=== PATIENT | female | born 1955 | race Caucasian/White ===

== ENCOUNTER 2019-07-06 10:35 | Inpatient (IN) | payer MEDICARE, MEDICAID, SELFPAY ==
--- NOTE | ~2019-07-06 | CT_ITS ---
EXAMINATION: CT abdomen pelvis w con DATE: 07/06/2019 14:40 INDICATION: Dysuria. Nausea and vomiting. Abdominal pain. TECHNIQUE: Computed tomography (CT) of the abdomen and pelvis was performed with 100 mL Omnipaque 350 intravenous contrast. Automated exposure control and iterative reconstruction technique were employe d. The dose-length product was 533.39 mGy-cm. COMPARISON: CT abdomen and pelvis 10/02/2016 FINDINGS: The visualized portions of the lung bases demonstrate mild atelectasis. There are a few sca ttered nodules in the lungs measuring up to 5 mm, new from 10/02/2016. No pleural effusion. There is l eft atrial enlargement of the heart. There are coronary artery calcifications. There is a small peric ardial effusion, stable from 10/02/2016. The liver demonstrates surface nodularity, consistent with ci rrhosis. There are changes of cholecystectomy. The spleen is normal in size. The pancreas and adrenal glands are normal. There is cortical thinning of the kidneys. There is an 11 mm cyst in right kidney . There is diverticulosis of the colon without evidence of diverticulitis. There are no dilated loops of bowel. The appendix is normal. There is calcified atherosclerosis of the aorta and many of the ot her arteries. There are no pathologically enlarged lymph nodes. There is no free intraperitoneal flui d. There is mild thoracolumbar spondylosis. There are old healed bilateral rib fractures. IMPRESSION: 1. New small pulmonary nodules, most likely infection. 2. Cirrhosis of the liver. 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
--- NOTE | ~2019-07-06 | XR_ITS ---
EXAMINATION: XR chest 2V EXAM DATE: 07/06/2019 13:41 INDICATION: Shortness of breath, nausea and vomiting. TECHNIQUE: Frontal and lateral projections of the chest obtained and reviewed. Comparison is made to prior examination from 04/28/2018. FINDINGS: The lungs are clear. There are no pleural effusions. The cardiomediastinal silhouette is within normal limits. There is no pneumothorax suspected. There is old right mid clavicular fractur e. IMPRESSION: No acute cardiopulmonary findings. 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
[2019-07-06 10:52] VITALS: BP 138/75; PULSE 73; RESP 18; TEMP 35.8; O2SAT 100
[2019-07-06 12:49] LABS: Add Urine Microscopic? YES; Appearance Urine Turbid (Clear); Bacteria Urine 4+ /hpf; Bilirubin Urine Negative (Negative); Blood Urine Negative (Negative); Budding Yeast Urine Present /hpf; Color Urine Yellow (Yellow); Glucose Urine UA Negative (Negative); Ketones Urine Negative (Negative); Leukocyte Esterase Ur 3+ LEU/UL (Negative); Nitrate Urine Negative (Negative); Protein Urine 2+ mg/dL (Negative); RBC Urine 21-50 /hpf (0-2); Specific Grav Ur 1.017 (1.001-1.035); Squamous Epithelial Cell Urine Moderate /hpf (Few); Urobilinogen Urine Negative mg/dL (<2.0); WBC Clumps Urine Present /HPF; WBC Urine >75
[2019-07-06] MEDS: IPRATROPIUM BR 0.02% INH SOLN 0.5 MG/2.5 ML VIAL INHALATION (13:18)
[2019-07-06] MEDS: ALBUTEROL SULFATE NEB 2.5 MG/0.5 ML INH 5 MG INHALATION (13:18)
[2019-07-06 13:22] VITALS: PULSE 71; RESP 16
[2019-07-06 13:44] LABS: Basophils Absolute Auto 0.1 K/mm3 (0.0-0.1); Basophils Percent Auto 0.7 % (0.2-1.2); Eosinophils Absolute Auto 0.1 K/mm3 (0-0.3); Eosinophils Percent Auto 0.5 % (0-4.4); Hematocrit 31.1 % (37.0-47.0); Hemoglobin 9.7 g/dL (12.0-15.0); Immature Granulocyte Absolute 0.05 K/mm3 (0.00-0.031); Immature Granulocyte Percent A 0.4 % (0-0.5); Lymphocytes Absolute Auto 2.39 K/mm3 (0.9-3.2); Lymphocytes Percent Auto 18.4 % (18.3-44.2); Mean Corpuscular HGB Conc 31.2 g/dl (32-36); Mean Corpuscular Hemoglobin 22.9 pg (26-34); Mean Corpuscular Volume 73.5 fl (80-100); Mean Platelet Volume 11.1 fl (7.4-10.4); Monocytes Absolute Auto 0.6 K/mm3 (0.1-0.6); Monocytes Percent Auto 4.7 % (2.6-8.5); Neutrophils Absolute Auto 9.8 K/mm3 (1.3-6.7); Neutrophils Percent Auto 75.3 % (45.5-73.1); Platelet Count Result 463 k/mm3 (150-375); Red Blood Count 4.23 M/mm3 (4.2-5.4); Red Cell Distribution Width 19.9 % (11.5-14.5)
[2019-07-06 13:57] LABS: INR 1.1; Prothrombin Time 13.9 Seconds (11.1-14.7)
[2019-07-06] MEDS: SODIUM CHLORIDE 0.9% IV 1,000 ML 150 ML IV CONT (13:57)
[2019-07-06] MEDS: ONDANSETRON INJ 4 MG/2 ML VIAL IV PUSH (13:57)
[2019-07-06 14:15] LABS: Lactic Acid Reflex 1.4 mmol/L (0.7-2.1)
[2019-07-06 14:16] LABS: Alanine Aminotransferase 15 U/L (4-35); Alkaline Phosphatase 73 U/L (38-126); Aspartate Amino Transferase 65 U/L (14-36); Bilirubin,Total 0.2 mg/dL (0.2-1.3); Blood Urea Nitrogen 18 mg/dL (7-17); Calcium 9.4 mg/dL (8.4-10.2); Carbon Dioxide 26 mmol/L (22-30); Chloride 103 mmol/L (98-107); Estimated CRCL calculation 46 ml/min; Estimated Glomerular Filt Rate 55; Glucose 106 mg/dL (65-105); Lipase 117 U/L (23-300); Potassium 3.5 mmol/L (3.4-5.0); Sodium 138 mmol/L (137-145)
[2019-07-06 14:24] LABS: NT Pro B Type Natriuretic Pept 1450 PG/ML (5-100)
--- NOTE | 2019-07-06 15:43 | ED.ABDPAIN ---
HPI - Abdominal Pain General Chief Complaint: Urogenital-Female <Rebekah Ramos PA-C - Last Filed: 07/06/19 18:03> Stated Complaint: dysuria <Rebekah Ramos PA-C - Last Filed: 07/06/19 18:03> Time Seen by Provider: 07/06/19 11:48 <Rebekah Ramos PA-C - Last Filed: 07/06/19 18:03> Source: patient <Rebekah Ramos PA-C - Last Filed: 07/06/19 18:03> Mode of arrival: ambulatory <ROSALIE Menendez Last Filed: 07/06/19 18:03> Limitations: no limitations <Rebekah Ramos PA-C - Last Filed: 07/06/19 18:03> History of Present Illness HPI narrative: This is a 64 year old female that presents to the ER for dysuria x 3 days. Reports nausea and vomiting as well. Reports for the last week she has had diarrhea. Also reports cough, congestion and shortness of breath. Denies fever, chest pain, hematuria or hematochezia. <Rebekah Ramos PA-C - Last Filed: 07/06/19 18:03> Related Data Home Medications: Home Medications Medication Instructions Recorded Confirmed budesonide-formoterol [Symbicort] 2 puff INHALATION BID 07/05/19 fenofibrate 160 mg PO DAILY 07/05/19 levetiracetam 500 mg PO BID 07/05/19 levothyroxine 75 mcg PO DAILY 07/05/19 metformin 500 mg PO TID 07/05/19 pantoprazole 40 mg PO DAILY 07/05/19 quetiapine 400 mg PO HS 07/05/19 roflumilast [Daliresp] 500 mcg PO DAILY 07/05/19 rosuvastatin 40 mg PO DAILY 07/05/19 spironolactone 25 mg PO DAILY 07/05/19 ticagrelor [Brilinta] 90 mg PO BID 07/05/19 tiotropium bromide [Spiriva with 1 cap INHALATION DAILY 07/05/19 HandiHaler] insulin glargine [Lantus Solostar 65 unit SUBCUT DAILY 07/06/19 07/06/19 U-100 Insulin] nitroglycerin 0.4 mg SUBLINGUAL Q5M PRN 07/06/19 07/06/19 <Rebekah Ramos PA-C - Last Filed: 07/06/19 18:03> Allergies/Adverse Reactions: Allergies Allergy/AdvReac Type Severity Reaction Status Date / Time levofloxacin Allergy Severe Swelling Verified 07/05/19 16:37 of Lip/Tongue/Throat Penicillins Allergy Unknown Swelling Verified 07/05/19 16:37 tetracycline Allergy Unknown Swelling Verified 07/05/19 16:37 Tetracyclines Allergy Unknown Swelling Verified 07/05/19 16:37 <Rebekah Ramos PA-C - Last Filed: 07/06/19 18:03> Review of Systems Review of Systems: Narrative: CONSTITUTIONAL: Denies fever ENT: Reports rhinorrhea, congestion CARDIOVASCULAR: Denies chest pain, or edema. RESPIRATORY: Reports cough and dyspnea. GASTROINTESTINAL: Reports abdominal pain, nausea, vomiting, and diarrhea. GENITOURINARY: Reports dysuria. Denies hematuria. MUSCULOSKELETAL: Reports back pain <Rebekah Ramos PA-C - Last Filed: 07/06/19 18:03> All systems reviewed & are unremarkable except as noted in HPI and below <Rebekah Ramos PA-C - Last Filed: 07/06/19 18:03> [facility] Past Medical History Medical History: Medical History (Updated 07/06/19 @ 18:03 by Rebekah Ramos PA-C) CAD (coronary artery disease) (Acute) CHF (congestive heart failure) (Acute) COPD (chronic obstructive pulmonary disease) (Acute) Diabetes (Acute) Dyslipidemia (Acute) GERD (gastroesophageal reflux disease) (Acute) Hypertension (Acute) Hypothyroidism (Acute) Sleep apnea (Acute) <Rebekah Ramos PA-C - Last Filed: 07/06/19 18:03> Surgical History Surgical History: Surgical History (Updated 07/06/19 @ 16:01 by Rebekah Ramos PA-C) H/O cardiac catheterization (Acute) H/O thyroidectomy (Acute) History of cholecystectomy (Acute) History of hysterectomy (Acute) <Rebekah Ramos PA-C - Last Filed: 07/06/19 18:03> Family History Family History: Family History (Updated 07/06/19 @ 18:56 by Cheryl Marin RN) Mother Family history of heart disease in male family member before age 55 Family history of cardiovascular disease Diabetes mellitus Hypertension Sibling Family history of heart disease in male family member before age 55 Acute myocardial infarction Diabetes mellitus
[2019-07-06 16:29] VITALS: BP 141/42; PULSE 77; RESP 18; TEMP 37.3; O2SAT 99
[2019-07-06 16:50] LABS: Hematocrit 27.4 % (37.0-47.0); Hemoglobin 8.5 g/dL (12.0-15.0)
--- NOTE | 2019-07-06 18:06 | ADMGEN ---
This patient, Raissa Gibbons, was admitted to Medical Room 342-01. Patient arrived to unit per wheelchair at 1806. Patient/family oriented to hospital policies and general routines including ID bracelet, bed and alarms, visiting hours, pain management, procedures, bathroom and other care routines, personal items, smoking policy, room service/diet, and visiting hours. Valuables list has been completed. Information on how to activate the Rapid Response Team has been discussed. Patient/Family are encouraged to report perceived risks to care and to ask questions if they do not understand what they are told or what they should do.
[2019-07-06 21:00] VITALS: PULSE 69; RESP 16; O2SAT 98
[2019-07-06 21:23] VITALS: BP 138/60; PULSE 69; RESP 16; TEMP 36.6; O2SAT 98
[2019-07-06 21:40] LABS: Hematocrit 27.4 % (37.0-47.0); Hemoglobin 8.3 g/dL (12.0-15.0); Immature Reticulocyte Fraction 25.7 % (3.0-15.9); Reticulocyte Hemoglobin Conten 24.1 pg (28.2-35.7); Reticulocytes Absolute 0.07 B/L (32.2-175.7)
[2019-07-06 21:50] LABS: Lactate Dehydrogenase 460 U/L (313-618)
[2019-07-06 21:58] LABS: Transferrin 322 mg/dL (206-381)
[2019-07-06 22:03] LABS: Bilirubin,Total < 0.1 mg/dL (0.2-1.3)
[2019-07-06 22:09] LABS: Iron 26 ug/dL (37-170)
[2019-07-06 22:19] LABS: Percent Iron Saturation 6 % (20-50)
[2019-07-06 22:41] LABS: Thyroid Stimulating Hormone Reflex 0.771 uIU/mL (0.465-4.68)
[2019-07-06 22:58] LABS: Folic Acid 9.8 ng/mL (2.76->20)
[2019-07-07] VITALS (14 sets, daily range): BP systolic 133–159; BP diastolic 43–59; PULSE 60–75; RESP 16–22; TEMP 36.3–36.4; O2SAT 96–98
[2019-07-07 02:32] LABS: Glucose Point of Care 100 (65-105)
--- NOTE | 2019-07-07 05:02 | PM.IMHP ---
H&P: HPI History of Present Illness Chief complaint: Burning with urination Narrative: Raissa Gibbons is a 64 year old female with a past medical history of COPD, chronic tobacco use, hypertension, hypothyroidism, and prior urinary tract infections who presented to the ER with dysuria and concerned that she may be dehydrated. The patient stated that she suspected she was probably dehydrated because she has been having intermittent nausea and vomiting and diarrhea for the last week. She states that is she has had significant postnasal drip, green nasal discharge, and frequent coughing. She states when she has significant mucus production she usually does get some nausea vomiting and loose stools. She denies any hematochezia or melena. After several days of nausea and vomiting the patient then noticed dark, strong smelling urine, with some dysuria and floating material. She has noticed intermittent fever for the last 3 days with a patient reported measured temperature of a 103?. She denies any recent ill contacts. She denies any hematochezia or melena. She has had decreased oral intake and decreased appetite. She reports that her respiratory symptoms have improved over the last several days. She has been using her nebulizer treatments at home 3 to 4 times a day with some relief of her respiratory symptoms. She denies any sore throat. She does have GERD symptoms multiple times a day. She is on Protonix at home. She reports that she had an EGD sometime around when she had her gallbladder taken out in 2012 and has been started on treatment at that time. Despite being on the Protonix she has increased reflux symptoms with supine position, she has chronic sour taste in her mouth, she reports discomfort several times a day from reflux. She denies any chest pain. She denies any increased shortness of breath. She has being feeling lightheaded with position changes for the last couple of days. She has had increased urinary urgency and frequency with dribbling. She has noticed increased cramping in her feet and legs. She denies any swelling of her lower extremities. She denies any abdominal pain. She does have chronic nasal stuffiness that is usually improved with Flonase. Review of Systems Review of Systems: Narrative: Except as documented in the HPI, all other systems were reviewed and are negative. [facility] Past Medical History Medical History (Updated 07/07/19 @ 08:53 by Radha Guillen DO) CAD (coronary artery disease) (Acute) Cirrhosis (Acute) COPD (chronic obstructive pulmonary disease) (Acute) Diabetes (Acute) Diastolic heart failure (Acute) Dyslipidemia (Acute) GERD (gastroesophageal reflux disease) (Acute) Hypertension (Acute) Hypertriglyceridemia (Acute) Hypothyroidism (Acute) Post-menopausal osteoporosis (Acute) Sleep apnea (Acute) Tobacco abuse disorder (Chronic) Surgical History Surgical History (Updated 07/07/19 @ 05:12 by Radha Guillen DO) H/O cardiac catheterization (Acute) H/O thyroidectomy (Acute) History of cholecystectomy (Acute) History of hysterectomy for cancer (Acute) Family History Family History (Updated 07/07/19 @ 05:14 by Radha Guillen DO) Mother Family history of heart disease in male family member before age 55 Family history of cardiovascular disease Diabetes mellitus Hypertension Sibling Family history of heart disease in male family member before age 55 Acute myocardial infarction Diabetes mellitus Hypertension Social History Social History (Updated 07/07/19 @ 08:42 by Radha Guillen DO) Social History: The patient lives in her own home with a roommate. She has a small dog and a large cat. She continues to smoke a pack of cigarettes per day and has done so since she was 16 years old. She denies any illicit substance use. She denies ever drinking alcohol. Code status is full code. Family history: Mother with uterine cancer diabetes and CT and is still alive in her 80
[2019-07-07 05:32] LABS: Basophils Absolute Auto 0.1 K/mm3 (0.0-0.1); Basophils Percent Auto 0.8 % (0.2-1.2); Eosinophils Absolute Auto 0.2 K/mm3 (0-0.3); Eosinophils Percent Auto 1.6 % (0-4.4); Hematocrit 27.9 % (37.0-47.0); Hemoglobin 8.4 g/dL (12.0-15.0); Immature Granulocyte Absolute 0.02 K/mm3 (0.00-0.031); Immature Granulocyte Percent A 0.2 % (0-0.5); Lymphocytes Absolute Auto 2.77 K/mm3 (0.9-3.2); Lymphocytes Percent Auto 29.1 % (18.3-44.2); Mean Corpuscular HGB Conc 30.1 g/dl (32-36); Mean Corpuscular Hemoglobin 22.8 pg (26-34); Mean Corpuscular Volume 75.6 fl (80-100); Mean Platelet Volume 10.9 fl (7.4-10.4); Monocytes Absolute Auto 0.6 K/mm3 (0.1-0.6); Monocytes Percent Auto 6.4 % (2.6-8.5); Neutrophils Absolute Auto 5.9 K/mm3 (1.3-6.7); Neutrophils Percent Auto 61.9 % (45.5-73.1); Platelet Count Result 360 k/mm3 (150-375); Red Blood Count 3.69 M/mm3 (4.2-5.4); Red Cell Distribution Width 19.8 % (11.5-14.5); White Blood Count 9.5 K/mm3 (4.5-10.0)
[2019-07-07 05:47] LABS: Blood Urea Nitrogen 16 mg/dL (7-17); Calcium 8.7 mg/dL (8.4-10.2); Carbon Dioxide 27 mmol/L (22-30); Chloride 103 mmol/L (98-107); Estimated CRCL calculation 46 ml/min; Estimated Glomerular Filt Rate 55; Glucose 86 mg/dL (65-105); Magnesium 2.3 mg/dL (1.6-2.3); Potassium 3.7 mmol/L (3.4-5.0); Sodium 138 mmol/L (137-145)
[2019-07-07] MEDS: SODIUM CHLORIDE 0.9% IV 250 ML 100 ML IV CONT (06:41)
[2019-07-07] MEDS: LEVOTHYROXINE SODIUM 75 MCG TABLET PO (06:42)
[2019-07-07 07:01] LABS: Glucose Point of Care 88 (65-105)
[2019-07-07] MEDS: IRON SUCROSE COMPLEX 500 MG in SODIUM CHLORIDE 0.9% IV 250 ML 78.6 MG IVPB (09:37)
[2019-07-07] MEDS: FENOFIBRATE 160 MG TABLET PO (09:37)
[2019-07-07] MEDS: ROFLUMILAST 500 MCG TABLET PO (09:38)
[2019-07-07] MEDS: levETIRAcetam 500 MG TABLET PO ×2 (09:38→17:08)
[2019-07-07] MEDS: PANTOPRAZOLE SODIUM IV 40 MG VIAL IV PUSH ×2 (09:38→17:08)
[2019-07-07] MEDS: ROSUVASTATIN 10 MG TABLET 40 MG PO (09:38)
[2019-07-07] MEDS: SODIUM CHLORIDE 0.9% IV 1,000 ML 100 ML IV CONT ×2 (09:40→20:49)
[2019-07-07] MEDS: INSULIN GLARGINE (*BKC) 100 UNITS/ML 65 UNITS SUB-Q (09:49)
[2019-07-07] MEDS: IPRATROPIUM BR 0.02% INH SOLN 0.5 MG/2.5 ML VIAL INHALATION ×3 (09:52→20:46)
[2019-07-07] MEDS: ALBUTEROL SULFATE NEB 2.5 MG/0.5 ML INH 5 MG INHALATION (09:52)
[2019-07-07 11:16] LABS: Hematocrit 28.5 % (37.0-47.0); Hemoglobin 8.6 g/dL (12.0-15.0)
[2019-07-07 12:00] LABS: Glucose Point of Care 144 (65-105)
--- NOTE | 2019-07-07 13:14 | PM.IMPN ---
Progress Note: A&P Assessment and Plan (1) Anemia: Qualifiers: Anemia type: other cause Other causes of anemia: acute posthemorrhagic Qualified Code(s): D62 - Acute posthemorrhagic anemia Code(s): D64.9 - Anemia, unspecified Status: Acute Assessment and Plan: Iron deficiency anemia likely secondary to occult GI losses. Given the patient's history of upper GI sources likely. Will start the patient on IV Protonix b.i.d.. Gastroenterology is consulted. pt has history of esophagitis and liver cirrhois, venofer continue to monitor hb (2) Bacteriuria with pyuria: Code(s): R82.71 - Bacteriuria; R82.81 - Pyuria Status: Acute Assessment and Plan: Concerning for possible urinary tract infection. Placed on antibiotic therapy with Rocephin (3) GERD (gastroesophageal reflux disease): Qualifiers: Esophagitis presence: esophagitis presence not specified Qualified Code(s): K21.9 - Gastro-esophageal reflux disease without esophagitis Code(s): K21.9 - Gastro-esophageal reflux disease without esophagitis Status: Acute Assessment and Plan: B.i.d. IV Protonix. (4) Cirrhosis: Code(s): K74.60 - Unspecified cirrhosis of liver Status: Acute Assessment and Plan: CT evidence of cirrhosis. unknown cause (5) Tobacco abuse disorder: Code(s): Z72.0 - Tobacco use Status: Chronic Assessment and Plan: smoking cessation discussed with patient (6) COPD (chronic obstructive pulmonary disease): Code(s): J44.9 - Chronic obstructive pulmonary disease, unspecified Status: Acute Assessment and Plan: no resp compliants. Will continue the patient's home Symbicort. Subjective Interval history: 64 year old female with a past medical history of COPD, chronic tobacco use, hypertension, hypothyroidism, and prior urinary tract infections who presented to the ER with dysuria and concerned that she may be dehydrated. Pt has history of esophagitis and cirrhois ? rectal bleed pt receiving venofer today and fluids Review of Systems Review of Systems: All systems reviewed & are unremarkable except as noted in HPI and below Gastrointestinal: Comments: rectal bleeds Exam Const: Other: PHYSICAL EXAM: WEIGHT weight 72.6 kg BMI 29.3 General: middle aged overweight Neck: No JVD Respiratory: clear Cardiovascular: Regular rate, normal S1-S2, 2+ pulses bilateral radial and pedal no lower extremity edema Gastrointestinal: Soft, nontender, nondistended, positive bowel sounds Skin: No jaundice, no pallor, normal temperature Extremities: No cyanosis or edema, moves all extremities equally Neurological: Alert and oriented, speech is clear, cranial nerves 2-12 appear to be grossly intact Psychiatric: Loquacious, cooperative, appropriate mood, insight appropriate Objective Data Vital Signs Vital Signs: Vital Signs - 24 hr 07/06/19 13:22 07/06/19 16:29 07/06/19 21:00 Temperature 37.3 C Pulse Rate 71 77 69 Respiratory Rate 16 18 16 Blood Pressure 141/42 H Pulse Oximetry 99 98 07/06/19 21:23 07/07/19 05:32 07/07/19 08:00 Temperature 36.6 C 36.4 C Pulse Rate 69 60 68 Respiratory Rate 16 16 18 Blood Pressure 138/60 141/59 H Pulse Oximetry 98 98 98 07/07/19 09:53 07/07/19 10:01 Temperature Pulse Rate 65 68 Respiratory Rate 18 18 Blood Pressure Pulse Oximetry Intake/Output Intake/Output: Intake & Output 07/04/19 07/05/19 07/06/19 07/07/19 23:59 23:59 23:59 23:59 Intake Total 1630 1502 Output Total 650 Balance 1630 852 Meds/Results Medications: Active Medications Generic Name Dose Route Start Last Admin Trade Name Freq PRN Reason Stop Dose Admin Albuterol 5 mg 07/07/19 08:00 07/07/19 09:52 Albuterol Sulfate Neb INHALATION 5 mg Q6HRT KRISTIE Administration Budesonide/Formoterol Fumarate 2 puff 07/07/19 08:00 07/07/19 09:52 Symbicort 160-4.5 Mcg (*Sp) Inh
--- NOTE | 2019-07-07 14:14 | WPDGICN ---
Assessment and Plan Assessment and plan (1) Iron deficiency anemia: Qualifiers: Iron deficiency anemia type: other iron deficiency Qualified Code(s): D50.8 - Other iron deficiency anemias Code(s): D50.9 - Iron deficiency anemia, unspecified Status: Acute Assessment and Plan: will proceed with EGD and colonoscopy Tuesday to see if GI blood loss (2) Cirrhosis: Qualifiers: Ascites presence: without ascites Hepatic cirrhosis type: unspecified hepatic cirrhosis Qualified Code(s): K74.60 - Unspecified cirrhosis of liver Code(s): K74.60 - Unspecified cirrhosis of liver Status: Acute Assessment and Plan: she is aware of diagnosis, has not seen GI doctor. ? WILLSON (history of DM). Will get hepatitis panel. Normal INR and platelets. (3) Urinary tract infection: Qualifiers: Hematuria presence: with hematuria Urinary tract infection type: acute cystitis Qualified Code(s): N30.01 - Acute cystitis with hematuria Code(s): N39.0 - Urinary tract infection, site not specified Status: Acute Assessment and Plan: on iv antibiotics (4) COPD (chronic obstructive pulmonary disease): Code(s): J44.9 - Chronic obstructive pulmonary disease, unspecified Status: Acute (5) Diarrhea: Qualifiers: Diarrhea type: unspecified type Qualified Code(s): R19.7 - Diarrhea, unspecified Code(s): R19.7 - Diarrhea, unspecified Status: Acute (6) Nausea and vomiting in adult: Code(s): R11.2 - Nausea with vomiting, unspecified Status: Acute Assessment and Plan: she says that diarrhea and nausea better with medical treatment. Consult date/time: 07/07/19 14:14 Reason for consult: BETHANY, N/V, diarrhea HPI: Raissa Gibbons is a 64 year old female with past medical history of COPD, smoker, cirrhosis (she was told about it 5 years ago), DM, hypertension, GERD on antacids and prior urinary tract infections. She came to ER because almost 2 weeks of intermittent nausea with vomiting and diarrhea (greenish)- denies any bleeding. Last few days also with fever up to 102F and dysuria. She has had decreased oral intake and decreased appetite. WBC 13.5 on admission, started on iv abx for UTI. Also found to have BETHANY with hb 8.5, microcytic. Patient denies any overt GIB, she says that had EGD/colonoscopy about 2-[address] scan showed cirrhosis, no ascites. Normal platelets and INR. Denies etoh use or hepatitis. Review of Systems Constitutional: Constitutional: Reports chills, Reports fever(s) and Reports malaise Eyes: Eyes: Denies blurry vision ENT: Reports hearing normal, Denies headache(s) and Denies neck pain Cardiovascular: Cardiovascular: Denies chest pain and Denies dyspnea Respiratory: Respiratory: Reports cough Gastrointestinal: Gastrointestinal: Denies melena, Denies hematochezia, Denies coffee ground emesis, Reports diarrhea, Reports loose stools, Reports nausea and Reports vomiting Genitourinary: Genitourinary: Reports dysuria and Reports flank pain Musculoskeletal: Musculoskeletal: Denies neck pain Integumentary/Breasts: Skin/Breast: Denies dry skin Neurologic: Reports Normal hearing present and Denies headache(s) Psychiatric: Psychiatric: Denies anxiety Endocrine: Endocrine: Denies change in body appearance Hematologic/Lymphatic: Hematologic/Lymphatic: Denies easy bleeding Allergic/Immunologic: Allergic/Immunologic: Denies urticaria [facility] Past Medical History Medical History (Updated 07/07/19 @ 14:26 by Sharan Schultz MD) CAD (coronary artery disease) (Acute) Cirrhosis (Acute) COPD (chronic obstructive pulmonary disease) (Acute) Diabetes (Acute) Diarrhea (Acute) Diastolic heart failure (Acute) Dyslipidemia (Acute) GERD (gastroesophageal reflux disease) (Acute) Hypertension (Acute) Hypertriglyceridemia (Acute) Hypothyroidism (Acute) Iron deficiency anemia (Acute) Nausea and vom
[2019-07-07 18:45] LABS: Glucose Point of Care 116 (65-105)
[2019-07-07] MEDS: CALCIUM CARBONATE (TUMS) 500 MG (200 MG ELEMENTAL) PO (20:48)
[2019-07-07] MEDS: QUEtiapine FUMARATE XR 200 MG TAB.ER.24H 400 MG PO (20:49)
[2019-07-07 21:53] LABS: Glucose Point of Care 164 (65-105)
[2019-07-08] VITALS (14 sets, daily range): BP systolic 118–141; BP diastolic 39–81; PULSE 65–88; RESP 16–24; TEMP 36.1–36.8; O2SAT 97–100
[2019-07-08] MEDS: IPRATROPIUM BR 0.02% INH SOLN 0.5 MG/2.5 ML VIAL INHALATION ×4 (02:08→22:07)
[2019-07-08] MEDS: SODIUM CHLORIDE 0.9% IV 1,000 ML 100 ML IV CONT (05:10)
[2019-07-08] MEDS: LEVOTHYROXINE SODIUM 75 MCG TABLET PO (05:11)
[2019-07-08 06:05] LABS: Hematocrit 26.8 % (37.0-47.0); Hemoglobin 7.8 g/dL (12.0-15.0)
[2019-07-08] MEDS: ACETAMINOPHEN 325 MG TABLET 650 MG PO ×3 (06:06→22:18)
[2019-07-08 06:51] LABS: Hepatitis B Surface Antigen Negative (Negative)
[2019-07-08 06:56] LABS: HAV RESULT Negative (Negative); Hepatitis B Core IgM Result Negative (Negative)
[2019-07-08 07:08] LABS: Hepatitis C Virus Antibody Negative (Negative)
[2019-07-08 07:24] LABS: Glucose Point of Care 84 (65-105)
[2019-07-08] MEDS: PANTOPRAZOLE SODIUM IV 40 MG VIAL IV PUSH ×2 (09:06→16:29)
[2019-07-08] MEDS: levETIRAcetam 500 MG TABLET PO ×2 (09:06→16:29)
[2019-07-08] MEDS: FENOFIBRATE 160 MG TABLET PO (09:06)
[2019-07-08] MEDS: ROFLUMILAST 500 MCG TABLET PO (09:06)
[2019-07-08] MEDS: ROSUVASTATIN 10 MG TABLET 40 MG PO (10:48)
[2019-07-08 12:25] LABS: Glucose Point of Care 104 (65-105)
--- NOTE | 2019-07-08 12:48 | PM.IMPN ---
Progress Note: A&P Assessment and Plan (1) Anemia: Qualifiers: Anemia type: other cause Other causes of anemia: acute posthemorrhagic Qualified Code(s): D62 - Acute posthemorrhagic anemia Code(s): D64.9 - Anemia, unspecified Status: Acute Assessment and Plan: Iron deficiency anemia likely secondary to occult GI losses. patient on IV Protonix b.i.d.. Gastroenterology is consulted. pt has history of esophagitis and liver cirrhois, hb is 7.8 after venofer continue to monitor hb, for EGD tomorrow (2) Bacteriuria with pyuria: Code(s): R82.71 - Bacteriuria; R82.81 - Pyuria Status: Acute Assessment and Plan: ?UTI, pt on antibiotic therapy with Rocephin (3) GERD (gastroesophageal reflux disease): Qualifiers: Esophagitis presence: esophagitis presence not specified Qualified Code(s): K21.9 - Gastro-esophageal reflux disease without esophagitis Code(s): K21.9 - Gastro-esophageal reflux disease without esophagitis Status: Acute Assessment and Plan: B.i.d. IV Protonix. (4) Cirrhosis: Qualifiers: Hepatic cirrhosis type: unspecified hepatic cirrhosis Ascites presence: without ascites Qualified Code(s): K74.60 - Unspecified cirrhosis of liver Code(s): K74.60 - Unspecified cirrhosis of liver Status: Acute Assessment and Plan: CT evidence of cirrhosis. ? cause (5) Tobacco abuse disorder: Code(s): Z72.0 - Tobacco use Status: Chronic Assessment and Plan: Smoking cessation discussed with patient (6) COPD (chronic obstructive pulmonary disease): Code(s): J44.9 - Chronic obstructive pulmonary disease, unspecified Status: Acute Assessment and Plan: Stable lungs Will continue the patient's home Symbicort. Subjective Interval history: 64 year old female with a past medical history of COPD, chronic tobacco use, hypertension, hypothyroidism, and prior urinary tract infections who presented to the ER with dysuria and concerned that she may be dehydrated. Pt has history of esophagitis and cirrhois ? rectal bleed sp venofer yesterday, hb is 7.8 awaiting EGD tomorrow Review of Systems Review of Systems: All systems reviewed & are unremarkable except as noted in HPI and below Exam Narrative: Exam Narrative: PHYSICAL EXAM: WEIGHT weight 72.6 kg BMI 29.3 General: middle aged overweight Neck: No JVD Respiratory: clear Cardiovascular: Regular rate, normal S1-S2, 2+ pulses bilateral radial and pedal no lower extremity edema Gastrointestinal: Soft, nontender, nondistended, positive bowel sounds, no liver edge felt Skin: No jaundice, no pallor, normal temperature Extremities: No cyanosis or edema, moves all extremities equally Neurological: Alert and oriented, speech is clear, cranial nerves 2-12 appear to be grossly intact Psychiatric: Calm pleasant Objective Data Vital Signs Vital Signs: Vital Signs - 24 hr 07/07/19 14:00 07/07/19 14:57 07/07/19 15:04 Temperature 36.3 C L Pulse Rate 70 68 67 Respiratory Rate 22 H 18 18 Blood Pressure 151/59 H Pulse Oximetry 98 07/07/19 20:00 07/07/19 20:40 07/07/19 20:50 Temperature Pulse Rate 73 75 74 Respiratory Rate 18 18 Blood Pressure 139/49 L Pulse Oximetry 07/07/19 20:55 07/07/19 21:02 07/07/19 21:05 Temperature Pulse Rate 72 70 71 Respiratory Rate 18 Blood Pressure 159/50 H 133/43 L Pulse Oximetry 96 07/07/19 21:10 07/08/19 02:00 07/08/19 02:10 Temperature Pulse Rate 70 72 72 Respiratory Rate 18 18 18 Blood Pressure 159/50 H Pulse Oximetry 96 07/08/19 05:15 07/08/19 09:35 07/08/19 09:41 Temperature 36.8 C Pulse Rate 73 65 68 Respiratory Rate 18 16 18 Blood Pressure 131/39 L Pulse Oximetry 97 Intake/Output Intake/Output: Intake & Output 07/05/19 07/06/19 07/07/19 07/08/19 23:59 23:59 23:59 23:59 Intake Total 1630 5310 852 Output Total 2450 2450 B
--- NOTE | 2019-07-08 14:21 | WPDGIPROGNO ---
Progress Note: A&P Assessment and Plan (1) Iron deficiency anemia: Qualifiers: Iron deficiency anemia type: other iron deficiency Qualified Code(s): D50.8 - Other iron deficiency anemias Code(s): D50.9 - Iron deficiency anemia, unspecified Status: Acute Assessment and Plan: hb dropped, no overt gib but she came in with n/v, diarrhea. Overall better. EGD and colonoscopy tomorrow (2) Nausea and vomiting in adult: Code(s): R11.2 - Nausea with vomiting, unspecified Status: Acute Assessment and Plan: improved, eating more. NPO after midnight for scopes (3) Diarrhea: Qualifiers: Diarrhea type: unspecified type Qualified Code(s): R19.7 - Diarrhea, unspecified Code(s): R19.7 - Diarrhea, unspecified Status: Acute (4) Cirrhosis: Qualifiers: Hepatic cirrhosis type: unspecified hepatic cirrhosis Ascites presence: without ascites Qualified Code(s): K74.60 - Unspecified cirrhosis of liver Code(s): K74.60 - Unspecified cirrhosis of liver Status: Acute Assessment and Plan: known diagnosis, hepatitis panel negative. (5) Urinary tract infection: Qualifiers: Hematuria presence: with hematuria Urinary tract infection type: acute cystitis Qualified Code(s): N30.01 - Acute cystitis with hematuria Code(s): N39.0 - Urinary tract infection, site not specified Status: Acute Assessment and Plan: on iv rocephin, better Subjective Interval history: still with reflux but eating more, overall better. Also formed stool, denies melena. Review of Systems Constitutional: Constitutional: Reports fatigue, Reports fever(s) and Reports malaise Eyes: Eyes: Denies blurry vision ENT: Reports hearing normal, Denies headache(s) and Denies neck pain Cardiovascular: Cardiovascular: Denies chest pain and Denies dyspnea Respiratory: Respiratory: Reports cough Gastrointestinal: Gastrointestinal: Denies melena, Denies hematochezia, Denies coffee ground emesis and Reports loose stools Genitourinary: Genitourinary: Reports dysuria Musculoskeletal: Musculoskeletal: Denies neck pain Integumentary/Breasts: Skin/Breast: Denies dry skin Neurologic: Reports Normal hearing present and Denies headache(s) Psychiatric: Psychiatric: Denies anxiety Endocrine: Endocrine: Denies change in body appearance Hematologic/Lymphatic: Hematologic/Lymphatic: Denies easy bleeding Allergic/Immunologic: Allergic/Immunologic: Denies urticaria Exam Const: General: comfortable and no acute distress HENMT: General nose exam: nares normal Eyes: General: appearance normal, both eyes and all related structures Neck: Neck: no JVD Resp: Auscultation: clear to auscultation bilaterally Cardio: Rate: regular rate Rhythm: regular rhythm GI: Inspection: non-distended Palpation (GI): Yes soft Skin: General skin exam: normal color Neuro: General: gait normal Speech: normal speech Extrem: General: normal to inspection Psych: Mental Status: mental status grossly normal Objective Data Vital Signs Vital Signs: Vital Signs - 24 hr 07/07/19 14:57 07/07/19 15:04 07/07/19 20:00 Temperature Pulse Rate 68 67 73 Respiratory Rate 18 18 Blood Pressure 139/49 L Pulse Oximetry 07/07/19 20:40 07/07/19 20:50 07/07/19 20:55 Temperature Pulse Rate 75 74 72 Respiratory Rate 18 18 18 Blood Pressure Pulse Oximetry 96 07/07/19 21:02 07/07/19 21:05 07/07/19 21:10 Temperature Pulse Rate 70 71 70 Respiratory Rate 18 Blood Pressure 159/50 H 133/43 L 159/50 H Pulse Oximetry 96 07/08/19 02:00 07/08/19 02:10 07/08/19 05:15 Temperature 98.2 F Pulse Rate 72 72 73 Respiratory Rate 18 18 18 Blood Pressure 131/39 L Pulse Oximetry 97 07/08/19 09:35 07/08/19 09:41 07/08/19 14:01 Temperature Pulse Rate 65 68 86 Respiratory Rate 16 18 18 Blood Pressure Pulse Oximetry
--- NOTE | 2019-07-08 16:47 | PCOTNOTE ---
The patient treatment was not able to be completed on [07/08/2019]. Will plan to continue treatment per plan of care.
[2019-07-08 16:50] LABS: Glucose Point of Care 121 (65-105)
[2019-07-08] MEDS: BISACODYL 5 MG TABLET EC 20 MG PO (17:17)
[2019-07-08] MEDS: PEG (High)/E-LYTE SOLN 4,000 ML BTL 4000 ML PO (17:19)
[2019-07-08] MEDS: QUEtiapine FUMARATE XR 200 MG TAB.ER.24H 400 MG PO (20:25)
[2019-07-08] MEDS: INSULIN GLARGINE (*BKC) 100 UNITS/ML 65 UNITS SUB-Q (20:27)
[2019-07-08 20:42] LABS: Glucose Point of Care 91 (65-105)
[2019-07-09] VITALS (23 sets, daily range): BP systolic 115–168; BP diastolic 42–89; PULSE 67–83; RESP 16–27; TEMP 36.1–37.1; O2SAT 97–100; BMI 29.2
[2019-07-09] MEDS: IPRATROPIUM BR 0.02% INH SOLN 0.5 MG/2.5 ML VIAL INHALATION ×3 (02:01→19:25)
[2019-07-09] MEDS: MAGNESIUM CITRATE 300 ML BTL PO (05:49)
[2019-07-09] MEDS: LEVOTHYROXINE SODIUM 75 MCG TABLET PO (05:49)
[2019-07-09 06:15] LABS: Hemoglobin 7.1 g/dL (12.0-15.0); Mean Corpuscular HGB Conc 29.6 g/dl (32-36); Mean Corpuscular Hemoglobin 22.6 pg (26-34); Mean Corpuscular Volume 76.4 fl (80-100); Mean Platelet Volume 10.4 fl (7.4-10.4); Platelet Count Result 245 k/mm3 (150-375); Red Blood Count 3.14 M/mm3 (4.2-5.4); Red Cell Distribution Width 20.1 % (11.5-14.5); White Blood Count 6.8 K/mm3 (4.5-10.0)
[2019-07-09 06:40] LABS: Blood Urea Nitrogen 9 mg/dL (7-17); Calcium 8.6 mg/dL (8.4-10.2); Carbon Dioxide 23 mmol/L (22-30); Chloride 112 mmol/L (98-107); Estimated CRCL calculation 64 ml/min; Estimated Glomerular Filt Rate > 60; Glucose 51 mg/dL (65-105); Potassium 3.2 mmol/L (3.4-5.0); Sodium 144 mmol/L (137-145)
[2019-07-09 06:44] LABS: Glucose Point of Care 65 (65-105)
[2019-07-09] MEDS: GLUCOSE ORAL GEL 15 GM OF GLUCSE IN 37.5 GM TUBE PO (06:44)
[2019-07-09 07:16] LABS: Glucose Point of Care 91 (65-105)
[2019-07-09] MEDS: FENOFIBRATE 160 MG TABLET PO (08:25)
[2019-07-09] MEDS: PANTOPRAZOLE SODIUM IV 40 MG VIAL IV PUSH ×2 (08:25→17:19)
[2019-07-09] MEDS: levETIRAcetam 500 MG TABLET PO ×2 (08:25→17:19)
[2019-07-09] MEDS: ROSUVASTATIN 10 MG TABLET 40 MG PO (08:25)
[2019-07-09] MEDS: ROFLUMILAST 500 MCG TABLET PO (08:25)
[2019-07-09] MEDS: ACETAMINOPHEN 325 MG TABLET 650 MG PO ×2 (08:27→22:47)
[2019-07-09 10:29] LABS: Magnesium 2.5 mg/dL (1.6-2.3)
[2019-07-09 11:14] LABS: Glucose Point of Care 73 (65-105)
[2019-07-09 13:31] LABS: Glucose Point of Care 70 (65-105)
[2019-07-09] MEDS: DEXTROSE 50% 25 GM/50 ML SYRINGE IV PUSH (13:51)
[2019-07-09] MEDS: LACTATED RINGERS 1,000 ML 150 ML IV CONT (14:21)
--- NOTE | 2019-07-09 14:43 | WPDANESEPPF ---
Anes - Initial Pre Proc Eval Procedure: Operation Date: 07/09/19 15:30 Proposed Procedures p Esophagogastroduodenoscopy & Colonoscopy - Sharan Schultz MD Date/Time: 07/09/19 14:43 Surgeon: sejal Pre Op Diagnosis: occult gi bleed Patient Data Age: 64 Gender: F Height: 1.57 m Weight: 72.6 kg Last Vital Signs Temp 36.5 C 07/09/19 14:19 Pulse 67 07/09/19 14:19 Resp 18 07/09/19 14:19 BP 147/80 H 07/09/19 14:19 Pulse Ox 98 07/09/19 14:19 Allergies Allergy/AdvReac Type Severity Reaction Status Date / Time levofloxacin Allergy Severe Swelling Verified 07/05/19 16:37 of Lip/Tongue/Throat Penicillins Allergy Unknown Swelling Verified 07/05/19 16:37 tetracycline Allergy Unknown Swelling Verified 07/05/19 16:37 Tetracyclines Allergy Unknown Swelling Verified 07/05/19 16:37 Home Medications Medication Instructions Recorded Confirmed Type budesonide-formoterol [Symbicort] 2 puff INHALATION BID 07/05/19 07/06/19 History fenofibrate 160 mg PO DAILY 07/05/19 07/06/19 History levetiracetam 500 mg PO BID 07/05/19 07/06/19 History levothyroxine 75 mcg PO DAILY 07/05/19 07/06/19 History metformin 500 mg PO TID 07/05/19 07/06/19 History pantoprazole 40 mg PO DAILY 07/05/19 07/06/19 History quetiapine 400 mg PO HS 07/05/19 07/06/19 History roflumilast [Daliresp] 500 mcg PO DAILY 07/05/19 07/06/19 History rosuvastatin 40 mg PO DAILY 07/05/19 07/06/19 History spironolactone 25 mg PO DAILY 07/05/19 07/06/19 History ticagrelor [Brilinta] 90 mg PO BID 07/05/19 07/06/19 History tiotropium bromide [Spiriva with 1 cap INHALATION DAILY 07/05/19 07/06/19 History HandiHaler] furosemide 40 mg PO DAILY 07/06/19 07/06/19 History insulin glargine [Lantus Solostar 65 unit SUBCUT DAILY 07/06/19 07/06/19 History U-100 Insulin] nitroglycerin 0.4 mg SUBLINGUAL Q5M PRN 07/06/19 07/06/19 History Laboratory Tests 07/08/19 07/08/19 07/09/19 16:35 20:25 05:41 WBC 6.8 K/mm3 K/mm3 (4.5-10.0) RBC 3.14 M/mm3 L M/mm3 (4.2-5.4) Hgb 7.1 g/dL L g/dL (12.0-15.0) Hct 24.0 % L % (37.0-47.0) MCV 76.4 fl L fl (80-100) MCH 22.6 pg L pg (26-34) MCHC 29.6 g/dl L g/dl (32-36) RDW 20.1 % H % (11.5-14.5) Plt Count 245 k/mm3 k/mm3 (150-375) MPV 10.4 fl fl (7.4-10.4) Sodium Potassium Chloride Carbon Dioxide BUN Creatinine Estim Creat Clear Calc Estimated GFR Glucose POC Capillary Glucose 121 mg/dl mg/dl 91 mg/dl mg/dl (65-105) (65-105) Calcium Magnesium 07/09/19 07/09/19 07/09/19 05:41 06:43 06:59 WBC RBC Hgb Hct MCV MCH MCHC RDW Plt Count MPV Sodium 144 mmol/L mmol/L (137-145) Potassium 3.2 mmol/L L mmol/L (3.4-5.0) Chloride 112 mmol/L H mmol/L (98-107) Carbon Dioxide 23 mmol/L mmol/L (22-30) BUN 9 mg/dL D mg/dL (7-17) Creatinine 0.70 mg/dL mg/dL (0.7-1.0) Estim Creat Clear Calc 64 ml/min ml/min Estimated GFR > 60 (59 - ) Glucose 51 mg/dL L* mg/dL (65-105) POC Capillary Glucose 65 mg/dl mg/dl 91 mg/dl mg/dl (65-105) (65-105) Calcium 8.6 mg/dL mg/dL (8.4-10.2) Magnesium 07/09/19 07/09/19 07/09/19 10:03 11:10 13:29 WBC RBC Hgb Hct MCV MCH MCHC RDW Plt Count MPV Sodium Potassium Chloride Carbon Dioxide BUN Creatinine Estim Creat Clear Calc Estimated GFR
[2019-07-09] MEDS: BENZOCAINE (*SP) 60 ML SPRAY CAN (HURRICAINE) 1 SPRAY MUCOUS MEM (15:55)
--- NOTE | 2019-07-09 15:58 | PCOTNOTE ---
OT treatment attempted. Patient out for procedure, OT treatment not completed this date. Continue per POC.
[2019-07-09 16:29] LABS: Glucose Point of Care 74 (65-105)
--- NOTE | 2019-07-09 17:15 | PM.IMPN ---
Progress Note: A&P Assessment and Plan (1) Anemia: Qualifiers: Anemia type: other cause Other causes of anemia: acute posthemorrhagic Qualified Code(s): D62 - Acute posthemorrhagic anemia Code(s): D64.9 - Anemia, unspecified Status: Acute Assessment and Plan: Patient is a history of iron deficiency anemia patient was given Venofer seen by GI and scheduled for EGD and colonoscopy later today (2) Bacteriuria with pyuria: Code(s): R82.71 - Bacteriuria; R82.81 - Pyuria Status: Acute Assessment and Plan: Patient with dysuria urine culture is growing E coli sensitive to Rocephin will continue (3) GERD (gastroesophageal reflux disease): Qualifiers: Esophagitis presence: esophagitis presence not specified Qualified Code(s): K21.9 - Gastro-esophageal reflux disease without esophagitis Code(s): K21.9 - Gastro-esophageal reflux disease without esophagitis Status: Acute Assessment and Plan: B.i.d. IV Protonix. Seen by GI is scheduled for EGD today (4) Cirrhosis: Qualifiers: Hepatic cirrhosis type: unspecified hepatic cirrhosis Ascites presence: without ascites Qualified Code(s): K74.60 - Unspecified cirrhosis of liver Code(s): K74.60 - Unspecified cirrhosis of liver Status: Acute Assessment and Plan: CT evidence of cirrhosis. ? cause (5) Tobacco abuse disorder: Code(s): Z72.0 - Tobacco use Status: Chronic Assessment and Plan: Smoking cessation discussed with patient (6) COPD (chronic obstructive pulmonary disease): Code(s): J44.9 - Chronic obstructive pulmonary disease, unspecified Status: Acute Assessment and Plan: Stable lungs Will continue the patient's home Symbicort. Subjective Interval history: Patient is 64-year-old female presented emergency department with a complaint of nausea vomiting and diarrhea is found to anemia as well as UTI, patient was seen by GI and recommended endoscopy to further evaluate her anemia, is being treated with Rocephin for UTI, today patient is a nausea or vomiting and diarrhea have improved denies any abdominal pain fever or chills Review of Systems Review of Systems: All systems reviewed & are unremarkable except as noted in HPI and below Exam Narrative: Exam Narrative: Const: Other: Patient is comfortable elderly Eyes: General: appearance normal, both eyes and all related structures Sclera: sclerae normal Neck: Neck: supple Resp: Effort & Inspection: normal respiratory effort Cardio: Rate: regular rate Rhythm: regular rhythm GI: Inspection: normal to inspection Palpation (GI): Yes soft Auscultation: normal bowel sounds Skin: Rashes: no rashes Neuro: General: oriented x3 Objective Data Vital Signs Vital Signs: Vital Signs - 24 hr 07/08/19 22:00 07/08/19 22:08 07/08/19 22:14 Temperature 97.0 F L Pulse Rate 73 81 88 Respiratory Rate 24 H 18 18 Blood Pressure 141/50 H Pulse Oximetry 100 07/09/19 02:01 07/09/19 02:07 07/09/19 06:00 Temperature 96.9 F L Pulse Rate 76 77 69 Respiratory Rate 16 16 16 Blood Pressure 115/42 L Pulse Oximetry 97 07/09/19 08:00 07/09/19 10:10 07/09/19 10:11 Temperature Pulse Rate Respiratory Rate Blood Pressure 142/55 H 116/47 L 142/55 H Pulse Oximetry 07/09/19 10:58 07/09/19 11:04 07/09/19 14:19 Temperature 97.7 F Pulse Rate 72 81 67 Respiratory Rate 16 16 18 Blood Pressure 147/80 H Pulse Oximetry 98 07/09/19 16:20 07/09/19 16:30 07/09/19 16:40 Temperature Pulse Rate 79 78 73 Respiratory Rate 27 H 26 H 17 Blood Pressure 133/50 L 124/52 L 152/72 H Pulse Oximetry 100 98 97 Intake/Output Intake/Output: Intake & Output 07/06/19 07/07/19 07/08/19 07/09/19 23:59 23:59 23:59 23:59 Intake Total 1630 5310 3625 650 Balance 1630 5310 362 650 Meds/Results Medications: Active Medications Generic Name Dose Route S
[2019-07-09] MEDS: POTASSIUM CHLORIDE 20 MEQ PACKET (FOR LIQUID) 40 MEQ PO (17:17)
[2019-07-09] MEDS: INSULIN GLARGINE (*BKC) 100 UNITS/ML 65 UNITS SUB-Q (20:34)
[2019-07-09] MEDS: QUEtiapine FUMARATE XR 200 MG TAB.ER.24H 400 MG PO (20:34)
[2019-07-09 21:19] LABS: Glucose Point of Care 234 (65-105)
[2019-07-10] VITALS (19 sets, daily range): BP systolic 122–153; BP diastolic 47–83; PULSE 63–83; RESP 16–20; TEMP 36.3–37; O2SAT 97–99
[2019-07-10] MEDS: IPRATROPIUM BR 0.02% INH SOLN 0.5 MG/2.5 ML VIAL INHALATION ×4 (01:28→19:17)
[2019-07-10 06:14] LABS: Hematocrit 24.6 % (37.0-47.0); Hemoglobin 7.5 g/dL (12.0-15.0); Mean Corpuscular HGB Conc 30.5 g/dl (32-36); Mean Corpuscular Hemoglobin 23.5 pg (26-34); Mean Corpuscular Volume 77.1 fl (80-100); Mean Platelet Volume 11.3 fl (7.4-10.4); Platelet Count Result 264 k/mm3 (150-375); Red Blood Count 3.19 M/mm3 (4.2-5.4); Red Cell Distribution Width 20.2 % (11.5-14.5); White Blood Count 11.6 K/mm3 (4.5-10.0)
[2019-07-10 06:26] LABS: Blood Urea Nitrogen 8 mg/dL (7-17); Calcium 8.6 mg/dL (8.4-10.2); Carbon Dioxide 20 mmol/L (22-30); Chloride 112 mmol/L (98-107); Estimated CRCL calculation 64 ml/min; Estimated Glomerular Filt Rate > 60; Glucose 70 mg/dL (65-105); Potassium 3.7 mmol/L (3.4-5.0); Sodium 140 mmol/L (137-145)
[2019-07-10] MEDS: LEVOTHYROXINE SODIUM 75 MCG TABLET PO (06:47)
[2019-07-10 07:57] LABS: Glucose Point of Care 76 (65-105)
[2019-07-10] MEDS: levETIRAcetam 500 MG TABLET PO ×2 (08:31→16:42)
[2019-07-10] MEDS: FENOFIBRATE 160 MG TABLET PO (08:31)
[2019-07-10] MEDS: PANTOPRAZOLE SODIUM IV 40 MG VIAL IV PUSH (08:32)
[2019-07-10] MEDS: ROSUVASTATIN 10 MG TABLET 40 MG PO (08:33)
[2019-07-10] MEDS: ROFLUMILAST 500 MCG TABLET PO (08:33)
[2019-07-10] MEDS: ACETAMINOPHEN 325 MG TABLET 650 MG PO ×3 (08:35→22:20)
[2019-07-10 12:01] LABS: Glucose Point of Care 134 (65-105)
--- NOTE | 2019-07-10 13:56 | PM.IMPN ---
Progress Note: A&P Assessment and Plan (1) Anemia: Qualifiers: Anemia type: other cause Other causes of anemia: acute posthemorrhagic Qualified Code(s): D62 - Acute posthemorrhagic anemia Code(s): D64.9 - Anemia, unspecified Status: Acute Assessment and Plan: Patient is a history of iron deficiency anemia patient was given Venofer seen by GI and scheduled for EGD and colonoscopy which has been completed, pt to hgave venofer again as her hb is 7. i will consult oncology/ hematology (2) Bacteriuria with pyuria: Code(s): R82.71 - Bacteriuria; R82.81 - Pyuria Status: Acute Assessment and Plan: Patient with dysuria urine culture is growing E coli sensitive to Rocephin will continue (3) GERD (gastroesophageal reflux disease): Qualifiers: Esophagitis presence: esophagitis presence not specified Qualified Code(s): K21.9 - Gastro-esophageal reflux disease without esophagitis Code(s): K21.9 - Gastro-esophageal reflux disease without esophagitis Status: Acute Assessment and Plan: transition to oral protonix (4) Cirrhosis: Qualifiers: Hepatic cirrhosis type: unspecified hepatic cirrhosis Ascites presence: without ascites Qualified Code(s): K74.60 - Unspecified cirrhosis of liver Code(s): K74.60 - Unspecified cirrhosis of liver Status: Acute Assessment and Plan: CT evidence of cirrhosis. ? cause (5) Tobacco abuse disorder: Code(s): Z72.0 - Tobacco use Status: Chronic Assessment and Plan: Smoking cessation discussed with patient (6) COPD (chronic obstructive pulmonary disease): Code(s): J44.9 - Chronic obstructive pulmonary disease, unspecified Status: Acute Assessment and Plan: Stable lungs Will continue the patient's home Symbicort. Subjective Interval history: 64 year old female with a past medical history of COPD, chronic tobacco use, hypertension, hypothyroidism, and prior urinary tract infections who presented to the ER with dysuria and concerned that she may be dehydrated. Pt has history of esophagitis and cirrhois ? rectal bleed sp venofer, pt had egd yesterday showing ademomatus polypsx2 which were snared off, pt to have venofer today and will consult Dr Nunez pt has history of thyroid cancer Review of Systems Review of Systems: All systems reviewed & are unremarkable except as noted in HPI and below Exam Narrative: Exam Narrative: Patient is comfortable elderly Const: Orientation/consciousness: oriented x3 Other: Patient is comfortable elderly HENMT: Other: Patient is comfortable elderly Eyes: General: appearance normal, both eyes and all related structures Sclera: sclerae normal Neck: Neck: supple Resp: Effort & Inspection: normal respiratory effort Cardio: Rate: regular rate Rhythm: regular rhythm GI: Inspection: normal to inspection Palpation (GI): Yes soft Auscultation: normal bowel sounds Skin: Rashes: no rashes Neuro: General: oriented x3 Objective Data Vital Signs Vital Signs: Vital Signs - 24 hr 07/09/19 14:19 07/09/19 16:20 07/09/19 16:30 Temperature 36.5 C Pulse Rate 67 79 78 Respiratory Rate 18 27 H 26 H Blood Pressure 147/80 H 133/50 L 124/52 L Pulse Oximetry 98 100 98 07/09/19 16:40 07/09/19 17:15 07/09/19 17:30 Temperature 36.8 C 36.3 C L Pulse Rate 73 74 79 Respiratory Rate 17 18 20 Blood Pressure 152/72 H 168/69 H 138/89 Pulse Oximetry 97 98 97 07/09/19 18:00 07/09/19 18:34 07/09/19 18:54 Temperature 37.0 C 37.0 C 37.1 C Pulse Rate 74 74 76 Respiratory Rate 20 20 18 Blood Pressure 156/62 H 156/62 H 150/56 H Pulse Oximetry 98 99 07/09/19 19:28 07/09/19 20:00 07/09/19 20:42 Temperature 36.2 C L Pulse Rate 76 75 83 Respiratory Rate 20 21 H 20 Blood Pressure 142/57 H Pulse Oximetry 100 98 07/09/19 22:00 07/10/19 00:00 07/10/19 01:29 Temperature 36.2 C L 36.7 C Pulse Rate 75 83 83 Res
[2019-07-10] MEDS: PANTOPRAZOLE 40 MG TABLET PO (14:39)
[2019-07-10] MEDS: IRON SUCROSE COMPLEX 100 MG in SODIUM CHLORIDE 0.9% IV 50 ML 220 MG IVPB (14:41)
[2019-07-10 17:09] LABS: Glucose Point of Care 137 (65-105)
[2019-07-10] MEDS: QUEtiapine FUMARATE XR 200 MG TAB.ER.24H 400 MG PO (22:20)
[2019-07-10] MEDS: CALCIUM CARBONATE (TUMS) 500 MG (200 MG ELEMENTAL) PO (22:20)
[2019-07-10] MEDS: INSULIN GLARGINE (*BKC) 100 UNITS/ML 10 UNITS SUB-Q (23:38)
[2019-07-11] VITALS (9 sets, daily range): BP systolic 112–138; BP diastolic 47–55; PULSE 72–79; RESP 16–18; TEMP 36.5–36.6; O2SAT 97
[2019-07-11] MEDS: IPRATROPIUM BR 0.02% INH SOLN 0.5 MG/2.5 ML VIAL INHALATION ×3 (01:31→15:11)
[2019-07-11 01:50] LABS: Glucose Point of Care 138 (65-105)
[2019-07-11] MEDS: ACETAMINOPHEN 325 MG TABLET 650 MG PO (06:10)
[2019-07-11] MEDS: LEVOTHYROXINE SODIUM 75 MCG TABLET PO (06:37)
[2019-07-11 06:44] LABS: Hemoglobin 7.4 g/dL (12.0-15.0); Mean Corpuscular HGB Conc 29.6 g/dl (32-36); Mean Corpuscular Hemoglobin 23.1 pg (26-34); Mean Corpuscular Volume 78.1 fl (80-100); Mean Platelet Volume 10.4 fl (7.4-10.4); Platelet Count Result 241 k/mm3 (150-375); Red Cell Distribution Width 21.1 % (11.5-14.5); White Blood Count 8.3 K/mm3 (4.5-10.0)
[2019-07-11 07:07] LABS: Blood Urea Nitrogen 10 mg/dL (7-17); Calcium 8.8 mg/dL (8.4-10.2); Carbon Dioxide 23 mmol/L (22-30); Chloride 110 mmol/L (98-107); Estimated CRCL calculation 46 ml/min; Estimated Glomerular Filt Rate 55; Glucose 134 mg/dL (65-105); Sodium 140 mmol/L (137-145)
[2019-07-11 07:19] LABS: Glucose Point of Care 122 (65-105)
--- NOTE | 2019-07-11 09:02 | PM.DS ---
DS: Diagnosis Admitting Diagnosis Admitting Diagnosis: Acute posthemorrhagic anemia Discharge Diagnosis (1) Anemia: Qualifiers: Anemia type: other cause Other causes of anemia: acute posthemorrhagic Qualified Code(s): D62 - Acute posthemorrhagic anemia Code(s): D64.9 - Anemia, unspecified Status: Acute Assessment and Plan: Patient is a history of iron deficiency anemia patient was given Venofer seen by GI and scheduled for EGD and colonoscopy which has been completed, hb still around 7 despite venofer, pt wants to go home and still DR Nunez hematology in clinic for unexplained anaemia (2) Bacteriuria with pyuria: Code(s): R82.71 - Bacteriuria; R82.81 - Pyuria Status: Acute Assessment and Plan: Patient with dysuria urine culture is growing E coli sensitive to Rocephin will continue transition to macrobid (3) GERD (gastroesophageal reflux disease): Qualifiers: Esophagitis presence: esophagitis presence not specified Qualified Code(s): K21.9 - Gastro-esophageal reflux disease without esophagitis Code(s): K21.9 - Gastro-esophageal reflux disease without esophagitis Status: Acute Assessment and Plan: transition to oral protonix (4) Cirrhosis: Qualifiers: Hepatic cirrhosis type: unspecified hepatic cirrhosis Ascites presence: without ascites Qualified Code(s): K74.60 - Unspecified cirrhosis of liver Code(s): K74.60 - Unspecified cirrhosis of liver Status: Acute Assessment and Plan: CT evidence of cirrhosis. ? cause (5) Tobacco abuse disorder: Code(s): Z72.0 - Tobacco use Status: Chronic Assessment and Plan: Smoking cessation discussed with patient (6) COPD (chronic obstructive pulmonary disease): Code(s): J44.9 - Chronic obstructive pulmonary disease, unspecified Status: Acute Assessment and Plan: Stable lungs Will continue the patient's home Symbicort. DS: Summary Time Spent with Patient Time attestation: Total time spent providing and/or coordinating discharge services:40 minutes on day of discharge Exam Narrative: Exam Narrative: Patient is comfortable elderly Const: Orientation/consciousness: oriented x3 Other: Patient is comfortable elderly Resp: Effort & Inspection: normal respiratory effort Cardio: Rate: regular rate Rhythm: regular rhythm GI: Inspection: normal to inspection Palpation (GI): Yes soft Auscultation: normal bowel sounds Skin: Rashes: no rashes Neuro: General: oriented x3 DS: Data Data Completed and Pending Pending studies at discharge: Pending at discharge 07/09/19 16:25 Surgical [PTH] Routine Labs on day of discharge: Labs from last 24 hours 07/11/19 07/11/19 07/11/19 07:14 06:22 06:22 WBC 8.3 RBC 3.20 L Hgb 7.4 L Hct 25.0 L MCV 78.1 L MCH 23.1 L MCHC 29.6 L RDW 21.1 H Plt Count 241 MPV 10.4 Sodium 140 Potassium 4.0 Chloride 110 H Carbon Dioxide 23 BUN 10 Creatinine 1.00 Estim Creat Clear Calc 46 Estimated GFR 55 L Glucose 134 H POC Capillary Glucose 122 H Calcium 8.8 07/10/19 07/10/19 07/10/19 22:06 16:41 11:59 WBC RBC Hgb Hct MCV MCH MCHC RDW Plt Count MPV Sodium Potassium Chloride Carbon Dioxide BUN Creatinine Estim Creat Clear Calc Estimated GFR Glucose POC Capillary Glucose 138 H 137 H 134 H Calcium Discharge Plan Discharge Attending physician on discharge: Jocelyn Harman Consulting providers: Rebekah Ramos ; Sharan Schultz ; Jocelyn Harman Discharging Clinician: Jocelyn Harman Anticipated Discharge Date/Time: 07/11/19 08:58 Patient Disposition: Home, Self-Care Activity: as tolerated Diet: heart healthy and diabetic Patient Instructions: Antibiotic Form, Heart Failure (DC), How to Sto
[2019-07-11] MEDS: ROSUVASTATIN 10 MG TABLET 40 MG PO (09:28)
[2019-07-11] MEDS: levETIRAcetam 500 MG TABLET PO (09:28)
[2019-07-11] MEDS: ROFLUMILAST 500 MCG TABLET PO (09:28)
[2019-07-11] MEDS: FENOFIBRATE 160 MG TABLET PO (09:28)
[2019-07-11] MEDS: IRON SUCROSE COMPLEX 100 MG in SODIUM CHLORIDE 0.9% IV 50 ML 220 MG IVPB (09:32)
[2019-07-11 11:57] LABS: Glucose Point of Care 115 (65-105)
== END 2019-07-11 15:47 | disposition home or self-care (01) | DRG 812 ==
LOC: ANHED 11:50 → ANH3MED 17:48
PROVIDERS: Internal Medicine; Internal Medicine Gastroenterology; Physician Assistant; Admitting Provider Family Medicine; Emergency Provider Emergency Medicine; PCP Internal Medicine; Visit Provider Family Medicine
PROC: 0DJ08ZZ Inspection of Upper Intestinal Tract, Via Natural or Artificial Opening Endoscopic (ICD-10-PCS; CPT 43235; principal; 2019-07-09 15:30)
DX: D64.9 Anemia, unspecified (principal); D12.3 Benign neoplasm of transverse colon; Z23 Encounter for immunization; J44.9 Chronic obstructive pulmonary disease, unspecified; I10 Essential (primary) hypertension; E03.9 Hypothyroidism, unspecified; Z87.440 Personal history of urinary (tract) infections; I25.10 Atherosclerotic heart disease of native coronary artery without angina pectoris; K74.60 Unspecified cirrhosis of liver; E11.9 Type 2 diabetes mellitus without complications; E78.5 Hyperlipidemia, unspecified; K21.9 Gastro-esophageal reflux disease without esophagitis; E78.1 Pure hyperglyceridemia; M81.0 Age-related osteoporosis without current pathological fracture; G47.30 Sleep apnea, unspecified; Z90.49 Acquired absence of other specified parts of digestive tract; Z90.710 Acquired absence of both cervix and uterus; F17.210 Nicotine dependence, cigarettes, uncomplicated; Z85.42 Personal history of malignant neoplasm of other parts of uterus; K64.9 Unspecified hemorrhoids
CPT/HCPCS: 36415; 71046; 74177; 80048; 80053; 81001; 82247; 82248; 82607; 82728; 82746; 83036; 83540; 83550; 83605; 83615; 83690; 83735; 83880; 84443; 84466; 85014; 85018; 85025; 85027; 85045; 85046; 85610; 85730; 87077; 87086; 87088; 87186; 87804; 88305; 90471; 90686; 94640; 96361; 96365; 96366; 96367; 96375; 97110; 97116; 97161; 97165; 97530; 97535; 99285; A9270; C9113; G0008; G0378; J0131; J0696; J1756; J1815; J2405; J2704; J7030; J7050; J7120; Q9967

== ENCOUNTER 2020-04-16 14:13 | Outpatient (CLI) | payer OTHER, MEDICAID, SELFPAY ==
[2020-04-16 15:29] LABS: Basophils Absolute Auto 0.1 K/mm3 (0.0-0.1); Basophils Percent Auto 0.7 % (0.2-1.2); Eosinophils Absolute Auto 0.3 K/mm3 (0-0.3); Eosinophils Percent Auto 3.3 % (0-4.4); Hematocrit 34.5 % (37.0-47.0); Hemoglobin 11.2 g/dL (12.0-15.0); Immature Granulocyte Absolute 0.03 K/mm3 (0.00-0.031); Immature Granulocyte Percent A 0.3 % (0-0.5); Lymphocytes Absolute Auto 2.35 K/mm3 (0.9-3.2); Lymphocytes Percent Auto 23.2 % (18.3-44.2); Mean Corpuscular HGB Conc 32.5 g/dl (32-36); Mean Corpuscular Hemoglobin 25.9 pg (26-34); Mean Corpuscular Volume 79.7 fl (80-100); Mean Platelet Volume 11.3 fl (7.4-10.4); Monocytes Absolute Auto 0.7 K/mm3 (0.1-0.6); Monocytes Percent Auto 6.6 % (2.6-8.5); Neutrophils Absolute Auto 6.7 K/mm3 (1.3-6.7); Neutrophils Percent Auto 65.9 % (45.5-73.1); Platelet Count Result 274 k/mm3 (150-375); Red Blood Count 4.33 M/mm3 (4.2-5.4); Red Cell Distribution Width 17.7 % (11.5-14.5); White Blood Count 10.1 K/mm3 (4.5-10.0)
[2020-04-16 15:44] LABS: Alanine Aminotransferase 16 U/L (4-35); Albumin Level 4.4 g/dL (3.5-5.1); Alkaline Phosphatase 56 U/L (38-126); Anion Gap 8 mmol/L (8-16); Aspartate Amino Transferase 28 U/L (14-36); Bilirubin,Total 0.3 mg/dL (0.2-1.3); Blood Urea Nitrogen 22 mg/dL (7-17); Calcium 9.3 mg/dL (8.4-10.2); Carbon Dioxide 26 mmol/L (22-30); Chloride 104 mmol/L (98-107); Cholesterol 116 mg/dL (0-200); Estimated Glomerular Filt Rate 50; Glucose 99 mg/dL (65-105); HDL Direct 36 mg/dL; Potassium 4.1 mmol/L (3.4-5.0); Sodium 138 mmol/L (137-145); Triglycerides 146 mg/dL (<150)
[2020-04-16 15:47] LABS: Hemoglobin A1C 8.5 % (<5.7)
[2020-04-16 15:54] LABS: Creatinine Urine 99.2 mg/dL
[2020-04-16 15:55] LABS: LDL Cholesterol Direct 61 mg/dL
[2020-04-16 15:58] LABS: MALB Creatinine Ratio 7.2 mg/g (0-30); Microalbumin Urine Random 7.1 mg/L (0-16.7)
[2020-04-16 16:25] LABS: Iron 43 ug/dL (37-170)
[2020-04-16 16:36] LABS: Percent Iron Saturation 8 % (20-50)
== END 2020-04-16 14:14 | disposition home or self-care (01) ==
PROVIDERS: PCP Internal Medicine; Visit Provider Internal Medicine
DX: E78.2 Mixed hyperlipidemia (principal); E11.42 Type 2 diabetes mellitus with diabetic polyneuropathy; D64.9 Anemia, unspecified
CPT/HCPCS: 36415; 80053; 80061; 82043; 83036; 83540; 83550; 85025

== ENCOUNTER 2022-05-24 12:53 | Emergency (ER) | payer OTHER, SELFPAY ==
--- NOTE | ~2022-05-24 | CT_ITS ---
EXAMINATION: CT lumbar spine wo con DATE: 05/24/2022 14:43 INDICATION: trauma . TECHNIQUE: Computed tomography (CT) of the lumbar spine was performed without intravenous contrast. A utomated exposure control and iterative reconstruction technique were employed. The dose-length produ ct was 528.78 mGy-cm. COMPARISON: CT abdomen pelvis 07/06/2019 and 10/02/2016. FINDINGS: Atherosclerotic vascular calcifications. Indeterminate density right upper and lower pole r enal lesions. 5 nonrib-bearing lumbar-type vertebral bodies. Pedicles intact. Normal vertebral body a lignment. Vertebral body heights preserved. Multilevel mild degenerative disc disease. Multilevel mod erate facet arthropathy. IMPRESSION: No acute fracture or traumatic malalignment in the lumbar spine. Indeterminate right renal lesions, r ecommend outpatient MR of the kidneys for further characterization. Reviewed, dictated and finalized at location K. IMPRESSION: No acute fracture or traumatic malalignment in the lumbar spine. Indeterminate right renal lesions, recommend outpatient MR of the kidneys for further charact erization.
--- NOTE | ~2022-05-24 | CT_ITS ---
EXAMINATION: CT pelvis wo con DATE: 05/24/2022 14:43 INDICATION: Pelvis injury. Bilateral hip pain. TECHNIQUE: Computed tomography (CT) of the pelvis was performed without intravenous contrast. Automat ed exposure control and iterative reconstruction technique were employed. The dose-length product was 256.83 mGy-cm. COMPARISON: CT abdomen and pelvis 07/06/2019 FINDINGS: The liver demonstrates a nodular surface contour, consistent with cirrhosis. There is no fr ee intraperitoneal fluid. There is prominent fat in left inguinal canal that may be a hernia. Bone al ignment is normal. No fracture. There is mild osteoarthritis of the hips. IMPRESSION: 1. No fracture. 2. Mild osteoarthritis of the hips. 3. Cirrhosis of the liver. Reviewed, dictated and finalized at location B.
--- NOTE | ~2022-05-24 | XR_ITS ---
XR hip RT 2V w AP pelvis 05/24/2022 13:53 Indication: Right hip pain Procedure: AP pelvis and 2 views right hip Comparison: 03/18/2014 Findings: There is mild symmetric osteoarthritis of the hips. Pelvic rings are intact. Sacral foramen are symmetric. No acute fracture or traumatic malalignment. There are femoral vascular calcification s. There are symmetric degenerative changes of the sacroiliac joints. Impression: 1: No acute fracture. 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 Impression: 1: No acute fracture.
[2022-05-24 12:54] VITALS: BP 142/65; PULSE 73; RESP 16; TEMP 36.7; O2SAT 99
[2022-05-24] MEDS: MORPHINE SULFATE (*CRX) 2 MG/ML INJ IV PUSH (13:36)
[2022-05-24 14:42] LABS: Basophils Absolute Auto 0.1 K/mm3 (0.0-0.1); Eosinophils Absolute Auto 0.4 K/mm3 (0-0.3); Hematocrit 26.8 % (37.0-47.0); Hemoglobin 8.2 g/dL (12.0-15.0); Immature Granulocyte Absolute 0.03 K/mm3 (0.00-0.031); Immature Granulocyte Percent A 0.4 % (0-0.5); Lymphocytes Absolute Auto 1.61 K/mm3 (0.9-3.2); Lymphocytes Percent Auto 22.2 % (18.3-44.2); Mean Corpuscular HGB Conc 30.6 g/dl (32-36); Mean Corpuscular Volume 78.6 fl (80-100); Mean Platelet Volume 10.9 fl (7.4-10.4); Monocytes Absolute Auto 0.5 K/mm3 (0.1-0.6); Monocytes Percent Auto 6.6 % (2.6-8.5); Neutrophils Absolute Auto 4.7 K/mm3 (1.3-6.7); Neutrophils Percent Auto 64.8 % (45.5-73.1); Platelet Count Result 263 k/mm3 (150-375); Red Blood Count 3.41 M/mm3 (4.2-5.4); Red Cell Distribution Width 21.4 % (11.5-14.5); White Blood Count 7.2 K/mm3 (4.5-10.0)
[2022-05-24 14:53] LABS: INR 1.2; Prothrombin Time 14.5 Seconds (11.1-14.7)
[2022-05-24 14:54] LABS: Partial Thromboplastin Time 30.7 SECONDS (22.3-36.8)
[2022-05-24 14:56] LABS: Anion Gap 8 mmol/L (8-16); Blood Urea Nitrogen 22 mg/dL (7-17); Calcium 9.4 mg/dL (8.4-10.2); Carbon Dioxide 24 mmol/L (22-30); Chloride 107 mmol/L (98-107); Estimated CRCL calculation 33 ml/min; Estimated Glomerular Filt Rate 45; Glucose 106 mg/dL (65-110); Potassium 4.2 mmol/L (3.4-5.0); Sodium 139 mmol/L (137-145)
[2022-05-24 15:46] VITALS: BP 159/59; PULSE 63; RESP 18; O2SAT 98
--- NOTE | 2022-05-24 16:23 | ED.FALL ---
HPI - Fall General Chief Complaint: Fall Stated Complaint: back pain Time Seen by Provider: 05/24/22 13:04 History of Present Illness HPI Narrative: Patient is a 58-year-old female who presents ER with pain over the right hip. She had a fall last night and landed on a plastic 5 gallon bucket. She did not strike her head or lose consciousness. Due to her pain she had to crawl over to a couch so she could get off the floor and sleep. Reports increased pain and cannot walk. No numbness or tingling. Denies any additional injury. Has not taken any pain medication. Related Data Home Medications Medication Instructions Recorded Confirmed budesonide-formoterol HFA 160 2 puff inhalation BID 07/05/19 07/06/19 mcg-4.5 mcg/actuation aerosol inhaler (Symbicort) fenofibrate 160 mg tablet 160 mg PO DAILY 07/05/19 07/06/19 levetiracetam 500 mg tablet 500 mg PO BID 07/05/19 07/06/19 levothyroxine 75 mcg tablet 75 mcg PO DAILY 07/05/19 07/06/19 metformin 500 mg tablet 500 mg PO TID 07/05/19 07/06/19 pantoprazole 40 mg tablet,delayed 40 mg PO DAILY 07/05/19 07/06/19 release quetiapine 400 mg tablet,extended 400 mg PO HS 07/05/19 07/06/19 release 24 hr roflumilast 500 mcg tablet 500 mcg PO DAILY 07/05/19 07/06/19 (Daliresp) rosuvastatin 40 mg tablet 40 mg PO DAILY 07/05/19 07/06/19 spironolactone 25 mg tablet 25 mg PO DAILY 07/05/19 07/06/19 ticagrelor 90 mg tablet (Brilinta) 90 mg PO BID 07/05/19 07/06/19 tiotropium bromide 18 mcg capsule 1 cap inhalation DAILY 07/05/19 07/06/19 with inhalation device (Spiriva with HandiHaler) furosemide 40 mg tablet 40 mg PO DAILY 07/06/19 07/06/19 insulin glargine 100 unit/mL (3 65 unit subcut DAILY 07/06/19 07/06/19 mL) subcutaneous pen (Lantus Solostar U-100 Insulin) nitroglycerin 0.4 mg sublingual 0.4 mg sublingual Q5M PRN Chest 07/06/19 07/06/19 tablet Pain Allergies Allergy/AdvReac Type Severity Reaction Status Date / Time levofloxacin Allergy Severe Swelling Verified 07/05/19 16:37 of Lip/Tongue/Throat Penicillins Allergy Unknown Swelling Verified 07/05/19 16:37 tetracycline Allergy Unknown Swelling Verified 07/05/19 16:37 Tetracyclines Allergy Unknown Swelling Verified 07/05/19 16:37 Review of Systems Review of Systems: All systems reviewed & are unremarkable except as noted in HPI and below Constitutional: Constitutional: Denies chills, Denies fatigue and Denies fever(s) ENT: Denies nasal congestion and Denies sore throat Cardiovascular: Cardiovascular: Denies chest pain, Denies rapid heart rate and Denies radiating jaw, neck or arm pain Respiratory: Respiratory: Denies cough and Denies dyspnea Gastrointestinal: Gastrointestinal: Denies abdominal pain, Denies nausea and Denies vomiting Musculoskeletal: Musculoskeletal: Reports back pain, Reports arthralgias, Denies joint swelling and Denies muscle cramps Integumentary/Breasts: Skin/Breast: Denies erythema, Denies rash and Denies skin ulcer Neurologic: Denies syncope, Denies headache(s), Denies focal weakness and Denies numbness PMF Past Medical History Medical History (Updated 05/24/22 @ 16:53 by Jose Delatorre MD) CAD (coronary artery disease) minimal disease on cath no intervention Cirrhosis COPD (chronic obstructive pulmonary disease) hx of home O22 requirement but none currently Diabetes Diarrhea Diastolic heart failure Dyslipidemia GERD (gastroesophageal reflux disease) Hypertension Hypertriglyceridemia Hypothyroidism post tyroidectomy Iron deficiency anemia Nausea and vomiting in adult Post-menopausal osteoporosis Sleep apnea cpap use Tobacco abuse disorder Surgical History Surgical History (Updated 07/07/19 @ 05:12 by Radha Guillen DO) H/O cardiac catheterization H/O thyroidectomy due to thyroid cancer 1986, s/p chemo and radiation therapy History of cholecystectomy laperscopic 2013 History of hysterectomy for cancer with bilateral S&O 1994 Fami
--- NOTE | 2022-05-24 16:35 | PC.NURSE ---
Patient able to ambulate without difficulty.
== END 2022-05-24 17:23 | disposition home or self-care (01) ==
PROVIDERS: Emergency Provider Emergency Medicine; PCP Internal Medicine
DX: I25.10 Atherosclerotic heart disease of native coronary artery without angina pectoris (principal); J44.9 Chronic obstructive pulmonary disease, unspecified; E11.9 Type 2 diabetes mellitus without complications; K74.60 Unspecified cirrhosis of liver; I50.30 Unspecified diastolic (congestive) heart failure; I11.0 Hypertensive heart disease with heart failure; E78.5 Hyperlipidemia, unspecified; D50.9 Iron deficiency anemia, unspecified; G47.30 Sleep apnea, unspecified; K21.9 Gastro-esophageal reflux disease without esophagitis; E89.0 Postprocedural hypothyroidism; M16.0 Bilateral primary osteoarthritis of hip; Z79.4 Long term (current) use of insulin; Z79.84 Long term (current) use of oral hypoglycemic drugs; F17.210 Nicotine dependence, cigarettes, uncomplicated
CPT/HCPCS: 36415; 72131; 72192; 73502; 80048; 85025; 85610; 85730; 96374; 99284; J2270

== ENCOUNTER 2022-09-06 17:43 | Emergency (ER) | payer OTHER, MEDICAID, SELFPAY ==
--- NOTE | 2022-09-06 17:47 | ED.GENADULT ---
HPI - General Adult General Chief complaint: Upper Respiratory Infection Stated complaint: Weakness/Fatique/Med Re-Fill Time Seen by Provider: 09/06/22 17:55 Source: patient, RN notes reviewed and old records reviewed Mode of arrival: ambulatory Limitations: no limitations History of Present Illness HPI narrative: 67-year-old female presents to the [facility] with increased weakness, shortness of breath, fatigue states she has not been able to get out of bed this morning. Now has to use a walker because of her weakness. Also requesting a medication refill, has been out of her medications for anywhere from 3-7 days. Medications include thyroid, heart medication, had congestive heart failure, diabetes. Had about a dozen medications per daughter Patient is unable to walk more than 3 ft without getting out of breath. Unsteady gait. Patient is also reporting that since this morning has had chest pressure radiating down left arm with occasional numbness and tingling of her left arm. Patient appears pale, not diaphoretic. Patient reports occasional nausea without vomiting. Related Data Home Medications Medication Instructions Recorded Confirmed budesonide-formoterol HFA 160 2 puff inhalation BID 07/05/19 07/06/19 mcg-4.5 mcg/actuation aerosol inhaler (Symbicort) fenofibrate 160 mg tablet 160 mg PO DAILY 07/05/19 07/06/19 levetiracetam 500 mg tablet 500 mg PO BID 07/05/19 07/06/19 levothyroxine 75 mcg tablet 75 mcg PO DAILY 07/05/19 07/06/19 metformin 500 mg tablet 500 mg PO TID 07/05/19 07/06/19 pantoprazole 40 mg tablet,delayed 40 mg PO DAILY 07/05/19 07/06/19 release quetiapine 400 mg tablet,extended 400 mg PO HS 07/05/19 07/06/19 release 24 hr roflumilast 500 mcg tablet 500 mcg PO DAILY 07/05/19 07/06/19 (Daliresp) rosuvastatin 40 mg tablet 40 mg PO DAILY 07/05/19 07/06/19 spironolactone 25 mg tablet 25 mg PO DAILY 07/05/19 07/06/19 ticagrelor 90 mg tablet (Brilinta) 90 mg PO BID 07/05/19 07/06/19 tiotropium bromide 18 mcg capsule 1 cap inhalation DAILY 07/05/19 07/06/19 with inhalation device (Spiriva with HandiHaler) furosemide 40 mg tablet 40 mg PO DAILY 07/06/19 07/06/19 insulin glargine 100 unit/mL (3 65 unit subcut DAILY 07/06/19 07/06/19 mL) subcutaneous pen (Lantus Solostar U-100 Insulin) nitroglycerin 0.4 mg sublingual 0.4 mg sublingual Q5M PRN Chest 07/06/19 07/06/19 tablet Pain Allergies Allergy/AdvReac Type Severity Reaction Status Date / Time levofloxacin Allergy Severe Swelling Verified 09/06/22 17:46 of Lip/Tongue/Throat Penicillins Allergy Unknown Swelling Verified 09/06/22 17:46 tetracycline Allergy Unknown Swelling Verified 09/06/22 17:46 Tetracyclines Allergy Unknown Swelling Verified 09/06/22 17:46 Review of Systems Review of Systems: All systems reviewed & are unremarkable except as noted in HPI and below Constitutional: Constitutional: Reports as per HPI, Reports body ache(s), Reports fatigue, Reports lethargy and Reports weakness Eyes: Eyes: Reports no additional eye complaints ENT: Reports system reviewed and no additional complaints, except as documented Cardiovascular: Cardiovascular: Reports as per HPI, Reports chest pain, Reports chest pain at rest, Reports dyspnea, Reports dyspnea on exertion and Reports orthopnea Respiratory: Respiratory: Reports as per HPI, Denies chest congestion, Reports cough and Reports dyspnea Gastrointestinal: Gastrointestinal: Reports no additional gastrointestinal complaints, Denies abdominal pain, Denies nausea and Denies vomiting Musculoskeletal: Musculoskeletal: Reports no additional musculoskeletal complaints Integumentary/Breasts: Skin/Breast: Reports system reviewed and no additional complaints, except as docu Neurologic: Reports system reviewed and no additional complaints, except as documented Psychiatric: Psychiatric: Reports no additional psychiatric complaints Allergic/Immunologic: Allergic/Immunologic: Reports
[2022-09-06 17:51] VITALS: BP 145/57; PULSE 79; RESP 30; TEMP 36.4; O2SAT 99
--- NOTE | 2022-09-06 17:56 | ECG_ITS ---
Measurements Intervals [place] Rate: 66 P: 99 NE: 141 QRS: -8 QRSD: 94 T: 47 QT: 440 QTc: 464 Interpretive Statements SINUS RHYTHM DELAYED PRECORDIAL R/S TRANSITION CONSIDER INFERIOR INFARCT, AGE INDETERMINATE BORDERLINE ST-T WAVE ABNORMALITY- LAT/HIGH LAT LEADS BASELINE ARTIFACT- I, II, III, AVR, AVL, AVF, V6 ABNORMAL ECG NO PREVIOUS ECG AVAILABLE FOR COMPARISON Electronically Signed On 09-06-2022 20:30:33 [employer]ING CREW PUSHER by Dinh Leonardo D.O.
--- NOTE | 2022-09-06 17:58 | ECG_ITS ---
Measurements Intervals [place] Rate: 75 P: 77 [place]: 156 QRS: -16 QRSD: 90 T: 32 QT: 395 QTc: 443 Interpretive Statements SINUS RHYTHM DELAYED PRECORDIAL R/S TRANSITION CONSIDER INFERIOR INFARCT, AGE INDETERMINATE BORDERLINE ST ABNORMALITY- LAT/HIGH LAT LEADS BASELINE ARTIFACT- I, II, AVR ABNORMAL ECG NO PREVIOUS ECG AVAILABLE FOR COMPARISON Electronically Signed On 09-07-2022 8:09:45 [employer]FT [employer]IP[employer] CHECKER by Dinh Leonardo D.O.
[2022-09-06] MEDS: ASPIRIN 81 MG CHEWABLE TABLET 324 MG PO (18:11)
[2022-09-06 18:50] LABS: Glucose Point of Care 162 mg/dl (65-105)
== END 2022-09-06 18:11 | disposition short-term general hospital (02) ==
PROVIDERS: Emergency Provider Nurse Practitioner; PCP Physician Assistant
DX: R06.00 Dyspnea, unspecified (principal); R53.1 Weakness; R07.9 Chest pain, unspecified; I25.10 Atherosclerotic heart disease of native coronary artery without angina pectoris; I11.0 Hypertensive heart disease with heart failure; I50.30 Unspecified diastolic (congestive) heart failure; J44.9 Chronic obstructive pulmonary disease, unspecified; E11.9 Type 2 diabetes mellitus without complications; E78.5 Hyperlipidemia, unspecified; E03.9 Hypothyroidism, unspecified; F17.210 Nicotine dependence, cigarettes, uncomplicated
CPT/HCPCS: 82948; 93005; 99215; A9270; G0463

== ENCOUNTER 2022-09-06 18:32 | Observation (INO) | payer OTHER, MEDICAID, SELFPAY ==
[2022-09-06] VITALS (8 sets, daily range): BP systolic 104–169; BP diastolic 50–84; PULSE 64–72; RESP 17–24; TEMP 37.4; O2SAT 94–100
--- NOTE | ~2022-09-06 | XR_ITS ---
EXAMINATION: XR chest 2V Exam Date/Time: 09/06/2022 18:58 MUSCULOSKELETAL PHYSIOTHERAPIST HISTORY: SOB Comparison: 07/06/2019. RESULT: Lines, tubes, and devices: None. Lungs and pleura: Scattered senescent change. Otherwise clear. Cardiomediastinal silhouette: Stable. Other: No acute osseous or upper abdominal finding. Old right upper rib and clavicular fractures. IMPRESSION: No acute cardiopulmonary process. Reviewed, dictated and finalized at location K. ULOSKELETAL PHYSIOTHERAPIST
--- NOTE | 2022-09-06 18:43 | ECG_ITS ---
Rate 66 [place] 141 QRSd 94 QT 440 QTc 464 --[place]-- P 99 QRS -8 T 47 SINUS RHYTHM DELAYED PRECORDIAL R/S TRANSITION CONSIDER INFERIOR INFARCT, AGE INDETERMINATE BORDERLINE ST-T WAVE ABNORMALITY- LAT/HIGH LAT LEADS BASELINE ARTIFACT- I, II, III, AVR, AVL, AVF, V6 ABNORMAL ECG Electronically Signed On 09-06-2022 20:30:33 OPERATING SYSTEMS SPECIALIST by Dinh Leonardo D.O. COMPARED TO ECG 09/06/2022 18:04:28 NO SIGNIFICANT CHANGES MTDD
[2022-09-06 19:33] LABS: Basophils Absolute Auto 0.1 K/mm3 (0.0-0.1); Eosinophils Absolute Auto 0.3 K/mm3 (0-0.3); Eosinophils Percent Auto 3.9 % (0-4.4); Hematocrit 27.7 % (37.0-47.0); Hemoglobin 7.8 g/dL (12.0-15.0); Immature Granulocyte Absolute 0.03 K/mm3 (0.00-0.031); Immature Granulocyte Percent A 0.4 % (0-0.5); Immature Platelet Fraction Pct 8.1 % (0.9-11.2); Lymphocytes Absolute Auto 2.52 K/mm3 (0.9-3.2); Lymphocytes Percent Auto 30.8 % (18.3-44.2); Mean Corpuscular HGB Conc 28.2 g/dl (32-36); Mean Corpuscular Hemoglobin 20.1 pg (26-34); Mean Corpuscular Volume 71.2 fl (80-100); Mean Platelet Volume 10.9 fl (7.4-10.4); Monocytes Absolute Auto 0.6 K/mm3 (0.1-0.6); Monocytes Percent Auto 6.8 % (2.6-8.5); Neutrophils Absolute Auto 4.7 K/mm3 (1.3-6.7); Neutrophils Percent Auto 57.1 % (45.5-73.1); Platelet Count Result 283 k/mm3 (150-375); Red Blood Count 3.89 M/mm3 (4.2-5.4); Red Cell Distribution Width 19.1 % (11.5-14.5); White Blood Count 8.2 K/mm3 (4.5-10.0)
[2022-09-06 19:50] LABS: Alanine Aminotransferase 14 U/L (6-35); Albumin Level 4.2 g/dL (3.5-5.1); Alkaline Phosphatase 63 U/L (38-126); Anion Gap 3 mmol/L (8-16); Aspartate Amino Transferase 23 U/L (14-36); Bilirubin,Total 0.2 mg/dL (0.2-1.3); Blood Urea Nitrogen 18 mg/dL (7-17); Calcium 8.9 mg/dL (8.4-10.2); Carbon Dioxide 29 mmol/L (22-30); Chloride 103 mmol/L (98-107); Estimated CRCL calculation 34 ml/min; Estimated Glomerular Filt Rate 49; Glucose 99 mg/dL (65-110); Potassium 3.9 mmol/L (3.4-5.0); Sodium 135 mmol/L (137-145)
[2022-09-06 19:51] LABS: Platelet Estimate Adequate (Adequate)
[2022-09-06 19:52] LABS: Hypochromasia 2+ (NORMAL); Microcytosis 1+ (NORMAL); Ovalocytes 1+ (NORMAL); Schistocytes None Seen (NORMAL)
--- NOTE | 2022-09-06 20:06 | ED.GENADULT ---
HPI - General Adult General Chief complaint: Shortness of Breath/Dyspnea Stated complaint: sob, cp, med refill Time Seen by Provider: 09/06/22 19:08 History of Present Illness HPI narrative: Patient is a 67-year-old female who is been experiencing chest pain for the last 2 weeks. Occurs with exertion. Can last about 30 minutes. Pressure and aching in the center of her chest. Patient has history of coronary stenting in the past and sees Dr. Lisa Winter. Patient also reports she has been out of her thyroid medication for last 2 weeks. Patient takes Brilinta. Related Data Home Medications Medication Instructions Recorded Confirmed budesonide-formoterol HFA 160 2 puff inhalation BID 07/05/19 09/07/22 mcg-4.5 mcg/actuation aerosol inhaler (Symbicort) fenofibrate 160 mg tablet 160 mg PO DAILY 07/05/19 09/07/22 levetiracetam 500 mg tablet 500 mg PO BID 07/05/19 09/07/22 levothyroxine 75 mcg tablet 75 mcg PO DAILY 07/05/19 09/07/22 metformin 500 mg tablet 500 mg PO BID 07/05/19 09/07/22 pantoprazole 40 mg tablet,delayed 40 mg PO DAILY 07/05/19 09/07/22 release quetiapine 400 mg tablet,extended 400 mg PO HS 07/05/19 09/07/22 release 24 hr roflumilast 500 mcg tablet 500 mcg PO DAILY 07/05/19 09/07/22 (Daliresp) rosuvastatin 40 mg tablet 40 mg PO DAILY 07/05/19 09/07/22 spironolactone 25 mg tablet 25 mg PO DAILY 07/05/19 09/07/22 ticagrelor 90 mg tablet (Brilinta) 90 mg PO BID 07/05/19 09/07/22 tiotropium bromide 18 mcg capsule 1 cap inhalation DAILY 07/05/19 09/07/22 with inhalation device (Spiriva with HandiHaler) furosemide 40 mg tablet 40 mg PO DAILY 07/06/19 09/07/22 nitroglycerin 0.4 mg sublingual 0.4 mg sublingual Q5M PRN Chest 07/06/19 09/07/22 tablet Pain cholecalciferol (vitamin D3) 25 25 mcg PO DAILY 09/07/22 09/07/22 mcg (1,000 unit) capsule potassium chloride 10 mEq 10 meq PO DAILY 09/07/22 09/07/22 tablet,extended release sucralfate 1 gram tablet 1 g PO TID 09/07/22 09/07/22 Allergies Allergy/AdvReac Type Severity Reaction Status Date / Time levofloxacin Allergy Severe Swelling Verified 09/06/22 17:46 of Lip/Tongue/Throat Penicillins Allergy Unknown Swelling Verified 09/06/22 17:46 tetracycline Allergy Unknown Swelling Verified 09/06/22 17:46 Tetracyclines Allergy Unknown Swelling Verified 09/06/22 17:46 Review of Systems Review of Systems: All systems reviewed & are unremarkable except as noted in HPI and below Constitutional: Constitutional: Denies chills, Denies fatigue and Denies fever(s) ENT: Denies nasal congestion and Denies sore throat Cardiovascular: Cardiovascular: Reports chest pain, Denies rapid heart rate and Denies radiating jaw, neck or arm pain Respiratory: Respiratory: Denies chest congestion, Denies cough and Reports dyspnea Gastrointestinal: Gastrointestinal: Denies abdominal pain, Denies nausea and Denies vomiting Comments: No black/bloody stools. Neurologic: Denies headache(s) and Denies focal weakness PMFSH Past Medical History Medical History (Updated 09/07/22 @ 03:10 by Nata Saleh MD) CAD (coronary artery disease) minimal disease on cath no intervention Cirrhosis COPD (chronic obstructive pulmonary disease) hx of home O22 requirement but none currently Diabetes Diarrhea Diastolic heart failure Dyslipidemia GERD (gastroesophageal reflux disease) Hypertension Hypertriglyceridemia Hypothyroidism post tyroidectomy Iron deficiency anemia Nausea and vomiting in adult Post-menopausal osteoporosis Sleep apnea cpap use Tobacco abuse disorder Surgical History Surgical History H/O cardiac catheterization H/O thyroidectomy due to thyroid cancer 1986, s/p chemo and radiation therapy History of cholecystectomy laperscopic 2013 History of hysterectomy for cancer with bilateral S&O 1994 Family History Family History
[2022-09-06 21:07] LABS: INR 1.1; Prothrombin Time 14.1 Seconds (11.1-14.7)
[2022-09-06 21:17] LABS: Partial Thromboplastin Time 28.4 SECONDS (22.3-36.8); Troponin I < 0.012 ng/mL (0.000-0.034)
[2022-09-07] VITALS (28 sets, daily range): BP systolic 128–162; BP diastolic 43–78; PULSE 55–86; RESP 16–23; TEMP 36.2–37; O2SAT 91–99; BMI 27.8
[2022-09-07 00:53] LABS: Immature Reticulocyte Fraction 19.6 % (3.0-15.9); Reticulocyte Percent 1.67 % (0.7-4.3); Reticulocytes Absolute 0.06 B/L (32.2-175.7)
[2022-09-07 00:58] LABS: Influenza A QL RT-PCR Negative (Negative); Influenza B QL RT-PCR Negative (Negative); RSV RNA, RT-PCR Negative (Negative); SARS-CoV-2 RNA PCR Negative
[2022-09-07 01:12] LABS: Iron 25 ug/dL (37-170)
--- NOTE | 2022-09-07 01:16 | ADMGEN ---
This patient, Raissa Gibbons, was admitted to Medical Room 250-01. Patient/family oriented to hospital policies and general routines including ID bracelet, bed and alarms, visiting hours, pain management, procedures, bathroom and other care routines, personal items, smoking policy, room service/diet, and visiting hours. Information on how to activate the Rapid Response Team has been discussed. Patient/Family are encouraged to report perceived risks to care and to ask questions if they do not understand what they are told or what they should do.
[2022-09-07 01:22] LABS: Percent Iron Saturation 4 % (20-50)
[2022-09-07 01:49] LABS: Ferritin 5.22 ng/mL (11.1-264)
[2022-09-07 02:22] LABS: Folic Acid > 20.0 ng/mL (2.76->20)
--- NOTE | 2022-09-07 02:41 | PM.IMHP ---
H&P: HPI History of Present Illness Date/Time: 09/07/22 02:41 Chief Complaint: Chest pain Narrative: This is a 67-year-old female with past medical history significant for chronic iron deficiency anemia, coronary artery disease, COPD/emphysema, tobacco dependence. Patient presents to the emergency room due to intermittent chest pain for the last few days or so patient is still smokes 1 pack of cigarettes daily for the last 50 years. Has had chronic cough with production of sputum which is her usual, no fevers, no rigors, no chills, no melena, no bright red blood per rectum, no hematemesis, no hematochezia, no abdominal pain, no nausea, no vomiting, no diarrhea. No leg swelling, has been feeling lightheaded and dizzy. Preliminary workup was significant for CBC hemoglobin of 7.8, patient tested negative for influenza type A type B and COVID-19. Patient has been placed in observation for further evaluation management and treatment. Review of Systems Review of Systems: Chest pain, lightheadedness, dizziness. Constitutional: Constitutional: Denies chills, Reports fatigue, Denies fever(s), Reports lethargy, Denies malaise, Denies night sweats and Denies weakness Eyes: Eyes: Denies change in vision ENT: Denies dysphagia, Reports dizziness and Denies odynophagia Cardiovascular: Cardiovascular: Reports chest pain, Denies irregular heart rhythm, Denies leg edema and Reports lightheadedness Respiratory: Respiratory: Reports cough, Denies pain on inspiration and Reports wheezing Gastrointestinal: Gastrointestinal: Denies abdominal pain, Denies melena, Denies hematochezia, Denies coffee ground emesis, Denies dyspepsia, Denies heartburn, Denies nausea and Denies vomiting Genitourinary: Genitourinary: Denies dysuria Musculoskeletal: Musculoskeletal: Denies muscle weakness Integumentary/Breasts: Skin/Breast: Denies rash Neurologic: Denies focal weakness and Denies Sensory deficit (Neuro) Psychiatric: Psychiatric: Reports no additional psychiatric complaints and Reports as per HPI Endocrine: Endocrine: Denies cold intolerance, Denies flushing, Denies heat intolerance, Denies polyphagia, Denies polydipsia and Denies palpitations Hematologic/Lymphatic: Hematologic/Lymphatic: Reports no additional hematologic/lymphatic complaints and Reports as per HPI Allergic/Immunologic: Allergic/Immunologic: Reports no additional allergic/immunologic complaints and Reports as per HPI [facility] Past Medical History Medical History (Updated 09/07/22 @ 03:10 by Nata Saleh MD) CAD (coronary artery disease) minimal disease on cath no intervention Cirrhosis COPD (chronic obstructive pulmonary disease) hx of home O22 requirement but none currently Diabetes Diarrhea Diastolic heart failure Dyslipidemia GERD (gastroesophageal reflux disease) Hypertension Hypertriglyceridemia Hypothyroidism post tyroidectomy Iron deficiency anemia Nausea and vomiting in adult Post-menopausal osteoporosis Sleep apnea cpap use Tobacco abuse disorder Surgical History Surgical History H/O cardiac catheterization H/O thyroidectomy due to thyroid cancer 1986, s/p chemo and radiation therapy History of cholecystectomy laperscopic 2013 History of hysterectomy for cancer with bilateral S&O 1994 Family History Family History Mother Family history of heart disease in male family member before age 55 Family history of cardiovascular disease Diabetes mellitus Hypertension Sibling Family history of heart disease in male family member before age 55 Acute myocardial infarction Diabetes mellitus Hypertension Social History Social History Social History: The patient lives in her own home with a roommate. She has a small dog and a large cat. She continues to smoke a pack of cigarettes per day
[2022-09-07] MEDS: TUBING, BLOOD PLUM PUMP TUBING 1 EACH XX (02:57)
[2022-09-07] MEDS: SODIUM CHLORIDE 0.9% IV 250 ML 30 ML IV CONT (02:57)
[2022-09-07] MEDS: LEVOTHYROXINE SODIUM 75 MCG TABLET PO (05:41)
--- NOTE | 2022-09-07 07:56 | PM.IMPN ---
Progress Note: A&P Assessment and Plan (1) Symptomatic anemia: Code(s): D64.9 - Anemia, unspecified Status: Acute Assessment and Plan: Patient presented to the urgent care with complaints of increased chest pain, weakness, fatigue, and shortness of breath. She transferred to our ED for further evaluation of chest pain. She reports history of chronic iron deficiency anemia. Hemoglobin 7.8 on admission and prior hemoglobin levels 8.2. transfused 2 units PRBC upon admission with Lasix 20 mg IV x1 following transfusion. serum iron low 25, TIBC elevated 612, iron saturation 4%, and low ferritin 5.22. IV Venofer 200 mg ordered and patient refusing infusion. Iron supplement a daily with vitamin-C supplement ordered. Patient reports she stop taking her iron supplements due to constipation. I reinforced continuing this medication an alternative strategies for compliance. B12 low normal 453, and folate 20. Absolute reticulocyte is low 0.06 and immature reticulocyte count is elevated 19.6. Fecal occult blood is pending. Hold Brilinta for now. No abdominal pain, vomiting, or stool changes however patient does take Brilinta 90 mg b.i.d. has a history of GERD and liver cirrhosis. Consider GI consult for further evaluation of anemia if fecal occult is positive and or patient is noted to have hematemesis Trend H&H and monitor vital signs (2) Iron deficiency anemia: Qualifiers: Iron deficiency anemia type: other iron deficiency Qualified Code(s): D50.8 - Other iron deficiency anemias Code(s): D50.9 - Iron deficiency anemia, unspecified Status: Chronic Assessment and Plan: As above. (3) COPD (chronic obstructive pulmonary disease): Qualifiers: COPD type: unspecified COPD Qualified Code(s): J44.9 - Chronic obstructive pulmonary disease, unspecified Code(s): J44.9 - Chronic obstructive pulmonary disease, unspecified Status: Chronic Assessment and Plan: Chronic, stable, not in acute exacerbation. Patient is currently on room air without respiratory complaints. Shortness of breath and chest pain likely secondary to a symptomatic anemia. Continue maintenance inhaler Advair substituted for Symbicort due to formulary. Incruse Ellipta substituted for Spiriva DuoNebs as needed q.6 hours Continue roflumilast Monitor respiratory status (4) Cirrhosis: Qualifiers: Ascites presence: without ascites Hepatic cirrhosis type: unspecified hepatic cirrhosis Qualified Code(s): K74.60 - Unspecified cirrhosis of liver Code(s): K74.60 - Unspecified cirrhosis of liver Status: Chronic Assessment and Plan: Chronic, does not appear decompensated. Hemoglobin 7.8, platelets within normal limits, LFTs within normal limits, no ascites or complaints of abdominal pain. Continue spironolactone and resume oral furosemide tomorrow morning (5) Tobacco abuse disorder: Code(s): Z72.0 - Tobacco use Status: Chronic Assessment and Plan: Chronic, nicotine patch while inpatient. Counseled to quit smoking. (6) GERD (gastroesophageal reflux disease): Qualifiers: Esophagitis presence: esophagitis presence not specified Qualified Code(s): K21.9 - Gastro-esophageal reflux disease without esophagitis Code(s): K21.9 - Gastro-esophageal reflux disease without esophagitis Status: Chronic Assessment and Plan: Chronic, treated with Protonix 40 mg IV b.i.d. until acute GI bleed ruled out. Continue Carafate t.i.d. (7) CAD (coronary artery disease): Code(s): I25.10 - Atherosclerotic heart disease of [place] coronary artery without angina pectoris Status: Chronic Assessment and Plan: Chronic, Holding Brillinta due to symptomatic anemia. Continue statin and spironolactone. Troponin negative and chest pain likely secondary to anemia. (8) (HFpEF) heart failure with preserved ej
[2022-09-07 08:35] LABS: NT Pro B Type Natriuretic Pept 1480 pg/mL (19.9-100)
[2022-09-07 08:43] LABS: Vitamin D 25 Hydroxy 31.6 ng/mL
[2022-09-07] MEDS: ALBUTEROL SULFATE NEB 2.5 MG/3 ML INH INHALATION ×2 (10:25→14:26)
[2022-09-07] MEDS: IPRATROPIUM BR 0.02% INH SOLN 0.5 MG/2.5 ML VIAL INHALATION ×2 (10:25→14:26)
[2022-09-07] MEDS: SUCRALFATE 1 GM TABLET PO ×2 (11:25→17:11)
[2022-09-07] MEDS: CHOLECALCIFEROL 1,000 UNITS TABLET 1000 UNITS PO (11:26)
[2022-09-07] MEDS: levETIRAcetam 500 MG TABLET PO ×2 (11:26→17:11)
[2022-09-07] MEDS: PANTOPRAZOLE SODIUM IV 40 MG VIAL IV PUSH ×2 (11:27→21:16)
[2022-09-07] MEDS: ROFLUMILAST 500 MCG TABLET PO (11:27)
[2022-09-07] MEDS: ROSUVASTATIN 10 MG TABLET 40 MG PO (11:27)
[2022-09-07] MEDS: FENOFIBRATE 160 MG TABLET PO (11:28)
[2022-09-07] MEDS: FUROSEMIDE INJ 40 MG/4 ML VIAL 20 MG IV PUSH (11:28)
[2022-09-07] MEDS: IRON SUCROSE COMPLEX 200 MG in SODIUM CHLORIDE 0.9% IV 50 ML 120 MG IVPB (11:31)
[2022-09-07 14:00] LABS: Hematocrit 33.6 % (37.0-47.0); Hemoglobin 10.1 g/dL (12.0-15.0)
[2022-09-07] MEDS: FLUTICASONE/SALMETEROL 115-21 MCG INHALER 1 PUFF 2 PUFF INHALATION ×2 (14:26→21:29)
[2022-09-07] MEDS: UMECLIDINIUM BROMIDE 62.5 MCG ELLIPTA 1 PUFF INHALATION (14:37)
[2022-09-07] MEDS: QUEtiapine FUMARATE XR 200 MG TAB.ER.24H 400 MG PO (21:16)
[2022-09-08] VITALS (7 sets, daily range): BP systolic 117–136; BP diastolic 51–57; PULSE 54–70; RESP 20; TEMP 36.3–37.1; O2SAT 93–95
[2022-09-08] MEDS: LEVOTHYROXINE SODIUM 75 MCG TABLET PO (06:05)
[2022-09-08 07:38] LABS: Hematocrit 32.6 % (37.0-47.0); Hemoglobin 9.9 g/dL (12.0-15.0); Mean Corpuscular HGB Conc 30.4 g/dl (32-36); Mean Corpuscular Hemoglobin 22.7 pg (26-34); Mean Corpuscular Volume 74.6 fl (80-100); Mean Platelet Volume 11.2 fl (7.4-10.4); Platelet Count Result 233 k/mm3 (150-375); Red Blood Count 4.37 M/mm3 (4.2-5.4); Red Cell Distribution Width 20.8 % (11.5-14.5); White Blood Count 7.3 K/mm3 (4.5-10.0)
[2022-09-08 07:41] LABS: Anion Gap 4 mmol/L (8-16); Blood Urea Nitrogen 17 mg/dL (7-17); Calcium 8.8 mg/dL (8.4-10.2); Carbon Dioxide 30 mmol/L (22-30); Chloride 106 mmol/L (98-107); Estimated CRCL calculation 42 ml/min; Estimated Glomerular Filt Rate 55; Glucose 116 mg/dL (65-110); Potassium 4.2 mmol/L (3.4-5.0); Sodium 140 mmol/L (137-145)
[2022-09-08] MEDS: UMECLIDINIUM BROMIDE 62.5 MCG ELLIPTA 1 PUFF INHALATION (08:13)
[2022-09-08] MEDS: FLUTICASONE/SALMETEROL 115-21 MCG INHALER 1 PUFF 2 PUFF INHALATION (08:13)
[2022-09-08] MEDS: levETIRAcetam 500 MG TABLET PO (09:51)
[2022-09-08] MEDS: SUCRALFATE 1 GM TABLET PO ×2 (09:51→12:00)
[2022-09-08] MEDS: FENOFIBRATE 160 MG TABLET PO (09:51)
[2022-09-08] MEDS: ROSUVASTATIN 10 MG TABLET 40 MG PO (09:51)
[2022-09-08] MEDS: FERROUS SULFATE DRIED 142 MG TABCR PO (09:51)
[2022-09-08] MEDS: ASCORBIC ACID 500 MG TABLET PO (09:51)
[2022-09-08] MEDS: FUROSEMIDE 40 MG TABLET PO (09:51)
[2022-09-08] MEDS: CHOLECALCIFEROL 1,000 UNITS TABLET 1000 UNITS PO (09:51)
[2022-09-08] MEDS: ROFLUMILAST 500 MCG TABLET PO (09:52)
[2022-09-08] MEDS: PANTOPRAZOLE SODIUM IV 40 MG VIAL IV PUSH (09:52)
[2022-09-08] MEDS: polyethylene glycoL 3350 17 GM POWD.PACK PO (09:52)
--- NOTE | 2022-09-08 13:06 | PM.DS ---
DS: Admitting Diagnosis Discharge Date 09/08/22 Admitting Diagnosis Iron deficiency Anemia DS: Discharge Diagnosis Discharge Diagnosis (1) Symptomatic anemia: Code(s): D64.9 - Anemia, unspecified Status: Acute Assessment and Plan: Patient presented to the urgent care with complaints of increased chest pain, weakness, fatigue, and shortness of breath. She transferred to our ED for further evaluation of chest pain. She reports history of chronic iron deficiency anemia. Hemoglobin 7.8 on admission and prior hemoglobin levels 8.2. transfused 2 units PRBC upon admission with Lasix 20 mg IV x1 following transfusion. serum iron low 25, TIBC elevated 612, iron saturation 4%, and low ferritin 5.22. IV Venofer 200 mg ordered and patient refusing infusion. Iron supplement a daily with vitamin-C supplement ordered. Patient reports she stop taking her iron supplements due to constipation. I reinforced continuing this medication an alternative strategies for compliance. B12 low normal 453, and folate 20. Absolute reticulocyte is low 0.06 and immature reticulocyte count is elevated 19.6. Fecal occult blood is pending. No abdominal pain, vomiting, or stool changes however patient does take Brilinta 90 mg b.i.d. has a history of GERD and liver cirrhosis. Consider GI consult for further evaluation of anemia if fecal occult is positive and or patient is noted to have hematemesis Trend H&H and monitor vital signs (2) Iron deficiency anemia: Qualifiers: Iron deficiency anemia type: other iron deficiency Qualified Code(s): D50.8 - Other iron deficiency anemias Code(s): D50.9 - Iron deficiency anemia, unspecified Status: Chronic Assessment and Plan: As above. (3) COPD (chronic obstructive pulmonary disease): Qualifiers: COPD type: unspecified COPD Qualified Code(s): J44.9 - Chronic obstructive pulmonary disease, unspecified Code(s): J44.9 - Chronic obstructive pulmonary disease, unspecified Status: Chronic Assessment and Plan: Chronic, stable, not in acute exacerbation. Patient is currently on room air without respiratory complaints. Shortness of breath and chest pain likely secondary to a symptomatic anemia. Continue maintenance inhaler Advair substituted for Symbicort due to formulary. Incruse Ellipta substituted for Spiriva DuoNebs as needed q.6 hours Continue roflumilast Monitor respiratory status (4) Cirrhosis: Qualifiers: Ascites presence: without ascites Hepatic cirrhosis type: unspecified hepatic cirrhosis Qualified Code(s): K74.60 - Unspecified cirrhosis of liver Code(s): K74.60 - Unspecified cirrhosis of liver Status: Chronic Assessment and Plan: Chronic, does not appear decompensated. Hemoglobin 7.8, platelets within normal limits, LFTs within normal limits, no ascites or complaints of abdominal pain. Continue spironolactone and resume oral furosemide tomorrow morning (5) Tobacco abuse disorder: Code(s): Z72.0 - Tobacco use Status: Chronic Assessment and Plan: Chronic, nicotine patch while inpatient. Counseled to quit smoking. (6) GERD (gastroesophageal reflux disease): Qualifiers: Esophagitis presence: esophagitis presence not specified Qualified Code(s): K21.9 - Gastro-esophageal reflux disease without esophagitis Code(s): K21.9 - Gastro-esophageal reflux disease without esophagitis Status: Chronic Assessment and Plan: Chronic, treated with Protonix 40 mg IV b.i.d. until acute GI bleed ruled out. Continue Carafate t.i.d. (7) CAD (coronary artery disease): Code(s): I25.10 - Atherosclerotic heart disease of [place] coronary artery without angina pectoris Status: Chronic Assessment and Plan: Chronic, Holding Brillinta due to symptomatic anemia. Continue statin and spironolactone. Troponin negative and chest annabelle
== END 2022-09-08 16:10 | disposition home or self-care (01) ==
LOC: ANHED 23:23 → ANH2MED 09-07 11:55
PROVIDERS: Emergency Medicine; Internal Medicine Critical Care Medicine; Nurse Practitioner Family; Admitting Provider Internal Medicine; Emergency Provider Emergency Medicine; PCP Physician Assistant; Visit Provider Internal Medicine
DX: D50.9 Iron deficiency anemia, unspecified (principal); R06.02 Shortness of breath; R07.9 Chest pain, unspecified; I13.0 Hypertensive heart and chronic kidney disease with heart failure and stage 1 through stage 4 chronic kidney disease, or unspecified chronic kidney disease; I50.30 Unspecified diastolic (congestive) heart failure; E11.22 Type 2 diabetes mellitus with diabetic chronic kidney disease; N18.31 Chronic kidney disease, stage 3a; I25.10 Atherosclerotic heart disease of native coronary artery without angina pectoris; J44.9 Chronic obstructive pulmonary disease, unspecified; K74.60 Unspecified cirrhosis of liver; E78.5 Hyperlipidemia, unspecified; K21.9 Gastro-esophageal reflux disease without esophagitis; E89.0 Postprocedural hypothyroidism; G47.30 Sleep apnea, unspecified; M81.0 Age-related osteoporosis without current pathological fracture; E78.1 Pure hyperglyceridemia; Z20.822 Contact with and (suspected) exposure to COVID-19; Z95.5 Presence of coronary angioplasty implant and graft; Z79.01 Long term (current) use of anticoagulants; Z79.51 Long term (current) use of inhaled steroids; Z79.84 Long term (current) use of oral hypoglycemic drugs; Z85.850 Personal history of malignant neoplasm of thyroid; Z92.21 Personal history of antineoplastic chemotherapy; Z92.3 Personal history of irradiation; F17.210 Nicotine dependence, cigarettes, uncomplicated
CPT/HCPCS: 36415; 36430; 71046; 80048; 80053; 82306; 82607; 82728; 82746; 82948; 83540; 83550; 83880; 84443; 84484; 85014; 85018; 85025; 85027; 85046; 85055; 85610; 85730; 86850; 86900; 86901; 86920; 87637; 93005; 94640; 96365; 96375; 96376; 97165; 99285; A9270; C9113; G0378; J1756; J1940; J7050; P9016

== ENCOUNTER 2022-09-28 09:24 | Outpatient (CLI) | payer OTHER, MEDICAID, SELFPAY ==
[2022-09-28 10:41] LABS: Basophils Absolute Auto 0.1 K/mm3 (0.0-0.1); Basophils Percent Auto 1.6 % (0.2-1.2); Eosinophils Absolute Auto 0.3 K/mm3 (0-0.3); Eosinophils Percent Auto 4.5 % (0-4.4); Hemoglobin 11.4 g/dL (12.0-15.0); Immature Granulocyte Absolute 0.03 K/mm3 (0.00-0.031); Immature Granulocyte Percent A 0.4 % (0-0.5); Immature Platelet Fraction Pct 9.2 % (0.9-11.2); Lymphocytes Absolute Auto 1.57 K/mm3 (0.9-3.2); Lymphocytes Percent Auto 20.7 % (18.3-44.2); Mean Corpuscular HGB Conc 29.2 g/dl (32-36); Mean Corpuscular Hemoglobin 23.8 pg (26-34); Mean Corpuscular Volume 81.3 fl (80-100); Mean Platelet Volume 11.7 fl (7.4-10.4); Monocytes Absolute Auto 0.5 K/mm3 (0.1-0.6); Monocytes Percent Auto 6.9 % (2.6-8.5); Neutrophils Percent Auto 65.9 % (45.5-73.1); Platelet Count Result 242 k/mm3 (150-375); Red Cell Distribution Width 27.5 % (11.5-14.5); White Blood Count 7.6 K/mm3 (4.5-10.0)
[2022-09-28 10:45] LABS: Appearance Urine Clear (Clear); Bilirubin Urine Negative (Negative); Blood Urine Negative (Negative); Color Urine Yellow (Yellow); Glucose Urine UA Trace mg/dL (Negative); Ketones Urine Negative (Negative); Leukocyte Esterase Ur 1+ LEU/UL (NEGATIVE); Mucus Urine Rare /lpf; Nitrate Urine Negative (Negative); Protein Urine Negative (Negative); Specific Grav Ur 1.015 (1.001-1.035); Squamous Epithelial Cell Urine Few /hpf (Few); Urobilinogen Urine 0.2 mg/dL (<2.0); WBC Urine 51-75 /hpf (0-3)
[2022-09-28 10:46] LABS: Add Urine Microscopic? YES
[2022-09-28 11:01] LABS: Anisocytosis 3+ (NORMAL); Hypochromasia 1+ (NORMAL); Platelet Estimate Adequate (Adequate); Schistocytes None Seen (NORMAL)
[2022-09-28 11:04] LABS: Alanine Aminotransferase 15 U/L (6-35); Albumin Level 4.2 g/dL (3.5-5.1); Alkaline Phosphatase 60 U/L (38-126); Anion Gap 7 mmol/L (8-16); Aspartate Amino Transferase 23 U/L (14-36); Bilirubin,Total 0.4 mg/dL (0.2-1.3); Blood Urea Nitrogen 18 mg/dL (7-17); Calcium 9.3 mg/dL (8.4-10.2); Carbon Dioxide 29 mmol/L (22-30); Chloride 105 mmol/L (98-107); Cholesterol 149 mg/dL (0-200); Estimated Glomerular Filt Rate 45; Glucose 144 mg/dL (65-110); HDL Direct 47 mg/dL; Potassium 4.5 mmol/L (3.4-5.0); Sodium 141 mmol/L (137-145); Triglycerides 110 mg/dL (<150)
[2022-09-28 11:15] LABS: LDL Cholesterol Direct 68 mg/dL
[2022-09-28 14:27] LABS: Creatinine Urine 43.9 mg/dL
[2022-09-28 14:32] LABS: MALB Creatinine Ratio 50.1 mg/g (0-30)
[2022-09-28 17:49] LABS: Hemoglobin A1C 6.7 % (<5.7)
== END 2022-09-28 09:25 | disposition home or self-care (01) ==
PROVIDERS: PCP Physician Assistant; Visit Provider Family Medicine
DX: E78.2 Mixed hyperlipidemia (principal); E11.42 Type 2 diabetes mellitus with diabetic polyneuropathy; Z79.4 Long term (current) use of insulin; I25.118 Atherosclerotic heart disease of native coronary artery with other forms of angina pectoris; I11.0 Hypertensive heart disease with heart failure; I50.32 Chronic diastolic (congestive) heart failure
CPT/HCPCS: 36415; 80053; 80061; 81001; 82043; 83036; 84439; 84443; 85025; 85055

== ENCOUNTER 2024-07-20 16:30 | Emergency (ER) | payer MEDICARE, MEDICAID, SELFPAY ==
[2024-07-20 16:49] VITALS: BP 152/52; PULSE 67; RESP 16; TEMP 37.2; O2SAT 96
[2024-07-20 16:52] LABS: EDUAAPPEAR Cloudy; EDUABILI Negative (Negative); EDUABLOOD 2+ (Negative); EDUACOLOR1 Yellow; EDUAGLUCOSE 2+ (Negative); EDUAKETONE Negative (Negative); EDUALEUKO 1+ (Negative); EDUANITRATE Negative (Negative); EDUAPH 5.5; EDUAPROTEIN 1+ (Negative); EDUASPGRAVITY 1.015; EDUAUROBILI 0.2
--- NOTE | 2024-07-20 17:36 | ED_ITS ---
HPI - Female Genitourinary General Chief complaint: Urogenital-Female Stated complaint: Urinary Problems Time Seen by Provider: 07/20/24 17:36 Source: patient, RN notes reviewed and old records reviewed Mode of arrival: ambulatory Limitations: no limitations History of Present Illness HPI Narrative: Patient presents with complaints of urinary frequency and burning that has been present for 7-10 days. She denies any injury or trauma. She denies any fever, chills, sweats. She does admit that she does not drink as much water as she should, but does report that she tries to keep her blood sugar under good cont rol. She voices no other concerns or complaints at this time. She is in no distress. She has not been taking anything for her symptoms Related Data Home Medications Medication Instructions Recorded Confirmed budesonide-formoterol HFA 160 2 puff inhalation BID 07/05/19 07/20/24 mcg-4.5 mcg/actuation aerosol inhaler (Symbicort) fenofibrate 160 mg tablet 160 mg PO DAILY 07/05/19 07/20/24 levothyroxine 75 mcg tablet 75 mcg PO DAILY 07/05/19 07/20/24 metformin 500 mg tablet 500 mg PO BID 07/05/19 07/20/24 pantoprazole 40 mg tablet,delayed 40 mg PO DAILY 07/05/19 07/20/24 release roflumilast 500 mcg tablet 500 mcg PO DAILY 07/05/19 07/20/24 (Daliresp) rosuvastatin 40 mg tablet 40 mg PO DAILY 07/05/19 07/20/24 spironolactone 25 mg tablet 25 mg PO DAILY 07/05/19 07/20/24 ticagrelor 90 mg tablet (Brilinta) 90 mg PO BID 07/05/19 07/20/24 tiotropium bromide 18 mcg capsule 1 cap inhalation DAILY 07/05/19 07/20/24 with inhalation device (Spiriva with HandiHaler) nitroglycerin 0.4 mg sublingual 0.4 mg sublingual Q5M PRN Chest 07/06/19 07/20/24 tablet Pain cholecalciferol (vitamin D3) 25 25 mcg PO DAILY 09/07/22 07/20/24 mcg (1,000 unit) capsule potassium chloride 10 mEq 10 meq PO DAILY 09/07/22 07/20/24 tablet,extended release sucralfate 1 gram tablet 1 g PO TID 09/07/22 07/20/24 albuterol sulfate 90 mcg/actuation See Rx Instructions .Route .COMPLEX 07/20/24 07/20/24 aerosol inhaler bupropion HCl 150 mg 24 hr tablet, 150 mg PO DAILY 07/20/24 07/20/24 extended release dapagliflozin propanediol 10 mg 10 mg PO DAILY 07/20/24 07/20/24 tablet (Farxiga) famotidine 40 mg tablet 40 mg PO DAILY 07/20/24 07/20/24 fluticasone fur. 200 mcg-umeclid See Rx Instructions .Route .COMPLEX 07/20/24 07/20/24 62.5 mcg-vilant 25 mcg inhalat.powder (Trelegy Ellipta) furosemide 20 mg tablet 20 mg PO DAILY 07/20/24 07/20/24 glimepiride 2 mg tablet 2 mg PO DAILY 07/20/24 07/20/24 isosorbide mononitrate 30 mg 30 mg PO DAILY 07/20/24 07/20/24 tablet,extended release 24 hr levetiracetam 1,000 mg tablet 1,000 mg PO DAILY 07/20/24 07/20/24 linagliptin 5 mg tablet (Tradjenta) 5 mg PO DAILY 07/20/24 07/20/24 metoprolol tartrate 25 mg tablet 25 mg PO DAILY 07/20/24 07/20/24 quetiapine 200 mg tablet,extended 200 mg PO DAILY 07/20/24 07/20/24 release 24 hr roflumilast 500 mcg tablet 500 mcg PO DAILY 07/20/24 07/20/24 valsartan 80 mg tablet 80 mg PO DAILY 07/20/24 07/20/24 Allergies Allergy/AdvReac Type Severity Reaction Status Date / Time levofloxacin Allergy Severe Swelling Verified 07/20/24 17:24 of Lip/Tongue/Throat Penicillins Allergy Severe Swelling Verified 07/20/24 17:24 tetracycline Allergy Severe Swelling Verified 07/20/24 17:24 Tetracyclines Allergy Severe Swelling Verified 07/20/24 17:24 Review of Systems Review of Systems: All systems reviewed & are unremarkable except as noted in HPI and below Constitutional: Constitutional: Reports no additional constitutional complaints ENT: Reports system reviewed and no additional complaints, except as documented Cardiovascular: Cardiovascular: Reports no additional cardiovascular complaints Respiratory: Respiratory: Reports no additional respiratory complaints Gastrointestinal: Gastrointestinal: Reports no additional gastrointestinal complaints Genitourinary: Genitourinary: Reports as per HPI, Reports post void dribbling, Reports nocturia, Reports dysuria, Denies flank pain and Reports urinary urgency [facility] Past Medical History Medical History (HFpEF) heart failure with preserved ejection fraction echo from 2018 (outlying facility) shows mild to moderate left ventricular systolic dysfunction, EF 40-45% and grade 2 diastolic dysfunction. CAD (coronary artery disease) minimal disease on cath no intervention Chronic kidney disease Stage IIIA Cirrhosis COPD (chronic obstructive pulmonary disease) hx of home O22 requirement but none currently Diabetes Diarrhea Dyslipidemia GERD (gastroesophageal reflux disease) Hypertension Hypertriglyceridemia Hypothyroidism post tyroidectomy Iron deficiency anemia Nausea and vomiting in adult Post-menopausal osteoporosis Sleep apnea cpap use Tobacco abuse disorder Surgical History Surgical History H/O cardiac catheterization H/O thyroidectomy due to thyroid cancer 1986, s/p chemo and radiation therapy History of cholecystectomy laperscopic 2012 History of hysterectomy for cancer with bilateral S&O 1994 Family History Family History Mother Family history of heart disease in male family member before age 55 Family history of cardiovascular disease Diabetes mellitus Hypertension Sibling Family history of heart disease in male family member before age 55 Acute myocardial infarction Diabetes mellitus Hypertension Social History Social History Social History: The patient lives in her own home with a roommate. She has a small dog and a large cat. She continues to smoke a pack of cigarettes per day and has done so since she was 16 years old. She denies any illicit substance use. She denies ever drinking alcohol. Code status is full code. Family history: Mother with uterine cancer diabetes and LA and is still alive in her 80s. Brother with diabetes. Two other brothers with LA Smoking packs per day: 1 Smoking cigarettes per day: 20.0 Years smoked: 48 Smoking pack-years: 48.00 Smoking status: Current every day smoker Tobacco type: cigarettes Alcohol intake: never Substance use: never Lack of Transportation: YES Lack of Food: Never True Current Housing: I Have Housing Concerned About Future Housing: No Difficulty Paying Gas/Electric Bills: No Difficulty Paying for Meds: No Currently Unemployed: No Education: High School Diploma/GED Difficulty w/ Childcare or Family Care: No Living arrangements: with roommate(s) Additional living arrangements comments: Patient has a small dog and a large cat Occupation/Education: unemployed Gender identity (if verbalized by the patient): Female Spiritual care concerns: No Agree to blood products: Yes Comments At the time of my signature, I reviewed and agree with the nursing past medical, surgical, social, and family history. There is no relevant family history pertinent to the patient complaint. Exam Const: General: cooperative, no acute distress, alert and awake Orientation/consciousness: oriented to person, oriented to place and oriented to time HENMT: Head: normal to inspection Resp: Effort & Inspection: normal respiratory effort and able to speak in complete sentences Auscultation: clear to auscultation bilaterally, no crackles, no rales, no rhonchi, no wheezes and diminished lung sounds Cardio: Palpation: normal PMI Rate: regular rate Rhythm: regular rhythm Heart sounds: S1 normal heart sound present and S2 normal heart sound present Back/Spine/Pelvis: Back: no CVA tenderness Neuro: General: oriented to person, oriented to place and oriented to time Cranial nerves: Yes CN's II-XII intact bilaterally Psych: Appearance: grossly normal Thought process: Normal thought process present Insight: Good insight present (Psych) Judgement: Good judgement present (Psych) Course Course Level of Care: Express Care Visit Vital Signs Vital signs: Vital Signs Temperature 99.0 F 07/20/24 16:49 Pulse Rate 67 07/20/24 16:49 Respiratory Rate 16 07/20/24 16:49 Blood Pressure 152/52 H 07/20/24 16:49 Pulse Oximetry 96 07/20/24 16:49 Oxygen Delivery Room Air 07/20/24 16:49 Temperature 99.0 F 07/20/24 16:49 Pulse Rate 67 07/20/24 16:49 Respiratory Rate 16 07/20/24 16:49 Blood Pressure 152/52 H 07/20/24 16:49 Pulse Oximetry 96 07/20/24 16:49 Oxygen Delivery Room Air 07/20/24 16:49 Reviewed MDM - Female Genitourinary MDM Narrative Medical decision making narrative: History, exam, he UA consistent with UTI. Treat as such. Patient is nontoxic appearing. Stable for discharge home on p.o. antibiotic therapy. Culture sent. Discharge instructions reviewed with patient, as well as provided in writing per nursing staff. The instructions also include specific and strict return/GO TO THE ER as well as f/u information. All questions have been answered, and the patient deny any further questions with discharge and discharge plan. Some parts of this dictation were generated by voice recognition software and may contain typographical and/or grammatical inaccuracies. Differential Diagnosis Differential diagnosis: Likely urinary tract infection Medical Records Attestation: I reviewed the patient's medical records. Lab Data Attestation: I reviewed the patient's lab results. Labs: Lab Results 07/20/24 Range/Units 16:49 POC Urine Color Yellow POC Urine Clarity Cloudy POC Urine pH 5.5 POC Ur Specif [place] 1.015 POC Urine Protein 1+ (Negative) POC Ur Glucose (UA) 2+ (Negative) POC Urine Ketones Negative (Negative) POC Urine Blood 2+ (Negative) POC Urine Nitrite Negative (Negative) POC Urine Bilirubin Negative (Negative) POC Urine Urobilinogen 0.2 POC U Leukocyte Esteras 1+ (Negative) Discharge Plan Discharge Clinical Impression: Urinary tract infection Qualifiers: Urinary tract infection type: site unspecified Hematuria presence: with hematuria Qualified Code(s): N39.0 - Urinary tract infection, site not specified Patient Disposition: Home, Self-Care Condition: Stable Instructions: Antibiotic Form, Urinary Tract Infection in Women (ED) Additional Instructions: Take medications as prescribed. Follow with primary care provider. Emergency department for any new or worsening symptoms Patient Language: [place] Prescriptions: New nitrofurantoin monohyd/m-cryst [Macrobid] 100 mg capsule 100 mg PO Q12H 5 Days Qty: 10 0RF Rx Instructions: must administer with a meal/food No Action metformin 500 mg tablet 500 mg PO BID Rx Instructions: take with meals spironolactone 25 mg tablet 25 mg PO DAILY levothyroxine 75 mcg tablet 75 mcg PO DAILY pantoprazole 40 mg tablet,delayed release (DR/EC) 40 mg PO DAILY rosuvastatin 40 mg tablet 40 mg PO DAILY tiotropium bromide [Spiriva with HandiHaler] 18 mcg capsule, w/inhalation d evice 1 cap INHALATION DAILY fenofibrate 160 mg tablet 160 mg PO DAILY budesonide-formoterol [Symbicort] 160-4.5 mcg/actuation HFA aerosol inhaler 2 puff INHALATION BID roflumilast [Daliresp] 500 mcg tablet 500 mcg PO DAILY Brilinta 90 mg tablet 90 mg PO BID famotidine 40 mg tablet 40 mg PO DAILY isosorbide mononitrate 30 mg tablet extended release 24 hr 30 mg PO DAILY valsartan 80 mg tablet 80 mg PO DAILY glimepiride 2 mg tablet 2 mg PO DAILY furosemide 20 mg tablet 20 mg PO DAILY albuterol sulfate 90 mcg/actuation HFA aerosol inhaler See Rx Instructions .ROUTE .COMPLEX Rx Instructions: Rx bupropion HCl 150 mg tablet extended release 24 hr 150 mg PO DAILY metoprolol tartrate 25 mg tablet 25 mg PO DAILY levetiracetam 1,000 mg tablet 1,000 mg PO DAILY quetiapine 200 mg tablet extended release 24 hr 200 mg PO DAILY roflumilast 500 mcg tablet 500 mcg PO DAILY Tradjenta 5 mg tablet 5 mg PO DAILY dapagliflozin propanediol [Farxiga] 10 mg tablet 10 mg PO DAILY Trelegy Ellipta 200-62.5-25 mcg blister with device See Rx Instructions .ROUTE .COMPLEX Rx Instructions: Rx nitroglycerin 0.4 mg Tablet, Sublingual 0.4 mg SUBLINGUAL Q5M PRN (Reason: Chest Pain) sucralfate 1 gram tablet 1 g PO TID potassium chloride 10 mEq tablet extended release 10 meq PO DAILY cholecalciferol (vitamin D3) 25 mcg (1,000 unit) capsule 25 mcg PO DAILY ascorbic acid (vitamin C) [Vitamin C] 500 mg Tablet 500 mg PO DAILY Qty: 30 0RF ferrous sulfate [Slow Release Iron] 142 mg (45 mg iron) Tablet Extended Release 142 mg PO DAILY@0800 Qty: 60 0RF Follow-up/Referrals: Natalia,ERIKA Vidal [Primary Care Provider] - 1 Week Time of Disposition: 17:53
[2024-07-20 17:53] LABS: Glucose Point of Care 112 mg/dl (65-105)
== END 2024-07-20 17:59 | disposition home or self-care (01) ==
PROVIDERS: Emergency Provider Nurse Practitioner Family; PCP Physician Assistant
DX: N39.0 Urinary tract infection, site not specified (principal); F17.210 Nicotine dependence, cigarettes, uncomplicated; I13.0 Hypertensive heart and chronic kidney disease with heart failure and stage 1 through stage 4 chronic kidney disease, or unspecified chronic kidney disease; E11.22 Type 2 diabetes mellitus with diabetic chronic kidney disease; N18.31 Chronic kidney disease, stage 3a; I50.9 Heart failure, unspecified; Z79.84 Long term (current) use of oral hypoglycemic drugs; I25.10 Atherosclerotic heart disease of native coronary artery without angina pectoris; K74.60 Unspecified cirrhosis of liver; K21.9 Gastro-esophageal reflux disease without esophagitis; J44.9 Chronic obstructive pulmonary disease, unspecified; E89.0 Postprocedural hypothyroidism; D50.9 Iron deficiency anemia, unspecified; G47.30 Sleep apnea, unspecified; Z85.850 Personal history of malignant neoplasm of thyroid; Z92.21 Personal history of antineoplastic chemotherapy; Z92.3 Personal history of irradiation
CPT/HCPCS: 81003; 82948; 87086; 99213; G0463

== ENCOUNTER 2025-05-01 18:36 | Emergency (ER) | payer MEDICARE, MEDICAID, SELFPAY ==
[2025-05-01 18:46] VITALS: BP 140/70; PULSE 51; RESP 16; TEMP 35.8; O2SAT 93
--- NOTE | 2025-05-01 19:11 | ED.EXTPRO ---
HPI - Extremity Problem General Chief complaint: Extremity Problem,Nontraumatic Stated complaint: swollen right foot Time Seen by Provider: 05/01/25 19:11 Source: patient Mode of arrival: ambulatory Limitations: no limitations History of Present Illness HPI Narrative: 69 yo F presents with redness, swelling and warmth to R foot. Pain for 2 to 3 days. Noticed redness starting yesterday. Getting progressively worse. AFebile. Soaked in epsom salts today without relief of symptoms. Pt also requesting medication refill. Is waiting for mail order for furosemide. Has been out for 4 days. Was told should be delivered some time this week. noticed mild increase in swelling to both LEs. hx of CHF. Planned to call her PCP tomorrow if we cannot refill. PT SOB but states suppose to be on her oxygen but didnt want to carry it into urgent care. All systems reviewed and negative except as noted above. Related Data Home Medications ?Medication ?Instructions ?Recorded ?Confirmed ?Last Taken ?Type budesonide-formoterol HFA 160 2 puff inhalation BID 07/05/19 07/20/24 07/05/19 History mcg-4.5 mcg/actuation aerosol inhaler (Symbicort) fenofibrate 160 mg tablet 160 mg PO DAILY 07/05/19 07/20/24 07/05/19 History levothyroxine 75 mcg tablet 75 mcg PO DAILY 07/05/19 07/20/24 07/05/19 History metformin 500 mg tablet 500 mg PO BID 07/05/19 07/20/24 07/05/19 History pantoprazole 40 mg tablet,delayed 40 mg PO DAILY 07/05/19 07/20/24 07/05/19 History release roflumilast 500 mcg tablet 500 mcg PO DAILY 07/05/19 07/20/24 07/05/19 History (Daliresp) rosuvastatin 40 mg tablet 40 mg PO DAILY 07/05/19 07/20/24 07/05/19 History spironolactone 25 mg tablet 25 mg PO DAILY 07/05/19 07/20/24 07/05/19 History ticagrelor 90 mg tablet (Brilinta) 90 mg PO BID 07/05/19 07/20/24 07/05/19 History tiotropium bromide 18 mcg capsule 1 cap inhalation DAILY 07/05/19 07/20/24 Unknown History with inhalation device (Spiriva with HandiHaler) nitroglycerin 0.4 mg sublingual 0.4 mg sublingual Q5M PRN Chest 07/06/19 07/20/24 Unknown History tablet Pain cholecalciferol (vitamin D3) 25 25 mcg PO DAILY 09/07/22 07/20/24 Unknown History mcg (1,000 unit) capsule potassium chloride 10 mEq 10 meq PO DAILY 09/07/22 07/20/24 Unknown History tablet,extended release sucralfate 1 gram tablet 1 g PO TID 09/07/22 07/20/24 Unknown History albuterol sulfate 90 mcg/actuation See Rx Instructions .Route .COMPLEX 07/20/24 07/20/24 Unknown History aerosol inhaler bupropion HCl 150 mg 24 hr tablet, 150 mg PO DAILY 07/20/24 07/20/24 Unknown History extended release dapagliflozin propanediol 10 mg 10 mg PO DAILY 07/20/24 07/20/24 Unknown History tablet (Farxiga) famotidine 40 mg tablet 40 mg PO DAILY 07/20/24 07/20/24 Unknown History fluticasone fur. 200 mcg-umeclid See Rx Instructions .Route .COMPLEX 07/20/24 07/20/24 Unknown History 62.5 mcg-vilant 25 mcg inhalat.powder (Trelegy Ellipta) furosemide 20 mg tablet 20 mg PO DAILY 07/20/24 07/20/24 Unknown History glimepiride 2 mg tablet 2 mg PO DAILY 07/20/24 07/20/24 Unknown History isosorbide mononitrate 30 mg 30 mg PO DAILY 07/20/24 07/20/24 Unknown History tablet,extended release 24 hr levetiracetam 1,000 mg tablet 1,000 mg PO DAILY 07/20/24 07/20/24 Unknown History linagliptin 5 mg tablet (Tradjenta) 5 mg PO DAILY 07/20/24 07/20/24 Unknown History metoprolol tartrate 25 mg tablet 25 mg PO DAILY 07/20/24 07/20/24 Unknown History quetiapine 200 mg tablet,extended 200 mg PO DAILY 07/20/24 07/20/24 Unknown History release 24 hr roflumilast 500 mcg tablet 500 mcg PO DAILY 11/29/24 11/29/24 Unknown History valsartan 80 mg tablet 80 mg PO DAILY 07/20/24 07/20/24 Unknown History alprazolam 0.5 mg tablet mg 05/01/25 Unknown History Allergies Allergy/AdvReac Type Severity Reaction Status Date / Time levofloxacin Allergy Severe Swelling Verified 05/01/25 18:55 of Lip/Tongue/Throat Penicillins Allergy Severe Swelling Verified 05/01/25 18:55 tetracycline Allergy Severe Swelling Verified 05/01/25 18:55 [facility] Past Medical History Medical History (HFpEF) heart failure with preserved ejection fraction echo from 2018 (outlying facility) shows mild to moderate left ventricular systolic dysfunction, EF 40-45% and grade 2 diastolic dysfunction. CAD (coronary artery disease) minimal disease on cath no intervention Chronic kidney disease Stage IIIA Cirrhosis COPD (chronic obstructive pulmonary disease) hx of home O22 requirement but none currently Diabetes Diarrhea Dyslipidemia GERD (gastroesophageal reflux disease) Hypertension Hypertriglyceridemia Hypothyroidism post tyroidectomy Iron deficiency anemia Nausea and vomiting in adult Post-menopausal osteoporosis Sleep apnea cpap use Tobacco abuse disorder Surgical History Surgical History H/O cardiac catheterization H/O thyroidectomy due to thyroid cancer 1986, s/p chemo and radiation therapy History of cholecystectomy laperscopic 2013 History of hysterectomy for cancer with bilateral S&O 1995 Family History Family History Mother Family history of heart disease in male family member before age 55 Family history of cardiovascular disease Diabetes mellitus Hypertension Sibling Family history of heart disease in male family member before age 55 Acute myocardial infarction Diabetes mellitus Hypertension Social History Social History Social History: The patient lives in her own home with a roommate. She has a small dog and a large cat. She continues to smoke a pack of cigarettes per day and has done so since she was 16 years old. She denies any illicit substance use. She denies ever drinking alcohol. Code status is full code. Family history: Mother with uterine cancer diabetes and MT and is still alive in her 80s. Brother with diabetes. Two other brothers with MT Smoking packs per day: 1 Smoking cigarettes per day: 20.0 Years smoked: 48 Smoking pack-years: 48.00 Smoking status: Current every day smoker Tobacco type: cigarettes Alcohol intake: never Substance use: never Lack of Transportation: YES Lack of Food: Never True Current Housing: I Have Housing Concerned About Future Housing: No Difficulty Paying Gas/Electric Bills: No Difficulty Paying for Meds: No Currently Unemployed: No Education: High School Diploma/GED Difficulty w/ Childcare or Family Care: No Living arrangements: with roommate(s) Additional living arrangements comments: Patient has a small dog and a large cat Occupation/Education: unemployed Gender identity (if verbalized by the patient): Female Spiritual care concerns: No Agree to blood products: Yes Comments At time of signature, agree with nursing past medical, surgical, social and family history. There is no relevant family history pertinent to the presenting complaint. Exam Narrative: GENERAL: This is a well-nourished, well-developed patient, in no apparent distress. HEAD: normocephalic, atraumatic. EYES: PERRL. Sclera clear/white. Vision is grossly intact. EARS: External ears normal NOSE: External nose normal NECK: Neck supple, non-tender without lymphadenopathy, masses or thyromegaly. CARDIOVASCULAR: Regular rate and rhythm without murmurs, gallops, or rubs. RESPIRATORY: Clear to auscultation. Breath sounds equal bilaterally. No wheezes, rales, or rhonchi. SKIN: warm, Dry, intact with no suspicious lesions or rash, good texture and turgor. NEURO: awake, alert, and oriented to person, place and time. There were no obvious focal neurologic abnormalities. EXTREMITIES: mild swelling to bilateral LEs. swelling, erythema and warmth to all toes of R foot, erythema extends mid foot. no open wounds noted. Course Course Level of Care: Express Care Visit Vital Signs Vital signs: Vital Signs Temperature 35.8 C L 05/01/25 18:46 Pulse Rate 51 L 05/01/25 18:46 Respiratory Rate 16 05/01/25 18:46 Blood Pressure 140/70 05/01/25 18:46 Pulse Oximetry 93 05/01/25 18:46 Oxygen Delivery Room Air 05/01/25 18:46 Temperature 35.8 C L 05/01/25 18:46 Pulse Rate 51 L 05/01/25 18:46 Respiratory Rate 16 05/01/25 18:46 Blood Pressure 140/70 05/01/25 18:46 Pulse Oximetry 93 05/01/25 18:46 Oxygen Delivery Room Air 05/01/25 18:46 reviewed MDM - Extremity (Nontraumatic) MDM Narrative Medical decision making narrative: will refill furosemide for 1 wk. will give clindamycin for cellulitis due to medication allergies. RA 93%, SOB at baseline,hx of CHF, COPD came to express care without home oxygen. instructed to go home right away and get back on her oxygen. will call her doctor for any worsening of symptoms. Differential Diagnosis Differential diagnosis: Likely cellulitis and lower extremity edema Discharge Plan Discharge Clinical Impression: Cellulitis of foot, right, Bilateral edema of lower extremity, Medication refill Patient Disposition: Home Condition: Stable Instructions: Antibiotic Form, Cellulitis (ED) Additional Instructions: Take antibiotic as prescribed until gone. Start lasix today. If you do not get your medication refills in the next few days, let your primary care physician know. Go to the ER for any worsening of symptoms. Patient Language: Citizen Of [place] Prescriptions: New furosemide [Lasix] 20 mg tablet 20 mg PO DAILY 7 Days Qty: 7 0RF clindamycin HCl [Cleocin HCl] 300 mg capsule 300 mg PO Q8H 7 Days Qty: 21 0RF No Action metformin 500 mg tablet 500 mg PO BID Rx Instructions: take with meals spironolactone 25 mg tablet 25 mg PO DAILY levothyroxine 75 mcg tablet 75 mcg PO DAILY pantoprazole 40 mg tablet,delayed release (DR/EC) 40 mg PO DAILY rosuvastatin 40 mg tablet 40 mg PO DAILY tiotropium bromide [Spiriva with HandiHaler] 18 mcg capsule, w/inhalation device 1 cap INHALATION DAILY fenofibrate 160 mg tablet 160 mg PO DAILY budesonide-formoterol [Symbicort] 160-4.5 mcg/actuation HFA aerosol inhaler 2 puff INHALATION BID roflumilast [Daliresp] 500 mcg tablet 500 mcg PO DAILY ticagrelor [Brilinta] 90 mg tablet 90 mg PO BID famotidine 40 mg tablet 40 mg PO DAILY isosorbide mononitrate 30 mg tablet extended release 24 hr 30 mg PO DAILY valsartan 80 mg tablet 80 mg PO DAILY glimepiride 2 mg tablet 2 mg PO DAILY furosemide 20 mg tablet 20 mg PO DAILY albuterol sulfate 90 mcg/actuation HFA aerosol inhaler See Rx Instructions .ROUTE .COMPLEX Rx Instructions: Rx bupropion HCl 150 mg tablet extended release 24 hr 150 mg PO DAILY metoprolol tartrate 25 mg tablet 25 mg PO DAILY levetiracetam 1,000 mg tablet 1,000 mg PO DAILY quetiapine 200 mg tablet extended release 24 hr 200 mg PO DAILY roflumilast 500 mcg tablet 500 mcg PO DAILY Tradjenta 5 mg tablet 5 mg PO DAILY dapagliflozin propanediol [Farxiga] 10 mg tablet 10 mg PO DAILY Trelegy Ellipta 200-62.5-25 mcg blister with device See Rx Instructions .ROUTE .COMPLEX Rx Instructions: Rx alprazolam 0.5 mg tablet nitroglycerin 0.4 mg Tablet, Sublingual 0.4 mg SUBLINGUAL Q5M PRN (Reason: Chest Pain) sucralfate 1 gram tablet 1 g PO TID potassium chloride 10 mEq tablet extended release 10 meq PO DAILY cholecalciferol (vitamin D3) 25 mcg (1,000 unit) capsule 25 mcg PO DAILY ascorbic acid (vitamin C) [Vitamin C] 500 mg Tablet 500 mg PO DAILY Qty: 30 0RF ferrous sulfate [Slow Release Iron] 142 mg (45 mg iron) Tablet Extended Release 142 mg PO DAILY@0800 Qty: 60 0RF Follow-up/Referrals: Natalia,ERIKA Vidal [Primary Care Provider, Unknown] Time of Disposition: 19:27
== END 2025-05-01 19:39 | disposition home or self-care (01) ==
PROVIDERS: Emergency Provider Nurse Practitioner Family; PCP Physician Assistant
DX: L03.115 Cellulitis of right lower limb (principal); R60.0 Localized edema; Z76.0 Encounter for issue of repeat prescription; I13.0 Hypertensive heart and chronic kidney disease with heart failure and stage 1 through stage 4 chronic kidney disease, or unspecified chronic kidney disease; E11.22 Type 2 diabetes mellitus with diabetic chronic kidney disease; N18.31 Chronic kidney disease, stage 3a; I50.9 Heart failure, unspecified; Z79.84 Long term (current) use of oral hypoglycemic drugs; I25.10 Atherosclerotic heart disease of native coronary artery without angina pectoris; K74.60 Unspecified cirrhosis of liver; J44.9 Chronic obstructive pulmonary disease, unspecified; E78.5 Hyperlipidemia, unspecified; K21.9 Gastro-esophageal reflux disease without esophagitis; E89.0 Postprocedural hypothyroidism; E78.1 Pure hyperglyceridemia; D50.9 Iron deficiency anemia, unspecified; F17.210 Nicotine dependence, cigarettes, uncomplicated; Z85.850 Personal history of malignant neoplasm of thyroid
CPT/HCPCS: 99213; G0463

== ENCOUNTER 2025-05-03 21:57 | Emergency (ER) | payer MEDICARE, MEDICAID, SELFPAY ==
--- NOTE | ~2025-05-03 | XR_ITS ---
Examination: XR chest 1V Clinical History: SOB Comparison: Chest x-ray 09/06/2022 Technique: Portable AP Findings: Cardiomegaly. Moderate right pleural effusion. No acute bony abnormality. IMPRESSION: 1. Moderate right pleural effusion. 2. Cardiomegaly. Reviewed, dictated and finalized at location R.
--- NOTE | ~2025-05-03 | CT_ITS ---
EXAMINATION: CT brain wo rhona, 05/04/2025 0:55 CDT HISTORY: fall, trauma COMPARISON: No comparisons available. Technique: Axial images obtained of the brain without contrast. One or more of the following dose reduction techniques were used: automated exposure control, adjustment of the mA and/or kV according to patient size, use of iterative reconstruction technique. Findings: No acute infarct or parenchymal hemorrhage. Remote left MCA infarct No abnormal mass or mass effect. No midline shift. No extra-axial fluid collections. No hydrocephalus. Mastoid air cells unremarkable. Sinuses and orbits unremarkable. No acute fracture. No significant facial or scalp soft tissue swelling evident. No radiopaque foreign body is seen. Impression: 1.No acute intracranial abnormality. 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 Impression: 1.No acute intracranial abnormality.
[2025-05-03 21:58] VITALS: BP 129/65; PULSE 97; RESP 22; TEMP 36.8; O2SAT 92
--- NOTE | 2025-05-03 22:05 | ECG_ITS ---
Test Date: 2025-05-04 01:22:56 Measurements Intervals [place] Rate: 92 P: 0 CT: 0 QRS: -58 QRSD: 106 T: 97 QT: 400 QTc: 497 Interpretive Statements ATRIAL FIBRILLATION WITH ABERRANT CONDUCTION OR VENTRICULAR PREMATURE COMPLEXES LEFT AXIS DEVIATION [QRS AXIS < -30] INCOMPLETE RIGHT BUNDLE BRANCH BLOCK [90+ ms QRS DURATION, TERMINAL R IN V1/V2, 40+ ms S IN I/aVL/V4/V5/V6] POSSIBLE ANTERIOR MYOCARDIAL INFARCTION , PROBABLY OLD [30 ms Q WAVE IN V3/V4, OR R < 0.2 mV IN V4] ABNORMAL ECG No previous ECG available for comparison Electronically Signed On 05-04-2025 12:21:05 CDT by Stu Larios M.D.
--- OUTSIDE RECORDS SUMMARY | 2025-05-04 00:37 | XMS_ITS | Clinical Summary ---
Author Organization [facility] Address [facility] [place] [address] Care Team Providers Care Cushion Installer Name Role Phone Darrion Ventura MD Unavailable [phone] Kateryna Clayton MD Primary Care Provider [phone] Allergies Active Allergy Reactions Criticality Noted Date Comments Penicillins Shortness of Breath,Swelling High 2015 Tetracycline Shortness of Breath,Swelling High 04/09 Medications fenofibrate 160 MG tablet Take 1 tablet by mouth daily. 0 Active clopidogrel (PLAVIX) 75 MG tablet Take 1 tablet by mouth daily. 0 Active levothyroxine 75 MCG tablet Take 1 tablet by mouth daily. 6 Active DALIRESP 500 MCG Tab Take 1 tablet (0.5 mg total) by mouth daily. 6 Active SEROQUEL XR 400 MG TABLET SR 24 HR Take 1 tablet by mouth nightly at bedtime. 6 Active potassium chloride 10 MEQ CR capsule Take 1 capsule (10 mEq total) by mouth daily. 6 Active phenytoin ER 100 MG capsule Take 1 capsule (100 mg total) by mouth 2 (two) times daily. 6 Active metFORMIN 500 MG tablet Take 1 tablet (500 mg total) by mouth 2 (two) times daily with meals. 6 Active lamotrigine (LAMICTAL) 100 MG tablet Take 1 tablet (100 mg total) by mouth daily. 6 Active furosemide 40 MG tablet Take 1 tablet (40 mg total) by mouth daily. 6 Active aspirin 325 MG tablet Take 1 tablet (325 mg total) by mouth daily. 6 Active Cholecalcifero l (VITAMIN D) 1000 UNIT tablet Take 1 tablet (1,000 Units total) by mouth daily. 6 Active CPAP MACHINE nightly at bedtime. 7 Active LANTUS SOLOSTAR 100 UNIT/ML injection (PEN) Inject 65 Units into the skin see administration instructions. As directed 7 Active nitroGLYCERIN (NITRO-DUR) 0.4 MG/HR Place 1 patch onto the skin daily. 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 Other Relation Status Comments Other Social History Tobacco Use Types Packs/Day Years Used Date Smoking Tobacco: Former Cigarettes Q uit: 01/29/2017 Smokeless Tobacco: Never Alcohol Use Standard Drinks/Week Comments No 0 (1 standard drink = 0.6 oz pur e alcohol) Comments Unknown Sex and Gender Information Value Date Recorded Sex Assigned at Not on file Legal Sex Female 7:51 PM CDT Gender Identity Not on file Sexual Orientation Not on file Occupation Industry Job Start Date Job End Date Disabled Not on file Not on file Not on file Not on file Not on file Not on file Not on file Last Filed Vital Signs Vital Sign Reading Time Taken Comments Blood Pressure 124/64 04/27/2017 10:09 AM CDT Pulse 68 04/27/2017 10:09 AM CDT Temperature - - Respiratory Rate 20 04/23/2010 6:28 PM CDT Oxygen Saturation 95% 01/31/2017 8:56 AM CDT Inhaled Oxygen Concentration - - Weight 85.7 kg (189 lb) 03/31/2017 9:33 AM CDT Height 160 cm (5' 3) 04/27/2017 10:09 AM CDT Body Mass Index 33.48 03/31/2017 9:33 AM CDT Plan of Treatment Health Maintenance Due Date Last Done Comments Colorectal Cancer Screening Colonoscopy (10 Years) 1953 Hepatitis C 1971 DTaP, Tdap and Td Vaccines ( 1 - Tdap) 1972 Zoster Vaccines (1 of 2) 2003 RSV Immunization or 60+ Years (1 - Risk 60-74 years 1-dose series) 2013 Annual Medicare Wellness Visit 2018 ASCVD LDL 02/27/2022 02/27/2021, 03/09/2017, 11/13/2015 PHQ-2 (Physician [place]) 08/22/2024 COVID-19 Vaccine (2 - 2024-2 6 season) 2025 09/29/2021 Mammogram Screening 06/08/2025 06/08/2023, 05/12/2023 Pneumococcal Vaccine: 50+ Years (3 of 3 - PCV20 or PCV21) 03/24/2026 03/24/2021, 08/12/2017, 09/01/2011 Dexa Scan (General) Completed 09/20/2023, 09/20/2023, 10/16/2018 Meningococcal B Vaccine Aged Out No l onger eligible based on patient's age to complete this topic Meningococcal Vaccine Aged Out No wilbert radha eligible based on patient's age to complete this topic RSV Immunizations Under 20 Months Aged Out No longer eligible b ased on patient's age to complete this topic Procedures Procedure Name Priority Date/Time Associated Diagnosis Comments LIPID PANEL Routine 02/27/2021 10:22 AM CDT from Last 3 Months or Most Recently Relevant to Health Maintenance Results * (ABNORMAL) LIPID PANEL (02/27/2021 10:22 AM CDT) CHOLESTEROL 137 0 - 200 mg/dL [facility] TRIGLYCERIDES 195(H) 0 - 150 mg/dL [facility] HDL 37(L) 40 - 60 mg/dL [facility] LDL (CALCULATED) 61 10 - 130 mg/dL [facility] CARDIO RISK 4 [facility] Comment: CHOLESTEROL LEVELS AND CHD RISK INTERPRETATIONS CHOLESTEROL LDL DESIRABLE < 200 mg/dL < 130 mg/dL [place] 200-239 mg/dL 130-159 mg/dL HIGH > 240 mg/dL > 160 mg/dL CHD RISK FACTORS CHOL/HDL RATIO MALE FEMALE BELOW AVG. < 4.2 < 3.9 AVERAGE 4.2-7.3 3.9-5.7 ABOVE AVG.(MODERATE) 7.4-11.5 5.8-9.0 ABOVE AVG.(HIGH) > 11.5 > 9.0 LDL AND CHD RATIO ARE INVALID IF TRIGLYCERIDES >450 02/27/2021 10:2 2 AM CDT 02/27/2021 10:22 AM CDT Kavya Ching PA-C LABORATORY Final Result [facility] [address] [place] [address] from Last 3 Months or Most Recently Relevant to Health Maintenance Insurance MEDICAID MEDICAID [place]PT [place] [id number] [employer] Care Teams Cushion Installer Relationship Specialty Start Date End Date Kateryna Clayton MD [facility]. [facility] [address] [place] [address] PCP - General FAMILY PRACTICE 12/29/22 Darrion Ventura MD [facility] [address] [place] [address] Reuben Electronic Development Technician CARDIOVASCULAR DISEASE 07/27/17
--- OUTSIDE RECORDS SUMMARY | 2025-05-04 00:37 | XMS_ITS | Encounter Summary ---
Author Organization [facility] Care Team Providers Care Can Bander Operator Name Role Phone Devyn Craig MD Primary Care Provider [phone] Stu García MD Primary Care Provider + Stu García MD Unavailable [phone] Sharan Duong MD Unavailable + Marcy Fisher Primary Care Provider [phone] Kateryna Culver MD Primary Care Provider [phone] Lacy Rosales MA Unavailable [phone] Lacy Rosales MA Unavailable [phone] Kateryna Culver MD Primary Care Provider [phone] Marika Hinson RN Unavailable [phone] Ilana Mccann LPN Unavailable [phone] Ilana Mccann LPN Unavailable [phone] Jes Christian RN Unavailable [phone] Encounter Details Date Type Department Care Team (Latest Contact Info) Description 04/27/2018 Orders Only [facility] CLINCONV Provider, Historical, MD [address] [place] [address] Social History Tobacco Use Types Packs/Day Years Used Date Smoking Tobacco: Heavy Smoker Comments:Smoking History Pac ks/day: 3 Packs Alcohol Use Standard Drinks/Week Comments Yes 0 (1 standard drink = 0.6 oz pur e alcohol) Comments Unknown Sex and Gender Information Value Date Recorded Sex Assigned at Not on file Legal Sex Female 3:50 AM MANAGER LANDSCAPE Gender Identity Not on file Sexual Orientation Not on file documented as of this encounter Plan of Treatment Not on file documented as of this encounter Procedures Procedure Name Priority Date/Time Associated Diagnosis Comments SCAN - LABS 05/01/2018 12:00 AM CDT SCAN - LABS 04/27/2018 12:00 AM CDT documented in this encounter Results * SCAN - LABS (05/01/2018 12:00 AM CDT) Narrative 05/01/2018 12:00 AM CDT Ordered by an unspecified provider. Historical Provider Final Res ult * SCAN - LABS (04/27/2018 12:00 AM CDT) Narrative 04/27/2018 12:00 AM CDT Ordered by an unspecified provider. Historical Provider Final Res ult documented in this encounter Visit Diagnoses Not on filedocumented in this encounter Additional Health Concerns Infection Onset Date Last Indicated Resolved Time COVID: Suspected 09/30/2023 09/30/2023 09/30/2023 4:02 PM MANAGER LANDSCAPE Influenza, adult 09/30/2023 09/30/2023 10/07/2023 3:05 AM MANAGER LANDSCAPE COVID: Suspected 12/07/2023 12/07/2023 12/07/2023 8:01 PM CDT COVID: Suspected 12/08/2023 12/08/2023 12/08/2023 12:59 AM CDT COVID: Suspected 04/22/2024 04/22/2024 04/22/2024 7:29 PM CDT COVID: Suspected 09/14/2024 09/14/2024 09/14/2024 2:42 AM MANAGER LANDSCAPE COVID: Suspected 12/26/2024 12/26/2024 12/26/2024 8:53 AM CDT COVID: Suspected 02/20/2025 02/20/2025 02/20/2025 2:16 PM CDT COVID: Suspected 03/12/2025 03/12/2025 03/12/2025 10:45 AM CDT documented as of this encounter Care Teams Can Bander Operator Relationship Specialty Start Date End Date Devyn Craig MD PCP - General 09/01/15 10/15/18 Stu García MD [address] [place] [address] PCP - General 10/16/18 03/24/21 Stu García MD [address] [place] [address] PCP - [employer] Attributed PCP 10/20/17 09/17/19 Marcy Fisher PA [address] [place] [address] PCP - General Physician Food Management Aide 06/10/22 09/27/22 Kateryna Culver MD [address] [place] [address] PCP - General Family Medicine 09/28/22 01/19/24 Kateryna Culver MD [address] [place] [address] [place] [address] PCP - General Family Medicine 01/20/24 Sharan Duong MD [address] [place] [address] Referring Physician Gastroenterology 07/26/19 Lacy Rosales MA [address] [place] [address] [address] [place] [address] ACO Care Claims Adjuster 03/03/23 03/03/23 Lacy Rosales MA [address] [place] [address] [address] [place] [address] ACO Care Claims Adjuster 05/17/23 05/17/23 Marika Hinson RN [address] [place] [address] [address] [place] [address] Host And Hostess 04/26/24 07/17/24 Ilana Mccann LPN [address] [place] [address] [address] [place] [address] Host And Hostess 09/17/24 09/17/24 Ilana Mccann LPN [address] [place] [address] [address] [place] [address] Host And Hostess 01/03/25 01/03/25 Jes Christian, [place] [address] [place] [address] [address] [place] [address] Host And Hostess 01/22/25 documented as of this encounter
[2025-05-04 00:38] VITALS: BP 132/57; PULSE 89; RESP 21; TEMP 36.9; O2SAT 93
--- OUTSIDE RECORDS SUMMARY | 2025-05-04 00:38 | XMS_ITS | Clinical Summary ---
Author Organization [employer] [address] Address [address] [place] [address] Care Team Providers Care Director Internal Communications Name Role Phone Shellie Hardin MD Primary Care Provider [phone] Allergies Active Allergy Reactions Criticality Noted Date Comments Hydrocodone Swelling,Other (See Comments) Low 06/25/2024 Difficulty swallowing Penamp-250 Other (See Comments) 09/29/2018 Thrush and swelling Penicillins Unknown 05/04/2016 Medications levothyroxine 75 mcg tablet TAKE 1 TABLET BY MOUTH EVERY DAY IN THE MORNING ON EMPTY STOMACH 1 9 Active metFORMIN (GLUCOPHAGE) 500 mg tablet TAKE 1 TABLET BY MOUTH EVERY DAY WITH MEALS 3 9 Active fenofibrate (LOFIBRA) 160 mg Tablet TAKE 1 TABLET BY MOUTH EVERY DAY 3 8 Active furosemide 20 mg tablet (LASIX) 20 mg. 1 9 Active pantoprazole (PROTONIX) 40 mg Tablet, Delayed Release (E.C.) TAKE 1 TABLET BY MOUTH EVERY DAY 3 9 Active BRILINTA 90 mg Tablet TAKE 1 TABLET BY MOUTH TWICE A DAY 11 9 Active SPIRIVA WITH HANDIHALER 18 mcg capsule INHALE 1 CAPSULE VIA HANDIHALER ONCE DAILY AT THE SAME TIME EVERY DAY 5 8 Active QUEtiapine ER 200 mg tablet,extended release 24 hr (SEROquel XR) Take 200 mg by mouth daily at bedtime. 1 8 Active DALIRESP 500 mcg Tablet TAKE 1 TABLET DAILY DIRECTED. 1 8 Active aspirin 81 mg capsule Take 81 mg by mouth daily. Active albuterol sulfate HFA 90 mcg/actuation aerosol inhaler INHALE 2 PUFFS BY MOUTH EVERY 4 HOURS NEEDED FOR WHEEZING FOR SHORTNESS OF BREATH 3 Active Accu-Chek Guide test strips Strip USE TO TEST BLOOD SUGARS ONCE DAILY 4 Active Blood-Glucose Meter Kit 1 Kit by Other route daily. 4 Active budesonide-formo teroL (Symbicort) 160-4.5 mcg/actuation HFA Aerosol Inhaler INHALE 2 PUFFS BY MOUTH 2 TIMES A DAY RINSE MOUTH WITH WATER AFTER USE. DO NOT SWALLOW. Active buPROPion HCL (WELLBUTRIN XL) 150 mg Extended Release 24 hour tablet Take 1 Tablet by mouth daily. 3 Active cholecalciferol, Vitamin D3, (VITAMIN D3) 25 mcg (1,000 unit) Capsule TAKE 1 SOFTGEL ORAL ONCE PER DAY 2 Active Farxiga 10 mg Tablet Take 1 Tablet by mouth daily. 3 Active famotidine (PEPCID) 40 mg tablet Take 40 mg by mouth 2 times daily. 4 Active flurbiprofen (OCUFEN) 0.03 % solution 4 Active fluticasone propionate (FLONASE) 50 mcg/spray [place], Suspension nasal inhaler Active Trelegy Ellipta 200-62.5-25 mcg Disk with Device Take 1 Puff by inhalation. 3 Active glimepiride (AMARYL) 2 mg tablet 2 mg 2 times daily with meals. 4 Active HYDROcodone-acet aminophen (NORCO) 5-325 mg tablet 3 Active isosorbide mononitrate (IMDUR) 30 mg Extended Release 24 hour tablet Take 30 mg by mouth daily. 4 Active levalbuterol HFA (XOPENEX HFA) 45 mcg/Actuation HFA Aerosol Inhaler Take 2 Puffs by inhalation. Active levETIRAcetam (KEPPRA) 1,000 mg tablet Take 1 Tablet by mouth 2 times daily. 3 Active Tradjenta 5 mg Tablet TAKE 1 TABLET (5 MG TOTAL) BY MOUTH DAILY. Active metoprolol tartrate (LOPRESSOR) 25 mg tablet Take 1 Tablet by mouth 2 times daily. 4 Active nitroglycerin (NITROSTAT) 0.4 mg Tablet, Sublingual PLACE 1 TABLET UNDER THE TONGUE EVERY 5 MINUTES NEEDED FOR CHEST PAIN. 3 Active potassium chloride (KLOR-CON M20) 20 mEq Extended Release tablet Take 20 mEq by mouth daily. Active Xarelto 20 mg Tablet Take 1 Tablet by mouth daily. Active rosuvastatin (CRESTOR) 40 mg tablet Take 40 mg by mouth daily. 3 Active sucralfate (CARAFATE) 1 gram tablet 3 times daily before meals. 3 Active valsartan (DIOVAN) 80 mg tablet 3 Active zolpidem (AMBIEN) 5 mg tablet Take 5 mg by mouth. 4 Active umeclidinium (Incruse Ellipta) 62.5 mcg/actuation Disk with Device Take by inhalation daily. Active Active Problems No known active problems Encounters Date Type Department Care Team Description 04/30/2025 External Device Data ST[facility] ABSTRACTION Provider, Abstract 04/10/2025 External Device Data ST[facility] ABSTRACTION Provider, Abstract 03/26/2025 External Device Data ST[facility] ABSTRACTION Provider, Abstract 03/06/2025 External Device Data [facility] ABSTRACTION Provider, Abstract 03/06/2025 External Device Data [facility] ABSTRACTION Provider, Abstract 02/06/2025 External Device Data ST[facility] ABSTRACTION Provider, Abstract from Last 3 Months Family History Medical History Relation Name Comments Diabetes Father Heart Disease Father Heart Disease Mother No Known Problems Other 2 siblings Relation Name Status Comments Father Mother Alive Other 2 siblings Alive Social History Tobacco Use Types Packs/Day Years Used Date Smoking Tobacco: Every Day Cigarettes Tobacco Cessation:Ready to Q uit: Not Asked; Counseling Given: Not Answered Alcohol Use Standard Drinks/Week Comments Yes 0 (1 standard drink = 0.6 oz pur e alcohol) rare Feeling Safe Answer Date Recorded Are you in a relationship wi th someone who hurts you emotionally and/or physically? No 06/27/2024 Comments No Sex and Gender Information Value Date Recorded Sex Assigned at Not on file Legal Sex Female 4:05 PM CDT Gender Identity Not on file Sexual Orientation Not on file Occupation Industry Job Start Date Job End Date Not on file Not on file Not on file Not on file Last Filed Vital Signs Vital Sign Reading Time Taken Comments Blood Pressure 113/55 06/27/2024 3:55 PM CONTINUING EDUCATION INSTRUCTOR Pulse 68 06/27/2024 3:55 PM CONTINUING EDUCATION INSTRUCTOR Temperature 36.4 C (97.5 F) 06/27/2024 11:51 AM CONTINUING EDUCATION INSTRUCTOR Respiratory Rate 18 06/27/2024 3:55 PM CONTINUING EDUCATION INSTRUCTOR Oxygen Saturation 94% 06/27/2024 3:55 PM CONTINUING EDUCATION INSTRUCTOR Inhaled Oxygen Concentration - - Weight 75.5 kg (166 lb 6.4 oz) 06/27/2024 11:51 AM CONTINUING EDUCATION INSTRUCTOR Height 157.5 cm (5' 2) 06/25/2024 11:04 AM CONTINUING EDUCATION INSTRUCTOR Body Mass Index 30.43 06/25/2024 11:04 AM CONTINUING EDUCATION INSTRUCTOR Plan of Treatment Health Maintenance Due Date Last Done Comments DIABETES ANNUAL RETINAL EXAM 1971 DIABETES MICROALBUMIN ANNUAL SCREEN 1971 LDL CHOLESTEROL ANNUAL 1971 DTAP/TDAP/TD VACCINES (1 - Tdap) 1972 FIT-DNA Q 3 years 1998 FIT/FOBT Q 1 year 1998 Flex Sig/CT Colonography Q 5 years 1998 ZOSTER VACCINE (1 of 2) 2003 RSV VACCINE (60+ or ) (1 - Risk 60-74 years 1-dose series) 2013 DIABETES ANNUAL FOOT EXAM 03/19/2021 03/19/2020 BREAST CANCER SCREENING 06/08/2024 06/08/20 23, 05/12/2023, 05/12/2023 DIABETES HBA1C Q 6 MONTHS 10/21/2024 04/23/2024 INFLUENZA VACCINE (#1) 2025 3, 06/02/2021, 07/11/2019, Additional history exists PNEUMOCOCCAL VACCINE 50+ YEA RS (3 of 3 - PCV20 or PCV21) 03/24/2026 03/24/2021, 08/12/2017, 09/01/2011 OSTEOPOROSIS SCREENING 09/20/2028 , 09/20/2023, 10/16/2018 COLORECTAL SCREENING 08/23/2033 08/23/2023 Colorectal Cancer Screening 08/23/2033 Medical Devices Implanted Type Area Airport Driver Device Identifier Shelf Expiration Date Model / Serial / Lot Sealant Mynx Vasc Closure 5fr Vcd [id number] - [id number] Implanted:Qty: 1 on 06/27/2024 by Dmitri Henriquez MD at [facility] Closure Device Right: Ene TAPIA [id number] / / [id number] Coronary Stent X3 Insurance [facility] MCR Advance Directives For more information, please contact: [phone] * Full Code (Latest Code Status on File) Date Activated Date Inactivated Comments 06/27/2024 11:27 AM 06/27/2024 6:10 PM Care Teams Director Internal Communications Relationship Specialty Start Date End Date Shellie Hardin MD [address] [facility] [address] [place] [address] PCP - General Family Practice 05/17/18
--- OUTSIDE RECORDS SUMMARY | 2025-05-04 00:38 | XMS_ITS | Encounter Summary ---
Author Organization [facility] Healthcare Address [address] [place] [address] Care Team Providers Care Patrol Commander Name Role Phone Sharan Duong MD Unavailable + Kateryna Culver MD Primary Care Provider [phone] Jes Christian RN Unavailable [phone] Reason for Visit * Reason Onset Date Comments Medication Reaction 01/28/2025 Encounter Details Date Type Department Care Team (Late st Contact Info) Description 01/28/2025 Nurse Triage [facility] Family Medicine [address] [place] [id number] Kateryna Culver MD [address] [place] [address] [phone] Social History Tobacco Use Types Packs/Day Years Used Date Smoking Tobacco: Heavy Smoker Cigarettes 1 38 Smokeless Tobacco: Never Comments:Smoking History Pac ks/day: 3 Packs Alcohol Use Standard Drinks/Week Comments Never 0 (1 standard drink = 0.6 oz pur e alcohol) [facility] Utilities Answer Date Recorded In the past 12 months has e electric, gas, oil, or water company threatened to shut off services in your home? No 12/26/2024 Social Connection and Isolation Panel Answer Date Recorded In a typical week, how many times do you talk on the phone with family, friends, or neighbors? More than three times a week 12/26/2024 How often do you get togethe r with friends or relatives? More than three times a week 12/26/2024 How often do you attend chur ch or church services? Never 12/26/2024 Do you belong to any clubs o r organizations such as rastafarian groups, unions, fraternal or athletic groups, or school groups? No 12/26/2024 How often do you attend meet ings of the clubs or organizations you belong to? Never 12/26/2024 Are you , , di vorced, , never , or living with a partner? 12/26/2024 AUDIT-C Answer Date Recorded Q1: How often do you have a drink containing alcohol? Never 01/29/2025 Q2: How many drinks containi ng alcohol do you have on a typical day when you are drinking? Patient does not drink Q3: How often do you have si x or more drinks on one occasion? Never 01/29/2025 Overall Financial Resource Strain (CARDIA) Answe r Date Recorded How hard is it for you to pa y for the very basics like food, housing, medical care, and heating? Somewhat hard 12/26/2024 PHQ-2 Answer Date Recorded PHQ-2 Total Score (If total score is 3 or more points, staff should administer the PHQ-9) 0 01/10/2025 Hunger Vital Sign Answer Date Recorded Within the past 12 months, y ou worried that your food would run out before you got the money to buy more. Never true 12/27/19 25 Within the past 12 months, t he food you bought just didn't last and you didn't have money to get more. Never true 12/26/2024 PRAPARE - Transportation Answer Date Re corded In the past 12 months, has l ack of transportation kept you from medical appointments or from getting medications? No 02/2025 In the past 12 months, has l ack of transportation kept you from meetings, work, or from getting things needed for daily living? No 12/26/2024 Housing Stability Vital Sign Answer Mayo e Recorded In the last 12 months, was t here a time when you were not able to pay the mortgage or rent on time? No 12/09/2023 In the last 12 months, how many places have you lived? 1 12/09/2023 In the last 12 months, was t here a time when you did not have a steady place to sleep or slept in a group home (including now)? No 12/09/2023 PHQ-9 Answer Date Recorded PHQ-9 Total Score 6 12/27/2024 Housing Stability Vital Sign Answer Mayo e Recorded In the last 12 months, was t here a time when you were not able to pay the mortgage or rent on time? No 12/26/2024 In the past 12 months, how m any times have you moved where you were living? 0 12/26/2024 At any time in the past 12 m [facility], were you homeless or living in a group home (including now)? No 12/26/2024 Personal Safety Answer Date Recorded Have you ever been in or are you currently in a harmful physical or emotional relationship or is someone making you feel afraid or unsafe? Denies 12/31/2024 Comments No Sex and Gender Information Value Date Recorded Sex Assigned at Not on file Legal Sex Female 3:50 AM NEUROBIOLOGIST Gender Identity Not on file Sexual Orientation Not on file documented as of this encounter Functional Status * AUDIT-C Score Answer Date of Assessment Author 0 01/29/2025 3:32 PM CDT Daniela Perry MA * Question Answer Date of Assessment Author Q1: How often do you have a drink containing alcohol? Never 01/29/2025 3:32 PM CDT Brigida Perry MA Q2: How many drinks containing alcohol do you have on a typical day when you are drinking? Patient does not drink 01/29/2025 3:32 PM CDT Daniela Perry MA Q3: How often do you have six or more drinks on one occasion? Never 01/29/2025 3:32 PM TIERRAT Brigida Perry MA documented as of this encounter Miscellaneous Notes * Telephone Encounter - Jazzmine Matson MA - 01/28/2025 2:29 PM CDT Noted. Pt has appt tomorrow * Telephone Encounter - Marilyn Fischer RN - 01/28/2025 12:14 PM CDT Reason for Conversation Medication Reaction Background Raissa Gibbons states she awakens with dizziness daily and often feels like she is drunk since release from hosp 01/02/25 after 7 day LOS. Pt states she feels her meds were changed and thought the dizziness was related to adjusting to the new med regime. Pt is unable to check BP at home and states her BG has been fine with a few elevated readings related to diet. Disposition Discuss With PCP and Callback by Nurse Today Reason for Disposition Taking a medicine that could cause dizziness (e.g., blood pressure medications, diuretics) Assisted with appt tomamanda at 1600. Pls contact Raissa Franco Shai at [phone] for further assist. Protocols Used [id number] * Telephone Encounter - Marilyn Fischer RN - 01/28/2025 12:02 PM CDT Regarding: dizzy and lightheaded, unsteady on feet ----- Message from Rosa Umaña sent at 01/28/2025 11:59 AM CDT ----- Symptom Based Call Chief Complaint(s): dizzy and lightheaded, unsteady on feet Duration: x2 weeks What type of symptom(s) is the patient experiencing? Red Flag. Is the patient concerned they are experiencing a medical emergency requiring an ambulance? No Additional Comments: pt calling stating that she had some medication changes recently. She is now feeling very dizzy and lightheaded. She states that she feels drunk. She can barely stand up and is almost falling. Does message need to be routed? Yes-Action Needed documented in this encounter Plan of Treatment Not on file documented as of this encounter Visit Diagnoses Not on filedocumented in this encounter Additional Health Concerns Infection Onset Date Last Indicated Resolved Time COVID: Suspected 02/20/2025 02/20/2025 02/20/2025 2:16 PM CDT COVID: Suspected 03/12/2025 03/12/2025 03/12/2025 10:45 AM CDT documented as of this encounter Care Teams Patrol Commander Relationship Specialty Start Date End Date Kateryna Culver MD PCP - General Family Medicine 01/20/24 Sharan Duong MD Referring Physician Gastroenterology 07/26/19 Jes Christian, [place] [address] [place] [address] DR CASTILLO [address] [place] [id number] [employer] 01/22/25 documented as of this encounter
--- OUTSIDE RECORDS SUMMARY | 2025-05-04 00:38 | XMS_ITS ---
Author Organization [facility] Address [address] [facility] [address] [place] [address] Phone Care Team Providers Care Travel Accommodations Rater Name Role Phone Marcy Fisher Primary Care Provider Fredrick Hernandez MD Unavailable Active Problems Problem Noted Date Diagnosed Date Iron deficiency anemia, unspecified 03/11/2023 Iron deficiency 10/07/2022 CHF (congestive heart failure) 09/30/2022 HTN (hypertension) 09/30/2022 Diabetes 09/30/2022 GERD (gastroesophageal reflux disease) Thyroid cancer 09/30/2022 Hypothyroid 09/30/2022 Current Treatment and Therapy Plans No current plan information found. Past Treatment and Therapy Plans
--- OUTSIDE RECORDS SUMMARY | 2025-05-04 00:38 | XMS_ITS | Clinical Summary ---
Author Organization [facility] Address [address] [place] [address] Phone Care Team Providers Care Tar Heat Exchanger Cleaner Name Role Phone Marcy Fisher Primary Care Provider Fredrick Hernandez MD Unavailable Allergies Active Allergy Reactions Criticality Noted Date Comments Alendronate Itching Low 11/29/2018 Hydrocodone Other (see Comments),Swelling Low 06/25/2024 Difficulty swallowing Penicillins Other (see Comments),Shortness of Breath,Swelling,Unknow n High 04/09/2016 Thrush and swelling Sulfamethoxazole Other (see Comments) Low 3 Throat swelling Tetracycline Shortness of Breath,Swelling High 04/09/2016 Tramadol Other (see Comments) Low 07/03/2019 Contra-indicated with brilinta use Medications ascorbic acid (ASCORBIC ACID) 500 MG Tablet Take 1 Tablet by mouth daily. Active spironolactone (ALDACTONE) 25 MG Tablet TAKE 1 TABLET BY MOUTH EVERY DAY WITH FOOD 8 Active fenofibrate 160 MG Tablet Take 160 mg by mouth daily. 2 Active levothyroxine (SYNTHROID) 75 MCG Tablet Take 75 mcg by mouth daily. 2 Active metFORMIN (GLUCOPHAGE) 500 MG Tablet Take 500 mg by mouth 2 times daily. 2 Active pantoprazole (PROTONIX) 40 MG Tablet Delayed Response 3 Active roflumilast (DALIRESP) 500 MCG Tablet Take 500 mcg by mouth daily. 3 Active rosuvastatin (CRESTOR) 40 MG Tablet Take 40 mg by mouth daily. 3 Active Brilinta 90 MG Tablet Take 90 mg by mouth 2 times daily. 3 Active nitroGLYCERIN (NITROSTAT) 0.[address] 1 TABLET UNDER THE TONGUE EVERY 5 MINUTES NEEDED FOR CHEST PAIN. 3 Active [facility] D3 25 MCG (1000 UT) Capsule TAKE 1 SOFTGEL ORAL ONCE PER DAY 2 Active sucralfate (CARAFATE) 1 GM Tablet 3 Active Ferrous Sulfate (IRON PO) Take by mouth. Activ e QUEtiapine (SEROQUEL XR) 200 MG TABLET SR 24 HR Take 200 mg by mouth daily. 3 Active Potassium Chloride ER (KLORCON) 20 MEQ Tablet Controlled Release Take 20 mEq by mouth daily. 3 Active furosemide (LASIX) 20 MG Tablet 3 Active buPROPion (WELLBUTRIN) 150 MG XL tablet Take 1 Tablet by mouth daily. 3 Active famotidine (PEPCID) 40 MG Tablet Take 40 mg by mouth. Active Fluticasone-Umec lidin-Vilant (Trelegy Ellipta) 200-62.5-25 MCG/ACT AEROSOL POWDER, BREATH ACTIVATED take 1 Puff by inhalation. 3 Active valsartan (DIOVAN) 80 MG Tablet 3 Active aspirin EC 81 MG Tablet Delayed Response Take 81 mg by mouth. Active IBUPROFEN PO Take by mouth. Ac tive LevETIRAcetam (KEPPRA) 1000 MG Tablet Take 1 Tablet by mouth 2 times daily. 3 Active Farxiga 10 MG Tablet Take 1 Tablet by mouth daily. 3 Active albuterol 108 (90 Base) MCG/ACT Aerosol Solution INHALE 2 PUFFS BY MOUTH EVERY 4 HOURS NEEDED FOR WHEEZING FOR SHORTNESS OF BREATH 3 Active glimepiride (AMARYL) 2 MG Tablet TAKE 1 TABLET BY MOUTH DAILY BEFORE BREAKFAST. 4 Active prednisoLONE acetate (PRED FORTE) 1 % Suspension 4 Active moxifloxacin (VIGAMOX) 0.5 % Solution Place 1 Drop in affected eye(s). 4 Active metoprolol tartrate (LOPRESSOR) 25 MG Tablet Take 1 Tablet by mouth 2 times daily. 4 Active fluticasone (FLONASE) 50 MCG/ACT Suspension Active flurbiprofen (OCUFEN) 0.03 % Solution 4 Active Xarelto 20 MG Tablet Take 1 Tablet by mouth daily. Active ezetimibe (ZETIA) 10 MG Tablet 5 Active ipratropium-albu terol (DUO-NEB) 0.5-2.5 (3) MG/3ML Solution take 3 mL by inhalation. 5 Active isosorbide mononitrate (IMDUR) 30 MG TABLET SR 24 HR Take 30 mg by mouth. 4 Active linagliptin (TRADJENTA) 5 MG Tablet Take 5 mg by mouth daily. 5 Active Active Problems Problem Noted Date Diagnosed Date Iron deficiency anemia, unspecified 03/11/2023 Iron deficiency 10/07/2022 CHF (congestive heart failure) 09/30/2022 HTN (hypertension) 09/30/2022 Diabetes 09/30/2022 GERD (gastroesophageal reflux disease) 3 Thyroid cancer 09/30/2022 Hypothyroid 09/30/2022 Immunizations Immunization Administration Dates Next Due Influenza Vaccine,unspecified Formulation 2021,06/05/2019 Influenza, High-dose, Quadrivalent 05/19/2023, Pneumococcal Vaccine - 13 Valent 03/24/2021 Family History Medical History Relation Name Comments Congestive Heart Failure Brother 1 Congestive Heart Failure Brother 2 Breast Cancer Maternal Aunt Congestive Heart Failure Mother Relation Name Status Comments Brother 1 Brother 2 Maternal Aunt Mother Social History Tobacco Use Types Packs/Day Years Used Date Smoking Tobacco: Every Day Cigarettes Smokeless Tobacco: Never Tobacco Cessation:Ready to Q uit: Not Asked; Counseling Given: Not Answered Alcohol Use Standard Drinks/Week Comments Not Currently 0 (1 standard drink = 0.6 oz pur e alcohol) Comments Unknown Sex and Gender Information Value Date Recorded Sex Assigned at Not on file Legal Sex Female 9:32 PM CDT Gender Identity Not on file Sexual Orientation Not on file Last Filed Vital Signs Vital Sign Reading Time Taken Comments Blood Pressure 110/70 09/27/2024 9:26 AM LIVE TRUCK TECHNICIAN Pulse 75 09/27/2024 9:26 AM LIVE TRUCK TECHNICIAN Temperature 36.5 C (97.7 F) 09/27/2024 9:26 AM LIVE TRUCK TECHNICIAN Respiratory Rate 18 09/27/2024 9:26 AM LIVE TRUCK TECHNICIAN Oxygen Saturation 95% 09/27/2024 9:26 AM LIVE TRUCK TECHNICIAN Inhaled Oxygen Concentration - - Weight 71.8 kg (158 lb 6.4 oz) 09/27/2024 9:26 A M LIVE TRUCK TECHNICIAN Height 157.5 cm (5' 2) 09/27/2024 9:26 AM LIVE TRUCK TECHNICIAN Body Mass Index 28.97 09/27/2024 9:26 AM LIVE TRUCK TECHNICIAN Plan of Treatment Health Maintenance Due Date Last Done Comments Diabetes: Eye Exam 1955 Diabetes: Foot Exam 1955 Hepatitis C Virus (HCV) Screening 1955 TdaP Immunization 1955 Zoster Immunization (1 of 2) 1972 Cologuard 1998 Immunochemical Fecal Occult Blood 1998 Respiratory Syncytial Virus (RSV) Immunization (Adult) (1 - Risk 60-74 years 1-dose series) 2013 SARS-COV-2 Immunization (2 - Pfizer risk series) 10/20/2021 09/29/2021 Mammogram 10/10/2024 10/10/2023, 05/22, 05/12/2023, Additional history exists Diabetes: Hemoglobin A1c 03/14/2025 025, 04/23/2024, 01/06/2024, Additional history exists Influenza Immunization (#1) 2025 092 03/2023, 05/22/2022, 06/02/2021, Additional history exists DEXA Bone Density 09/20/2025 09/20/2023, 10/16/2018 Diabetes: Nephropathy Screening 09/27/2025 09/27/2024, 05/31/2024, 03/01/2024, Additional history exists Pneumococcal Immunization (50+ years) (4 of 4 - PCV20 or PCV21) 03/24/2026 03/24/2021, 08/12/2017, 09/01/2011 Colonoscopy 08/23/2033 08/23/2023 Colorectal Cancer Screening 08/23/2033 Hepatitis B Immunization Aged Out No longer eligible based on patient's age to complete this topic Human Papillomavirus (HPV) Immunization Aged Out No longer eligible based on patient's age to complete this topic Meningococcal Immunization (ACWY) Aged Out No longer eligible based on patient's age to complete this topic Rotavirus Immunization Aged Out No lo nger eligible based on patient's age to complete this topic Procedures Procedure Name Priority Date/Time Associated Diagnosis Comments CMP (COMPREHENSIVE METABOLIC PANEL) Routine 09/27/2024 9:13 AM LIVE TRUCK TECHNICIAN Iron deficiency anemia, unspecified iron deficiency anemia type from Last 3 Months or Most Recently Relevant to Health Maintenance Results * (ABNORMAL) CMP (COMPREHENSIVE METABOLIC PANEL) (09/27/2024 9:13 AM LIVE TRUCK TECHNICIAN) Glucose 121(H) 70 - 105 mg/dL [facility] Blood Urea Nitrogen 32(H) 7 - 25 mg/dL [facility] Creatinine 1.7(H) 0.6 - 1.2 mg/dL [facility] Sodium 139 136 - 145 mEq/L [facility] Potassium 5.4(H) 3.5 - 5.1 mEq/L [facility] Chloride 102 98 - 107 mEq/L [facility] Bicarbonate 28 21 - 31 mEq/L [facility] Total Bilirubin 0.4 0.3 - 1.0 mg/dL [facility] Alk. Phosphatase 43 34 - 104 U/L [facility] Aspartate Aminotransferase 16 13 - 39 U/L [facility] Alanine Aminotransferase 11 7 - 52 U/L [facility] Total Protein 7.6 6.4 - 8.9 g/dL [facility] Albumin 4.3 3.5 - 5.7 g/dL [facility] Calcium 10.3 8.6 - 10.3 mg/dL [facility] Anion Gap 14.4 7.0 - 15.0 mEq/L [facility] Globulin 3.3 2.0 - 3.5 g/dL [facility] EGFR 32(L) >60 ml/min/1. 73m2 [facility]PECTION COORDIN[facility] Comment: This eGFR is calculated using 2020 CKD-EPI Creatinine equation without race modifier based on the NKF-ASN task force recommendations Blood 09/27/2024 9:13 AM LIVE TRUCK TECHNICIAN Narrative CANCER PRODUCT INSPECTION COORDINATOR [facility] - 09/27/2024 10:06 AM LIVE TRUCK TECHNICIAN Release to patient->Immediate IS THE PATIENT REQUIRED TO BE FASTING FOR 8 HOURS?->No us Fredrick Hernandez MD CHEMISTRY ORDERABLES Final Resul t CANCER PRODUCT INSPECTION COORDINATOR [facility] [address] [place] [address], from Last 3 Months or Most Recently Relevant to Health Maintenance Insurance MEDICAID [place] MEDICARE C [employer] Care Teams Tar Heat Exchanger Cleaner Relationship Specialty Start Date End Date Marcy Fisher PAC [address] [place] [address] PCP - General Physician Technical Solutions Director 08/26/22 Fredrick Hernandez MD [address] [place] [address] Consulting Physician Oncology 08/26/22
--- OUTSIDE RECORDS SUMMARY | 2025-05-04 00:38 | XMS_ITS | Clinical Summary ---
Author Organization [facility] [place] [facility] [address] [facility] [address] Address [address] [place] [address] Care Team Providers Care Strickler Attendant Name Role Phone Sharan Duong MD Unavailable + Kateryna Culver MD Primary Care Provider [phone] Jes Christian RN Unavailable [phone] Allergies Active Allergy Reactions Criticality Noted Date Comments Alendronate Itching Low 11/29/2018 Ampicillin Hydrocodone Other (See comments),Swelling Medium 06/25/2024 Difficulty swallowing Penicillins Other (See comments),Shortness of breath,Swelling High 04/09/2016 Thrush and swelling Sulfamethoxazole Other (See comments) Low Throat swelling Tetracycline Shortness of breath,Swelling High 04/09/2016 Tramadol Other (See comments) Low 07/03/2019 Contra-indicated with brilinta use Medications blood-glucose meter kitIndications: Type 2 diabetes mellitus with diabetic polyneuropathy, without long-term current use of insulin (HCC) 1 kit daily 1 kit 09/15/19 24 Active Accu-Chek Guide Glucose Meter misc as directed 09/15/19 24 Active blood glucose diagnostic (Accu-Chek Guide test strips) stripIndication s:Type 2 diabetes mellitus with diabetic polyneuropathy, without long-term current use of insulin (HCC) 1 each by other route daily 100 strip 1 09/04/19 25 Active fluticasone propionate (FLONASE) 50 mcg/actuation nasal spray Administer 2 sprays into each nostril 3 (three) times a day as needed for rhinitis Active nebulizer accessories kitIndications: COPD exacerbation (HCC),Shortness of breath Use nebulizer prn SOB or wheezing up to QID 1 kit 09/20/19 25 Active lancets (Accu-Chek Softclix Lancets) miscIndications :Type 2 diabetes mellitus with diabetic polyneuropathy, without long-term current use of insulin ([facility]) TEST BLOOD SUGAR DIRECTED 200 each 1 10/30/19 25 Active Additional Information Patient not taking.Reported on 05/02/2025 pen needle, diabetic 32 gauge x needle Use to inject insulin daily as directed. 100 each 1 01/16/20 25 Active Farxiga 10 mg tablet TAKE 1 TABLET EVERY DAY 90 tablet 3 02/27/20 25 Active fenofibrate (TRIGLIDE) 160 mg tablet TAKE 1 TABLET EVERY DAY 90 tablet 3 02/27/20 25 Active albuterol HFA (Ventolin HFA) 90 mcg/actuation inhalerIndicati ons:Chronic obstructive pulmonary disease, unspecified COPD type ([facility]) Inhale 2 puffs every 4 (four) hours as needed for wheezing or shortness of breath FOR WHEEZING OR SHORTNESS OF BREATH. 18 each 3 02/23/20 25 Active ipratropium-alb uteroL (DUO-NEB) 0.5-2.5 mg/3 mL nebulizer solution Take 3 mL by nebulization every 6 (six) hours as needed for wheezing or shortness of breath 180 mL 2 02/23/20 25 Active Additional Information Patient not taking.Reported on 05/02/2025 atorvastatin (LIPITOR) 20 mg tabletIndicatio ns:Secondary Stroke Prevention Take 1 tablet (20 mg total) by mouth daily 30 tablet 2 03/08/20 25 2024 Active furosemide (LASIX) 20 mg tablet Take 1 tablet (20 mg total) by mouth daily 90 tablet 3 03/17/20 25 Active Additional Information Patient not taking.Reported on 05/02/2025 ferrous sulfate 325 mg (65 mg of elemental iron) tabletIndicatio ns:Iron Deficiency Anemia Take 1 tablet (325 mg total) by mouth daily with breakfast 30 tablet 3 03/18/20 25 2024 Active QUEtiapine (SEROquel) 100 mg tablet Take 1 tablet (100 mg total) by mouth 2 (two) times a day 60 tablet 03/17/20 25 Active levothyroxine (SYNTHROID) 75 mcg tablet TAKE 1 TABLET (75 MCG TOTAL) BY MOUTH PLAQUE MAKER BEFORE BREAKFAST 90 tablet 3 04/08/[address] (PROTONIX) 40 mg EC tablet TAKE 1 TABLET EVERY DAY 90 tablet 3 04/08/20 25 Active buPROPion XL (WELLBUTRIN XL) 150 mg 24 hr tablet 04/10/20 25 Active insulin glargine (LANTUS) 100 unit/mL (3 mL) pen for injection INJECT 38 UNITS UNDER THE SKIN DAILY 45 mL 1 05/01/20 25 Active levETIRAcetam (KEPPRA) 1,000 mg tablet Take 1 tablet (1,000 mg total) by mouth 2 (two) times a day Active ticagrelor (BRILINTA) 90 mg tablet Take 1 tablet (90 mg total) by mouth 2 (two) times a day Active losartan (COZAAR) 50 mg tablet 04/29/20 25 Active Tradjenta 5 mg tablet 04/10/20 25 Active famotidine (PEPCID) 40 mg tablet Take 1 tablet (40 mg total) by mouth 2 (two) times a day Active isosorbide mononitrate ER (IMDUR) 30 mg 24 hr tablet 04/10/20 25 Active levothyroxine (SYNTHROID) 75 mcg tablet Take 1 tablet (75 mcg total) by mouth materials clerk before breakfast 90 tablet 01/25/20 25 2024 Discontinued metoprolol XL (TOPROL-XL) 100 mg 24 hr tablet Take 1 tablet (100 mg total) by mouth daily 30 tablet 3 03/18/20 25 2024 Discontinued ALPRAZolam (XANAX) 0.5 mg tabletIndicatio ns:anxiety Take 1 tablet (0.5 mg total) by mouth nightly as needed for anxiety 14 tablet 03/17/20 25 2024 Discontinued insulin glargine 100 unit/mL (3 mL) pen for injection Inject 38 Units under the skin daily 15 mL 3 03/27/20 25 2024 Discontinued methylPREDNISol one (MEDROL DOSEPACK) 4 mg DosepackIndicat ions:Acute cough,Acute non-recurrent frontal sinusitis Take as directed on package 1 packet 04/23/20 25 2024 levoFLOXacin (LEVAQUIN) 500 mg tabletIndicatio ns:Upper Respiratory/THOMAS NT Infection Take 1 tablet (500 mg total) by mouth daily for 7 days 7 tablet 04/23/20 25 2024 clindamycin (CLEOCIN) 300 mg capsule 05/01/20 25 2024 Discontinued Active Problems Problem Noted Date Diagnosed Date Uncontrolled type 2 diabetes mellitus with hyper glycemia 03/27/2025 Assessment & Plan (04/07/2025 2:40 PM CDT): Chronic Uncontrolled Increase lantus in 38 units Goal Hgba1c<6.5 Orders: Hemoglobin A1c; Future Comprehensive metabolic panel; Future Urinalysis reflex to microscopic; Future Albumin Creatinine Ratio, Urine; Future Atrial fibrillation with RVR 03/12/2025 Atrial fibrillation with RVR 03/05/2025 Assessment & Plan (03/07/2025 8:54 AM CDT): Likely in setting of infection and CVA. S/p metop 5mg IV in ED. Restarted on home metoprolol 25 BID. [id number] score 8. Previously on Eliquis which was discontinued in Sep and then Xarelto which was discontinued in December 21 GIB. Per pt, her city dispatch supervisor Dr Henriquez was planning to start a 2.5 mg blood thinner (I assume Eliquis or Xarelto). - Tele: afib 90-100s. - Metoprolol 25 mg BID -> 12.5 mg QID on 03/05 - If afib HR > 120s, give Metop 5 mg IV - Attempted risk/benefits conversation with patient regarding AC but she is not amenable to discuss at this point. Will defer discussion to pt's city dispatch supervisor per her request. - Attempted to contact city dispatch supervisor Dr Dmitri Henriquez with patient's permission to discuss AC. Pt has an appointment on 06/01/25, encouraged pt to reschedule for an earlier date. - Continue telemetry - K>4, Mg>2 Assessment & Plan (03/06/2025 5:07 PM CDT): Likely in setting of infection and CVA. S/p metop 5mg IV in ED. Restarted on home metoprolol 25 BID. [id number] score 8. Previously on Eliquis which was discontinued in Sep and then Xarelto which was discontinued in December 21 GIB. Per pt, her city dispatch supervisor Dr Henriquez was planning to start a 2.5 mg blood thinner (I assume Eliquis or Xarelto). - Afib converted to NSR in AM -> back to afib 90-100s. - Metoprolol 25 mg BID -> 12.5 mg QID on 03/05 - If afib HR > 120s, give Metop 5 mg IV - Attempted risk/benefits conversation with patient regarding AC but she is not amenable to discuss this with any physician other than her city dispatch supervisor which is understandable. - Attempted to contact city dispatch supervisor Dr Dmitri Henriquez with patient's permission to discuss AC. Encourage primary team to reach out as well. She has an appointment on 06/01/25, encouraged pt to reschedule for an earlier date. - Continue telemetry - K>4, Mg>2 Assessment & Plan (03/05/2025 4:28 PM CDT): Likely in setting of infection and CVA. S/p metop 5mg IV in ED. Restarted on home metoprolol 25 BID. [id number] score 8. Previously on Eliquis which was discontinued in Sep and then Xarelto which was discontinued in December 21 GIB. Per pt, her city dispatch supervisor Dr Henriquez was planning to start a 2.5 mg blood thinner (I assume Eliquis or Xarelto). - Metoprolol 25 mg BID -> 12.5 mg QID - Metop 5 mg IV if HR > 120s - Attempted risk/benefits conversation regarding AC with patient but she is not amenable to discuss this with any physician other than her city dispatch supervisor which is understandable. She did given permission to contact Dr Dmitri Henriquez. I sent him a message. Encourage primary team to reach out as well. - Telemetry: Afib HR 100s- 110s. - K>4, Mg>2 UTI (urinary tract infection) 03/05/2025 Assessment & Plan (03/07/2025 8:54 AM CDT): Afebrile, afib with RVR, WBC 17. Received vanc and cefe in ED. CXR no consolidations. - Urcx E faecalis, (S- ampicillin, linezolid, nitrofurantoin, vancomycin) - Bcx 03/04 and 03/06 NGTD - Vancomycin 1,000 mg q 24 hours (03/04- 03/05) (penicillin allergy) -> nitrofurantoin (03/06- EOT 03/08) complete 5 days abx course. Assessment & Plan (03/06/2025 5:07 PM CDT): Afebrile, afib with RVR, WBC 17. Received vanc and cefe in ED. CXR no consolidations. - Urcx E faecalis, (S- ampicillin, linezolid, nitrofurantoin, vancomycin) - Bcx 03/04 NGTD, follow up - Narrow vancomycin 1,000 mg q 24 hours (penicillin allergy) -> nitrofurantoin and complete 5 days abx course. Assessment & Plan (03/05/2025 4:17 PM CDT): Afebrile, afib with RVR, WBC 17. Received vanc and cefe in ED. CXR no consolidations. - Urcx E faecalis, follow up susceptibilities - Bcx 03/04, follow up - Start renally dosed vancomycin 1,000 mg q 24 hours and check vanc level before 3rd dose. (ampicillin not an option as pt allergic to penicillin). - May narrow to nitrofurantoin or fosfomycin for 5 days (if not bacteremic) pending susceptibilities. May pursue this po plan if pt decides to leave prior to susceptibilities. Type 2 diabetes mellitus wit h chronic kidney disease, with long-term current use of insulin 03/05/2025 Assessment & Plan (03/07/2025 8:54 AM CDT): Pt on glargine 10U and Farxiga 10mg at home but does not seem to be taking Farxiga. Previously on glimepiride which was discontinued during recent hospital admission (unclear reason) and metformin discontinued 2/2 hypoglycemia (per PCP office note). - A1C 5.9 (12/26/2024) -> 8.4. Received lispro 3U yesterday. Glucose well controlled. - Continue Glargine 10U + SSI while inpatient - Would discharge on home regimen glargine 10U - Would benefit from restarting Farxiga given pt also has heart failure if pt amenable. - Consistent carbs diet - Follow up with PCP Assessment & Plan (03/06/2025 5:07 PM CDT): Pt on glargine 10U and Farxiga 10mg at home but does not seem to be taking Farxiga. Previously on glimepiride which was discontinued during recent hospital admission (unclear reason) and metformin discontinued 2/2 hypoglycemia (per PCP office note). - A1C 5.9 (12/26/2024) -> 8.4. - Continue Glargine 10U - Agree with starting lispro 2U TID and continuing SSI - Restart Farxiga given pt also has heart failure if pt amenable. - Consistent carbs diet Assessment & Plan (03/05/2025 4:17 PM CDT): Pt on glargine 10U and Farxiga 10mg at home. Previously on glimepiride which was discontinued during recent hospital admission (unclear reason) and metformin discontinued 2/2 hypoglycemia (per PCP office note). Most recent A1C 5.9 (12/26/2024) - Continue Glargine 10U and SSI - Pt would benefit from restarting Farxiga given heart failure but not amenable at this time - Consistent carbs diet - Repeat A1C on ~03/28/2025 with PCP Hypertension 03/05/2025 Assessment & Plan (03/07/2025 8:54 AM CDT): Taking metoprolol 25 mg BID at home. Discontinued at recent hospital visit for unclear reasons. Pt not taking her home imdur 30 XL. - As pt has converted to NSR, can switch metoprolol 12.5 mg QID to home 25 BID tonight - BP currently controlled on metoprolol. - Recommend discharging on home metop 25mg BID - If BP increases, would switch to coreg 25mg BID - Pt self discontinued losartan or imdur. Would not restart. Assessment & Plan (03/06/2025 8:08 AM CDT): Taking metoprolol 25 mg BID at home. Discontinued at recent hospital visit for unclear reasons. Pt not taking her home imdur 30 XL. - As pt has converted to NSR, can switch metoprolol 12.5 mg QID to home 25 BID tonight - BP currently controlled on metoprolol. - Pt self discontinued losartan or imdur. - Would prioritize switching to metop to coreg 25mg BID if BP not controlled on current regimen as opposed to restarting losartan or imdur to help improve medication complice. Assessment & Plan (03/05/2025 4:17 PM CDT): Taking metoprolol 25 mg BID at home. Discontinued at recent hospital visit for unclear reasons. Pt not taking her home imdur 30 XL. - Continue metoprolol 12.5 mg QID as above for afib with RVR - Switch back to home metoprolol 25 mg BID at discharge. If BP not controlled, can switch to coreg 25 mg BID instead. - Would not restart losartan or imdur if able to control BP with coreg to improve medication compliance. Cerebrovascular accident (CVA), unspecified [facility] anis 03/04/2025 Assessment & Plan (03/07/2025 8:54 AM CDT): Pt presented with R sided weakness. HCT showed areas of hypodensity in the left anterior frontal region, right gale, possibly right cerebellum. Findings were not present on prior CTH from 12/26/2024. CTA demonstrated mild scattered atherosclerosis, most notable along the aortic arch and bilateral intracranial ICAs. No significant stenosis of bilateral ICAs, no LVO. - AMS episode with starring spells - bMRI read as: findings consistent with recent acute to subacute infarct small infarctions in the right frontal lobe cortex, right parietal lobe cortex and in the left parietal lobe cortex. - ASA 81 -> 325 mg - Started on atorvastatin 20mg - Home fenofibrate - TTE pending - Management per neurology team Assessment & Plan (03/06/2025 5:07 PM CDT): Pt presented with R sided weakness. HCT showed areas of hypodensity in the left anterior frontal region, right gale, possibly right cerebellum. Findings were not present on prior CTH from 12/26/2024. CTA demonstrated mild scattered atherosclerosis, most notable along the aortic arch and bilateral intracranial ICAs. No significant stenosis of bilateral ICAs, no LVO. - AMS episode with starring spells - bMRI read as: findings consistent with recent acute to subacute infarct small infarctions in the right frontal lobe cortex, right parietal lobe cortex and in the left parietal lobe cortex. - ASA 81 -> 325 mg - Started on atorvastatin 20mg - Home fenofibrate - Management per neurology team Assessment & Plan (03/05/2025 2:41 PM CDT): Pt presented with R sided weakness. HCT showed areas of hypodensity in the left anterior frontal region, right gale, possibly right cerebellum. Findings were not present on prior CTH from 12/26/2024. CTA demonstrated mild scattered atherosclerosis, most notable along the aortic arch and bilateral intracranial ICAs. No significant stenosis of bilateral ICAs, no LVO. - ASA 81 -> 325 mg - Started on atorvastatin 20mg - Home fenofibrate - Management per neurology team Wheezing 02/20/2025 Assessment & Plan (03/03/2025 6:13 PM CDT): New Severe exacerbation Patient was given nebulizer in the office with no improvement, and, thus, was taken to the ED for admission Orders: POC Influenza A/B, COVID-19 antigen Stage 3b chronic kidney disease 12/28/2024 Assessment & Plan (04/07/2025 2:40 PM CDT): Chronic stable Assessment & Plan (03/07/2025 8:54 AM CDT): - Renally dose medications Assessment & Plan (03/06/2025 8:08 AM CDT): - Renally dose medications Assessment & Plan (03/05/2025 2:41 PM CDT): - Renally dose medications Hyperkalemia 12/28/2024 Abnormal finding on GI tract imaging 12/28/2024 COPD (chronic obstructive pulmonary disease) 10/2023 Assessment & Plan (03/07/2025 8:54 AM CDT): No signs of exacerbation - Continue Trelergy Ellipta and albuterol prn Assessment & Plan (03/06/2025 8:08 AM CDT): No signs of exacerbation - Continue Trelergy Ellipta and albuterol prn Assessment & Plan (03/05/2025 4:17 PM CDT): No signs of exacerbation - Continue Trelergy Ellipta and albuterol prn Personal history of tobacco use 04/06/2024 Assessment & Plan (04/06/2024 10:27 AM CDT): I strongly encouraged the patient to quit smoking. Lung nodules 04/06/2024 Assessment & Plan (04/06/2024 10:27 AM CDT): The patient had a new lung nodule on the most recent screening chest CT as well as a new right middle lobe infiltrate. She was given antibiotics and the infectious symptoms have resolved. Another chest CT was recommended by the radiologist for August 2024 and I have ordered this. Right hip pain 01/19/2024 Assessment & Plan (02/06/2024 3:24 AM CDT): New Order xray Centrilobular emphysema 12/22/2023 Assessment & Plan (04/07/2025 2:40 PM CDT): Chronic Stable Cont duoneb Follow up per pulmonary Assessment & Plan (05/25/2024 11:02 AM CDT): The patient continues on Trelegy 1 puff daily and I will refill her albuterol inhaler. She will get PFTs and a 6 minute walk test and I will consider ordering a nebulizer for her after the next appointment. Assessment & Plan (04/06/2024 10:26 AM CDT): The patient continues to smoke 1.5 packs of cigarettes per day. She does have dyspnea on exertion. I will check full PFTs as well as a 6 minute walk test. She continues on Trelegy 1 puff daily and albuterol MDI p.r.n.. Seizure disorder 12/22/2023 Overview (12/22/2023): Uncontrolled. Referral to neurology placed. Increase Keppra to 1000mg BID. Abnormal EKG 12/09/2023 Cataracta 10/17/2023 Assessment & Plan (10/28/2023 7:30 AM CRIME LAB ANALYST): Uncontrolled Medically cleared for surgery Abnormal mammogram 10/10/2023 Seizure disorder, complex partial 10/02/2023 Assessment & Plan (03/07/2025 8:54 AM CDT): - Pt discontinued keppra on her own because she believes it has been causing nausea and dizziness. Does not see a neurologist outpt because she cannot afford it. Her PCP has been prescribing her medications. - EEG 03/06: generalized slowing but no epileptiform activity - Keppra 1g BID restarted Assessment & Plan (03/06/2025 5:07 PM CDT): - Pt discontinued keppra on her own because she believes it has been causing nausea and dizziness. Does not see a neurologist outpt because she cannot afford it. Her PCP has been prescribing her medications. - Agree with restarting keppra - EEG performed Assessment & Plan (03/05/2025 4:17 PM CDT): - Pt discontinued keppra on her own. Does not see a neurologist outpt because she cannot afford it. Her PCP has been prescribing her medications. - Pt is not amenable to restart keppra 2/2 nausea and dizziness which she attributes to her medications. Also states she was having seizures while on keppra. Did not want to discuss alternative options. - Defer to neurology Hypoxia 10/01/2023 Aortic atherosclerosis 01/26/2023 Assessment & Plan (01/26/2023 12:55 PM CDT): Chronic Seen on CT abd/pelvis on 2019 Cont ASA Moderate episode of recurrent major depressive d isorder 01/26/2023 Assessment & Plan (01/26/2023 12:55 PM CDT): Chronic Stable Cont wellbutrin Encounter for Medicare annual wellness exam 09/2022 Assessment & Plan (02/06/2024 3:23 AM CDT): Patient here for annual Medicare wellness visit and for review of complete medical problem list. All the elements of the plan were completed as outlined by CMS. A copy of the prevention plan was given to the patient. I reviewed Medicare Wellness Questionnaire (other physicians involved in care, depression screen, advanced directives), cognitive/memory, and functional assessment. I reviewed and updated the complete problem list, medication list, family history, and immunization records with the patient. I provided preventive counseling and early detection interventions to the patient through health maintenance update and summary of today's office visit. Assessment & Plan (01/21/2023 7:54 AM CDT): Patient here for annual Medicare wellness visit and for review of complete medical problem list. All the elements of the plan were completed as outlined by CMS. A copy of the prevention plan was given to the patient. I reviewed Medicare Wellness Questionnaire (other physicians involved in care, depression screen, advanced directives), cognitive/memory, and functional assessment. I reviewed and updated the complete problem list, medication list, family history, and immunization records with the patient. I provided preventive counseling and early detection interventions to the patient through health maintenance update and summary of today's office visit. Bilateral hip pain 09/20/2022 Assessment & Plan (09/28/2022 5:57 AM CRIME LAB ANALYST): New Order xrays Order PT Acute pain of both knees 09/20/2022 Assessment & Plan (09/28/2022 5:57 AM CRIME LAB ANALYST): New Order xrays Order PT Pain in both thighs 09/20/2022 Assessment & Plan (09/28/2022 5:57 AM CRIME LAB ANALYST): New Order xrays Order PT Claudication of both lower extremities Assessment & Plan (09/28/2022 5:56 AM CRIME LAB ANALYST): New Order arterial dopplers Other general medical examin ation for administrative purposes 02/15/2020 Cirrhosis of liver without ascites 07/17/2019 Assessment & Plan (03/19/2020 7:16 AM CDT): Stable. Acute hepatitis panel negative. LFT is slightly elevated last June, with AST 65, ALT 15. Previously normal liver function. Will draw labs today to monitor stability. Assessment & Plan (11/15/2019 2:17 PM CDT): Stable Assessment & Plan (07/18/2019 4:05 PM CRIME LAB ANALYST): New onset. Will refer to GI to manage. Possibly [facility]. Acute hepatitis panel is negative. LFT is slightly elevated with AST 65, ALT 15. Previously normal liver function. Patient denied alcohol use or family history of liver problems. Microcytic anemia 07/17/2019 Assessment & Plan (03/07/2025 8:54 AM CDT): Baseline hgb 8-9. Hgb 9.5 ->> 8.4 -> 8.2. Denies signs of bleeding. Fe 17, ferritin 18, TIBC 315 consistent with Fe deficiency anemia. Recent B12 562, folate 8.9 in 12/2023. - Recommend discharging on Fe sulf 325mg starting once treatment for UTI is complete. Assessment & Plan (11/14/2020 2:23 PM CDT): Stable off iron pills. Last CBC 3 months ago, hemoglobin was up from 9.7 to 10.4. Will continue monitoring. Assessment & Plan (07/22/2020 2:13 PM CRIME LAB ANALYST): Was on iron supplementation, stopped due to constipation. CBC was ordered 3 mo ago, pt didn't do it yet. Pt advised to have labs done as soon as possible. Assessment & Plan (03/19/2020 11:33 AM CDT): Was on iron supplementation, stopped due to constipation. Will check CBC today to monitor stability. Assessment & Plan (11/15/2019 2:22 PM CDT): Stable on iron. Assessment & Plan (07/17/2019 3:14 PM CRIME LAB ANALYST): Hb 9.7 on admission, lowest 7. Pt had IV Venofer without response. No obvious sources of bleeding on EGD and colonoscopy.Pt wasn't anemic 12 mo ago with normal CBC and differential. Differential is still vertually normal, less likely hematological disorder. I will check iron level and CBC for stability. Chronic diastolic congestive heart failure 03/01 Assessment & Plan (04/07/2025 2:40 PM CDT): Chronic Stable Cont lasix Per cardiology Assessment & Plan (03/07/2025 8:54 AM CDT): - POCUS in ED concerning for volume overload. S/p lasix 40 IV - No signs of fluid overload on exam. Pt self discontinued lasix. Would treat prn. - Would benefit from restarting Farxiga - TTE pending - Strict I/Os, Daily weights. Assessment & Plan (03/06/2025 8:08 AM CDT): - POCUS in ED concerning for volume overload. S/p lasix 40 IV - No signs of fluid overload on exam. Pt self discontinued lasix. Would treat prn. - TTE pending - Strict I/Os, Daily weights. Assessment & Plan (03/05/2025 4:17 PM CDT): - POCUS in ED concerning for volume overload. S/p lasix 40 IV - No signs of fluid overload on exam. Pt self discontinued lasix. Would treat prn. - Obtain TTE - Strict I/Os, Daily weights. Assessment & Plan (09/28/2022 5:56 AM CRIME LAB ANALYST): Chronic Stable Cont lasix Follow up with cardiology Assessment & Plan (11/14/2020 2:24 PM CDT): Stable on spironolactone and furosemide Assessment & Plan (07/22/2020 2:13 PM CRIME LAB ANALYST): Stable on spironolactone and furosemide Assessment & Plan (03/19/2020 7:12 AM CDT): Stable on spironolactone and furosemide Assessment & Plan (11/15/2019 2:17 PM CDT): Stable on spironolactone and furosemide Assessment & Plan (03/01/2019 7:42 AM CDT): Stable on spironolactone and furosemide BMI 29.0-29.9,adult 10/06/2018 Assessment & Plan (03/19/2020 11:43 AM CDT): Worsening. BMI Follow-up includes: nutrition counseling. Stress weight loss Assessment & Plan (03/01/2019 7:47 AM CDT): BMI Follow-up includes: exercise counseling. Chronic stable angina 10/06/2018 Assessment & Plan (11/14/2020 2:30 PM CDT): On nitroglycerin p.r.n Pt stated seeing city dispatch supervisor, Dr. 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 I asked pt to forward us records. Assessment & Plan (07/22/2020 2:14 PM CRIME LAB ANALYST): Stable on nitroglycerin p.r.n. Assessment & Plan (03/19/2020 7:13 AM CDT): Stable on nitroglycerin p.r.n. Assessment & Plan (11/15/2019 2:16 PM CDT): Stable on nitroglycerin p.r.n. Assessment & Plan (03/01/2019 7:43 AM CDT): Stable on nitroglycerin p.r.n. Gastroesophageal reflux disease without esophagi tis 10/06/2018 Overview (10/18/2019): Normal EGD July 09, 2019 Assessment & Plan (09/28/2022 5:57 AM CRIME LAB ANALYST): Chronic Stable Cont protonix Assessment & Plan (11/14/2020 2:29 PM CDT): Stable on pantoprazole. Assessment & Plan (07/22/2020 2:15 PM CRIME LAB ANALYST): Stable on pantoprazole. Assessment & Plan (03/19/2020 7:17 AM CDT): Stable on pantoprazole. Assessment & Plan (11/15/2019 2:18 PM CDT): Stable on pantoprazole Assessment & Plan (07/17/2019 3:02 PM CRIME LAB ANALYST): Normal EGD 07/09/19. Continue Protonix Assessment & Plan (03/01/2019 7:43 AM CDT): Stable on pantoprazole Hypertensive heart disease with congestive heart failure 10/06/2018 Assessment & Plan (04/07/2025 2:40 PM CDT): Chronic Stable Cont toprol Goal: SBP<140, DBP<90 Assessment & Plan (03/03/2025 6:13 PM CDT): Chronic Increased Cont lopressor Monitor BP Goal: SBP<140, DBP<90 Assessment & Plan (05/14/2024 5:00 AM CDT): Chronic Stable Cont diovan, metoprolol Goal: SBP<140, DBP<90 Assessment & Plan (02/06/2024 3:23 AM CDT): Chronic Stable Cont lopressor, diovan Goal: SBP<140, DBP<90 Assessment & Plan (10/28/2023 7:31 AM CRIME LAB ANALYST): Chronic Stable Cont lopressor, diovan Goal: SBP<140, DBP<90 Assessment & Plan (01/26/2023 12:54 PM CDT): Chronic Stable Cont lopressor Goal: SBP<140, DBP<90 Assessment & Plan (10/20/2022 6:18 AM CRIME LAB ANALYST): Uncontrolled Add diovan 80 mg daily Cont lopressor Goal: SBP<140, DBP<90 Assessment & Plan (09/28/2022 5:56 AM CRIME LAB ANALYST): Chronic Stable Goal: SBP<140, DBP<90 Assessment & Plan (11/14/2020 2:28 PM CDT): BP well controlled on spironolactone. Assessment & Plan (07/22/2020 2:16 PM CRIME LAB ANALYST): BP well controlled on spironolactone. Assessment & Plan (03/19/2020 11:19 AM CDT): BP elevated today, pt didn't take meds this am. Usually stable on spironolactone Assessment & Plan (11/15/2019 2:15 PM CDT): Stable on spironolactone Assessment & Plan (03/01/2019 7:38 AM CDT): Stable on spironolactone Arachnoid cyst of spine 06/08/2018 Assessment & Plan (03/19/2020 7:12 AM CDT): Stable. Being followed by neurosurgery. Assessment & Plan (11/15/2019 2:20 PM CDT): Stable. Being followed by neurosurgery. Assessment & Plan (03/01/2019 7:46 AM CDT): Stable. Being followed by Neurosurgery Acquired hypothyroidism 11/22/2017 Assessment & Plan (03/07/2025 8:54 AM CDT): - TSH 2.47 wnl - continue home synthroid Assessment & Plan (03/06/2025 8:08 AM CDT): - Check TSH - continue home synthroid Assessment & Plan (03/05/2025 4:17 PM CDT): - Check TSH - continue home synthroid Assessment & Plan (02/06/2024 3:22 AM CDT): Chronic Stable Cont synthroid Assessment & Plan (10/28/2023 7:31 AM CRIME LAB ANALYST): Chronic Stable Cont synthroid Assessment & Plan (01/26/2023 12:52 PM CDT): Chronic Stable Cont synthroid Assessment & Plan (10/20/2022 6:18 AM CRIME LAB ANALYST): Chronic Cont levothyroxine Assessment & Plan (09/28/2022 5:56 AM CRIME LAB ANALYST): Chronic Stable Cont levothyroxine Assessment & Plan (11/14/2020 1:51 PM CDT): Stable on levothyroxine. Thyroid function was normal in August. TSH was 1.37 Assessment & Plan (07/22/2020 2:10 PM CRIME LAB ANALYST): Continue levothyroxine. Thyroid function is overdue. Pt advised to do it soon. Assessment & Plan (04/22/2020 1:57 PM CDT): Continue levothyroxine. Thyroid function ordered before next appointment in 3 months. Assessment & Plan (03/19/2020 1:00 PM CDT): Historically stable on levothyroxine. Patient is overdue for labs. Order reprinted and provided to patient to do soon as possible. Assessment & Plan (11/15/2019 2:20 PM CDT): Stable on levothyroxine Assessment & Plan (03/01/2019 7:39 AM CDT): Stable on levothyroxine Coronary artery disease of n ative artery of [place] heart with stable angina pectoris 11/22/2017 Assessment & Plan (03/07/2025 8:54 AM CDT): CAD s/p remote PCI - ASA 325 mg and atorvastatin 20 mg, as above - Discharge on home Metoprolol 25mg BID - Losartan discontinued at recent hospital visit for unclear reasons. Pt not amenable to restart - Home fenofibrate Assessment & Plan (03/06/2025 8:08 AM CDT): CAD s/p remote PCI - ASA 325 mg and atorvastatin 20 mg, as above - Metoprolol - Losartan discontinued at recent hospital visit for unclear reasons. Pt not amenable to restart - Home fenofibrate Assessment & Plan (03/05/2025 4:17 PM CDT): CAD s/p remote PCI - ASA 325 mg and atorvastatin 20 mg, as above - Metoprolol - Losartan discontinued at recent hospital visit for unclear reasons. Pt not amenable to restart - Home fenofibrate Assessment & Plan (01/26/2023 12:53 PM CDT): Chronic Stable Cont lopressor, ASA, brilinta Assessment & Plan (09/28/2022 5:55 AM CRIME LAB ANALYST): Chronic Stable Cont Brilinta, lopressor Follow up with cardiology Assessment & Plan (11/14/2020 3:13 PM CDT): On aspirin, Brilinta, and rosuvastatin. Pt stated seeing city dispatch supervisor, Dr. 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 Assessment & Plan (07/22/2020 2:15 PM CRIME LAB ANALYST): Stable on aspirin, Brilinta, and rosuvastatin Assessment & Plan (03/19/2020 7:16 AM CDT): Stable on aspirin, Brilinta, and rosuvastatin Assessment & Plan (11/15/2019 2:16 PM CDT): Stable on aspirin, Brilinta, and rosuvastatin Assessment & Plan (03/01/2019 7:40 AM CDT): Stable on aspirin and Brilinta Mixed hyperlipidemia 11/22/2017 Assessment & Plan (04/07/2025 2:40 PM CDT): Chronic Stable Cont lipitor, triglide Goal: TC<200, LDL<100, TG<150 Assessment & Plan (10/28/2023 7:31 AM CRIME LAB ANALYST): Chronic Stable Cont triglide Goal: TC<200, LDL<100, TG<150 Assessment & Plan (01/26/2023 12:53 PM CDT): Chronic Stable Cont triglide, crestor Goal: TC<200, LDL<100, TG<150 Assessment & Plan (10/20/2022 6:17 AM CRIME LAB ANALYST): Chronic Is Stable Cont Crestor, Triglide Goal: TC<200, LDL<100, TG<150 Assessment & Plan (09/28/2022 5:55 AM CRIME LAB ANALYST): Chronic Stable Cont Crestor, Triglide Goal: TC<200, LDL<100, TG<150 Assessment & Plan (11/14/2020 1:50 PM CDT): Well controlled on fenofibrate and rosuvastatin. Lipid panel in August showed LDL 51, triglycerides 117. Labs due in 3 months. Assessment & Plan (07/22/2020 1:24 PM CRIME LAB ANALYST): Well controlled on fenofibrate, rosuvastatin. Lipid panel 04/16/20 showed LDL 61, triglycerides 146, HDL 36. Assessment & Plan (04/22/2020 12:44 PM CDT): Well controlled on fenofibrate, rosuvastatin. Lipid panel last week showed LDL 61, triglycerides 146, HDL 36. Assessment & Plan (03/19/2020 12:51 PM CDT): On fenofibrate, rosuvastatin, and Repatha. Overdue for labs. Order provided to patient to do labs as soon as possible. Assessment & Plan (11/15/2019 2:19 PM CDT): Stable on fenofibrate, rosuvastatin, and Repatha Assessment & Plan (03/01/2019 7:38 AM CDT): Stable on fenofibrate and rosuvastatin Breakthrough seizure 11/22/2017 Assessment & Plan (01/26/2023 12:52 PM CDT): Chronic Stable Cont keppra Assessment & Plan (09/28/2022 5:58 AM CRIME LAB ANALYST): Chronic Increase keppra dosage Assessment & Plan (11/14/2020 2:27 PM CDT): Stable on Keppra Assessment & Plan (07/22/2020 2:18 PM CRIME LAB ANALYST): Stable on Keppra Assessment & Plan (03/19/2020 11:11 AM CDT): Stable on Keppra Assessment & Plan (11/15/2019 2:19 PM CDT): Stable on Keppra Assessment & Plan (03/01/2019 7:45 AM CDT): Stable on Keppra Tobacco dependence 11/22/2017 Assessment & Plan (05/25/2024 11:02 AM CDT): She is still smoking 1/2 pack of cigarettes per day but has decreased her tobacco intake. Assessment & Plan (11/14/2020 2:27 PM CDT): Tobacco use is unchanged. Smoking cessation counseling was provided. Tobacco use will be reassessed at the next regular appointment. Assessment & Plan (07/22/2020 2:19 PM CRIME LAB ANALYST): Tobacco use is unchanged. Smoking cessation counseling was provided. Tobacco use will be reassessed at the next regular appointment. Assessment & Plan (04/22/2020 1:48 PM CDT): Tobacco use is unchanged. Smoking cessation counseling was provided. Tobacco use will be reassessed at the next regular appointment. Assessment & Plan (03/19/2020 11:41 AM CDT): Tobacco use is unchanged. Smoking cessation counseling was provided. Tobacco use will be reassessed at the next regular appointment. Assessment & Plan (11/15/2019 2:19 PM CDT): Counseled on smoking cessation. Assessment & Plan (03/01/2019 7:45 AM CDT): Counseled on smoking cessation. Information given Type 2 diabetes mellitus wit h diabetic polyneuropathy, with long-term current use of insulin 11/22/2017 Assessment & Plan (05/14/2024 5:01 AM CDT): Chronic Stable Cont amaryl, tradjenta, farxiga, metformin Goal: Hgba1c<6.5 Assessment & Plan (02/06/2024 3:23 AM CDT): Chronic Uncontrolled Increase amaryl to 2mg bid Cont glucophage Goal: hgba1c<6.5 Assessment & Plan (10/28/2023 7:31 AM CRIME LAB ANALYST): Chronic Stable Cont amaryl Goal: hgba1<6.5 Assessment & Plan (01/26/2023 12:53 PM CDT): Chronic Stable Cont amaryl Goal : hgba1c<6.5 Assessment & Plan (10/20/2022 6:18 AM CRIME LAB ANALYST): Uncontrolled Add amaryl 1mg daily Cont glucophage Goal: Hgba1c<6.5 Assessment & Plan (09/28/2022 5:57 AM CRIME LAB ANALYST): Chronic Stable Cont metformin Goal: Hgba1c<6.5 Assessment & Plan (11/14/2020 2:23 PM CDT): With excellent control. HbA1c is 6.1. Due to hypoglycemia, will taper down lantus from 74 units to 64 units. Cont checking FBS. If BS will cont to be bellow 100, can cont decreasing insulin by 2 units every 2-3 days. Goal 110-120. Patient is advised overdue for eye exam. Normal urine microalbumin/creatinine ratio in March of last year. Assessment & Plan (07/22/2020 2:21 PM CRIME LAB ANALYST): Improving, hemoglobin A1c was 8.5 in March, now is 7.3. Will recheck HbA1c in 3 mo. Normal urine microalbumin/creatinine ratio 03/2020. Patient is overdue for eye exam, advised to have diabetic eye exam as soon as possible. Assessment & Plan (04/22/2020 1:49 PM CDT): Uncontrolled with hemoglobin A1c 8.5. But am bs are getting better. Will recheck HbA1c in 3 mo. Normal urine microalbumin/creatinine ratio. Patient is overdue for eye exam, advised to have diabetic eye exam as soon as possible. Will increase gabapentin to bid due to uncontrolled neuropathy. Assessment & Plan (03/19/2020 1:03 PM CDT): Previously well controlled on Lantus and metformin. Last hemoglobin A1c 7.2 over year ago. Patient did not do labs. Advised to do it as soon as possible. Currently, FBS uncontrolled, in 250-300 range. Increase lantus to 70 units pm, and metformin 500 mg bid. If blood sugars still over 150 in 1 week can start increasing Lantus by 3 units every 3 days to reach the goal of 150. Assessment & Plan (11/19/2019 9:12 AM CDT): Stable on Lantus and metformin. Will increase gabapentin 300 mg q.h.s.. Assessment & Plan (03/01/2019 7:36 AM CDT): Stable on Lantus and metformin COPD exacerbation 10/27/2016 Assessment & Plan (03/03/2025 6:13 PM CDT): New Severe exacerbation Patient was given nebulizer in the office with no improvement, and, thus, was taken to the ED for admission Orders: XR Chest PA Lateral 2 Views; Future POC Influenza A/B, COVID-19 antigen Assessment & Plan (09/20/2024 4:23 PM CRIME LAB ANALYST): The patient requires a wheelchair due to debility related to COPD that limits their ability to complete activities of daily living such as dressing, cooking, and bathing in a reasonable time frame. The patient has sufficient upper extremity function to safely propel a wheelchair. The patient is willing and able to use a wheelchair. The patient's mobility limitation can't be resolved by an appropriately fitted cane or walker due to severe weakness and increased risk of falls. The patient's home can accommodate a wheelchair. Assessment & Plan (05/14/2024 5:00 AM CDT): Chronic Doing better Cont trelegy Follow up with pulmonary Assessment & Plan (01/26/2023 12:52 PM CDT): Not controlled Change symbicort to trelegy Cont daliresp Assessment & Plan (09/28/2022 5:58 AM CRIME LAB ANALYST): Chronic Stable Cont daliresp, symbicort Assessment & Plan (11/14/2020 2:25 PM CDT): Stable on Deliresp, Symbicort, Spiriva, and Ventolin. Stressed to patient an importance of quitting smoking. She is trying to cut down. Assessment & Plan (07/22/2020 2:14 PM CRIME LAB ANALYST): Stable on Deliresp, Symbicort, Spiriva, and Ventolin. Stressed to patient an importance of quitting smoking. Assessment & Plan (03/19/2020 1:01 PM CDT): Stable on Deliresp, Symbicort, Spiriva, and Ventolin. Stressed to patient an importance of quitting smoking. Assessment & Plan (11/15/2019 2:17 PM CDT): Stable on doubt rest, Symbicort, Spiriva, and Ventolin. Assessment & Plan (03/02/2019 10:56 AM CDT): Stable on Daliresp, Symbicort, Spiriva and Ventolin HFA CONTRERAS (obstructive sleep apnea) 10/27/2016 Assessment & Plan (05/25/2024 11:01 AM CDT): The patient had a confirmatory diagnostic nocturnal polysomnogram and I did give her daughter the phone number to call asleep lab to schedule the CPAP titration study. She does have the 1 Ambien sleeping pill to use for the sleep study. Assessment & Plan (04/06/2024 10:26 AM CDT): The patient was diagnosed with obstructive sleep apnea in the past but does not have a CPAP unit at this time. She is snoring and has daytime hypersomnia. I have recommended proceeding with a nocturnal polysomnogram with a split night protocol if necessary and no MSLT. She will follow up here in 6 weeks. Assessment & Plan (07/22/2020 2:18 PM CRIME LAB ANALYST): Not on CPAP, pt stated it's broke. Pt declined sleep study now, wanted to wait till covid 19 is over. Assessment & Plan (03/19/2020 11:26 AM CDT): Not on CPAP, pt stated it's broke. Didn't see pulmo for over 3 y . Resolved Problems Problem Noted Date Diagnosed Date Resolved Date Hyponatremia 12/28/2024 04/07/2025 Hypoglycemia 12/26/2024 04/07/2025 Transition of care 09/20/2024 Assessment & Plan (09/20/2024 4:21 PM CRIME LAB ANALYST): Upcoming appointments: Dr Henriquez 09/22/[address] Alejo 09/28/24 for Pulmonary/sleep Dr. Vázquez 10/22/34 for PCP Patient having no further symptoms of chest pain. Sees cardiology in two days. Patient states that she is still short of breath. Patient has COPD, chronic bronchitis. Patient sees Dr. Alejo next week. Reordered the nebulizer that the hospital ordered as patient was unable to get it from [facility]. Wheelchair ordered for patient due to shortness of breath. Patient unable to walk long distances. Atypical chest pain 09/14/2024 04/07/20 25 Acute on chronic respiratory failure with hypoxemia 04/22/2024 04/07/2025 Acute pain of right knee 01/19/2024 Assessment & Plan (02/06/2024 3:24 AM CDT): New Order xray Acute pneumonia 12/22/2023 04/07/2025 Assessment & Plan (05/25/2024 11:02 AM CDT): The patient was admitted last month with community-acquired pneumonia and had new pulmonary nodules bilaterally especially clustered in the right upper lobe. I will order a repeat chest CT and she will follow up with me in 1 month. Acute hypoxic respiratory failure 12/10/2023 04/07/2025 Chest pain 12/09/2023 04/07/2025 FLAQUITO (acute kidney injury) 12/09/2023 Pneumonia of left lung due t o infectious organism, unspecified part of lung 12/08/202304/07 Influenza A 09/30/2023 02/21/2025 Depression screening 02/15/2020 020 Risk for falls 02/15/2020 03/19/2020 Acute non-recurrent sinusitis 11/19/2019 02/15/2020 Assessment & Plan (11/19/2019 8:45 AM CDT): Patient is allergic to penicillin which causes shortness of breath. Cannot use cephalosporins. Will do Levaquin 750 mg Q 24 hours for 10 days. Iron deficiency anemia 07/17/201907/17 Diabetic peripheral neuropathy 07/17/2019 10/18/2019 Assessment & Plan (07/17/2019 12:56 PM CRIME LAB ANALYST): With well controlled diabetes. Will initiate treatment with gabapentin 100 mg at night only. Patient advised if it will work at night and no side effects, patient can add another tablet during daytime. If will need more than 30 tablets per months will need to call back to change prescription Leg cramps 03/02/2019 03/19/2020 Assessment & Plan (03/02/2019 10:59 AM CDT): Magnesium 250 mg once once a day Chronic midline thoracic back pain 03/02/2019 02/15/2020 Low bone mass 10/06/2018 04/22/2020 Overview (03/01/2019): Had bone density October 16, 2018 which showed lumbar spine T-score of 0.3, left hip T-score was-1.1, and left femoral neck T-score was -1.6 Assessment & Plan (03/19/2020 12:50 PM CDT): Continue calcium plus vitamin D. Last bone density 09/2018, showed mild osteopenia. Will continue monitoring, will need to repeat test in 1 year. Assessment & Plan (11/15/2019 2:18 PM CDT): Stable. Continue calcium plus vitamin-D Assessment & Plan (03/01/2019 7:45 AM CDT): Continue calcium plus vitamin D senior care current use of insulin 11/22/2017 02/15/2020 Old CO (myocardial infarction) 11/22/2017 03/19/2020 Recurrent major depressive d isorder, in remission 11/22/2017 01/26/2023 Assessment & Plan (11/14/2020 2:27 PM CDT): Stable on Wellbutrin and Seroquel Assessment & Plan (07/22/2020 2:18 PM CRIME LAB ANALYST): Stable on Wellbutrin and Seroquel Assessment & Plan (03/19/2020 7:17 AM CDT): Stable on Wellbutrin and Seroquel Assessment & Plan (11/15/2019 2:19 PM CDT): Stable on Wellbutrin and Seroquel Assessment & Plan (03/01/2019 7:46 AM CDT): Stable on Wellbutrin and Seroquel Encounters Date Type Department Care Team Description 05/02/2025 3:00 PM CDT Office Visit [facility] Family Medicine [address] [place] [phone] Arminda Blanco DNP Acquired hypothyroidism (Primary Dx); Mixed hyperlipidemia; CONTRERAS (obstructive sleep apnea); Hypertensive heart disease with congestive heart failure, unspecified heart failure type (HCC); Gastroesophageal reflux disease without esophagitis; Chronic diastolic congestive heart failure (HCC); Cirrhosis of liver without ascites, unspecified hepatic cirrhosis type (HCC); Moderate episode of recurrent major depressive disorder (HCC); Seizure disorder, complex partial (HCC); Centrilobular emphysema (HCC); Seizure disorder (HCC); Chronic obstructive pulmonary disease with acute lower respiratory infection (HCC); Stage 3b chronic kidney disease (HCC); Hyperkalemia; Cerebrovascular accident (CVA), unspecified mechanism (HCC); Hypertension associated with type 2 diabetes mellitus (HCC) 04/23/2025 10:30 AM CDT Telemedicine [address] [place] [address] Rosita Segura NP Acute cough (Primary Dx); Acute non-recurrent frontal sinusitis 04/23/[address] [facility] Organization [address] [place] [phone] Siobhan Sood MA 04/19/[address] [place] [address] Kateryna Culver MD Reports sinus infection 04/01/2025 1:30 PM CDT Office Visit [facility] Pulmonology [address] [place] [address] [address] [place] [address] Sena Luna MD Tobacco dependence (Primary Dx); Lung nodules; Chronic obstructive pulmonary disease, unspecified COPD type (HCC); Personal history of nicotine dependence 03/27/2025 2:45 PM CDT Office Visit [address] [place] [address] Kateryna Culver MD Uncontrolled type 2 diabetes mellitus with hyperglycemia (HCC) (Primary Dx); Centrilobular emphysema (HCC); Chronic diastolic congestive heart failure (HCC); Hypertensive heart disease with chronic diastolic congestive heart failure (HCC); Stage 3b chronic kidney disease (HCC); Mixed hyperlipidemia 03/20/2025 3:30 PM CDT Office Visit [address] [place] [address] Rosita Segura NP Transition of care (Primary Dx) 03/20/2025 1:40 PM CDT Lab [facility] [address] [place] [phone] FLAQUITO (acute kidney injury); Adult general medical exam 03/18/[address] [place] [address] Kateryna Culver MD 03/18/2025 Nurse Triage [address] [place] [phone] Kateryna Culver MD 03/18/[address] [place] [phone] Kateryna Culver MD BRISA Questions 03/18/[address] [place] [phone] Kateryna Culver MD Additional Services Or Orders 03/14/2025 [facility] Post Discharge Follow up phone call [address] [phone] Neva Warren RN 03/12/2025 9:28 AM CDT - 03/17/2025 12:25 PM CDT Hospital Encounter [address] [phone] Ruperto Louis MD Lun, Yu, MD Santillana, Cesar, MD Atrial fibrillation with RVR (HCC) (Primary Dx); FLAQUITO (acute kidney injury) [N17.9]; Hyponatremia [E87.1]; COPD exacerbation (HCC); Chronic diastolic congestive heart failure (HCC) Discharge Disposition: Discharge to home or self care 03/12/2025 Nurse Triage [address] [place] [phone] Kateryna Culver MD 03/11/2025 Orders Only [address] [place] [phone] Kateryna Culver MD Screening mammogram for breast cancer (Primary Dx); Type 2 diabetes mellitus with diabetic polyneuropathy, with long-term current use of insulin (HCC) 03/07/[address] [place] [phone] Kateryna Culver MD BRISA Questions 03/04/2025 11:36 AM CDT - 03/07/2025 1:10 PM CDT Hospital Encounter [address] [phone] Twan Quinn MD Van Stavern, Renee B., MD Cerebrovascular accident (CVA), unspecified mechanism (HCC) (Primary Dx); Sepsis, due to unspecified organism, unspecified whether acute organ dysfunction present (HCC); Bladder infection Discharge Disposition: Discharge to home or self care 02/20/2025 9:25 PM CDT - 02/22/2025 12:12 PM CDT Hospital Encounter [address] [phone] Devonte Fields MD Lun, Yu, MD COPD exacerbation (HCC) (Primary Dx); Chronic obstructive pulmonary disease, unspecified COPD type (HCC) Discharge Disposition: Discharge to home or self care 02/20/2025 2:30 PM CDT Office Visit [facility] Family Medicine [address] [place] [phone] Kateryna Culver MD COPD exacerbation (HCC) (Primary Dx); Wheezing; Hypertensive heart disease with chronic diastolic congestive heart failure (HCC) 02/20/2025 Telephone [facility] Gastroenterology at [place] [address] [place] [phone] Mickey Montalvo MD 02/14/2025 Telephone [facility] Accountable Care Organization [address] [place] [phone] Jes Christian, die cleaner non adherence from Last 3 Months Immunizations Immunization Administration Dates Next Due Influenza, Quadrivalent, Hig h Dose, Preservative Free, Intrr 05/19/2023,06/02/2021 Influenza, Quadrivalent, Spl it, Preservative Free, Intramuscular 07/11/2019,05/06/2017 Influenza, Trivalent, IM (MDV) 08/08/2015 Influenza, Trivalent, Preser vative Free, Intramuscular 05/24/2017,06/10/2016,05/11/2016 Influenza, Unspecified 05/22/2024(Deferr ed: Patient Refused),05/22/2022,06/05/2019 Pneumococcal Conjugate PCV 13 03/24/2021 Pneumococcal Polysaccharide PPV23 08/12/2017,06/2012 Surgical History Surgery Date Site/Laterality Comments OTHER SURGICAL HISTORY Systolic Heart Failure THYROIDECTOMY 08/22/1984 - 08/21/1985 HYSTERECTOMY 08/22/1996 - 08/21/1997 CHOLECYSTECTOMY 08/22/2012 - 08/21/2013 CARDIAC STENT PLACEMENT 06/22/2017 - 07/21/2017 ESOPHAGOGASTRODUODENOSCOPY 06/22/2019 - 07/21/2019 COLONOSCOPY W/ POLYPECTOMY 06/22/2019 - 07/21/2019 BREAST BIOPSY 10/10/2023 Left Medical History Medical History Date Comments Hypertension Hypertension Chronic obstructive pulmonary disease (HCC) COPD Seizure disorder (HCC) Seizure d isorder Type 2 diabetes mellitus Diabete s type 2 Adult idiopathic generalized osteoporosis Hypercholesterolemia History of thyroid cancer History of uterine cancer CAD (coronary artery disease) CONTRERAS (obstructive sleep apnea) senior care (current) use of insulin (HCC) Recurrent major depressive disorder in remission [place] (myocardial infarction) Tobacco dependence 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) Arachnoid cyst of spine Hypertensive heart disease without heart failure Chronic stable angina GERD (gastroesophageal reflux disease) Chronic congestive heart failure (HCC) Family History Medical History Relation Name Comments Heart disease Brother 1 Hypertension Brother 1 Heart disease Brother 2 Hypertension Brother 2 Heart disease Brother 3 Hypertension Brother 3 No Known Problems Brother 4 No Known Problems Daughter No Known Problems Father Arthritis Mother Diabetes Mother Heart disease Mother Hyperlipidemia Mother Hypertension Mother Heart failure Other 1 Family history of Heart Failure; Breast cancer Other 2 Family history of Breast Cancer; Diabetes Other 3 Family history of Diabetes mellitus; COPD Son 1 Diabetes Son 1 Heart failure Son 1 No Known Problems Son 2 Mental illness Neg Hx Relation Name Status Comments Brother 1 Brother 2 Brother 3 Alive Brother 4 Alive Daughter Alive Father Other Mother Other 1 Other 2 Other 3 Son 1 Son 2 Social History Tobacco Use Types Packs/Day Years Used Date Smoking Tobacco: Heavy Smoker Cigarettes 1 38 Smokeless Tobacco: Never Tobacco Cessation:Ready to Q uit: Not Asked; Counseling Given: Not Answered Comments:Smoking History Packs/day: 3 Packs Alcohol Use Standard Drinks/Week Comments Never 0 (1 standard drink = 0.6 oz pur e alcohol) [facility] Utilities Answer Date Recorded In the past 12 months has th e electric, gas, oil, or water company threatened to shut off services in your home? No 03/13/2025 Social Connection and Isolation Panel Answer Date Recorded In a typical week, how many times do you talk on the phone with family, friends, or neighbors? More than three times a week 03/13/2025 How often do you get togethe r with friends or relatives? Three times a week 03/13/2025 How often do you attend chur ch or episcopal services? Never 03/13/2025 Do you belong to any clubs o r organizations such as jew groups, unions, fraternal or athletic groups, or school groups? No 03/13/2025 How often do you attend meet ings of the clubs or organizations you belong to? Never 03/13/2025 Are you , , di vorced, , never , or living with a partner? 03/13/2025 Overall Financial Resource Strain (CARDIA) Answe r Date Recorded How hard is it for you to pa y for the very basics like food, housing, medical care, and heating? Not very hard 03/13/2025 PHQ-2 Answer Date Recorded PHQ-2 Total Score (If total score is 3 or more points, staff should administer the PHQ-9) 0 04/23/2025 Hunger Vital Sign Answer Date Recorded Within the past 12 months, y ou worried that your food would run out before you got the money to buy more. Never true 03/13/20 25 Within the past 12 months, t he food you bought just didn't last and you didn't have money to get more. Never true 03/13/2025 PRAPARE - Transportation Answer Date Re corded In the past 12 months, has l ack of transportation kept you from medical appointments or from getting medications? No 02/20 In the past 12 months, has l ack of transportation kept you from meetings, work, or from getting things needed for daily living? No 03/13/2025 Housing Stability Vital Sign Answer Mayo e [...] place to sleep or slept in a custodial (including now)? No 12/09/2023 PHQ-9 Answer Date Recorded PHQ-9 Total Score 0 04/23/2025 Housing Stability Vital Sign Answer Mayo e Recorded In the last 12 months, was t here a time when you were not able to pay the mortgage or rent on time? No 03/13/2025 In the past 12 months, how m any times have you moved where you were living? 0 03/13/2025 At any time in the past 12 m [facility], were you homeless or living in a custodial (including now)? No 03/13/2025 AUDIT-C Answer Date Recorded Q1: How often do you have a drink containing alcohol? Never 04/23/2025 Q2: How many drinks containi ng alcohol do you have on a typical day when you are drinking? Patient does not drink Q3: How often do you have si x or more drinks on one occasion? Never 04/23/2025 Personal Safety Answer Date Recorded Have you ever been in or are you currently in a harmful physical or emotional relationship or is someone making you feel afraid or unsafe? 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 Gender Identity Not on file Sexual Orientation Not on file Obstetrics History Para Term AB IAB SAB Ectopic Multiple Livin g Live Births 4 2 2 Date Outcome GA Total Labor Labor/2nd/3rd Weight Sex Type Anes PTL Nanda A1 A5 Name Clin Term Term Last Filed Vital Signs Vital Sign Reading Time Taken Comments Blood Pressure 98/60 05/02/2025 3:17 PM CDT Pulse 99 05/02/2025 3:17 PM CDT Temperature 36 C (96.8 F) 04/01/2025 1:11 PM CDT Respiratory Rate 18 05/02/2025 3:17 PM CDT Oxygen Saturation 97% 05/02/2025 3:4 4 PM CDT 2 liters of oxygen Inhaled Oxygen Concentration - - Weight 69.4 kg (153 lb) 04/23/2025 10:5 5 AM CDT Height 160 cm (5' 2.99) 04/23/2025 10: 55 AM CDT Body Mass Index 27.11 04/23/2025 10:55 AM CDT Plan of Treatment Health Maintenance Due Date Last Done Comments DTaP/Tdap/Td Vaccine (1 - Tdap) 1964 Hepatitis B Screening 1971 Lung Cancer Screening 2003 Zoster Vaccine (1 of 2) 2003 Foot Exam 03/19/2021 03/19/2020 Breast Cancer Screening-Mammogram 05/12/2024 023, 05/12/2023 Dilated Eye Exam 12/04/2024 12/05/2023, 04/2024, 08/03/2023 Well Visit 65+ 01/18/2025 01/19/2024, 01/05/2023 Covid-19 Vaccine (2 - 2024-2 6 season) 2025 09/29/2021 Influenza Vaccine (#1) 2025 , 05/22/2022, 06/02/2021, Additional history exists Hemoglobin A1C 09/20/2025 03/20/2025, 02/19, 03/04/2025, Additional history exists Osteoporosis Screening-Bone Density Scan 09/20/2025 09/20/2023, 09/20/2023, 10/17/2018, Additional history exists Fall Risk Assessment 03/17/2026 03/17/2025, 01/19/2024, 01/05/2023, Additional history exists Albumin Creatinine Ratio, Urine 03/20/2026 03/20/2025, 01/06/2024, 12/09/2022, Additional history exists Lipid Panel 03/20/2026 03/20/2025, 02/19, 03/04/2025, Additional history exists eGFR 03/20/2026 03/20/2025, 02/20, 03/16/2025, Additional history exists Depression Screening 04/23/2026 04/23/2025, 04/23/2025, 03/27/2025, Additional history exists Colon Cancer Screening-Colonoscopy 01/01/2028 12/31/2024, 08/23/2023, 08/23/2023, Additional history exists Pneumococcal vaccine 65+ Discontinued 021, 08/12/2017, 09/01/2011 Hepatitis C Screening Completed 12/30/2024, 019 Colon Cancer Screening-CT Colonography Discontinued 12/31/2024, 08/23/2023, 08/23/2023, Additional history exists Colon Cancer Screening-DNA Stool Discontinued 12/31/2024, 08/23/2023, 08/23/2023, Additional history exists Colon Cancer Screening-FIT Discontinued 12/31, 08/23/2023, 08/23/2023, Additional history exists Colon Cancer Screening-Sigmoidoscopy Discontinued 12/31/2024, 08/23/2023, 08/23/2023, Additional history exists Goals Goal Patient Goal Type Associated Problems Recent Progress Patient-Stated? Author ACO CC Goal - Patient will increase compliance with prescribed medications ACO Care Management On track(2024 11:45 AM CDT) No Jes Christian, RN Note: Problem: Medication non-adherence Interventions: - Address any barriers to taking medications as ordered. Coordinate with appropriate personnel (SW, physician, pharmacist, etc.) to help increase compliance with medication regimen. - Review with patient/caregiver the medication schedule in detail. - Review when to call their physician for potential medication complications and ensure they verbalize understanding of instructions. BRISA General Goal - Patient / caregiver verbalizes lifestyle changes necessary to meet self-care needs and executes self-care activities to utmost capability ACO Care Management On track(2024 11:45 AM CDT) Jes Crowe, RN Note: Problem: At Risk for Self Care Deficit Interventions: - Assess patient's level of dependence on others along with current level of assistance being provided. - Use motivational interviewing to help guide the patient in accepting the needed amount of assisstance, as applicable. - Contact caregiver and assess their involvement with patient and level of assistance provided, as appropriate. - Assess appropriateness for Home Health. Start referral process if skilled need is present. - Encourage independent ADL's as appropriate. Ensure patient has the appropriate tools at home to be as independent as possible. - Provide fall prevention education to patient and caregiver. - Evaluate need for assistive devices. - Refer to SW if appropriate and patient is agreeable. BRISA General Goal - Patient is knowledgeable about condition when worsening and how to respond ACO Care Management On track(2024 11:44 AM CDT) Jes Crowe, RN Note: Problem: Knowledge deficit related to signs and symptoms of worsening condition Interventions: - Assess patient's level of understanding related to their condition(s), specific medications and self-management of their chronic conditions. - Send educational materials to patient related to their chronic condition, including signs and symptoms, self-management actions, and serious symptoms that require urgent medical intervention. - Assist patient/provider in developing an action plan for symptom management. - Review with patient weekly: s/s worsening condition, self-management actions to take, when to call CM or provider. BRISA General Goal - Patient schedules and keeps appointments with all recommended providers ACO Care Management On track(2024 11:44 AM CDT) Jes Crowe, [place] Note: Problem: Potential for medical complications and readmission if follow-up appointments are not scheduled Interventions: - Ensure all follow-up appointments are scheduled, all prescribed medications have been received. - Address any barriers for keeping scheduled appointment. - Coordinate with patient/caregiver(s) to ensure patient is able to keep scheduled appointment. - Emphasize importance of keeping scheduled appointments. - Identify and discuss questions for next provider visit. - Follow up with patient after scheduled appointment(s) to review any new orders or changes made to medication regimen. CAD Goal - Patient will verbalize understanding how risk factors increase risk for heart attack and other CAD complications ACO Care Management On track(2024 11:45 AM CDT) Jes Crowe, RN Note: Problem: CAD Risk Factors Interventions: - Discuss importance and rationale for managing risk factors: DM: monitor blood sugars, follow medication regimen and diabetic diet ETOH Use: limit alcohol consumption Hyperlipidemia: medication adherence and low cholesterol diet HTN: medication adherence and sodium restricted diet. Stress: provide education on stress management techniques. Obesity: adhere to calorie-restricted heart healthy diet and increase physical activity. Sedentary Lifestyle: Slowly increase activity. Start with 10-15 minutes per day, working up to 30 minutes per day of physical activity. Can walk or other exercise. Tobacco use: encourage smoking/tobacco cessation. - Provide education regarding complications of uncontrolled/untreated CAD: Unstable Angina Heart Attack (AMI) Heart Failure Arrhythmias TTW COPD Goal - Patient is knowledgeable about oxygen safety and precautions TTW Case Management On track(2024 11:44 AM CDT) Jes Crowe RN Note: Problem: Oxygen Safety Interventions: - Instruct on oxygen safety precautions: Do not smoke and do not allow others to smoke around you, Post Oxygen in Use and No Smoking signs at your front door and around your home, avoid use of aerosol sprays, alcohol or Vaseline near oxygen source, do not use candles in the home, keep oxygen tanks at least 5 feet away from radiators or heaters, ensure smoke detectors are in working condition - Choose water based products instead of petroleum products - Store oxygen canisters safely and securely in the upright position, away from any type of heat source - Ensure patient has informed electric company they are oxygen dependent. Many companies offer oxygen-dependent patients priority service or a generator when power goes out Medical Devices Implanted Type Area Duty Engineer Device Identifier Shelf Expiration Date Model / Serial / Lot Bard Peripheral Vascular Ultraclip Bard 17ga 10cm 2 Trigger Permanent Ultrasound [id number] - [id number] Implanted:Qty: 1 on 10/10/2023 at [facility] Left: Breast Bard Peripheral Vascular [id number] / / Procedures Procedure Name Priority Date/Time Associated Diagnosis Comments EGFR Routine 03/20/2025 1:52 PM CDT Adult general medical exam BLOOD SMEAR REVIEW Routine 03/20/2025 1: 52 PM CDT Adult general medical exam DIFFERENTIAL AUTO Routine 03/20/2025 1:5 2 PM CDT Adult general medical exam CBC WITH AUTO DIFFERENTIAL Routine 03/20/2025 1:52 PM CDT Adult general medical exam COMPREHENSIVE METABOLIC PANEL Routine 03/20/2025 1:52 PM CDT Adult general medical exam THYROID FUNCTION CASCADE Routine 03/20/2025 1:52 PM CDT Adult general medical exam LIPID PANEL Routine 03/20/2025 1:52 PM CDT Adult general medical exam HEMOGLOBIN A1C Routine 03/20/2025 1:52 PM CDT Adult general medical exam ALBUMIN CREATININE RATIO, URINE Routine 03/20/2025 1:45 PM CDT FLAQUITO (acute kidney injury) POCT GLUCOSE DEVICE Routine 03/17/2025 1 1:18 AM CDT EGFR STAT 03/17/2025 9:58 AM CDT BASIC METABOLIC PANEL STAT 03/17/2025 9:58 AM CDT CBC WITHOUT DIFFERENTIAL STAT 03/17/2025 9:58 AM CDT SIX MINUTE WALK STAT 03/17/2025 8:24 AM CDT POCT GLUCOSE DEVICE Routine 03/17/2025 6 :58 AM CDT POCT GLUCOSE DEVICE Routine 03/16/2025 1 1:13 PM CDT POCT GLUCOSE DEVICE Routine 03/16/2025 7 :35 PM CDT POCT GLUCOSE DEVICE Routine 03/16/2025 6 :45 PM CDT POCT GLUCOSE DEVICE Routine 03/16/2025 5 :04 PM CDT POCT GLUCOSE DEVICE Routine 03/16/2025 4 :22 PM CDT POCT GLUCOSE DEVICE Routine 03/16/2025 1 1:20 AM CDT XR CHEST 1 VIEW IP Routine 03/16/2025 10:14 AM CDT POCT GLUCOSE DEVICE Routine 03/16/2025 7 :02 AM CDT PRO B-TYPE NATRIURETIC PEPTIDE Routine 03/16/2025 2:26 AM CDT EGFR Routine 03/16/2025 2:26 AM CDT DIFFERENTIAL AUTO Routine 03/16/2025 2:2 6 AM CDT CBC WITH AUTO DIFFERENTIAL Routine 03/16/2025 2:26 AM CDT BASIC METABOLIC PANEL Routine 03/16/2025 2:26 AM CDT POCT GLUCOSE DEVICE Routine 03/15/2025 7 :58 PM CDT POCT GLUCOSE DEVICE Routine 03/15/2025 4 :01 PM CDT POCT GLUCOSE DEVICE Routine 03/15/2025 1 1:10 AM CDT OSMOLALITY, BLOOD Routine 03/15/2025 8:5 6 AM CDT POCT GLUCOSE DEVICE Routine 03/15/2025 7 :34 AM CDT EGFR Routine 03/15/2025 2:31 AM CDT BASIC METABOLIC PANEL Routine 03/15/2025 2:31 AM CDT CBC WITHOUT DIFFERENTIAL Routine 03/15/2025 2:31 AM CDT POCT GLUCOSE DEVICE Routine 03/14/2025 9 :39 PM CDT POCT GLUCOSE DEVICE Routine 03/14/2025 8 :12 PM CDT POCT GLUCOSE DEVICE Routine 03/14/2025 4 :06 PM CDT POCT GLUCOSE DEVICE Routine 03/14/2025 4 :04 PM CDT POCT GLUCOSE DEVICE Routine 03/14/2025 1 1:14 AM CDT POCT GLUCOSE DEVICE Routine 03/14/2025 1 1:13 AM CDT POCT GLUCOSE DEVICE Routine 03/14/2025 7 :32 AM CDT POTASSIUM LEVEL STAT 03/14/2025 5:53 AM CDT TROPONIN T HIGH-SENSITIVITY Routine 03/14/2025 2:57 AM CDT EGFR Routine 03/14/2025 2:57 AM CDT CBC WITHOUT DIFFERENTIAL Routine 03/14/2025 2:57 AM CDT BASIC METABOLIC PANEL Routine 03/14/2025 2:57 AM CDT POCT GLUCOSE DEVICE Routine 03/13/2025 7 :31 PM CDT POCT GLUCOSE DEVICE Routine 03/13/2025 3 :53 PM CDT TRANSTHORACIC ECHO (TTE) COMPLETE W DOPPLER/CF W CONTRAST Routine 03/13/2025 1:54 PM CDT POCT GLUCOSE DEVICE Routine 03/13/2025 1 1:29 AM CDT XR CHEST 1 VIEW Critical/Life-T hreatening 03/13/2025 10:10 AM CDT ECG 12-LEAD Routine 03/13/2025 7:47 AM CDT POCT GLUCOSE DEVICE Routine 03/13/2025 7 :29 AM CDT MANUAL DIFFERENTIAL Routine 03/13/2025 2 :49 AM CDT EGFR Routine 03/13/2025 2:49 AM CDT PHOSPHORUS Routine 03/13/2025 2:49 AM CDT MAGNESIUM Routine 03/13/2025 2:49 AM CDT BASIC METABOLIC PANEL Routine 03/13/2025 2:49 AM CDT CBC WITH AUTO DIFFERENTIAL Routine 03/13/2025 2:49 AM CDT BLOOD CULTURE STAT 03/13/2025 2:49 AM CDT POCT GLUCOSE DEVICE Routine 03/12/2025 9 :10 PM CDT BLOOD CULTURE STAT 03/12/2025 6:44 PM CDT URINALYSIS, MICROSCOPIC ONLY Routine 03/12/2025 5:14 PM CDT SODIUM, URINE, RANDOM Routine 03/12/2025 5:14 PM CDT CREATININE, URINE, RANDOM Routine 03/12/2025 5:14 PM CDT URINALYSIS AND REFLEX TO MICROSCOPIC AND CULTURE Routine 03/12/2025 5:14 PM CDT POCT GLUCOSE DEVICE Routine 03/12/2025 4 :53 PM CDT US VEIN DUPLEX LOWER EXTREMITY BILATERAL COMPLETE ED Urgent/IP Urgent 03/12/2025 4:50 PM CDT TROPONIN T HIGH-SENSITIVITY 6-HOUR Timed 03/12/2025 4:25 PM CDT MA CRITICAL CARE ILL/INJURED PATIENT INIT 30-74 MIN Routine 03/12/2025 2:42 PM CDT SEPSIS LACTATE WITH REFLEX Timed 03/12/2025 1:07 PM CDT MAGNESIUM Timed 03/12/2025 11:19 AM CDT PHOSPHORUS Timed 03/12/2025 11:19 AM CDT TROPONIN T HIGH-SENSITIVITY 2-HOUR Timed 03/12/2025 11:[address] CHEST PE W CONTRAST ED 03/12/2025 11:12 AM CDT XR CHEST 1 VIEW ED 03/12/2025 10:16 AM CDT TROPONIN T HIGH-SENSITIVITY SERIES (BASELINE, 2HR, 4HR, 6HR) STAT 03/12/2025 9:50 AM CDT PRO B-TYPE NATRIURETIC PEPTIDE STAT 03/12/2025 9:50 AM CDT EGFR STAT 03/12/2025 9:50 AM CDT APTT Routine 03/12/2025 9:50 AM CDT DIFFERENTIAL AUTO STAT 03/12/2025 9:5 0 AM CDT SEPSIS LACTATE WITH REFLEX STAT 03/12/2025 9:50 AM CDT PROTIME-INR Routine 03/12/2025 9:50 AM CDT COMPREHENSIVE METABOLIC PANEL STAT 03/12/2025 9:50 AM CDT CBC WITH AUTO DIFFERENTIAL STAT 03/12/2025 9:50 AM CDT INFLUENZA A/B, RSV, AND COVID-19 PCR STAT 03/12/2025 9:50 AM CDT ECG 12-LEAD STAT 03/12/2025 9:46 AM CDT POCT GLUCOSE DEVICE Routine 03/07/2025 1 2:00 PM CDT POCT GLUCOSE DEVICE Routine 03/07/2025 7 :25 AM CDT POCT GLUCOSE DEVICE Routine 03/06/2025 8 :14 PM CDT POCT GLUCOSE DEVICE Routine 03/06/2025 4 :28 PM CDT EEG Routine 03/06/2025 3:59 PM CDT TROPONIN I HIGH-SENSITIVITY STAT 03/06/2025 2:51 PM CDT POCT GLUCOSE DEVICE Routine 03/06/2025 1 1:35 AM CDT BLOOD CULTURE STAT 03/06/2025 10:36 AM CDT THYROID FUNCTION CASCADE STAT 03/06/2025 10:04 AM CDT EGFR STAT 03/06/2025 10:04 AM CDT DIFFERENTIAL AUTO STAT 03/06/2025 10: 04 AM CDT LACTATE, WHOLE BLOOD STAT 03/06/2025 10:04 AM CDT CBC WITH AUTO DIFFERENTIAL STAT 03/06/2025 10:04 AM CDT COMPREHENSIVE METABOLIC PANEL STAT 03/06/2025 10:04 AM CDT TROPONIN I HIGH-SENSITIVITY STAT 03/06/2025 10:04 AM CDT BLOOD CULTURE STAT 03/06/2025 10:04 AM CDT POCT GLUCOSE DEVICE Routine 03/06/2025 9 :[address] HEAD WO CONTRAST ED Urgent/IP Urgent 03/06/2025 9:04 AM CDT ECG 12-LEAD Routine 03/06/2025 8:39 AM CDT POCT GLUCOSE DEVICE Routine 03/06/2025 8 :15 AM CDT POCT GLUCOSE DEVICE Routine 03/06/2025 7 :43 AM CDT POCT GLUCOSE DEVICE Routine 03/06/2025 2 :06 AM CDT MRI BRAIN WO CONTRAST IP Routine 03/06/2025 12:01 AM CDT IRON PROFILE W/ IBC Routine 03/05/2025 1 0:14 PM CDT FERRITIN Routine 03/05/2025 10:14 PM CDT EGFR Routine 03/05/2025 10:14 PM CDT DIFFERENTIAL AUTO Routine 03/05/2025 10: 14 PM CDT MAGNESIUM Routine 03/05/2025 10:14 PM CDT PROTIME-INR Timed 03/05/2025 10:14 PM CDT CBC WITH AUTO DIFFERENTIAL Routine 03/05/2025 10:14 PM CDT BASIC METABOLIC PANEL Routine 03/05/2025 10:14 PM CDT POCT GLUCOSE DEVICE Routine 03/05/2025 8 :24 PM CDT POCT GLUCOSE DEVICE Routine 03/05/2025 4 :11 PM CDT POCT GLUCOSE DEVICE Routine 03/05/2025 1 1:47 AM CDT POCT GLUCOSE DEVICE Routine 03/05/2025 7 :28 AM CDT POCT GLUCOSE DEVICE Routine 03/05/2025 5 :07 AM CDT POCT GLUCOSE DEVICE Routine 03/05/2025 1 2:31 AM CDT HEMOGLOBIN A1C Routine 03/04/2025 11:05 PM CDT EGFR Routine 03/04/2025 11:05 PM CDT DIFFERENTIAL AUTO Routine 03/04/2025 11: 05 PM CDT CBC WITH AUTO DIFFERENTIAL Routine 03/04/2025 11:05 PM CDT BASIC METABOLIC PANEL Routine 03/04/2025 11:05 PM CDT HEPATIC FUNCTION PANEL Timed 03/04/2025 11:05 PM CDT PROTIME-INR Timed 03/04/2025 11:05 PM CDT POCT GLUCOSE DEVICE Routine 03/04/2025 8 :50 PM CDT MAGNESIUM Timed 03/04/2025 5:46 PM CDT PHOSPHORUS Timed 03/04/2025 5:46 PM CDT POCT GLUCOSE DEVICE Routine 03/04/2025 4 :05 PM CDT URINALYSIS, MICROSCOPIC ONLY STAT 03/04/2025 1:46 PM CDT URINE CULTURE STAT 03/04/2025 1:46 PM CDT URINALYSIS AND REFLEX TO MICROSCOPIC AND CULTURE STAT 03/04/2025 1:46 PM CDT TROPONIN I HIGH-SENSITIVITY 2-HOUR Timed 03/04/2025 1:21 PM CDT XR CHEST PA LATERAL 2 VIEWS ED 03/04/2025 12:45 PM CDT POCUS CARDIAC 03/04/2025 12:21 PM CDT BLOOD CULTURE STAT 03/04/2025 12:15 PM CDT BLOOD CULTURE STAT 03/04/2025 12:10 PM CDT MA CRITICAL CARE ILL/INJURED PATIENT INIT 30-74 MIN Routine 03/04/2025 12:06 PM CDT APTT STAT 03/04/2025 11:52 AM CDT HEPARIN ANTI FACTOR XA ACTIVITY STAT 03/04/2025 11:43 AM CDT CTA/CTP RAPID STROKE Critical/Life-T hreatening 03/04/2025 11:36 AM CDT POC BLOOD GAS AND CHEMISTRIES, VENOUS Routine 03/04/2025 11:31 AM CDT POCT PROTHROMBIN TIME, WHOLE BLOOD Routine 03/04/2025 11:29 AM CDT POCT GLUCOSE DEVICE Routine 03/04/2025 1 1:27 AM CDT LIPID PANEL STAT 03/04/2025 11:20 AM CDT EGFR STAT 03/04/2025 11:20 AM CDT DIFFERENTIAL AUTO STAT 03/04/2025 11: 20 AM CDT TROPONIN I HIGH-SENSITIVITY SERIES (BASELINE, 2HR, 4HR, 6HR) STAT 03/04/2025 11:20 AM CDT COMPREHENSIVE METABOLIC PANEL STAT 03/04/2025 11:20 AM CDT CBC WITH AUTO DIFFERENTIAL STAT 03/04/2025 11:20 AM CDT POCT GLUCOSE DEVICE Routine 02/22/2025 8 :38 AM CDT EGFR Routine 02/22/2025 7:31 AM CDT BASIC METABOLIC PANEL Routine 02/22/2025 7:31 AM CDT POCT GLUCOSE DEVICE Routine 02/21/2025 9 :14 PM CDT POCT GLUCOSE DEVICE Routine 02/21/2025 5 :14 PM CDT POCT GLUCOSE DEVICE Routine 02/21/2025 1 2:20 PM CDT POCT GLUCOSE DEVICE Routine 02/21/2025 8 :36 AM CDT DIFFERENTIAL AUTO Routine 02/21/2025 6:1 5 AM CDT MAGNESIUM Routine 02/21/2025 6:15 AM CDT CBC WITH AUTO DIFFERENTIAL Routine 02/21/2025 6:15 AM CDT POCT GLUCOSE DEVICE Routine 02/21/2025 1 2:46 AM CDT PEAK FLOW TEST Routine 02/21/2025 12:25 AM CDT TROPONIN T HIGH-SENSITIVITY 6-HOUR Timed 02/20/2025 9:13 PM CDT POCT GLUCOSE DEVICE Routine 02/20/2025 7 :27 PM CDT TROPONIN T HIGH-SENSITIVITY 4-HR Timed 02/20/2025 7:18 PM CDT XR CHEST 1 VIEW ED 02/20/2025 3:54 PM CDT EGFR STAT 02/20/2025 3:18 PM CDT DIFFERENTIAL AUTO STAT 02/20/2025 3:1 8 PM CDT TROPONIN T HIGH-SENSITIVITY SERIES (BASELINE, 2HR, 4HR, 6HR) STAT 02/20/2025 3:18 PM CDT CBC WITH AUTO DIFFERENTIAL STAT 02/20/2025 3:18 PM CDT COMPREHENSIVE METABOLIC PANEL STAT 02/20/2025 3:18 PM CDT ECG 12-LEAD STAT 02/20/2025 3:12 PM CDT POC INFLUENZA A/B, COVID-19 ANTIGEN Routine 02/20/2025 2:14 PM CDT COPD exacerbation (HCC) Wheezing COLONOSCOPY 12/31/2024 2:11 PM CDT HEPATITIS PANEL, ACUTE Routine 12/30/2024 8:54 AM CDT DIABETIC EYE EXAM Routine 12/05/2023 DEXA AXIAL SKELETON BONE DENSITY 1 OR MORE SITES Schedule Routine, Read Routine (OP Routine) 09/20/2023 1:41 PM 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 LAB 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 Post-menopausal SCREENING MAMMOGRAM BILATERAL W JAMES Schedule Routine, Read Routine (OP Routine) 05/12/2023 2:47 PM CDT Screening mammogram, encounter for from Last 3 Months or Most Recently Relevant to Health Maintenance Results * (ABNORMAL) Blood smear review (03/20/2025 1:52 PM CDT) RBC morphology Consistent with RBC Indicies Platelet estimate Automated Count Confirmed MONTSE AZEVEDO Platelet clumping Present(A) MONTSE AZEVEDO Blood 03/20/2025 1:52 PM CDT 03/20/2025 1:55 PM CDT us Rosita Segura ASSEMBLY LINE ROBOT OPERATOR LAB BLOOD ORDERABLES Final Resu lt Performing Organization Address [facility] de Phone Number MONTSE [address] [address] * (ABNORMAL) eGFR (03/20/2025 1:52 PM CDT) Pathologist [facility] [place] eGFR 46(L) >=60 mL/min/1. 73 m2 Comment: Interpretive Data Reference Interval Normal >/= 90 mL/min/1.73m2 Mildly decreased* 60 - 89 mL/min/1.73m2 Mildly to moderately decreased 45 - 59 mL/min/1.73m2 Moderately to severely decreased 30 - 44 mL/min/1.73m2 Severely decreased 15 - 29 mL/min/1.73m2 Kidney Failure < 15 mL/min/1.73m2 *Relative to young adult level Estimated glomerular filtration rate is determined by the 2020 CKD-EPI equation recommended by the National Kidney Foundation (A Unifying Approach to GFR Estimation: Recommendations of the NKF-ASK Task Force on Reassessing the Inclusion of Race in Diagnosing Kidney Disease, JASN 2020). The CKD-EPI equation should not be used for patients with unstable renal function and has not been validated in children and those over 70. Current interpretive data was last reviewed 2021. Blood 03/20/2025 1:52 PM CDT 03/20/2025 1:55 PM CDT us Rosita Segura NP LAB BLOOD ORDERABLES Final Resu lt Performing Organization Address [facility] Co de Phone Number MONTSE [facility] [place] [address] * Differential, auto (03/20/2025 1:52 PM CDT) Pathologist [facility] [place] Neutrophil abs 4.86 1.50 - 6.50 K/cumm Imm gran abs 0.09 0.00 - 0.10 K/cumm [facility] Lymphocyte abs 1.44 0.80 - 3.30 K/cumm [facility] Monocyte abs 0.59 0.20 - 0.80 K/cumm [facility] Eosinophil abs 0.32 0.00 - 0.50 K/cumm [facility] Basophil abs 0.01 0.00 - 0.10 K/cumm [facility] Neutrophil pct 66.5 % [facility] Comment: Interpretive Data Percent cell count reference ranges are not reported, since discordance with absolute values may lead to misinterpretation of CBC data. Current Interpretive Data was last revised on 2017. Imm gran pct 1.2 % [facility] Comment: Interpretive Data Percent cell count reference ranges are not reported, since discordance with absolute values may lead to misinterpretation of CBC data. Current Interpretive Data was last revised on 2017. Lymphocyte pct 19.7 % [facility] Comment: Interpretive Data Percent cell count reference ranges are not reported, since discordance with absolute values may lead to misinterpretation of CBC data. Current Interpretive Data was last revised on 2017. Monocyte pct 8.1 % [facility] Comment: Interpretive Data Percent cell count reference ranges are not reported, since discordance with absolute values may lead to misinterpretation of CBC data. Current Interpretive Data was last revised on 2017. Eosinophil pct 4.4 % [facility] Comment: Interpretive Data Percent cell count reference ranges are not reported, since discordance with absolute values may lead to misinterpretation of CBC data. Current Interpretive Data was last revised on 2017. Basophil pct 0.1 % [facility] Comment: Interpretive Data Percent cell count reference ranges are not reported, since discordance with absolute values may lead to misinterpretation of CBC data. Current Interpretive Data was last revised on 2017. Blood 03/20/2025 1:52 PM CDT 03/20/2025 1:55 PM CDT us Rosita Segura [employer] LAB BLOOD ORDERABLES Final Resu lt [facility] [address] [facility] Department [place] [address] * Thyroid Function [place] (03/20/2025 1:52 PM CDT) TSH 2.69 0.30 - 4.20 mcIUnit/mL Blood 03/20/2025 1:52 PM CDT 03/20/2025 1:55 PM CDT Rosita Segura NP LAB BLOOD ORDERABLES Final Resu lt Performing Organization Address [facility]/ZIP Co de Phone Number MONTSE [address] [place] [address] * (ABNORMAL) CBC with auto differential (03/20/2025 1:52 PM CDT) WBC 7.31 3.80 - 9.90 K/cumm Hgb 9.7(L) 11.9 - 15.5 g/dL [facility] Hct 33.5(L) 35.6 - 45.5 % [facility] Plt 205 150 - 400 K/cumm [facility] MPV 11.6 9.1 - 12.3 fL [facility] RBC 4.29 3.90 - 5.20 M/cumm [facility] MCV 78.1(L) 81.3 - 96.4 fL [facility] MCH 22.6(L) 27.1 - 33.3 pg [facility] MCHC 29.0(L) 32.3 - 35.7 g/dL [facility] RDW CV 21.8(H) 11.1 - 14.9 % [facility] RDW SD 49.6(H) 35.7 - 48.1 fL [facility] NRBC abs 0.00 0.00 - 0.01 K/cumm [facility] Blood 03/20/2025 1:52 PM CDT 03/20/2025 1:55 PM CDT Rosita Segura NP LAB BLOOD ORDERABLES Edited Res ult - Final M[facility] [address] [place] [address] * (ABNORMAL) Hemoglobin A1c (03/20/2025 1:52 PM CDT) Hgb A1C 7.9(H) 4.0 - 5.6 % Estimated Average Glucose 180 mg/dL [facility] Comment: The ADA recommends reporting an estimated Average Glucose (eAG) with all Hemoglobin A1c results using the equation derived from a study of 507 normal and diabetic adults. Minority populations were underrepresented and children were not included. (Diabetes Care 31:3484-2086, 2008). The eAG is not equivalent to a fasting glucose. Blood 03/20/2025 1:52 PM CDT 03/20/2025 1:55 PM CDT us Rosita Segura NP LAB BLOOD ORDERABLES Final Resu lt [facility] [address] [facility] Department [place] [address] * Lipid panel (03/20/2025 1:52 PM CDT) Cholesterol 125 30 - 199 mg/dL Comment: Interpretive Data Ages < or = 19 years Acceptable: <170 mg/dL Borderline high: 170-199 mg/dL High: >or= 200 mg/dL Ages > or = 20 years Desirable: <200 mg/dL Borderline high: 200-239 mg/dL High: >or= 240 mg/dL Literature References: 1. Expert Panel on Integrated Guidelines for Cardiovascular Health and Risk Reduction in Children and Adolescents. Pediatrics 2011;128:S213 2. NCEP Expert Panel. Circulation 2004;110:227 Current Interpretive Data was last revised on 2018. Triglycerides 86 <=149 mg/dL [facility] Comment: Interpretive Data Ages < or = 9 years Acceptable: <75 mg/dL Borderline high: 75-99 mg/dL High: >or= 100 mg/dL Ages 10 to 20 years Acceptable: <90 mg/dL Borderline high: 90-129 mg/dL High: >or= 130 mg/dL Ages > or = 20 years Desirable: <150 mg/dL Borderline high: 150-199 mg/dL High: 200-499 mg/dL Very high: >or= 499 mg/dL Literature References: 1. Expert Panel on Integrated Guidelines for Cardiovascular Health and Risk Reduction in Children and Adolescents. Pediatrics 2011;128:S213 2. NCEP Expert Panel. Circulation 2004;110:227 Current Interpretive Data was last revised on 2018. HDL 49 >=40 mg/dL [facility] [place] Comment: Interpretive Data Ages < or = 19 years Acceptable: >45 mg/dL Borderline low: 40-45 mg/dL Low: <40 mg/dL Ages > or = 20 years Desirable: >or= 60 mg/dL Low: <40 mg/dL Literature References: 1. Expert Panel on Integrated Guidelines for Cardiovascular Health and Risk Reduction in Children and Adolescents. Pediatrics 2011;128:S213 2. NCEP Expert Panel. Circulation 2004;110:227 Current Interpretive Data was last revised on 2018. LDL, calculated 59 <=129 mg/dL [facility] Comment: Interpretive Data Ages < or = 19 years Acceptable: <110 mg/dL Borderline high: 110-129 mg/dL High: >or= 130 mg/dL Ages > or = 20 years Optimal: <100 mg/dL Near optimal: 100-129 mg/dL Borderline high: 130-159 mg/dL High: >160 mg/dL Calculated using the César LDL-C estimating equation. This equation was implemented on 2024. Prior to this date LDL-C was estimated using the Friedewald equation. Literature References: 1. Expert Panel on Integrated Guidelines for Cardiovascular Health and Risk Reduction in Children and Adolescents. Pediatrics 2011;128:S213 2. NCEP Expert Panel. Circulation 2004;110:227 3. César Woods et al. BRAYAN Cardiol. 2020 December 20;5(5):540-548. doi: 10.1001/jamacardio.2020.0013 Current Interpretive Data was last revised on 2024. Non-HDL Cholesterol 76 mg/dL [facility] Comment: Interpretive Data Ages < or = 19 years Acceptable: <120 mg/dL Borderline high: 120-144 mg/dL High: >145 mg/dL Ages > or = 20 years When triglycerides are >200 mg/dL, Non-HDL cholesterol is a secondary target of therapy with treatment goals that are 30 mg/dL greater than the LDL cholesterol target. Literature References: 1. Expert Panel on Integrated Guidelines for Cardiovascular Health and Risk Reduction in Children and Adolescents. Pediatrics 2011;128:S213 2. NCEP Expert Panel. Circulation 2004;110:227 Current Interpretive Data was last revised on 2018. Chol/HDL ratio 3 [facility] Blood 03/20/2025 1:52 PM CDT 03/20/2025 1:55 PM CDT Rosita Segura NP LAB BLOOD ORDERABLES Final Resu lt [facility] [address] [facility] Department [place] [address] * (ABNORMAL) Comprehensive metabolic panel (03/20/2025 1:52 PM CDT) Pathologist [facility] [place] Sodium 136 135 - 145 mmol/L Potassium, pl 4.1 3.3 - 4.9 mmol/L [facility] Chloride 98 97 - 110 mmol/L [facility] CO2 28 22 - 32 mmol/L [facility] Anion gap 10 2 - 15 mmol/L [facility] BUN 18 6 - 25 mg/dL [facility] Creatinine 1.26(H) 0.60 - 1.10 mg/dL [facility] Glucose 107 70 - 199 mg/dL [facility] Comment: Interpretive Data Fasting glucose >/= 126 mg/dl is diagnostic for diabetes. Fasting is defined as no caloric intake for at least 8 hours. Fasting glucose between 100 mg/dl to 125 mg/dl is diagnostic of prediabetes. In a patient with classic symptoms of hyperglycemia or hyperglycemic crisis, a random glucose >/= 200 mg/dl is diagnostic for diabetes. In the absence of unequivocal hyperglycemia, results should be confirmed by repeat testing. The classification and Diagnosis of Diabetes Diabetes Care 2021; 46: S19-S40. Current interpretive data was last revised 2022. Calcium 9.0 8.5 - 10.3 mg/dL [facility] Bilirubin, total 0.3 0.1 - 1.2 mg/dL [facility] Protein, pl 6.6 6.5 - 8.5 g/dL [facility] Albumin 3.7 3.5 - 5.0 g/dL [facility] Alk phos 44 40 - 130 Units/L [facility] ALT 11 7 - 45 Units/L [facility] AST 18 10 - 45 Units/L [facility] Blood 03/20/2025 1:52 PM CDT 03/20/2025 1:55 PM CDT Rosita Segura [employer] OPERATOR LAB BLOOD ORDERABLES Final Resu lt Performing Organization Address [facility] Co de Phone Number [address] [place] [address] * (ABNORMAL) Albumin Creatinine Ratio, Urine (03/20/2025 1:45 PM CDT) [facility] Albumin Ur <12.0 mg/L Comment: Interpretive Data No reference range established. Current interpretive data was last revised 2019. Creatinine Ur 12.0 mg/dL [facility] Comment: Interpretive Data No reference range established. Current interpretive data was last revised 2019. Albumin Creatinine Ratio, Ur <100(H) 1 - 29 mg/g [facility] Urine 03/20/2025 1:45 PM CDT 03/20/2025 2:50 PM CDT Kateryna Culver MD LAB URINE ORDERABLES Rosalba l Result Performing Organization Address [facility] Co de Phone Number [address] [place] [address] * POCT glucose (03/17/2025 11:18 AM CDT) [facility] Glucose, POC 116 70 - 199 mg/dL Glucose comment 1 RN/MD Notified [facility] Blood 03/17/2025 11:1 8 AM CDT 03/17/2025 11:18 AM CDT Dixon Welsh MD LAB POCT ORDERABLES - DEVICE Final Result Performing Organization Address [facility] Co de Phone Number [address] [place] [address] * (ABNORMAL) eGFR (03/17/2025 9:58 AM CDT) [facility] eGFR 46(L) >=60 mL/min/1. 73 m2 Comment: Interpretive Data Reference Interval Normal >/= 90 mL/min/1.73m2 Mildly decreased* 60 - 89 mL/min/1.73m2 Mildly to moderately decreased 45 - 59 mL/min/1.73m2 Moderately to severely decreased 30 - 44 mL/min/1.73m2 Severely decreased 15 - 29 mL/min/1.73m2 Kidney Failure < 15 mL/min/1.73m2 *Relative to young adult level Estimated glomerular filtration rate is determined by the 2020 CKD-EPI equation recommended by the National Kidney Foundation (A Unifying Approach to GFR Estimation: Recommendations of the NKF-ASK Task Force on Reassessing the Inclusion of Race in Diagnosing Kidney Disease, JASN 2020). The CKD-EPI equation should not be used for patients with unstable renal function and has not been validated in children and those over 70. Current interpretive data was last reviewed 2021. Blood 03/17/2025 9:58 AM CDT 03/17/2025 10:02 AM CDT Dixon Welsh MD LAB BLOOD ORDERABLES Final R esult [place] [address] [facility] Department [place] [address] * (ABNORMAL) CBC without differential (03/17/2025 9:58 AM CDT) WBC 6.65 3.80 - 9.90 K/cumm Hgb 8.6(L) 11.9 - 15.5 g/dL [facility] Hct 29.5(L) 35.6 - 45.5 % [facility] Plt 176 150 - 400 K/cumm [facility] MPV 11.4 9.1 - 12.3 fL [facility] RBC 3.93 3.90 - 5.20 M/cumm [facility] MCV 75.1(L) 81.3 - 96.4 fL [facility] MCH 21.9(L) 27.1 - 33.3 pg [facility] MCHC 29.2(L) 32.3 - 35.7 g/dL [facility] RDW CV 18.1(H) 11.1 - 14.9 % [facility] RDW SD 48.3(H) 35.7 - 48.1 fL [facility] NRBC abs 0.00 0.00 - 0.01 K/cumm [facility] Blood 03/17/2025 9:58 AM CDT 03/17/2025 10:02 AM CDT Dixon Welsh MD LAB BLOOD ORDERABLES Edited Result - Final [place] [id number] [facility] [employer] [place] [address] * (ABNORMAL) Basic metabolic panel (03/17/2025 9:58 AM CDT) Sodium 136 135 - 145 mmol/L Potassium, pl 4.2 3.3 - 4.9 mmol/L [facility] Chloride 99 97 - 110 mmol/L [facility] CO2 28 22 - 32 mmol/L [facility] Anion gap 9 2 - 15 mmol/L [facility] BUN 36(H) 6 - 25 mg/dL [facility] Creatinine 1.26(H) 0.60 - 1.10 mg/dL [facility] Glucose 109 70 - 199 mg/dL [facility] Comment: Interpretive Data Fasting glucose >/= 126 mg/dl is diagnostic for diabetes. Fasting is defined as no caloric intake for at least 8 hours. Fasting glucose between 100 mg/dl to 125 mg/dl is diagnostic of prediabetes. In a patient with classic symptoms of hyperglycemia or hyperglycemic crisis, a random glucose >/= 200 mg/dl is diagnostic for diabetes. In the absence of unequivocal hyperglycemia, results should be confirmed by repeat testing. The classification and Diagnosis of Diabetes Diabetes Care 2021; 46: S19-S40. Current interpretive data was last revised 2022. Calcium 9.1 8.5 - 10.3 mg/dL [facility] Blood 03/17/2025 9:58 AM CDT 03/17/2025 10:02 AM CDT us Dixon Welsh MD LAB BLOOD ORDERABLES Final R esult [address] [employer] [place] [address] * POCT glucose (03/17/2025 6:58 AM CDT) Glucose, POC 80 70 - 199 mg/dL Glucose comment 1 RN/ Notified [facility] Blood 03/17/2025 6:58 AM CDT 03/17/2025 6:58 AM CDT Dixon Welsh MD LAB POCT ORDERABLES - DEVICE Final Result Performing Organization Address City/[facility]/ZIP Co de Phone Number MONTSE [address] [place] [address] * POCT glucose (03/16/2025 11:13 PM CDT) Glucose, POC 132 70 - 199 mg/dL Glucose comment 1 Use This Result [facility] Glucose comment 2 RN/ Notified [facility] Blood 03/16/2025 11:1 3 PM CDT 03/16/2025 11:13 PM CDT Dixon Welsh MD LAB POCT ORDERABLES - DEVICE Final Result Performing Organization Address [facility] Co de Phone Number [address] [place] [address] * POCT glucose (03/16/2025 7:35 PM CDT) Glucose, POC 109 70 - 199 mg/dL Glucose comment 1 Use This Result [facility] Glucose comment 2 RN/ Notified [facility] Blood 03/16/2025 7:35 PM CDT 03/16/2025 7:35 PM CDT Dixon Welsh MD LAB POCT ORDERABLES - DEVICE Final Result Performing Organization Address City/[facility]/ZIP Co de Phone Number [address] [place] [address] * POCT glucose (03/16/2025 6:45 PM CDT) Glucose, POC 76 70 - 199 mg/dL Blood 03/16/2025 6:45 PM CDT 03/16/2025 6:45 PM CDT Dixon Welsh MD LAB POCT ORDERABLES - DEVICE Final Result Performing Organization Address City/[facility]/ZIP Co de Phone Number [address] [place] [address] * POCT glucose (03/16/2025 5:04 PM CDT) Glucose, POC 88 70 - 199 mg/dL Glucose comment 1 RN/ Notified [facility] Blood 03/16/2025 5:04 PM CDT 03/16/2025 5:04 PM CDT Dixon Welsh MD LAB POCT ORDERABLES - DEVICE Final Result Performing Organization Address City/[facility] Co de Phone Number [address] [place] [address] * (ABNORMAL) POCT glucose (03/16/2025 4:22 PM CDT) Glucose, POC 50(C) 70 - 199 mg/dL Glucose comment 1 RN/ Notified [facility] Blood 03/16/2025 4:22 PM CDT 03/16/2025 4:22 PM CDT Dixon Welsh MD LAB POCT ORDERABLES - DEVICE Final Result Performing Organization Address City/[facility] Co de Phone Number [address] [place] [address] * POCT glucose (03/16/2025 11:20 AM CDT) Glucose, POC 77 70 - 199 mg/dL Glucose comment 1 RN/MD Notified [facility] Blood 03/16/2025 11:2 0 AM CDT 03/16/2025 11:20 AM CDT us Dixon Welsh MD LAB POCT ORDERABLES - DEVICE Final Result [facility] [address] [facility] Department [place] [address] * XR Chest 1 View (03/16/2025 10:14 AM CDT) Anatomical Region Laterality Modality Body, Chest N/A Computed Radiogr aphy 03/16/2025 3:05 PM CDT Narrative 03/16/2025 3:07 PM CDT EXAM DESCRIPTION: XR CHEST 1 VIEW REASON FOR STUDY: SOB, pulmonary edema suspected SOB, pulmonary edema suspected TECHNIQUE: Single radiographic view(s) of the chest. COMPARISON: Prior exam 03/13/2025, 03/12/2025 and 03/04/2025 FINDINGS: LUNGS: There is prominence of pulmonary vascularity and interstitial markings. There are small bilateral pleural effusions with adjacent airspace opacity, atelectasis or infiltrate. Background of mild emphysematous change. HEART/MEDIASTINUM: Senescent change of the aorta. Otherwise, mild cardiomegaly favored. Heart borders are somewhat obscured by the effusions. LINES/TUBES: None. BONES: No acute osseous abnormality. IMPRESSION: 1. There is moderate pulmonary edema. 2. Small bilateral pleural effusions with adjacent airspace opacity, atelectasis or infiltrate. 3. Background of mild emphysematous change. THIS IS AN ELECTRONICALLY VERIFIED FINAL REPORT 03/16/2025 3:07 PM - Electronically signed by Michael Prieto M.D. MJ T: Report ID: [id number] Reading Location: [id number] Procedure Note Michael Prieto MD - 03/16/2025 EXAM DESCRIPTION: XR CHEST 1 VIEW REASON FOR STUDY: SOB, pulmonary edema suspected SOB, pulmonary edema suspected TECHNIQUE: Single radiographic view(s) of the chest. COMPARISON: Prior exam 03/13/2025, 03/12/2025 and 03/04/2025 FINDINGS: LUNGS: There is prominence of pulmonary vascularity and interstitial markings. There are small bilateral pleural effusions with adjacent airspace opacity, atelectasis or infiltrate. Background of mild emphysematous change. HEART/MEDIASTINUM: Senescent change of the aorta. Otherwise, mild cardiomegaly favored. Heart borders are somewhat obscured by theeffusions. LINES/TUBES: None. BONES: No acute osseous abnormality. IMPRESSION: 1. There is moderate pulmonary edema. 2. Small bilateral pleural effusions with adjacent airspace opacity, atelectasis or infiltrate. 3. Background of mild emphysematous change. THIS IS AN ELECTRONICALLY VERIFIED FINAL REPORT 03/16/2025 3:07 PM - Electronically signed by Michael Prieto M.D. MJ T: Report ID: [id number] Reading Location: [place] [address] Dixon Welsh MD IMG XR PROCEDURES Final Resu lt * POCT glucose (03/16/2025 7:02 AM CDT) Pathologist [facility] [place] Glucose, POC 95 70 - 199 mg/dL Glucose comment 1 RN/MD Notified [facility] Blood 03/16/2025 7:02 AM CDT 03/16/2025 7:02 AM CDT Dixon Welsh MD LAB POCT ORDERABLES - DEVICE Final Result [facility] [address] [facility] Department [place] [address] * (ABNORMAL) eGFR (03/16/2025 2:26 AM CDT) Pathologist [facility] [place] eGFR 39(L) >=60 mL/min/1. 73 m2 Comment: Interpretive Data Reference Interval Normal >/= 90 mL/min/1.73m2 Mildly decreased* 60 - 89 mL/min/1.73m2 Mildly to moderately decreased 45 - 59 mL/min/1.73m2 Moderately to severely decreased 30 - 44 mL/min/1.73m2 Severely decreased 15 - 29 mL/min/1.73m2 Kidney Failure < 15 mL/min/1.73m2 *Relative to young adult level Estimated glomerular filtration rate is determined by the 2020 CKD-EPI equation recommended by the National Kidney Foundation (A Unifying Approach to GFR Estimation: Recommendations of the NKF-ASK Task Force on Reassessing the Inclusion of Race in Diagnosing Kidney Disease, JASN 202). The CKD-EPI equation should not be used for patients with unstable renal function and has not been validated in children and those over 70. Current interpretive data was last reviewed 2021. Blood 03/16/2025 2:26 AM CDT 03/16/2025 3:34 AM CDT us Stu Rodríguez MD LAB BLOOD ORDERABLES Final Re sult [place] [address] [facility] Department [place] [address] * (ABNORMAL) Differential, auto (03/16/2025 2:26 AM CDT) Neutrophil abs 4.17 1.50 - 6.50 K/cumm Imm gran abs 0.16(H) 0.00 - 0.10 K/cumm [facility] Lymphocyte abs 0.51(L) 0.80 - 3.30 K/cumm [facility] Monocyte abs 0.35 0.20 - 0.80 K/cumm [facility] Eosinophil abs 0.00 0.00 - 0.50 K/cumm [facility] Basophil abs 0.01 0.00 - 0.10 K/cumm [facility] Neutrophil pct 80.2 % [facility] Comment: Interpretive Data Percent cell count reference ranges are not reported, since discordance with absolute values may lead to misinterpretation of CBC data. Current Interpretive Data was last revised on 2017. Imm gran pct 3.1 % [facility] Comment: Interpretive Data Percent cell count reference ranges are not reported, since discordance with absolute values may lead to misinterpretation of CBC data. Current Interpretive Data was last revised on 2017. Lymphocyte pct 9.8 % [facility] Comment: Interpretive Data Percent cell count reference ranges are not reported, since discordance with absolute values may lead to misinterpretation of CBC data. Current Interpretive Data was last revised on 2017. Monocyte pct 6.7 % [facility] Comment: Interpretive Data Percent cell count reference ranges are not reported, since discordance with absolute values may lead to misinterpretation of CBC data. Current Interpretive Data was last revised on 2017. Eosinophil pct 0.0 % [facility] Comment: Interpretive Data Percent cell count reference ranges are not reported, since discordance with absolute values may lead to misinterpretation of CBC data. Current Interpretive Data was last revised on 2017. Basophil pct 0.2 % [facility] Comment: Interpretive Data Percent cell count reference ranges are not reported, since discordance with absolute values may lead to misinterpretation of CBC data. Current Interpretive Data was last revised on 2017. Blood 03/16/2025 2:26 AM CDT 03/16/2025 3:35 AM CDT us Stu Rodríguez MD LAB BLOOD ORDERABLES Final Re sult [facility] [address] [facility] Department [place] [address] * (ABNORMAL) Pro B-type natriuretic peptide (03/16/2025 2:26 AM CDT) NT-proBNP 3,894(H) <=300 pg/mL Comment: Interpretive Comments: A. Dyspnea in Acute Care Setting All Ages: < 300 pg/ml, acute heart failure unlikely. < 50 yrs: 300 - 450 pg/ml, further investigation warranted. > 450 pg/ml, acute heart failure likely. 50 - 74 yrs: 300 - 900 pg/ml, further investigation warranted. > 900 pg/ml, acute heart failure likely . > or = 75 yrs: 450 - 1800 pg/ml, further investigation warranted. > 1800 pg/ml, acute heart failure likely. B. Non-acute Setting < 75 yrs < 125 pg/ml, rules out heart failure. > or = 125 pg/ml, further investigation warranted. > or = 75 yrs < 450 pg/ml, rules out heart failure. > or = 450 pg/ml, further investigation warranted. - Knowledge of each individual patient's NT-proBNP range may be more useful than using similar cut-points for every patient. Please note that marked elevations in NT-proBNP levels may be observed in state other than Left Ventricular Congestive Failure, including: acute coronary syndromes, right heart strain/failure (including pulmonary embolism and cor pulmonale), critical illness, renal failure, as well as advanced age. - References: 1. Mildred ALFARO et.al. Eur Heart J. 2006:27:330-337. 2. Gabbie RW, Elvie BAIN. J. AM Christine Cardiol: Cardiovasc Imag. 2009;2: 216- 225. Interpretive Data Last Revised Date: 2018. Blood 03/16/2025 2:26 AM CDT 03/16/2025 3:34 AM CDT us Sena Luna MD LAB BLOOD ORDERABLES Rosalba sher Result [facility] [address] [facility] Department [place] [address] * (ABNORMAL) CBC with auto differential (03/16/2025 2:26 AM CDT) Pathologist [facility] [place] WBC 5.20 3.80 - 9.90 K/cumm Hgb 8.1(L) 11.9 - 15.5 g/dL [facility] Hct 27.7(L) 35.6 - 45.5 % [facility] Plt 138(L) 150 - 400 K/cumm [facility] MPV 13.2(H) 9.1 - 12.3 fL [facility] RBC 3.71(L) 3.90 - 5.20 M/cumm [facility] MCV 74.7(L) 81.3 - 96.4 fL [facility] MCH 21.8(L) 27.1 - 33.3 pg [facility] MCHC 29.2(L) 32.3 - 35.7 g/dL [facility] RDW CV 17.6(H) 11.1 - 14.9 % [facility] RDW SD 47.7 35.7 - 48.1 fL [facility] NRBC abs 0.00 0.00 - 0.01 K/cumm [facility] Blood 03/16/2025 2:26 AM CDT 03/16/2025 3:35 AM CDT Stu Rodríguez MD LAB BLOOD ORDERABLES Final Re sult [facility] [address] [facility] Department [place] [address] * (ABNORMAL) Basic metabolic panel (03/16/2025 2:26 AM CDT) Sodium 133(L) 135 - 145 mmol/L Potassium, pl 5.0(H) 3.3 - 4.9 mmol/L [facility] Comment:Hemolyzed; Potassium value may be falsely elevated by as much as 1.0 mmol/L. Suggest redraw and reanalysis. Chloride 100 97 - 110 mmol/L [facility] CO2 25 22 - 32 mmol/L [facility] Anion gap 8 2 - 15 mmol/L [facility] BUN 43(H) 6 - 25 mg/dL [facility] Creatinine 1.45(H) 0.60 - 1.10 mg/dL [facility] Glucose 91 70 - 199 mg/dL [facility] Comment: Interpretive Data Fasting glucose >/= 126 mg/dl is diagnostic for diabetes. Fasting is defined as no caloric intake for at least 8 hours. Fasting glucose between 100 mg/dl to 125 mg/dl is diagnostic of prediabetes. In a patient with classic symptoms of hyperglycemia or hyperglycemic crisis, a random glucose >/= 200 mg/dl is diagnostic for diabetes. In the absence of unequivocal hyperglycemia, results should be confirmed by repeat testing. The classification and Diagnosis of Diabetes Diabetes Care 202; 46: S19-S40. Current interpretive data was last revised 2022. Calcium 8.8 8.5 - 10.3 mg/dL [facility] Blood 03/16/2025 2:26 AM CDT 03/16/2025 3:34 AM CDT Stu Rodríguez MD LAB BLOOD ORDERABLES Final Re sult Performing Organization Address City/[facility] Co de Phone Number [address] [place] [address] * (ABNORMAL) POCT glucose (03/15/2025 7:58 PM CDT) Glucose, POC 262(H) 70 - 199 mg/dL Glucose comment 1 RN/MD Notified [facility] Blood 03/15/2025 7:58 PM CDT 03/15/2025 7:58 PM CDT Dixon Welsh MD LAB POCT ORDERABLES - DEVICE Final Result Performing Organization Address [facility] Co de Phone Number [address] [place] [address] * (ABNORMAL) POCT glucose (03/15/2025 4:01 PM CDT) Glucose, POC 230(H) 70 - 199 mg/dL Glucose comment 1 RN/MD Notified [facility] Blood 03/15/2025 4:01 PM CDT 03/15/2025 4:01 PM CDT Dixon Welsh MD LAB POCT ORDERABLES - DEVICE Final Result Performing Organization Address [facility] Co de Phone Number [address] [place] [address] * POCT glucose (03/15/2025 11:10 AM CDT) Glucose, POC 193 70 - 199 mg/dL Glucose comment 1 RN/ Notified [facility] Blood 03/15/2025 11:1 0 AM CDT 03/15/2025 11:10 AM CDT Dixon Welsh MD LAB POCT ORDERABLES - DEVICE Final Result Performing Organization Address City/[facility] Co de Phone Number CERNER [address] [address] * Osmolality, blood (03/15/2025 8:56 AM CDT) [facility] Osmo 285 275 - 295 mOsm/kg Blood 03/15/2025 8:56 AM CDT 03/15/2025 9:05 AM CDT Dixon Welsh MD LAB BLOOD ORDERABLES Final R esult [facility] [address] [address] * POCT glucose (03/15/2025 7:34 AM CDT) [facility] Glucose, POC 156 70 - 199 mg/dL Glucose comment 1 RN/MD Notified [facility] Blood 03/15/2025 7:34 AM CDT 03/15/2025 7:34 AM CDT Dixon Welsh MD LAB POCT ORDERABLES - DEVICE Final Result [address] [address] * (ABNORMAL) eGFR (03/15/2025 2:31 AM CDT) [facility] eGFR 30(L) >=60 mL/min/1. 73 m2 Comment: Interpretive Data Reference Interval Normal >/= 90 mL/min/1.73m2 Mildly decreased* 60 - 89 mL/min/1.73m2 Mildly to moderately decreased 45 - 59 mL/min/1.73m2 Moderately to severely decreased 30 - 44 mL/min/1.73m2 Severely decreased 15 - 29 mL/min/1.73m2 Kidney Failure < 15 mL/min/1.73m2 *Relative to young adult level Estimated glomerular filtration rate is determined by the 2020 CKD-EPI equation recommended by the National Kidney Foundation (A Unifying Approach to GFR Estimation: Recommendations of the NKF-ASK Task Force on Reassessing the Inclusion of Race in Diagnosing Kidney Disease, VIOLA 2020). The CKD-EPI equation should not be used for patients with unstable renal function and has not been validated in children and those over 70. Current interpretive data was last reviewed 2021. Blood 03/15/2025 2:31 AM CDT 03/15/2025 3:08 AM CDT Dixon Welsh MD LAB BLOOD ORDERABLES Final R esult Performing Organization Address City/[facility]/ZIP Co de Phone Number [facility] [address] [place] [address] * (ABNORMAL) CBC without differential (03/15/2025 2:31 AM CDT) WBC 5.83 3.80 - 9.90 K/cumm Hgb 7.2(L) 11.9 - 15.5 g/dL [facility] Hct 24.5(L) 35.6 - 45.5 % [facility] Plt 120(L) 150 - 400 K/cumm [facility] MPV Not Measured 9.1 - 12.3 fL [facility] RBC 3.34(L) 3.90 - 5.20 M/cumm [facility] MCV 73.4(L) 81.3 - 96.4 fL [facility] MCH 21.6(L) 27.1 - 33.3 pg [facility] MCHC 29.4(L) 32.3 - 35.7 g/dL [facility] RDW CV 17.6(H) 11.1 - 14.9 % [facility] RDW SD 46.5 35.7 - 48.1 fL [facility] NRBC abs 0.00 0.00 - 0.01 K/cumm [facility] Blood 03/15/2025 2:31 AM CDT 03/15/2025 3:08 AM CDT Dixon Welsh MD LAB BLOOD ORDERABLES Final R esult Performing Organization Address City/[facility]/ZIP Co de Phone Number [facility] [address] [place] [address] * (ABNORMAL) Basic metabolic panel (03/15/2025 2:31 AM CDT) Sodium 126(L) 135 - 145 mmol/L Potassium, pl 5.0(H) 3.3 - 4.9 mmol/L [facility] Chloride 94(L) 97 - 110 mmol/L [facility] CO2 22 22 - 32 mmol/L [facility] Anion gap 10 2 - 15 mmol/L [facility] BUN 48(H) 6 - 25 mg/dL [facility] Creatinine 1.78(H) 0.60 - 1.10 mg/dL [facility] Glucose 189 70 - 199 mg/dL [facility] Comment: Interpretive Data Fasting glucose >/= 126 mg/dl is diagnostic for diabetes. Fasting is defined as no caloric intake for at least 8 hours. Fasting glucose between 100 mg/dl to 125 mg/dl is diagnostic of prediabetes. In a patient with classic symptoms of hyperglycemia or hyperglycemic crisis, a random glucose >/= 200 mg/dl is diagnostic for diabetes. In the absence of unequivocal hyperglycemia, results should be confirmed by repeat testing. The classification and Diagnosis of Diabetes Diabetes Care 202; 46: S19-S40. Current interpretive data was last revised 2022. Calcium 8.2(L) 8.5 - 10.3 mg/dL [facility] Blood 03/15/2025 2:31 AM CDT 03/15/2025 3:08 AM CDT Dixon Welsh MD LAB BLOOD ORDERABLES Final R esult [facility] [address] [facility] Department [place] [address] * POCT glucose (03/14/2025 9:39 PM CDT) Pathologist [facility] [place] Glucose, POC 190 70 - 199 mg/dL Blood 03/14/2025 9:39 PM CDT 03/14/2025 9:39 PM CDT Dixon Welsh MD LAB POCT ORDERABLES - DEVICE Final Result Performing Organization Address City/[facility]/ZIP Co de Phone Number [address] [place] [address] * (ABNORMAL) POCT glucose (03/14/2025 8:12 PM CDT) Glucose, POC 245(H) 70 - 199 mg/dL Glucose comment 1 Will Repeat Test [facility] Glucose comment 2 RN/MD Notified [facility] Blood 03/14/2025 8:12 PM CDT 03/14/2025 8:12 PM CDT Dixon Welsh MD LAB POCT ORDERABLES - DEVICE Final Result Performing Organization Address [facility] Co de Phone Number [address] [place] [address] * (ABNORMAL) POCT glucose (03/14/2025 4:06 PM CDT) Glucose, POC 287(H) 70 - 199 mg/dL Glucose comment 1 RN/ Notified [facility] Blood 03/14/2025 4:06 PM CDT 03/14/2025 4:06 PM CDT Dixon Welsh MD LAB POCT ORDERABLES - DEVICE Final Result Performing Organization Address City/[facility]/ZIP Co de Phone Number [address] [place] [address] * (ABNORMAL) POCT glucose (03/14/2025 4:04 PM CDT) Glucose, POC 300(H) 70 - 199 mg/dL Glucose comment 1 RN/ Notified [facility] Blood 03/14/2025 4:04 PM CDT 03/14/2025 4:04 PM CDT us Dixon Welsh MD LAB POCT ORDERABLES - DEVICE Final Result Performing Organization Address City/[facility]/ZIP Co de Phone Number [facility] [address] [place] [address] * (ABNORMAL) POCT glucose (03/14/2025 11:14 AM CDT) Glucose, POC 349(H) 70 - 199 mg/dL Glucose comment 1 RN/MD Notified [facility] Blood 03/14/2025 11:1 4 AM CDT 03/14/2025 11:14 AM CDT Dixon Welsh MD LAB POCT ORDERABLES - DEVICE Final Result [facility] [address] [address] * (ABNORMAL) POCT glucose (03/14/2025 11:13 AM CDT) Glucose, POC 375(H) 70 - 199 mg/dL Glucose comment 1 RN/ Notified [facility] Blood 03/14/2025 11:1 3 AM CDT 03/14/2025 11:13 AM CDT Dixon Welsh MD LAB POCT ORDERABLES - DEVICE Final Result Performing Organization Address City/[facility]/ZIP Co de Phone Number [address] [address] * (ABNORMAL) POCT glucose (03/14/2025 7:32 AM CDT) Glucose, POC 233(H) 70 - 199 mg/dL Glucose comment 1 RN/ Notified [facility] Blood 03/14/2025 7:32 AM CDT 03/14/2025 7:32 AM CDT Dixon Welsh MD LAB POCT ORDERABLES - DEVICE Final Result [address] [place] [address] * (ABNORMAL) Potassium (03/14/2025 5:53 AM CDT) Pathologist [facility] [place] Potassium, pl 5.0(H) 3.3 - 4.9 mmol/L Blood 03/14/2025 5:53 AM CDT 03/14/2025 6:01 AM CDT Chhaya Carter ASSEMBLY LINE ROBOT OPERATOR LAB BLOOD ORDERABLES Fi nal Result Performing Organization Address [facility] Co de Phone Number [address] [place] [address] * (ABNORMAL) Troponin T high-sensitivity (03/14/2025 2:57 AM CDT) [facility] Trop T hs 19(H) <=14 ng/L Comment: Interpretive Data For further hscTnT resources including the diagnostic algorithm and an aid in interpretation, copy and paste this link: https://nrl.testcatalog.org/show/[email or web address] Current Interpretive Data last revised 2020. Blood 03/14/2025 2:57 AM CDT 03/14/2025 4:19 AM CDT Dixon Welsh MD LAB BLOOD ORDERABLES Final R esult Performing Organization Address [facility] de Phone Number [address] [place] [address] * (ABNORMAL) eGFR (03/14/2025 2:57 AM CDT) [facility] eGFR 30(L) >=60 mL/min/1. 73 m2 Comment: Interpretive Data Reference Interval Normal >/= 90 mL/min/1.73m2 Mildly decreased* 60 - 89 mL/min/1.73m2 Mildly to moderately decreased 45 - 59 mL/min/1.73m2 Moderately to severely decreased 30 - 44 mL/min/1.73m2 Severely decreased 15 - 29 mL/min/1.73m2 Kidney Failure < 15 mL/min/1.73m2 *Relative to young adult level Estimated glomerular filtration rate is determined by the 2020 CKD-EPI equation recommended by the National Kidney Foundation (A Unifying Approach to GFR Estimation: Recommendations of the NKF-ASK Task Force on Reassessing the Inclusion of Race in Diagnosing Kidney Disease, JASN 202). The CKD-EPI equation should not be used for patients with unstable renal function and has not been validated in children and those over 70. Current interpretive data was last reviewed 2021. Blood 03/14/2025 2:57 AM CDT 03/14/2025 4:19 AM CDT us Love Zhong NP LAB BLOOD ORDERABLES Final R esult [place] [address] [facility] Department [place] [address] * (ABNORMAL) CBC without differential (03/14/2025 2:57 AM CDT) WBC 4.89 3.80 - 9.90 K/cumm Hgb 7.5(L) 11.9 - 15.5 g/dL [facility] Hct 25.7(L) 35.6 - 45.5 % [facility] Plt 131(L) 150 - 400 K/cumm [facility] MPV Not Measured 9.1 - 12.3 fL [facility] RBC 3.46(L) 3.90 - 5.20 M/cumm [facility] MCV 74.3(L) 81.3 - 96.4 fL [facility] MCH 21.7(L) 27.1 - 33.3 pg [facility] MCHC 29.2(L) 32.3 - 35.7 g/dL [facility] RDW CV 17.7(H) 11.1 - 14.9 % [facility] RDW SD 47.8 35.7 - 48.1 fL [facility] NRBC abs 0.00 0.00 - 0.01 K/cumm [facility] Blood 03/14/2025 2:57 AM CDT 03/14/2025 4:18 AM CDT us Dixon Welsh MD LAB BLOOD ORDERABLES Final R esult [facility] [address] [place] [address] * (ABNORMAL) Basic metabolic panel (03/14/2025 2:57 AM CDT) Sodium 129(L) 135 - 145 mmol/L Potassium, pl 5.4(H) 3.3 - 4.9 mmol/L [facility] Chloride 96(L) 97 - 110 mmol/L [facility] CO2 23 22 - 32 mmol/L [facility] Anion gap 10 2 - 15 mmol/L [facility] BUN 40(H) 6 - 25 mg/dL [facility] Creatinine 1.80(H) 0.60 - 1.10 mg/dL [facility] Glucose 158 70 - 199 mg/dL [facility] Comment: Delta - Results Reviewed Interpretive Data Fasting glucose >/= 126 mg/dl is diagnostic for diabetes. Fasting is defined as no caloric intake for at least 8 hours. Fasting glucose between 100 mg/dl to 125 mg/dl is diagnostic of prediabetes. In a patient with classic symptoms of hyperglycemia or hyperglycemic crisis, a random glucose >/= 200 mg/dl is diagnostic for diabetes. In the absence of unequivocal hyperglycemia, results should be confirmed by repeat testing. The classification and Diagnosis of Diabetes Diabetes Care 202; 46: S19-S40. Current interpretive data was last revised 2022. Calcium 8.8 8.5 - 10.3 mg/dL [facility] Blood 03/14/2025 2:57 AM CDT 03/14/2025 4:19 AM CDT Love Zhong NP LAB BLOOD ORDERABLES Final R [facility] [address] Department [place] [address] * (ABNORMAL) POCT glucose (03/13/2025 7:31 PM CDT) Glucose, POC 293(H) 70 - 199 mg/dL Blood 03/13/2025 7:31 PM CDT 03/13/2025 7:31 PM CDT Dixon Welsh MD LAB POCT ORDERABLES - DEVICE Final Result Performing Organization Address [facility] Co de Phone Number [facility] [address] [address] * (ABNORMAL) POCT glucose (03/13/2025 3:53 PM CDT) [facility] Glucose, POC 442(H) 70 - 199 mg/dL Glucose comment 1 Use This Result [facility] Glucose comment 2 RN/MD Notified [facility] Blood 03/13/2025 3:53 PM CDT 03/13/2025 3:53 PM CDT Dixon Welsh MD LAB POCT ORDERABLES - DEVICE Final Result Performing Organization Address [facility] de Phone Number [address] [address] * TRANSTHORACIC ECHO (TTE) COMPLETE W DOPPLER/CF W CONTRAST (03/13/2025 1:54 PM CDT) [facility] Estimated EF 50 % CONS SCIMAGE Anatomical Region Laterality Modality Ultrasound 03/13/2025 1:28 PM CDT Narrative 03/13/2025 6:04 PM CDT Transthoracic Echocardiographic Report Patient Name: RAISSA GIBBONS L : 1955 (69y 8m) Gender: F Study Date: 03/13/2025 01:28:40 PM Ht(Inch): 63 Wt(Lb): 166 BSA: 1.83 Health Information Systems Technician: DYLAN Joya RVT Location: [id number] Order Provider: LOVE ZHONG Heart Rate: 84 BMI: 29.4 BP: 116/74 Ref Provider: LOVE ZHONG PROCEDURES: Echocardiographic Report: ([id number]) Transthoracic complete echo with contrast, 2D, spectral and tissue Doppler, color flow Doppler, M-mode. Contrast: A contrast injection of Definity was performed to improve assessment of LV function. Definity Lot Number: [id number]. Technically difficult study due to: Technically difficult study due to underlying lung condition. INDICATIONS: Atrial fibrillation, Chest pain, and Congestive heart failure. FINDINGS: Left Ventricle: Normal left ventricular size based on volume index. Normal Left ventricular wall thickness. Left ventricle visually appears to be low normal function. The Ejection Fraction is visually estimated to be 50 %. Diastolic Function Left ventricular diastolic parameters are consistent with Grade II diastolic dysfunction (increased mean LA pressure). Right Ventricle: Normal right ventricular size. Normal right ventricular systolic function. Left Atrium: Moderately dilated left atrium. Right Atrium: The right atrium is normal in size. Atrial Septum: No shunt by color Doppler. Mitral Valve: There is moderate mitral valve regurgitation. Aortic Valve: Value normal in structure and fuction. Tricuspid Valve: There is mild to moderate tricuspid regurgitation. Estimated pulmonary artery systolic pressure is consistent with moderate pulmonary hypertension (45-60mmHg). Pulmonic Valve: No evidence of pulmonic regurgitation. Pericardium: No pericardial effusion noted. Aorta: Normal aortic root. The aortic Sinus is normal in size. IVC: IVC has blunted respirophasic collapse. IVC is dilated. CONCLUSIONS: 1. Normal left ventricular size based on volume index. Normal Left ventricular wall thickness. Left ventricle visually appears to be low normal function. The Ejection Fraction is visually estimated to be 50 %. Diastolic Function Left ventricular diastolic parameters are consistent with Grade II diastolic dysfunction (increased mean LA pressure). 2. Normal right ventricular size. Normal right ventricular systolic function. 3. Moderately dilated left atrium. 4. There is moderate mitral valve regurgitation. 5. Value normal in structure and fuction. 6. There is mild to moderate tricuspid regurgitation. Estimated pulmonary artery systolic pressure is consistent with moderate pulmonary hypertension (45-60mmHg). 7. IVC has blunted respirophasic collapse. IVC is dilated. MEASUREMENTS: 2D/MM Value Range Doppler Value Visually Estimated EF 50 % AV Peak Steven 1.37 m/s LA Dimension 2D 4.60 cm [ 1.90 - 4.00 ] AV Peak PG 7.51 mmHg AoR Diam 2D 2.20 cm [ 2.00 - 3.70 ] LVOT Peak Steven 0.71 m/s Ao Root Index 1.20 cm/m2 [ 1.00 - 2.00 ] LVOT Peak PG 2.02 mmHg MV E Peak Steven 1.03 m/s MV Decel Time 100.00 msec Med E` Steven 0.06 m/s Lat E` Steven 0.07 m/s Average E/E` 1584.62 TR Peak Steven 3.33 m/s TR Peak PG 44.4 mmHg RA Pressure 3.00 mmHg RVSP 47.40 mmHg PV Peak Steven 0.81 m/s PV Peak PG 2.62 mmHg - ATTESTATION: I have reviewed and interpreted the pertinent images and measurements of this study. I attest to the conclusions in the final report that is provided above. DISCLAIMER: The study images and the final report will be retained in the patient chart by the [facility] for the legally required time period. This chart constitutes the legal record of any testing performed. Electronically Signed By: Lucio Zaragoza MD 03/13/2025 6:03:45 PM CDT Procedure Note Lucio Zaragoza MD - 03/13/2025 Transthoracic Echocardiographic Report Patient Name: RAISSA GIBBONS L : 1955 (69y 8m) Gender: F Study Date: 03/13/2025 01:28:40 PM Ht(Inch): 63 Wt(Lb): 166 BSA: 1.83 Health Information Systems Technician: DYLAN Joya,RVT Location: [id number] Order Provider:LOVE ZHONG Heart Rate: 84 BMI: 29.4 BP: 116/74 Ref Provider: LOVE ZHONG PROCEDURES: Echocardiographic Report: ([id number]) Transthoracic complete echo withcontrast, 2D, spectral and tissue Doppler, color flow Doppler, M-mode. Contrast: A contrast injection of Definity was performed to improveassessment of LV function. Definity Lot Number: [id number]. Technically difficult study due to: Technically difficult study due tounderlying lung condition. INDICATIONS: Atrial fibrillation, Chest pain, and Congestive heart failure. FINDINGS: Left Ventricle: Normal left ventricular size based on volume index. NormalLeft ventricular wall thickness. Left ventricle visually appears to be lownormal function. The Ejection Fraction is visually estimated to be 50 %. Diastolic FunctionLeft ventricular diastolic parameters are consistent with Grade II diastolicdysfunction (increased mean LA pressure). Right Ventricle: Normal right ventricular size. Normal right ventricularsystolic function. Left Atrium: Moderately dilated left atrium. Right Atrium: The right atrium is normal in size. Atrial Septum: No shunt by color Doppler. Mitral Valve: There is moderate mitral valve regurgitation. Aortic Valve: Value normal in structure and fuction. Tricuspid Valve: There is mild to moderate tricuspid regurgitation.Estimated pulmonary artery systolic pressure is consistent with moderate pulmonaryhypertension (45-60mmHg). Pulmonic Valve: No evidence of pulmonic regurgitation. Pericardium: No pericardial effusion noted. Aorta: Normal aortic root. The aortic Sinus is normal in size. IVC: IVC has blunted respirophasic collapse. IVC is dilated. CONCLUSIONS: 1. Normal left ventricular size based on volume index. Normal Leftventricular wall thickness. Left ventricle visually appears to be low normal function. TheEjection Fraction is visually estimated to be 50 %. Diastolic Function Leftventricular diastolic parameters are consistent with Grade II diastolic dysfunction (increasedmean LA pressure). 2. Normal right ventricular size. Normal right ventricular systolicfunction. 3. Moderately dilated left atrium. 4. There is moderate mitral valve regurgitation. 5. Value normal in structure and fuction. 6. There is mild to moderate tricuspid regurgitation. Estimated pulmonaryartery systolic pressure is consistent with moderate pulmonary hypertension (45-60mmHg). 7. IVC has blunted respirophasic collapse. IVC is dilated. MEASUREMENTS: 2D/MM Value Range DopplerValue Visually Estimated EF 50 % AV Peak Vel1.37 m/s LA Dimension 2D 4.60 cm [ 1.90 - 4.00 ] AV Peak PG7.51 mmHg AoR Diam 2D 2.20 cm [ 2.00 - 3.70 ] LVOT Peak Vel0.71 m/s Ao Root Index 1.20 cm/m2 [ 1.00 - 2.00 ] LVOT Peak PG2.02 mmHg MV E Peak Steven 1.03 m/s MV Decel Time 100.00 msec Med E` Steven 0.06 m/s Lat E` Steven 0.07 m/s Average E/E` 1584.62 TR Peak Steven 3.33 m/s TR Peak PG 44.4 mmHg RA Pressure 3.00 mmHg RVSP 47.40 mmHg PV Peak Steven 0.81 m/s PV Peak PG 2.62 mmHg - ATTESTATION: I have reviewed and interpreted the pertinent images and measurements ofthis study. I attest to the conclusions in the final report that is provided above. DISCLAIMER: The study images and the final report will be retained in the patientchart by the [facility] for the legally required time period. This chart constitutesthe legal record of any testing performed. Electronically Signed By: Lucio Zaragoza MD 03/13/2025 6:03:45 PM CDT us Love Zhong NP CV ECHO PROCEDURES Final Res ult * (ABNORMAL) POCT glucose (03/13/2025 11:29 AM CDT) Glucose, POC 457(C) 70 - 199 mg/dL Glucose comment 1 Use This Result [facility] AZ[facility]EDO Glucose comment 2 RN/MD Notified [facility] AZEVEDO Blood 03/13/2025 11:2 9 AM CDT 03/13/2025 11:29 AM CDT us Dixon Welsh MD LAB POCT ORDERABLES - DEVICE Final Result [facility] AZEV[facility] [address] [facility] Department [place] [address] * XR Chest 1 View (03/13/2025 10:10 AM CDT) Anatomical Region Laterality Modality Body, Chest N/A Computed Radiogr aphy 03/13/2025 11:5 5 AM CDT Narrative 03/13/2025 11:56 AM CDT EXAM DESCRIPTION: XR CHEST 1 VIEW REASON FOR STUDY: SOB, pulmonary edema suspected Patient arrived to ED x1 day ago and was found in a-fib RVR. Increased SOB. TECHNIQUE: Single frontal radiographic view(s) of the chest. COMPARISON: 03/12/2025 FINDINGS: There is cardiomegaly. There is mild prominence of the pulmonary vasculature. There is no definite evidence of a pneumothorax. There are small bilateral pleural effusions. There are patchy bibasilar airspace opacities. The osseous structures are acutely grossly stable. IMPRESSION: 1. Cardiomegaly with mild prominence of pulmonary vasculature and small bilateral pleural effusions. 2. Patchy bibasilar airspace opacities, which may be related to subsegmental atelectasis/scarring, mild pulmonary edema, and/or developing airspace disease. THIS IS AN ELECTRONICALLY VERIFIED FINAL REPORT 03/13/2025 11:56 AM - Electronically signed by Carmela Taylor D.O. PS T: Report ID: [id number] Reading Location: [id number] Procedure Note Carmela Taylor, DO - 03/13/2025 EXAM DESCRIPTION: XR CHEST 1 VIEW REASON FOR STUDY: SOB, pulmonary edema suspected Patient arrived to ED x1 day ago and was found in a-fib RVR. IncreasedSOB. TECHNIQUE: Single frontal radiographic view(s) of the chest. COMPARISON: 03/12/2025 FINDINGS: There is cardiomegaly. There is mild prominence of thepulmonary vasculature. There is no definite evidence of a pneumothorax. There are small bilateral pleural effusions. There are patchy bibasilar airspace opacities. The osseous structures are acutely grossly stable. IMPRESSION: 1. Cardiomegaly with mild prominence of pulmonary vasculature and small bilateral pleural effusions. 2. Patchy bibasilar airspace opacities, which may be related tosubsegmental atelectasis/scarring, mild pulmonary edema, and/or developing airspacedisease. THIS IS AN ELECTRONICALLY VERIFIED FINAL REPORT 03/13/2025 11:56 AM - Electronically signed by Carmela Taylor D.O. PS T: Report ID: [id number] Reading Location: [place] [address] Dixon Welsh MD IMG XR PROCEDURES Final Resu lt * ECG 12 lead (03/13/2025 7:47 AM CDT) Ventricular Rate EKG/Min 80 BPM [facility] QRS-Interval (MSEC) 96 ms [facility] QT-Interval (MSEC) 402 ms [facility] QTc 463 ms [facility] R [place] -19 degrees [facility] T [place] -35 degrees [facility] Diagnosis Atrial fibrillation Nonspecific ST abnormality Abnormal ECG When compared with ECG of 12-MAR-2025 09:46, Vent. rate has decreased BY 65 BPM Confirmed by BRANDI BUENO M.D. ([id number]) on 03/13/2025 10:53:00 PM [facility] 03/13/2025 7:47 AM CDT 03/13/2025 10:53 PM CDT us Love Zhong ASSEMBLY LINE ROBOT OPERATOR ECG ORDERABLES Final Result [facility] * (ABNORMAL) POCT glucose (03/13/2025 7:29 AM CDT) Glucose, POC 262(H) 70 - 199 mg/dL Glucose comment 1 Use This Result [facility] Glucose comment 2 RN/MD Notified [facility] Blood 03/13/2025 7:29 AM CDT 03/13/2025 7:29 AM CDT us Dixon Welsh MD LAB POCT ORDERABLES - DEVICE Final Result Performing Organization Address [facility] Co de Phone Number [facility] [address] [place] [address] * (ABNORMAL) eGFR (03/13/2025 2:49 AM CDT) [facility] eGFR 50(L) >=60 mL/min/1. 73 m2 Comment: Interpretive Data Reference Interval Normal >/= 90 mL/min/1.73m2 Mildly decreased* 60 - 89 mL/min/1.73m2 Mildly to moderately decreased 45 - 59 mL/min/1.73m2 Moderately to severely decreased 30 - 44 mL/min/1.73m2 Severely decreased 15 - 29 mL/min/1.73m2 Kidney Failure < 15 mL/min/1.73m2 *Relative to young adult level Estimated glomerular filtration rate is determined by the 2020 CKD-EPI equation recommended by the National Kidney Foundation (A Unifying Approach to GFR Estimation: Recommendations of the NKF-ASK Task Force on Reassessing the Inclusion of Race in Diagnosing Kidney Disease, JASN 2020). The CKD-EPI equation should not be used for patients with unstable renal function and has not been validated in children and those over 70. Current interpretive data was last reviewed 2021. Blood 03/13/2025 2:49 AM CDT 03/13/2025 3:21 AM CDT us Love Zhong NP LAB BLOOD ORDERABLES Final R esult Performing Organization Address City/[facility]/ZIP Co de Phone Number [address] [place] [address] * (ABNORMAL) CBC with auto differential (03/13/2025 2:49 AM CDT) [facility] WBC 6.22 3.80 - 9.90 K/cumm Hgb 7.8(L) 11.9 - 15.5 g/dL [facility] Hct 27.3(L) 35.6 - 45.5 % [facility] Plt 164 150 - 400 K/cumm [facility] MPV Not Measured 9.1 - 12.3 fL [facility] RBC 3.60(L) 3.90 - 5.20 M/cumm [facility] MCV 75.8(L) 81.3 - 96.4 fL [facility] MCH 21.7(L) 27.1 - 33.3 pg [facility] MCHC 28.6(L) 32.3 - 35.7 g/dL [facility] RDW CV 17.9(H) 11.1 - 14.9 % [facility] RDW SD 49.1(H) 35.7 - 48.1 fL [facility] NRBC abs 0.00 0.00 - 0.01 K/cumm [facility] Blood 03/13/2025 2:49 AM CDT 03/13/2025 3:21 AM CDT us Love Zhong ASSEMBLY LINE ROBOT OPERATOR LAB BLOOD ORDERABLES Final R esult [facility] [address] [facility] Department of Laboratories [place], [place] [id number] * (ABNORMAL) Manual Differential (03/13/2025 2:49 AM CDT) [facility] Differential Manual Cells Counted 100 [facility] Neutrophil abs 5.54 1.50 - 6.50 K/cumm [facility] Lymphocyte abs 0.56(L) 0.80 - 3.30 K/cumm [facility] Monocyte abs 0.06(L) 0.20 - 0.80 K/cumm [facility] Neutrophil pct 89.0 % [facility] Comment: Interpretive Data Percent cell count reference ranges are not reported, since discordance with absolute values may lead to misinterpretation of CBC data. Current Interpretive Data was last revised on 2017. Lymphocyte pct 9.0 % [facility] Comment: Interpretive Data Percent cell count reference ranges are not reported, since discordance with absolute values may lead to misinterpretation of CBC data. Current Interpretive Data was last revised on 2017. Monocyte pct 1.0 % [facility] Comment: Interpretive Data Percent cell count reference ranges are not reported, since discordance with absolute values may lead to misinterpretation of CBC data. Current Interpretive Data was last revised on 2017. Other cell pct 1.0 % [facility] RBC morphology Present(A) [facility] Hypochromasia 3-7/HPF(A) [facility] Microcytes 8-15/HPF(A) [facility] Elliptocytes 3-7/HPF(A) [facility] Platelet estimate Automated Count Confirmed [facility] Blood 03/13/2025 2:49 AM CDT 03/13/2025 3:21 AM CDT Love Zhong ASSEMBLY LINE ROBOT OPERATOR LAB BLOOD ORDERABLES Final R esult [facility] [address] [facility] Department [place] [address] * Blood culture Blood (03/13/2025 2:49 AM CDT) Report Final Report: No growth Comment:Testing performed by : [facility], [address] [facility], [place]., [address] Blood 03/13/2025 2:49 AM CDT 03/13/2025 5:06 AM CDT Narrative [facility] - 03/17/2025 7:01 AM CDT From a different site than #1. Collection->Peripheral 1. Blood cultures are incubated for 4 days on a continuously monitored blood culture system. The first report of a negative culture is issued within 24 hours of receipt of the specimen in the laboratory. 2. Positive culture results are reported as soon as they are detected. 3. The most important factor for detection of microbes in the setting of bloodstream infection is the volume of blood submitted for culture. Failure to collect an optimal blood volume can result in false negative blood cultures. 4. For pediatric patients, the recommended blood volume to collect follows a weight based strategy. See the electronic test catalog for collection instructions. 5. For positive blood cultures, a rapid molecular test may be performed for organism identification using the omkar ePlex blood culture identification panel for gram positive (BCID-GP) and gram negative (BCID-GN) organisms. This nucleic acid amplification test detects microbial DNA in positive blood culture broth. This assay has been cleared by the [place] Food and Drug Administration and its performance characteristics have been verified by the [facility]. For questions about this culture, contact the Microbiology Laboratory at [phone]. Interpretive data was last revised on 24. Love Zhong NP LAB MICROBIOLOGY - GENERAL O RDERABLES Final Result Performing Organization Address [facility] Co de Phone Number [address] [place] [address] * Phosphorus (03/13/2025 2:49 AM CDT) Phosphorus, pl 4.4 2.3 - 4.5 mg/dL Blood 03/13/2025 2:49 AM CDT 03/13/2025 3:21 AM CDT Love Zhong NP LAB BLOOD ORDERABLES Final R esult Performing Organization Address [facility] Co de Phone Number [address] [place] [address] * Magnesium (03/13/2025 2:49 AM CDT) Magnesium 2.4 1.4 - 2.5 mg/dL Blood 03/13/2025 2:49 AM CDT 03/13/2025 3:21 AM CDT Love Zhong NP LAB BLOOD ORDERABLES Final R esult Performing Organization Address [facility] Co de Phone Number [address] [place] [address] * (ABNORMAL) Basic metabolic panel (03/13/2025 2:49 AM CDT) [facility] Sodium 130(L) 135 - 145 mmol/L Potassium, pl 4.6 3.3 - 4.9 mmol/L [facility] Chloride 96(L) 97 - 110 mmol/L [facility] CO2 22 22 - 32 mmol/L [facility] Anion gap 12 2 - 15 mmol/L [facility] BUN 27(H) 6 - 25 mg/dL [facility] Creatinine 1.17(H) 0.60 - 1.10 mg/dL [facility] Glucose 305(H) 70 - 199 mg/dL [facility] Comment: Delta - Results Reviewed Interpretive Data Fasting glucose >/= 126 mg/dl is diagnostic for diabetes. Fasting is defined as no caloric intake for at least 8 hours. Fasting glucose between 100 mg/dl to 125 mg/dl is diagnostic of prediabetes. In a patient with classic symptoms of hyperglycemia or hyperglycemic crisis, a random glucose >/= 200 mg/dl is diagnostic for diabetes. In the absence of unequivocal hyperglycemia, results should be confirmed by repeat testing. The classification and Diagnosis of Diabetes Diabetes Care 2021; 46: S19-S40. Current interpretive data was last revised 2022. Calcium 8.5 8.5 - 10.3 mg/dL [facility] Blood 03/13/2025 2:49 AM CDT 03/13/2025 3:21 AM CDT us Love Zhong ASSEMBLY LINE ROBOT OPERATOR LAB BLOOD ORDERABLES Final R esult [facility] [address] [facility] [place] [address] * (ABNORMAL) POCT glucose (03/12/2025 9:10 PM CDT) [facility] Glucose, POC 289(H) 70 - 199 mg/dL Glucose comment 1 Will Repeat Test [facility] Glucose comment 2 Use This Result [facility] Glucose comment 3 RN/MD Notified [facility] Blood 03/12/2025 9:10 PM CDT 03/12/2025 9:10 PM CDT Karol Bentley MD LAB POCT ORDERABLES - DEVICE Fin al Result Performing Organization Address [facility] Co de Phone Number [facility] [address] Department [place] [address] * Blood culture Blood (03/12/2025 6:44 PM CDT) Report Final Report: No growth Comment:Testing performed by : [facility], [address] [facility], [place]., [address] Blood 03/12/2025 6:44 PM CDT 03/13/2025 12:16 AM CDT Narrative [facility] - 03/17/2025 7:01 AM CDT Collection->Peripheral 1. Blood cultures are incubated for 4 days on a continuously monitored blood culture system. The first report of a negative culture is issued within 24 hours of receipt of the specimen in the laboratory. 2. Positive culture results are reported as soon as they are detected. 3. The most important factor for detection of microbes in the setting of bloodstream infection is the volume of blood submitted for culture. Failure to collect an optimal blood volume can result in false negative blood cultures. 4. For pediatric patients, the recommended blood volume to collect follows a weight based strategy. See the electronic test catalog for collection instructions. 5. For positive blood cultures, a rapid molecular test may be performed for organism identification using the omkar ePlex blood culture identification panel for gram positive (BCID-GP) and gram negative (BCID-GN) organisms. This nucleic acid amplification test detects microbial DNA in positive blood culture broth. This assay has been cleared by the [place] Food and Drug Administration and its performance characteristics have been verified by the [facility]. For questions about this culture, contact the Microbiology Laboratory at [phone]. Interpretive data was last revised on 24. us Love Zhong NP LAB MICROBIOLOGY - GENERAL O RDERABLES Final Result Performing Organization Address City/[facility]/ZIP Co de Phone Number [facility] AZEVEDO [address] Department [place] [address] * (ABNORMAL) Urinalysis reflex to microscopic and culture Urine, clean voided (03/12/2025 5:14 PM CDT) Color, ur Yellow Yellow Clarity, ur Clear Clear [facility] Specific gravity, ur >1.050(A) 1.003 - 1.030 [facility] pH, urine 5.5 [facility] Comment: Interpretive Data U rine pH is affected by diet, medications, systemic acid-base disturbances, and renal tubular function. pH may affect urinary stone formation. For example, urine pH below 6.0 may help reduce the tendency for calcium phosphate stones and pH greater than 6.0 may reduce the tendency for uric acid stone formation. Source: [facility] Current Interpretive Data was last revised on 2017 Protein, ur ql Negative Negative [facility] Glucose, ur ql Negative Negative [facility] Ketones, ur Negative Negative [facility] Bilirubin, ur Negative Negative [facility] Blood, ur Negative Negative [facility] Urobilinogen, ur <2.0 <2.0 mg/dL [facility] Nitrite, ur Negative Negative [facility] Leukocyte esterase, ur 2+(A) Negative [facility] UA reflex comment Reflex to microscopic UA will be performed. [facility] Urine, clean voided 03/12/2025 5:14 PM CDT 03/12/2025 5:19 PM CDT us Love Zhong NP LAB MICROBIOLOGY - GENERAL O RDERABLES Final Result [facility] AZEVEDO [address] [facility] Department [place] [address] * Sodium, urine, random (03/12/2025 5:14 PM CDT) Pathologist [facility] Sodium, ur <20 mmol/L Comment: Interpretive Data No reference range established. Current interpretive data was last revised 2019. Urine 03/12/2025 5:14 PM CDT 03/12/2025 5:19 PM CDT Love Zhong ASSEMBLY LINE ROBOT OPERATOR LAB URINE ORDERABLES Final R esult Performing Organization Address City/[facility] Co de Phone Number [facility] [address] [place] [address] * Creatinine, urine, random (03/12/2025 5:14 PM CDT) Creatinine Ur 88.9 mg/dL Comment: Interpretive Data No reference range established. Current interpretive data was last revised 2019. Urine 03/12/2025 5:14 PM CDT 03/12/2025 5:19 PM CDT Love Zhong ASSEMBLY LINE ROBOT OPERATOR LAB URINE ORDERABLES Final R esult Performing Organization Address [facility] de Phone Number [address] [place] [address] * (ABNORMAL) Urinalysis, microscopic only (03/12/2025 5:14 PM CDT) WBC, ur 6-10(A) 0 - 5 /HPF RBC, ur 0-2 0 - 2 /HPF [facility] Epithelial cells, squamous, ur 1-5 0 - 5 /HPF [facility] Mucous, ur Present(A) [facility] Culture Reflex Comment Reflex conditions for urine culture (WBC >10) not met. [facility] Urine, clean voided 03/12/2025 5:14 PM CDT 03/12/2025 5:19 PM CDT Love Zhong ASSEMBLY LINE ROBOT OPERATOR LAB URINE ORDERABLES Final R esult Performing Organization Address [facility] Co de Phone Number [address] [place] [address] * POCT glucose (03/12/2025 4:53 PM CDT) Glucose, POC 154 70 - 199 mg/dL Glucose comment 1 RN/MD Notified [facility] Blood 03/12/2025 4:53 PM CDT 03/12/2025 4:53 PM CDT us Karol Bentley MD LAB POCT ORDERABLES - DEVICE Fin al Result [facility] AZEVEDO [address] [facility] Department [place] [address] * US Vein Duplex Lower Extremity Bilateral Complete (03/12/2025 4:50 PM CDT) Anatomical Region Laterality Modality Vascular Bilateral Ultrasound 03/12/2025 4:22 PM CDT Narrative 03/14/2025 8:18 AM CDT Lower Extremity Venous Report Patient Name: RAISSA GIBBONS L : 1955 (69y 8m) Gender: F Study Date: 03/12/2025 04:22:04 PM Health Information Systems Technician: Cata August Location: [id number] Order Provider: LOVE ZHONG Quality: Adequate Ref Provider: LOVE ZHONG PROCEDURES: Vascular Report: A non-invasive vascular imaging study of the bilateral lower extremity veins was performed using B-mode ultrasound, color flow, and spectral Doppler. INDICATIONS: Localized edema. COMPARISONS: No prior exams. FINDINGS: Bilateral: Negative for deep and superficial vein thrombosis in the lower extremities bilaterally. Pulsatile flow throughout. Right: Normal compressibility and color filling, spontaneous and phasic flow, and response to distal augmentation is demonstrated in the right common femoral vein, saphenofemoral junction, proximal femoral vein, mid femoral vein, distal femoral vein, profunda vein, popliteal vein, posterior tibial veins and peroneal veins. Left: Normal compressibility and color filling, spontaneous and phasic flow, and response to distal augmentation is demonstrated in the left common femoral vein, saphenofemoral junction, proximal femoral vein, mid femoral vein, distal femoral vein, profunda vein, popliteal vein, posterior tibial veins and peroneal veins. Provider Notification: Gave RN prelim report. CONCLUSIONS: 1. There is no evidence of deep vein thrombosis in the lower extremities bilaterally. ATTESTATION: I have reviewed and interpreted the pertinent images and measurements of this study. I attest to the conclusions in the final report that is provided above. Electronically Signed By: Greg Levy MD 03/14/2025 8:09:02 AM CDT Procedure Note Greg Levy MD - 03/14/2025 Lower Extremity Venous Report Patient Name: RAISSA GIBBONS L : 1955 (69y 8m) Gender: F Study Date: 03/12/2025 04:22:04 PM Health Information Systems Technician: Cata August Location: [id number] Order Provider: LOVE ZHONG Quality: Adequate Ref Provider: LOVE ZHONG PROCEDURES: Vascular Report: A non-invasive vascular imaging study of the bilaterallower extremity veins was performed using B-mode ultrasound, color flow, and spectralDoppler. INDICATIONS: Localized edema. COMPARISONS: No prior exams. FINDINGS: Bilateral: Negative for deep and superficial vein thrombosis in the lowerextremities bilaterally. Pulsatile flow throughout. Right: Normal compressibility and color filling, spontaneous and phasicflow, and response to distal augmentation is demonstrated in the right commonfemoral vein, saphenofemoral junction, proximal femoral vein, mid femoral vein, distalfemoral vein, profunda vein, popliteal vein, posterior tibial veins and peronealveins. Left: Normal compressibility and color filling, spontaneous and phasicflow, and response to distal augmentation is demonstrated in the left common femoral vein,saphenofemoral junction, proximal femoral vein, mid femoral vein, distal femoral vein,profunda vein, popliteal vein, posterior tibial veins and peroneal veins. Provider Notification: Gave RN prelim report. CONCLUSIONS: 1. There is no evidence of deep vein thrombosis in the lower extremitiesbilaterally. ATTESTATION: I have reviewed and interpreted the pertinent images and measurements ofthis study. I attest to the conclusions in the final report that is provided above. Electronically Signed By: Greg Levy MD 03/14/2025 8:09:02 AM CDT us Love Zhong NP IMG US PROCEDURES Final Resu lt * (ABNORMAL) Troponin T high-sensitivity 6-hour (03/12/2025 4:25 PM CDT) Trop T hs 19(H) <=14 ng/L Comment: Interpretive Data For further hscTnT resources including the diagnostic algorithm and an aid in interpretation, copy and paste this link: [email or web address] Current Interpretive Data last revised 2020. Trop T hs delta -3 ng/L MONTSE AZEVEDO Trop T hs interp Insignificant MONTSE AZEVEDO Blood 03/12/2025 4:25 PM CDT 03/12/2025 4:28 PM CDT us Rehab Heriberto CARRANZA LAB BLOOD ORDERABLES Final Resu lt MONTSE AZEVEDO [address] [facility] Department [place] [address] * MA CRITICAL CARE ILL/INJURED PATIENT INIT 30-74 MIN (03/12/2025 2:42 PM CDT) Narrative Rpuerto Louis MD - 03/12/2025 2:42 PM CDT Ruperto Louis MD 03/12/2025 2:43 PM Critical Care Performed by: Ruperto Louis MD Authorized by: Ruperto Louis MD Critical care provider statement: As reflected in the history, physical exam, orders, notes, and/or MDM, I was personally present while the patient was critically ill and provided critical care services for 32 minutes, excluding time involved in separately billable procedures. Critical care was necessary to treat or prevent imminent or life-threatening deterioration of the following condition(s): atrial fibrillation Critical care was time spent by me providing the following: continuous telemetry, continuous pulse oximetry, interpretation of bedside monitors, imaging, and arterial/venous lab draws and serial bedside patient exams initiation of rate controlling agent I provided emergent necessary critical care medicine services to this patient. I ordered and reviewed test results and/or imaging studies. I spent time discussing the management of this critically ill patient with consultants and the medical staff. I spent time documenting in the medical record. I spent time discussing the management and therapeutic options for this critically ill patient with the patient themselves or with the appropriate designated surrogate decision-maker. I admitted this patient to a continuous cardiac monitored bed. Ruperto Louis MD IN CLINIC/BEDSIDE ORDERABLES Fi nal Result * Sepsis Lactate w/ Reflex (03/12/2025 1:07 PM CDT) Sepsis Lactate 1.4 0.7 - 2.0 mmol/L Blood 03/12/2025 1:07 PM CDT 03/12/2025 1:10 PM CDT Ruperto Louis MD LAB BLOOD ORDERABLES Final Resu lt ORINER [address] [facility] Department [place] [address] * (ABNORMAL) Troponin T high-sensitivity 2-hour (03/12/2025 11:19 AM CDT) Pathologist [facility] [place] Trop T hs 19(H) <=14 ng/L Comment: Interpretive Data For further hscTnT resources including the diagnostic algorithm and an aid in interpretation, copy and paste this link: [email or web address] Current Interpretive Data last revised 2020. Trop T hs delta See Comment ng/L MONTSE Comment:Inappropriate collec tion time to report a delta. Trop T hs pct delta See Comment % MONTSE Comment:Inappropriate collec tion time to report a delta. Trop T hs interp See Comment [facility] Comment:Inappropriate collec tion time to report a delta. Blood 03/12/2025 11:1 9 AM CDT 03/12/2025 11:25 AM CDT Ruperto Louis MD LAB BLOOD ORDERABLES Final Resu lt Performing Organization Address [facility]/ZIP Co de Phone Number [address] [place] [address] * Phosphorus (03/12/2025 11:19 AM CDT) [facility] Phosphorus, pl 3.6 2.3 - 4.5 mg/dL Blood 03/12/2025 11:1 9 AM CDT 03/12/2025 11:25 AM CDT Love Zhong NP LAB BLOOD ORDERABLES Final R esult Performing Organization Address City/[facility] Co de Phone Number [address] [place] [address] * Magnesium (03/12/2025 11:19 AM CDT) [facility] Magnesium 2.1 1.4 - 2.5 mg/dL Blood 03/12/2025 11:1 9 AM CDT 03/12/2025 11:25 AM CDT Love Zhong NP LAB BLOOD ORDERABLES Final R esult MONTSE [address] [facility] Department [place] [address] * CT Chest PE (CTA) W Contrast (03/12/2025 11:12 AM CDT) Anatomical Region Laterality Modality Body N/A Computed Tomogra phy 03/12/2025 11:5 3 AM CDT Narrative 03/12/2025 12:10 PM CDT EXAM DESCRIPTION: CT CHEST PE (CTA) W CONTRAST REASON FOR STUDY: Pulmonary embolism (PE) suspected, high prob Shortness of breath, dyspnea. Pt reports sob, feeling she can't get air in, struggling to breathe, chest is tight, hurts, severe back of neck pain radiating to shoulder. Hx: CAD, CHF, COPD, Thyroid Cancer, Uterine Cancer, HTN, DM2 TECHNIQUE: CT angiogram of the chest performed with intravenous contrast using helical scanning technique with dynamic intravenous contrast injection. Reconstructed coronal and sagittal MPR images reviewed. All images stored on PACS. 3D MIP images rendered on scanning unit and reviewed at time of interpretation. Automated exposure control was used as a dose optimization technique for this examination. CONTRAST TYPE/DOSE: 80mL of IOVERSOL 350 MG IODINE/ML INTRAVENOUS SYRINGE injected via intravenous COMPARISON: Prior CT 12/26/2024, 04/22/2024 in 01/06/2024 FINDINGS: VASCULATURE: There is good opacification of the pulmonary arteries. There is no evidence of a pulmonary embolism. The main pulmonary artery appears normal in caliber. There is atherosclerotic change of the thoracic aorta. No aneurysmal dilatation. LUNGS: Lung windows demonstrate a patent central airway. There is a background of moderate centrilobular emphysematous change. There is a small bilateral pleural effusion with no pneumothorax. There is mild interlobular septal thickening of the upper lung zones compatible with mild edema. No confluent infiltrate. Bibasilar atelectasis. There is a 2.3 mm nodule of lateral aspect of the right upper lobe, unchanged from the immediate prior. 3 mm nodule anterior aspect right upper lobe, image 39, unchanged from the immediate prior. 3.1 mm nodule anterior aspect right upper lobe image 41, new in the interval. 4.7 mm nodule posterior aspect right lower lobe posteriorly. No change from prior exams. 3 mm subpleural nodule anterolateral aspect image 29 of 169, unchanged from the prior not as well seen older exams. MEDIASTINUM/SAMEER: Mediastinal windows demonstrate no adenopathy by size criteria. A few small subcentimeter lymph nodes are seen typically reactive. HEART: There is mild cardiomegaly. No pericardial effusion. There is coronary artery calcification. AXILLA: No adenopathy. CHEST WALL: No masses. No subcutaneous air. HARDWARE/LINES/TUBES: None. UPPER ABDOMEN: Limited view through the extreme upper abdomen demonstrates bilateral adrenal gland thickening this is unchanged from an even older exam from 2017. Findings favor adrenal hyperplasia. MUSCULOSKELETAL: No suspicious lytic or blastic lesion. Mild spondylosis thoracic spine. OTHER: No significant abnormality. IMPRESSION: 1. No evidence of pulmonary embolism. 2. Mild interlobular septal thickening of the upper lung zones compatible with mild pulmonary edema. There are small bilateral pleural effusions. 3. There are small pulmonary nodules of the right lung. Some of these are unchanged from the immediate prior exam. There is a new 3.1 mm nodule of the anterior aspect of the right upper lobe. Some of the previously seen nodules are not as well seen secondary to edema and effusions. Suggest CT follow-up in 6 months. 4. Mild cardiomegaly with coronary artery calcification. 5. There is a background of moderate centrilobular emphysematous change of the lungs. Recommend evaluation for annual lung cancer screening enrollment if the patient qualifies based on clinical factors and smoking history. 6. Bilateral adrenal gland thickening is unchanged from an even older exam from 2017. Findings favor adrenal hyperplasia. THIS IS AN ELECTRONICALLY VERIFIED FINAL REPORT 03/12/2025 12:10 PM - Electronically signed by Michael Prieto M.D. MJ T: Report ID: [id number] Reading Location: [id number] Procedure Note Michael Prieto MD - 03/12/2025 EXAM DESCRIPTION: CT CHEST PE (CTA) W CONTRAST REASON FOR STUDY: Pulmonary embolism (PE) suspected, high prob Shortness of breath, dyspnea. Pt reports sob, feeling she can't get airin, struggling to breathe, chest is tight, hurts, severe back of neck pain radiating to shoulder. Hx: CAD, CHF, COPD, Thyroid Cancer, Uterine Cancer, HTN, DM2 TECHNIQUE: CT angiogram of the chest performed with intravenous contrastusing helical scanning technique with dynamic intravenous contrast injection. Reconstructed coronal and sagittal MPR images reviewed. All images storedon PACS. 3D MIP images rendered on scanning unit and reviewed at time of interpretation. Automated exposure control was used as a doseoptimization technique for this examination. CONTRAST TYPE/DOSE: 80mL of IOVERSOL 350 MG IODINE/ML INTRAVENOUSSYRINGE injected via intravenous COMPARISON: Prior CT 12/26/2024, 04/22/2024 in 01/06/2024 FINDINGS: VASCULATURE: There is good opacification of the pulmonary arteries. There is noevidence of a pulmonary embolism. The main pulmonary artery appears normal incaliber. There is atherosclerotic change of the thoracic aorta. No aneurysmal dilatation. LUNGS: Lung windows demonstrate a patent central airway. There is a backgroundof moderate centrilobular emphysematous change. There is a small bilateral pleural effusion with no pneumothorax. There is mild interlobular septal thickening of the upper lung zones compatible with mild edema. Noconfluent infiltrate. Bibasilar atelectasis. There is a 2.3 mm nodule of lateral aspect of the right upper lobe,unchanged from the immediate prior. 3 mm nodule anterior aspect right upper lobe, image 39, unchanged from the immediate prior. 3.1 mm nodule anterior aspect right upper lobe image 41, new in theinterval. 4.7 mm nodule posterior aspect right lower lobe posteriorly. No changefrom prior exams. 3 mm subpleural nodule anterolateral aspect image 29 of 169, unchangedfrom the prior not as well seen older exams. MEDIASTINUM/SAMEER: Mediastinal windows demonstrate no adenopathy by size criteria. A few small subcentimeter lymph nodes are seen typicallyreactive. HEART: There is mild cardiomegaly. No pericardial effusion. There is coronary artery calcification. AXILLA: No adenopathy. CHEST WALL: No masses. No subcutaneous air. HARDWARE/LINES/TUBES: None. UPPER ABDOMEN: Limited view through the extreme upper abdomendemonstrates bilateral adrenal gland thickening this is unchanged from an even olderexam from 2017. Findings favor adrenal hyperplasia. MUSCULOSKELETAL: No suspicious lytic or blastic lesion. Mildspondylosis thoracic spine. OTHER: No significant abnormality. IMPRESSION: 1. No evidence of pulmonary embolism. 2. Mild interlobular septal thickening of the upper lung zonescompatible with mild pulmonary edema. There are small bilateral pleural effusions. 3. There are small pulmonary nodules of the right lung. Some of theseare unchanged from the immediate prior exam. There is a new 3.1 mm nodule ofthe anterior aspect of the right upper lobe. Some of the previously seennodules are not as well seen secondary to edema and effusions. Suggest CTfollow-up in 6 months. 4. Mild cardiomegaly with coronary artery calcification. 5. There is a background of moderate centrilobular emphysematous changeof the lungs. Recommend evaluation for annual lung cancer screeningenrollment if the patient qualifies based on clinical factors and smoking history. 6. Bilateral adrenal gland thickening is unchanged from an even olderexam from 2017. Findings favor adrenal hyperplasia. THIS IS AN ELECTRONICALLY VERIFIED FINAL REPORT 03/12/2025 12:10 PM - Electronically signed by Michael Prieto M.D. MJ T: Report ID: [id number] Reading Location: [place] [address] [facility] Heriberto CARRANZA IM CT PROCEDURES Final Result * XR Chest 1 Vw Portable (03/12/2025 10:16 AM CDT) Anatomical Region Laterality Modality Body, Chest N/A Computed Radiogr aphy 03/12/2025 11:0 5 AM CDT Narrative 03/12/2025 11:07 AM CDT EXAM DESCRIPTION: XR CHEST 1 VIEW REASON FOR STUDY: Shortness of Breath Onset chest pain with some sob this morning TECHNIQUE: Single frontal portable upright radiographic view(s) of the chest. COMPARISON: Multiple previous chest radiographs with the most recent dated 03/04/2025. Chest CT dated 12/26/2024. FINDINGS: Small bilateral pleural effusions with adjacent airspace opacities, atelectasis and/or pneumonic consolidation. There is cardiomegaly with pulmonary vascular congestion. Calcified plaque at the aortic knob. Osseous structures without acute interval change. IMPRESSION: Mild worsening aeration of the chest when compared to the previous chest radiograph dated 03/04/2025. THIS IS AN ELECTRONICALLY VERIFIED FINAL REPORT 03/12/2025 11:07 AM - Electronically signed by Danny Fitzgerald D.O. AP T: Report ID: [id number] Reading Location: [id number] Procedure Note Danny Fitzgerald, - 03/12/2025 EXAM DESCRIPTION: XR CHEST 1 VIEW REASON FOR STUDY: Shortness of Breath Onset chest pain with some sob this morning TECHNIQUE: Single frontal portable upright radiographic view(s) of thechest. COMPARISON: Multiple previous chest radiographs with the most recent dated 03/04/2025. Chest CT dated 12/26/2024. FINDINGS: Small bilateral pleural effusions with adjacent airspaceopacities, atelectasis and/or pneumonic consolidation. There is cardiomegaly with pulmonary vascular congestion. Calcified plaque at the aortic knob.Osseous structures without acute interval change. IMPRESSION: Mild worsening aeration of the chest when compared to theprevious chest radiograph dated 03/04/2025. THIS IS AN ELECTRONICALLY VERIFIED FINAL REPORT 03/12/2025 11:07 AM - Electronically signed by Danny Fitzgerald D.O. AP T: Report ID: [id number] Reading Location: [place] [address] [facility] Rehab Heriberto CARRANZA IMG XR PROCEDURES Final Result * (ABNORMAL) Troponin T high-sensitivity series (baseline, 2hr, 4hr, 6hr) (03/12/2025 9:50 AM CDT) Trop T hs 22(H) <=14 ng/L Comment: Interpretive Data For further hscTnT resources including the diagnostic algorithm and an aid in interpretation, copy and paste this link: [email or web address].[email or web address]/[email or web address] Current Interpretive Data last revised 2020. Blood 03/12/2025 9:50 AM CDT 03/12/2025 9:54 AM CDT [facility] LAB BLOOD ORDERABLES Final Resu lt Performing Organization Address [facility] Co de Phone Number MONTSE [address] [facility] [place] [address] * Influenza A/B, RSV, and COVID-19 PCR Nasopharyngeal (03/12/2025 9:50 AM CDT) [facility] COVID-19 RNA Negative Negative Influenza A RNA Negative Negative [facility] Influenza B RNA Negative Negative [facility] RSV RNA Negative Negative [facility] Comment: Interpretive data: Testing performed by [facility]. This test is performed using the [employer] Xpert Xpress CoV-2/Flu/RSV plus assay. This is a multiplex, real-time reverse transcriptase PCR assay intended for the qualitative detection of nucleic acid from SARS-CoV-2, influenza A, influenza B, and respiratory syncytial virus. This assay has been cleared by the [place] Food and Drug administration. The performance characteristics have been verified by the [facility]. Results must be considered in the clinical context, and a negative result does not rule out infection. Interpretive Data last revised 2023 Nasopharyngeal 03/12/2025 9: 50 AM CDT 03/12/2025 10:02 AM CDT Narrative [facility] - 03/12/2025 10:44 AM CDT Is the Patient experiencing symptoms consistent with COVID?->Unknown [facility] LAB MICROBIOLOGY - GENERAL ORDE RABLES Final Result Performing Organization Address [facility]/ZIP Co de Phone Number MONTSE [address] [facility] [place] [address] * (ABNORMAL) Sepsis Lactate w/ Reflex (03/12/2025 9:50 AM CDT) [facility] Sepsis Lactate 2.3(H) 0.7 - 2.0 mmol/L Blood 03/12/2025 9:50 AM CDT 03/12/2025 9:54 AM CDT Rehab Heriberto CARRANZA LAB BLOOD ORDERABLES Final Resu lt Performing Organization Address [facility] Co de Phone Number MONTSE [address] [place] [address] * (ABNORMAL) eGFR (03/12/2025 9:50 AM CDT) Pathologist [facility] [place] eGFR 48(L) >=60 mL/min/1. 73 m2 Comment: Interpretive Data Reference Interval Normal >/= 90 mL/min/1.73m2 Mildly decreased* 60 - 89 mL/min/1.73m2 Mildly to moderately decreased 45 - 59 mL/min/1.73m2 Moderately to severely decreased 30 - 44 mL/min/1.73m2 Severely decreased 15 - 29 mL/min/1.73m2 Kidney Failure < 15 mL/min/1.73m2 *Relative to young adult level Estimated glomerular filtration rate is determined by the 2020 CKD-EPI equation recommended by the National Kidney [employer] (A Unifying Approach to GFR Estimation: Recommendations of the NKF-ASK Task Force on Reassessing the Inclusion of Race in Diagnosing Kidney Disease, JASN 2020). The CKD-EPI equation should not be used for patients with unstable renal function and has not been validated in children and those over 70. Current interpretive data was last reviewed 2021. Blood 03/12/2025 9:50 AM CDT 03/12/2025 9:54 AM CDT Rehab Heriberto CARRANZA LAB BLOOD ORDERABLES Final Resu lt Performing Organization Address City/[facility]/ZIP Co de Phone Number MONTSE [facility] [facility] [place] [address] * (ABNORMAL) Differential, auto (03/12/2025 9:50 AM CDT) Pathologist [facility] [place] Neutrophil abs 6.82(H) 1.50 - 6.50 K/cumm Imm gran abs 0.44(H) 0.00 - 0.10 K/cumm [facility] Lymphocyte abs 1.02 0.80 - 3.30 K/cumm [facility] Monocyte abs 0.56 0.20 - 0.80 K/cumm [facility] Eosinophil abs 0.07 0.00 - 0.50 K/cumm [facility] Basophil abs 0.05 0.00 - 0.10 K/cumm [facility] Neutrophil pct 76.0 % [facility] Comment: Interpretive Data Percent cell count reference ranges are not reported, since discordance with absolute values may lead to misinterpretation of CBC data. Current Interpretive Data was last revised on 2017. Imm gran pct 4.9 % [facility] Comment: Interpretive Data Percent cell count reference ranges are not reported, since discordance with absolute values may lead to misinterpretation of CBC data. Current Interpretive Data was last revised on 2017. Lymphocyte pct 11.4 % [facility] Comment: Interpretive Data Percent cell count reference ranges are not reported, since discordance with absolute values may lead to misinterpretation of CBC data. Current Interpretive Data was last revised on 2017. Monocyte pct 6.3 % [facility] Comment: Interpretive Data Percent cell count reference ranges are not reported, since discordance with absolute values may lead to misinterpretation of CBC data. Current Interpretive Data was last revised on 2017. Eosinophil pct 0.8 % [facility] Comment: Interpretive Data Percent cell count reference ranges are not reported, since discordance with absolute values may lead to misinterpretation of CBC data. Current Interpretive Data was last revised on 2017. Basophil pct 0.6 % [facility] Comment: Interpretive Data Percent cell count reference ranges are not reported, since discordance with absolute values may lead to misinterpretation of CBC data. Current Interpretive Data was last revised on 2017. Blood 03/12/2025 9:50 AM CDT 03/12/2025 9:54 AM CDT us Rehab Heriberto CARRANZA LAB BLOOD ORDERABLES Final Resu lt [facility] [address] [facility] Department [place] [address] * (ABNORMAL) Pro B-type natriuretic peptide (03/12/2025 9:50 AM CDT) NT-proBNP 4,127(H) <=300 pg/mL Comment: Interpretive Comments: A. Dyspnea in Acute Care Setting All Ages: < 300 pg/ml, acute heart failure unlikely. < 50 yrs: 300 - 450 pg/ml, further investigation warranted. > 450 pg/ml, acute heart failure likely. 50 - 74 yrs: 300 - 900 pg/ml, further investigation warranted. > 900 pg/ml, acute heart failure likely . > or = 75 yrs: 450 - 1800 pg/ml, further investigation warranted. > 1800 pg/ml, acute heart failure likely. B. Non-acute Setting < 75 yrs < 125 pg/ml, rules out heart failure. > or = 125 pg/ml, further investigation warranted. > or = 75 yrs < 450 pg/ml, rules out heart failure. > or = 450 pg/ml, further investigation warranted. - Knowledge of each individual patient's NT-proBNP range may be more useful than using similar cut-points for every patient. Please note that marked elevations in NT-proBNP levels may be observed in state other than Left Ventricular Congestive Failure, including: acute coronary syndromes, right heart strain/failure (including pulmonary embolism and cor pulmonale), critical illness, renal failure, as well as advanced age. - References: 1. Mildred ALFARO et.al. Eur Heart J. 2006:27:330-337. 2. Gabbie AGUILLON, Elvie BAIN. J. AM Christine Cardiol: Cardiovasc Imag. 2009;2: 216- 225. Interpretive Data Last Revised Date: 2018. Blood 03/12/2025 9:50 AM CDT 03/12/2025 9:54 AM CDT us Rehab Heriberto CARRANZA LAB BLOOD ORDERABLES Final Resu lt ORIBXJ [address] [facility] Department [place] [address] * (ABNORMAL) CBC with auto differential (03/12/2025 9:50 AM CDT) WBC 8.96 3.80 - 9.90 K/cumm Hgb 8.7(L) 11.9 - 15.5 g/dL [facility] Hct 29.2(L) 35.6 - 45.5 % [facility] Plt 189 150 - 400 K/cumm [facility] MPV 12.6(H) 9.1 - 12.3 fL [facility] RBC 3.85(L) 3.90 - 5.20 M/cumm [facility] MCV 75.8(L) 81.3 - 96.4 fL [facility] MCH 22.6(L) 27.1 - 33.3 pg [facility] MCHC 29.8(L) 32.3 - 35.7 g/dL [facility] RDW CV 18.4(H) 11.1 - 14.9 % [facility] RDW SD 49.6(H) 35.7 - 48.1 fL [facility] NRBC abs 0.00 0.00 - 0.01 K/cumm [facility] Blood 03/12/2025 9:50 AM CDT 03/12/2025 9:54 AM CDT Rehab Heriberto CARRANZA LAB BLOOD ORDERABLES Final Resu lt Performing Organization Address [facility] Co de Phone Number MONTSE [address] [place] [address] * aPTT (03/12/2025 9:50 AM CDT) aPTT 28 22 - 37 sec Comment: Interpretive data aPTT test has not been evaluated for monitoring heparin therapy. The anti-Xa is the preferred test. Current interpretive data was last revised on 2019. Blood 03/12/2025 9:50 AM CDT 03/12/2025 9:54 AM CDT Rehab Heriberto CARRANZA LAB BLOOD ORDERABLES Final Resu lt Performing Organization Address City/[facility]/ZIP Co de Phone Number MONTSE [address] [place] [address] * (ABNORMAL) Protime-INR (03/12/2025 9:50 AM CDT) PT 15.90(H) 12.00 - 14.60 sec Comment:Ref Range High INR 1.26(H) 0.90 - 1.20 [facility] Comment: Ref Range High Interpretive data Oral anticoagulant therapeutic ranges: Venous thromboembolism prophylaxis or treatment: 2.0-3.0 CARDIOLOGY Standard range: 2.0-3.0 High-intensity range: 2.5-3.5 Refer to indication-specific guidelines for appropriate target ranges for prosthetic heart valve replacement. Current interpretive data was last revised on 2019. Blood 03/12/2025 9:50 AM CDT 03/12/2025 9:54 AM CDT us Rehab Heriberto CARRANZA LAB BLOOD ORDERABLES Final Resu lt [facility] [address] [facility] Department [place] [address] * (ABNORMAL) Comprehensive metabolic panel (03/12/2025 9:50 AM CDT) Sodium 135 135 - 145 mmol/L Potassium, pl 4.8 3.3 - 4.9 mmol/L [facility] Chloride 102 97 - 110 mmol/L [facility] [facility] CO2 21(L) 22 - 32 mmol/L [facility] Anion gap 12 2 - 15 mmol/L [facility] BUN 23 6 - 25 mg/dL [facility] Creatinine 1.20(H) 0.60 - 1.10 mg/dL [facility] Glucose 203(H) 70 - 199 mg/dL [facility] Comment: Interpretive Data Fasting glucose >/= 126 mg/dl is diagnostic for diabetes. Fasting is defined as no caloric intake for at least 8 hours. Fasting glucose between 100 mg/dl to 125 mg/dl is diagnostic of prediabetes. In a patient with classic symptoms of hyperglycemia or hyperglycemic crisis, a random glucose >/= 200 mg/dl is diagnostic for diabetes. In the absence of unequivocal hyperglycemia, results should be confirmed by repeat testing. The classification and Diagnosis of Diabetes Diabetes Care 202; 46: S19-S40. Current interpretive data was last revised 2022. Calcium 8.7 8.5 - 10.3 mg/dL [facility] Bilirubin, total 0.3 0.1 - 1.2 mg/dL [facility] Protein, pl 6.6 6.5 - 8.5 g/dL [facility] Albumin 3.5 3.5 - 5.0 g/dL [facility] Alk phos 49 40 - 130 Units/L [facility] ALT 10 7 - 45 Units/L [facility] AST 19 10 - 45 Units/L [facility] Blood 03/12/2025 9:50 AM CDT 03/12/2025 9:54 AM CDT Rehab Heriberto CARRANZA LAB BLOOD ORDERABLES Final Resu lt [facility] [address] [facility] Department [place] [address] * ECG 12 lead (03/12/2025 9:46 AM CDT) [facility] Ventricular Rate EKG/Min 145 BPM [facility] Atrial Rate 107 BPM [facility] QRS-Interval (MSEC) 86 ms [facility] QT-Interval (MSEC) 280 ms [facility] QTc 434 ms [facility] R [place] -10 degrees [facility] T [place] 145 degrees [facility] Diagnosis Atrial fibrillation with rapid ventricular response ST & T wave abnormality, consider inferior ischemia Abnormal ECG When compared with ECG of 06-MAR-2025 08:39, Vent. rate has increased BY 53 BPM T wave inversion now evident in Inferior leads Confirmed by OBED ALBERTS M.D. ([id number]) on 03/13/2025 7:38:14 AM [facility] 03/12/2025 9:46 AM CDT 03/13/2025 7:38 AM CDT Rehab Heriberto CARRANZA ECG ORDERABLES Final Result Performing Organization Address City/[facility]/ZIP Co de Phone Number [facility] * (ABNORMAL) POCT glucose (03/07/2025 12:00 PM CDT) Pathologist [facility] [place] Glucose, POC 225(H) 70 - 199 mg/dL Blood 03/07/2025 12:0 0 PM CDT 03/07/2025 12:00 PM CDT Lorrie Levin MD LAB POCT ORDERABLES - DE VICE Final Result Performing Organization Address [facility] Phone [place] [address] * POCT glucose (03/07/2025 7:25 AM CDT) Glucose, POC 152 70 - 199 mg/dL Blood 03/07/2025 7:25 AM CDT 03/07/2025 7:25 AM CDT Lorrie Levin MD LAB POCT ORDERABLES - DE VICE Final Result Performing Organization Address [facility] Phone [place] [address] * POCT glucose (03/06/2025 8:14 PM CDT) Glucose, POC 134 70 - 199 mg/dL Blood 03/06/2025 8:14 PM CDT 03/06/2025 8:14 PM CDT Lorrie Levin MD LAB POCT ORDERABLES - DE VICE Final Result Performing Organization Address [facility] Phone [place] [address] * (ABNORMAL) POCT glucose (03/06/2025 4:28 PM CDT) Glucose, POC 268(H) 70 - 199 mg/dL Blood 03/06/2025 4:28 PM CDT 03/06/2025 4:28 PM CDT us Lorrie Levin MD LAB POCT ORDERABLES - DE VICE Final Result [facility] [place] [facility] [place] [address] * EEG (03/06/2025 3:59 PM CDT) Anatomical Region Laterality Modality EEG Narrative 03/06/2025 3:59 PM CDT Routine EEG Report Patient Name: Raissa Gibbons [facility] Medical Record Number (MRN): [id number] [place], Located Within [facility] Record: [id number] Date of (): 1955 EEG Date: 03/06/2025 Ordering Provider: Zenia Owen MD CC: Kateryna Culver Start Time: 03/06/2025 11:52:14 AM End Time: 03/06/2025 12:14:56 PM Introduction: Ms. Gibbons is a 69 y.o. female with a history of coronary artery disease, COPD, paroxysmal atrial fibrillation, hypothyroidism, cirrhosis, HFpEF, CONTRERAS, reported prior history of seizures not on anti-seizure medications presenting for right-sided weakness, sensory loss and dysarthria, with hospitalization complicated by fluctuating mental status and report of staring spells. EEG was performed to evaluate for epileptiform abnormalties. This is a 32 channel EEG recording acquired on a [employer] EEG-1200 acquisition system. Scalp electrodes were placed according to the international 10-20 System. The analog EEG was filtered from 1-70 Hz and digitally sampled at 200 Hz. The record was then reformatted for review in bipolar and referential montages. EEG Description: There was significant myogenic artifact throughout the duration of the recording. The awake background was continuous, symmetric, well-organized and included a 8-10 Hz posterior dominant rhythm which attenuated with eye opening and activity. The awake background also included diffuse delta range activity. During drowsiness, identified by ocular signs and alpha attenuation, there was intermittent, diffuse, asynchronous theta activity admixed with 2-4 Hz polymorphic frontotemporal delta activity. Hyperventilation was not performed. Photic strobe stimulation elicited no abnormalities. There were no focal, lateralized or epileptiform abnormalities. Interpretation: This was a somewhat limited due to excessive diffuse EMG and myogenic artifacts. This is an abnormal EEG due to mild generalized slowing. Generalized slowing indicates diffuse cerebral dysfunction as seen in metabolic, toxic, or diffuse or multifocal structural abnormalities. By signing this report, the attending Electroencephalographer certifies that he/she personally reviewed the electrodiagnostics study and has edited this report to fully conform with his/her intent. Signing Attending: Douglas Altamirano MD PhD Lorrie Levin MD NEUROLOGY ORDERABLES Fin al Result * (ABNORMAL) Troponin I high-sensitivity (03/06/2025 2:51 PM CDT) Pathologist [facility] [place] Trop I hs 33(H) <=17 ng/L Comment: Interpretive Data For further hscTnI resources including the diagnostic algorithm and an aid in interpretation, copy and paste this link: [email or web address]/show/[email or web address] Current Interpretive Data last revised 2020. Blood 03/06/2025 2:51 PM CDT 03/06/2025 3:25 PM CDT Lorrie Levin MD LAB BLOOD ORDERABLES Fin al Result Performing Organization Address [facility] Co de Phone Number [facility] [place] [address] * POCT glucose (03/06/2025 11:35 AM CDT) Glucose, POC 138 70 - 199 mg/dL Blood 03/06/2025 11:3 5 AM CDT 03/06/2025 11:35 AM CDT Lorrie Levin MD LAB POCT ORDERABLES - DE VICE Final Result Performing Organization Address [facility] Co de Phone Number [facility] [place] [address] * Blood culture Blood (03/06/2025 10:36 AM CDT) Report Final Report: No growth Blood 03/06/2025 10:3 6 AM CDT 03/06/2025 11:33 AM CDT Marlene RUIZ - 03/10/2025 12:00 PM CDT Collection->Peripheral 1. Blood cultures are incubated for 4 days on a continuously monitored blood culture system. The first report of a negative culture is issued within 24 hours of receipt of the specimen in the laboratory. 2. Positive culture results are reported as soon as they are detected. 3. The most important factor for detection of microbes in the setting of bloodstream infection is the volume of blood submitted for culture. Failure to collect an optimal blood volume can result in false negative blood cultures. 4. For pediatric patients, the recommended blood volume to collect follows a weight based strategy. See the electronic test catalog for collection instructions. 5. For positive blood cultures, a rapid molecular test may be performed for organism identification using the omkar ePlex blood culture identification panel for gram positive (BCID-GP) and gram negative (BCID-GN) organisms. This nucleic acid amplification test detects microbial DNA in positive blood culture broth. This assay has been cleared by the [place] Food and Drug Administration and its performance characteristics have been verified by the [facility]. For questions about this culture, contact the Microbiology Laboratory at [phone]. Interpretive data was last revised on 24. Lorrie Levin MD LAB MICROBIOLOGY - [facility] ORDERABLES Final Result [facility] [place] [address] * (ABNORMAL) Troponin I high-sensitivity (03/06/2025 10:04 AM CDT) Trop I hs 41(H) <=17 ng/L Comment: Interpretive Data For further hscTnI resources including the diagnostic algorithm and an aid in interpretation, copy and paste this link: [email or web address]/show/[email or web address] Current Interpretive Data last revised 2020. Blood 03/06/2025 10:0 4 AM CDT 03/06/2025 10:41 AM CDT Lorrie Levin MD LAB BLOOD ORDERABLES Fin al Result Performing Organization Address City/[facility]/ZIP Co de Phone Number [facility] [place] [address] * (ABNORMAL) eGFR (03/06/2025 10:04 AM CDT) eGFR 55(L) >=60 mL/min/1. 73 m2 Comment: Interpretive Data Reference Interval Normal >/= 90 mL/min/1.73m2 Mildly decreased* 60 - 89 mL/min/1.73m2 Mildly to moderately decreased 45 - 59 mL/min/1.73m2 Moderately to severely decreased 30 - 44 mL/min/1.73m2 Severely decreased 15 - 29 mL/min/1.73m2 Kidney Failure < 15 mL/min/1.73m2 *Relative to young adult level Estimated glomerular filtration rate is determined by the 2020 CKD-EPI equation recommended by the National Kidney Foundation (A Unifying Approach to GFR Estimation: Recommendations of the NKF-ASK Task Force on Reassessing the Inclusion of Race in Diagnosing Kidney Disease, JASN 202). The CKD-EPI equation should not be used for patients with unstable renal function and has not been validated in children and those over 70. Current interpretive data was last reviewed 2021. Blood 03/06/2025 10:0 4 AM CDT 03/06/2025 10:54 AM CDT Lorrie Levin MD LAB BLOOD ORDERABLES Fin al Result [facility] [place] [address] * Differential, auto (03/06/2025 10:04 AM CDT) Pathologist [facility] [place] Neutrophil abs 5.81 1.50 - 6.50 K/cumm Imm gran abs 0.07 0.00 - 0.10 K/cumm [facility] Lymphocyte abs 1.24 0.80 - 3.30 K/cumm [facility] Monocyte abs 0.51 0.20 - 0.80 K/cumm [facility] Eosinophil abs 0.23 0.00 - 0.50 K/cumm [facility] Basophil abs 0.04 0.00 - 0.10 K/cumm [facility] Neutrophil pct 73.5 % [facility] Comment: Interpretive Data Percent cell count reference ranges are not reported, since discordance with absolute values may lead to misinterpretation of CBC data. Current Interpretive Data was last revised on 2017. Imm gran pct 0.9 % [facility] Comment: Interpretive Data Percent cell count reference ranges are not reported, since discordance with absolute values may lead to misinterpretation of CBC data. Current Interpretive Data was last revised on 2017. Lymphocyte pct 15.7 % [facility] Comment: Interpretive Data Percent cell count reference ranges are not reported, since discordance with absolute values may lead to misinterpretation of CBC data. Current Interpretive Data was last revised on 2017. Monocyte pct 6.5 % [facility] Comment: Interpretive Data Percent cell count reference ranges are not reported, since discordance with absolute values may lead to misinterpretation of CBC data. Current Interpretive Data was last revised on 2017. Eosinophil pct 2.9 % [facility] Comment: Interpretive Data Percent cell count reference ranges are not reported, since discordance with absolute values may lead to misinterpretation of CBC data. Current Interpretive Data was last revised on 2017. Basophil pct 0.5 % [facility] Comment: Interpretive Data Percent cell count reference ranges are not reported, since discordance with absolute values may lead to misinterpretation of CBC data. Current Interpretive Data was last revised on 2017. Blood 03/06/2025 10:0 4 AM CDT 03/06/2025 10:41 AM CDT Lorrie Levin MD LAB BLOOD ORDERABLES Fin al Result Performing Organization Address City/[facility]/ZIP Co de Phone Number [facility] [place] [address] * Thyroid Function [place] (03/06/2025 10:04 AM CDT) [facility] TSH 2.47 0.30 - 4.20 mcIUnit/mL Blood 03/06/2025 10:0 4 AM CDT 03/06/2025 10:54 AM CDT Lorrie Levin MD LAB BLOOD ORDERABLES Fin al Result Performing Organization Address [facility] de Phone Number [facility] [place] [address] * (ABNORMAL) CBC with auto differential (03/06/2025 10:04 AM CDT) [facility] WBC 7.90 3.80 - 9.90 K/cumm Hgb 8.2(L) 11.9 - 15.5 g/dL [facility] Hct 27.7(L) 35.6 - 45.5 % [facility] Plt 191 150 - 400 K/cumm [facility] Comment:No clot detected in sample. MPV 11.8 9.1 - 12.3 fL [facility] RBC 3.72(L) 3.90 - 5.20 M/cumm [facility] MCV 74.5(L) 81.3 - 96.4 fL [facility] MCH 22.0(L) 27.1 - 33.3 pg [facility] MCHC 29.6(L) 32.3 - 35.7 g/dL [facility] RDW CV 18.1(H) 11.1 - 14.9 % [facility] RDW SD 47.8 35.7 - 48.1 fL [facility] NRBC abs 0.00 0.00 - 0.01 K/cumm [facility] Blood 03/06/2025 10:0 4 AM CDT 03/06/2025 10:41 AM CDT Lorrie Levin MD LAB BLOOD ORDERABLES Fin al Result [facility] [place] [address] * Lactate, whole blood (03/06/2025 10:04 AM CDT) Lactate, bld 1.2 0.7 - 2.0 mmol/L Blood 03/06/2025 10:0 4 AM CDT 03/06/2025 10:41 AM CDT Lorrie Levin MD LAB BLOOD ORDERABLES Fin al Result Performing Organization Address [facility] de Phone Number [facility] [place] [address] * Blood culture Blood (03/06/2025 10:04 AM CDT) Report Final Report: No growth Blood 03/06/2025 10:0 4 AM CDT 03/06/2025 10:57 AM CDT Narrative [facility] - 03/10/2025 12:00 PM CDT Collection->Peripheral 1. Blood cultures are incubated for 4 days on a continuously monitored blood culture system. The first report of a negative culture is issued within 24 hours of receipt of the specimen in the laboratory. 2. Positive culture results are reported as soon as they are detected. 3. The most important factor for detection of microbes in the setting of bloodstream infection is the volume of blood submitted for culture. Failure to collect an optimal blood volume can result in false negative blood cultures. 4. For pediatric patients, the recommended blood volume to collect follows a weight based strategy. See the electronic test catalog for collection instructions. 5. For positive blood cultures, a rapid molecular test may be performed for organism identification using the omkar ePlex blood culture identification panel for gram positive (BCID-GP) and gram negative (BCID-GN) organisms. This nucleic acid amplification test detects microbial DNA in positive blood culture broth. This assay has been cleared by the [place] Food and Drug Administration and its performance characteristics have been verified by the [facility]. For questions about this culture, contact the Microbiology Laboratory at [phone]. Interpretive data was last revised on 24. Lorrie Levin MD LAB MICROBIOLOGY - [facility] AL ORDERABLES Final Result [facility] [place] [address] * (ABNORMAL) Comprehensive metabolic panel (03/06/2025 10:04 AM CDT) Sodium 139 135 - 145 mmol/L Potassium, pl 4.2 3.3 - 4.9 mmol/L [facility] Chloride 104 97 - 110 mmol/L [facility] CO2 28 22 - 32 mmol/L [facility] Anion gap 7 2 - 15 mmol/L [facility] BUN 17 6 - 25 mg/dL [facility] Creatinine 1.08 0.60 - 1.10 mg/dL [facility] Glucose 134 70 - 199 mg/dL [facility] Comment: Interpretive Data Fasting glucose >/= 126 mg/dl is diagnostic for diabetes. Fasting is defined as no caloric intake for at least 8 hours. Fasting glucose between 100 mg/dl to 125 mg/dl is diagnostic of prediabetes. In a patient with classic symptoms of hyperglycemia or hyperglycemic crisis, a random glucose >/= 200 mg/dl is diagnostic for diabetes. In the absence of unequivocal hyperglycemia, results should be confirmed by repeat testing. The classification and Diagnosis of Diabetes Diabetes Care 202; 46: S19-S40. Current interpretive data was last revised 2022. Calcium 8.6 8.5 - 10.3 mg/dL [facility] Bilirubin, total 0.2 0.1 - 1.2 mg/dL [facility] Comment:Reviewed Protein, pl 6.4(L) 6.5 - 8.5 g/dL [facility] Albumin 3.2(L) 3.5 - 5.0 g/dL [facility] Alk phos 45 40 - 130 Units/L [facility] ALT 17 7 - 45 Units/L [facility] AST 17 10 - 45 Units/L [facility] Blood 03/06/2025 10:0 4 AM CDT 03/06/2025 10:41 AM CDT Lorrie Levin MD LAB BLOOD ORDERABLES Fin al Result [facility] [place] [address] * POCT glucose (03/06/2025 9:22 AM CDT) [facility] Signature Glucose, POC 165 70 - 199 mg/dL Blood 03/06/2025 9:22 AM CDT 03/06/2025 9:22 AM CDT Lorrie Levin MD LAB POCT ORDERABLES - DE VICE Final Result Performing Organization Address [facility] Co de Phone Number [facility] [place] [address] * CT Head WO Contrast (03/06/2025 9:04 AM CDT) Anatomical Region Laterality Modality Head and Neck N/A Computed Tomogra phy 03/06/2025 9:53 AM CDT Impressions 03/06/2025 10:09 AM CDT 1. There is no new large acute territory infarct or acute intracranial hemorrhage. Would recommend repeat MRI if clinical concern for new infarct, given that acute infarcts described on 03/05/2025 study are too small to be seen on CT. 2. There are worsening left and persistent right mastoid and middle ear effusions. Dictated by: Ralph Hernandez M.D. The radiology attending physician has personally reviewed this study, and had reviewed and/or edited this written report and agrees with it. Electronically signed by: Emelina Sharma M.D. Narrative 03/06/2025 10:09 AM CDT EXAMINATION: CT head without contrast HISTORY: 69-year-old with right-sided weakness and acute infarcts in the right frontal, right parietal, and left parietal lobes with the onset of seizure. TECHNIQUE: CT of the head was performed with images acquired from skull base to vertex without intravenous contrast. COMPARISON: MRI brain 03/05/2025, CT head 12/26/2024 FINDINGS: There is no acute intracranial hemorrhage. Ventricles are of normal size and morphology. No mass effect or midline shift is present. There are nonspecific white matter changes with global mild volume loss. Bilateral lens replacements. Bilateral mastoid effusions and middle ear effusions. The visualized portions of the paranasal sinuses are normal. No fractures are identified. Atherosclerotic disease of the bilateral internal carotid arteries. Procedure Note Emelina Gutierrez MD - 03/06/2025 EXAMINATION: CT head without contrast HISTORY: 69-year-old with right-sided weakness and acute infarcts in the right frontal, right parietal, and left parietal lobes with the onset of seizure. TECHNIQUE: CT of the head was performed with images acquired from skull base to vertex without intravenous contrast. COMPARISON: MRI brain 03/05/2025, CT head 12/26/2024 FINDINGS: There is no acute intracranial hemorrhage. Ventricles are of normal size and morphology. No mass effect or midline shift is present. There are nonspecific white matter changes with global mild volume loss. Bilateral lens replacements. Bilateral mastoid effusions and middle ear effusions. The visualized portions of the paranasal sinuses are normal. No fractures are identified. Atherosclerotic disease of the bilateral internal carotid arteries. IMPRESSION: 1. There is no new large acute territory infarct or acute intracranial hemorrhage. Would recommend repeat MRI if clinical concern for new infarct, given that acute infarcts described on 03/05/2025 study are too small to be seen on CT. 2. There are worsening left and persistent right mastoid and middle ear effusions. Dictated by: Ralph Hernandez M.D. The radiology attending physician has personally reviewed this study, and had reviewed and/or edited this written report and agrees with it. Electronically signed by: Emelina hSarma M.D. Lorrie Levin MD IMG CT PROCEDURES Final Result * ECG 12 lead (03/06/2025 8:39 AM CDT) [facility] Ventricular Rate EKG/Min 92 BPM [facility] QRS-Interval (MSEC) 88 ms [facility] QT-Interval (MSEC) 372 ms [facility] QTc 460 ms [facility] R [place] -23 degrees [facility] T [place] 15 degrees [facility] Diagnosis Atrial flutter with variable A-V block Abnormal ECG When compared with ECG of 20-FEB-2025 15:12, Atrial fibrillation has replaced Sinus rhythm Nonspecific T wave abnormality now evident in Inferior leads Confirmed by YESSI REBOLLEDO M.D ([id number]) on 03/08/2025 12:07:21 PM [facility] 03/06/2025 8:39 AM CDT 03/08/2025 12:07 PM CDT Lorrie Levin MD ECG ORDERABLES Final Re sult Performing Organization Address City/[facility]/ZIP Co de Phone Number [facility] * POCT glucose (03/06/2025 8:15 AM CDT) Glucose, POC 169 70 - 199 mg/dL Blood 03/06/2025 8:15 AM CDT 03/06/2025 8:15 AM CDT Lorrie Levin MD LAB POCT ORDERABLES - DE VICE Final Result Performing Organization Address City/[facility]/ZIP Co de Phone Number [facility] [place] [address] * POCT glucose (03/06/2025 7:43 AM CDT) Glucose, POC 143 70 - 199 mg/dL Blood 03/06/2025 7:43 AM CDT 03/06/2025 7:43 AM CDT Lorrie Levin MD LAB POCT ORDERABLES - DE VICE Final Result [facility] [place] [facility] [place] [address] * POCT glucose (03/06/2025 2:06 AM CDT) Glucose, POC 154 70 - 199 mg/dL Blood 03/06/2025 2:06 AM CDT 03/06/2025 2:06 AM CDT us Lorrie Levin MD LAB POCT ORDERABLES - DE VICE Final Result Performing Organization Address [facility] Co de Phone Number M[facility] R[facility]Z [facility] [place] [address] * MRI Brain WO Contrast (03/06/2025 12:01 AM CDT) Anatomical Region Laterality Modality Head and Neck N/A Magnetic Resonan ce 03/06/2025 7:46 AM CDT Impressions 03/06/2025 7:46 AM CDT 1. Findings consistent with recent acute to subacute infarct small infarctions in the right frontal lobe cortex, right parietal lobe cortex and in the left parietal lobe cortex. No associated mass effect or gross hemorrhagic conversion. Given bilaterality of findings, a proximal embolic source should be considered. Electronically signed by: Dennis Hardwick M.D. Narrative 03/06/2025 7:46 AM CDT EXAMINATION: Magnetic resonance imaging (MRI) of the brain and brainstem without contrast HISTORY: Clinical concern for stroke TECHNIQUE: Multiplanar multi-weighted MRI of the brain and brainstem was performed without intravenous contrast using the general brain protocol. COMPARISON: Head CT from 03/04/2025 FINDINGS: A few small foci of diffusion restriction are present in the right right frontal lobe cortex, right parietal lobe and in the left parietal postcentral gyrus. No associated hemorrhage or mass effect. Scattered punctate periventricular and subcortical FLAIR hyperintensities are nonspecific but may reflect sequela of chronic small vessel ischemic disease. The superior sagittal sinus demonstrates normal venous flow. The corpus callosum is normal in shape and signal intensity. The posterior fossa is unremarkable. The pituitary and sella are normal. The brainstem and craniocervical junction are unremarkable. Diffusion weighted images reveal no hyperintensities to suggest acute cerebral infarction. The susceptibility weighted sequences reveal no evidence of acute or chronic hemorrhage. The ventricles are normal in size and position without evidence of hydrocephalus. The paranasal sinuses are normal. Bilateral mastoid effusions. The orbits appear normal. Normal flow voids are demonstrated in the carotid arteries and basilar artery. Procedure Note Dennis Hardwick MD - 03/06/2025 EXAMINATION: Magnetic resonance imaging (MRI) of the brain and brainstem without contrast HISTORY: Clinical concern for stroke TECHNIQUE: Multiplanar multi-weighted MRI of the brain and brainstem was performed without intravenous contrast using the general brain protocol. COMPARISON: Head CT from 03/04/2025 FINDINGS: A few small foci of diffusion restriction are present in the right right frontal lobe cortex, right parietal lobe and in the left parietal postcentral gyrus. No associated hemorrhage or mass effect. Scattered punctate periventricular and subcortical FLAIR hyperintensities are nonspecific but may reflect sequela of chronic small vessel ischemic disease. The superior sagittal sinus demonstrates normal venous flow. The corpus callosum is normal in shape and signal intensity. The posterior fossa is unremarkable. The pituitary and sella are normal. The brainstem and craniocervical junction are unremarkable. Diffusion weighted images reveal no hyperintensities to suggest acute cerebral infarction. The susceptibility weighted sequences reveal no evidence of acute or chronic hemorrhage. The ventricles are normal in size and position without evidence of hydrocephalus. The paranasal sinuses are normal. Bilateral mastoid effusions. The orbits appear normal. Normal flow voids are demonstrated in the carotid arteries and basilar artery. IMPRESSION: 1. Findings consistent with recent acute to subacute infarct small infarctions in the right frontal lobe cortex, right parietal lobe cortex and in the left parietal lobe cortex. No associated mass effect or gross hemorrhagic conversion. Given bilaterality of findings, a proximal embolic source should be considered. Electronically signed by: Dennis Hardwick M.D. Lorrie Levin MD [facility] MRI PROCEDURES Final Result * (ABNORMAL) eGFR (03/05/2025 10:14 PM CDT) eGFR 47(L) >=60 mL/min/1. 73 m2 Comment: Interpretive Data Reference Interval Normal >/= 90 mL/min/1.73m2 Mildly decreased* 60 - 89 mL/min/1.73m2 Mildly to moderately decreased 45 - 59 mL/min/1.73m2 Moderately to severely decreased 30 - 44 mL/min/1.73m2 Severely decreased 15 - 29 mL/min/1.73m2 Kidney Failure < 15 mL/min/1.73m2 *Relative to young adult level Estimated glomerular filtration rate is determined by the 2020 CKD-EPI equation recommended by the National Kidney Foundation (A Unifying Approach to GFR Estimation: Recommendations of the NKF-ASK Task Force on Reassessing the Inclusion of Race in Diagnosing Kidney Disease, JASN 2020). The CKD-EPI equation should not be used for patients with unstable renal function and has not been validated in children and those over 70. Current interpretive data was last reviewed 2021. Blood 03/05/2025 10:1 4 PM CDT 03/05/2025 10:31 PM CDT us Lorrie Levin MD LAB BLOOD ORDERABLES Fin al Result [facility] [place] [address] * (ABNORMAL) Differential, auto (03/05/2025 10:14 PM CDT) [facility] Neutrophil abs 7.31(H) 1.50 - 6.50 K/cumm Imm gran abs 0.07 0.00 - 0.10 K/cumm [facility] Lymphocyte abs 1.30 0.80 - 3.30 K/cumm [facility] Monocyte abs 0.58 0.20 - 0.80 K/cumm [facility] Eosinophil abs 0.25 0.00 - 0.50 K/cumm [facility] Basophil abs 0.04 0.00 - 0.10 K/cumm [facility] Neutrophil pct 76.6 % [facility] Comment: Interpretive Data Percent cell count reference ranges are not reported, since discordance with absolute values may lead to misinterpretation of CBC data. Current Interpretive Data was last revised on 2017. Imm gran pct 0.7 % [facility] Comment: Interpretive Data Percent cell count reference ranges are not reported, since discordance with absolute values may lead to misinterpretation of CBC data. Current Interpretive Data was last revised on 2017. Lymphocyte pct 13.6 % [facility] Comment: Interpretive Data Percent cell count reference ranges are not reported, since discordance with absolute values may lead to misinterpretation of CBC data. Current Interpretive Data was last revised on 2017. Monocyte pct 6.1 % [facility] Comment: Interpretive Data Percent cell count reference ranges are not reported, since discordance with absolute values may lead to misinterpretation of CBC data. Current Interpretive Data was last revised on 2017. Eosinophil pct 2.6 % [facility] Comment: Interpretive Data Percent cell count reference ranges are not reported, since discordance with absolute values may lead to misinterpretation of CBC data. Current Interpretive Data was last revised on 2017. Basophil pct 0.4 % [facility] Comment: Interpretive Data Percent cell count reference ranges are not reported, since discordance with absolute values may lead to misinterpretation of CBC data. Current Interpretive Data was last revised on 2017. Blood 03/05/2025 10:1 4 PM CDT 03/05/2025 10:34 PM CDT Lorrie Levin MD LAB BLOOD ORDERABLES Fin al Result [facility] [place] [address] * (ABNORMAL) Iron profile w/ IBC (03/05/2025 10:14 PM CDT) Iron 17(L) 35 - 145 mcg/dL TIBC 315 250 - 400 mcg/dL [facility] Transferrin saturation 5(L) 20 - 50 % [facility] Blood 03/05/2025 10:1 4 PM CDT 03/05/2025 10:31 PM CDT Lorrie Levin MD LAB BLOOD ORDERABLES Fin al Result Performing Organization Address [facility] Co de Phone Number [facility] [place] [address] * (ABNORMAL) CBC with auto differential (03/05/2025 10:14 PM CDT) WBC 9.55 3.80 - 9.90 K/cumm Hgb 8.4(L) 11.9 - 15.5 g/dL [facility] Hct 27.9(L) 35.6 - 45.5 % [facility] Plt 276 150 - 400 K/cumm [facility] MPV 11.5 9.1 - 12.3 fL [facility] RBC 3.78(L) 3.90 - 5.20 M/cumm [facility] MCV 73.8(L) 81.3 - 96.4 fL [facility] MCH 22.2(L) 27.1 - 33.3 pg [facility] MCHC 30.1(L) 32.3 - 35.7 g/dL [facility] RDW CV 17.9(H) 11.1 - 14.9 % [facility] RDW SD 47.4 35.7 - 48.1 fL [facility] NRBC abs 0.00 0.00 - 0.01 K/cumm [facility] Blood 03/05/2025 10:1 4 PM CDT 03/05/2025 10:34 PM CDT Lorrie Levin MD LAB BLOOD ORDERABLES Fin al Result Performing Organization Address [facility]/ZIP Co de Phone Number [facility] [place] [address] * (ABNORMAL) Protime-INR (03/05/2025 10:14 PM CDT) PT 13.6(H) 9.7 - 13.0 sec INR 1.25(H) 0.90 - 1.20 [facility] Comment: Interpretive data Oral anticoagulant therapeutic ranges: Venous thromboembolism prophylaxis or treatment: 2.0-3.0 CARDIOLOGY Standard range: 2.0-3.0 High-intensity range: 2.5-3.5 Refer to indication-specific guidelines for appropriate target ranges for prosthetic heart valve replacement. Current interpretive data was last revised on 2019. Blood 03/05/2025 10:1 4 PM CDT 03/05/2025 10:36 PM CDT Lorrie Levin MD LAB BLOOD ORDERABLES Fin al Result Performing Organization Address [facility] de Phone [place] [address] * Magnesium (03/05/2025 10:14 PM CDT) Magnesium 2.1 1.4 - 2.5 mg/dL Blood 03/05/2025 10:1 4 PM CDT 03/05/2025 10:31 PM CDT Lorrie Levin MD LAB BLOOD ORDERABLES Fin al Result Performing Organization Address [facility] de Phone Number [facility] [place] [address] * Ferritin (03/05/2025 10:14 PM CDT) Ferritin 18 13 - 150 ng/mL Blood 03/05/2025 10:1 4 PM CDT 03/05/2025 10:31 PM CDT Lorrie Levin MD LAB BLOOD ORDERABLES Fin al Result Performing Organization Address [facility] Co de Phone Number [place] [address] * (ABNORMAL) Basic metabolic panel (03/05/2025 10:14 PM CDT) Sodium 137 135 - 145 mmol/L Potassium, pl 4.3 3.3 - 4.9 mmol/L [facility] Chloride 101 97 - 110 mmol/L [facility] CO2 28 22 - 32 mmol/L [facility] Anion gap 8 2 - 15 mmol/L [facility] BUN 19 6 - 25 mg/dL [facility] Creatinine 1.22(H) 0.60 - 1.10 mg/dL [facility] Glucose 203(H) 70 - 199 mg/dL [facility] Comment: Interpretive Data Fasting glucose >/= 126 mg/dl is diagnostic for diabetes. Fasting is defined as no caloric intake for at least 8 hours. Fasting glucose between 100 mg/dl to 125 mg/dl is diagnostic of prediabetes. In a patient with classic symptoms of hyperglycemia or hyperglycemic crisis, a random glucose >/= 200 mg/dl is diagnostic for diabetes. In the absence of unequivocal hyperglycemia, results should be confirmed by repeat testing. The classification and Diagnosis of Diabetes Diabetes Care 2021; 46: S19-S40. Current interpretive data was last revised 2022. Calcium 8.5 8.5 - 10.3 mg/dL [facility] Blood 03/05/2025 10:1 4 PM CDT 03/05/2025 10:31 PM CDT Lorrie Levin MD LAB BLOOD ORDERABLES Fin al Result [facility] [place] [address] * (ABNORMAL) POCT glucose (03/05/2025 8:24 PM CDT) Glucose, POC 217(H) 70 - 199 mg/dL Blood 03/05/2025 8:24 PM CDT 03/05/2025 8:24 PM CDT Lorrie Levin MD LAB POCT ORDERABLES - DE VICE Final Result Performing Organization Address [facility]/ZIP Co de Phone [place] [address] * POCT glucose (03/05/2025 4:11 PM CDT) Glucose, POC 172 70 - 199 mg/dL Blood 03/05/2025 4:11 PM CDT 03/05/2025 4:11 PM CDT Lorrie Levin MD LAB POCT ORDERABLES - DE VICE Final Result Performing Organization Address [facility] [place] [address] * (ABNORMAL) POCT glucose (03/05/2025 11:47 AM CDT) Glucose, POC 205(H) 70 - 199 mg/dL Blood 03/05/2025 11:4 7 AM CDT 03/05/2025 11:47 AM CDT Lorrie Levin MD LAB POCT ORDERABLES - DE VICE Final Result Performing Organization Address [facility]/ZIP Co de Phone [place] [address] * POCT glucose (03/05/2025 7:28 AM CDT) Glucose, POC 194 70 - 199 mg/dL Blood 03/05/2025 7:28 AM CDT 03/05/2025 7:28 AM CDT Lorrie Levin MD LAB POCT ORDERABLES - DE VICE Final Result Performing Organization Address [facility]/ZIP Co de Phone [place] [address] * POCT glucose (03/05/2025 5:07 AM CDT) Glucose, POC 196 70 - 199 mg/dL Blood 03/05/2025 5:07 AM CDT 03/05/2025 5:07 AM CDT Lorrie Levin MD LAB POCT ORDERABLES - DE VICE Final Result Performing Organization Address [facility] Co de Phone Number [facility] [place] [address] * POCT glucose (03/05/2025 12:31 AM CDT) Glucose, POC 127 70 - 199 mg/dL Blood 03/05/2025 12:3 1 AM CDT 03/05/2025 12:31 AM CDT Lorrie Levin MD LAB POCT ORDERABLES - DE VICE Final Result Performing Organization Address [facility] Co de Phone Number [facility] [place] [address] * (ABNORMAL) eGFR (03/04/2025 11:05 PM CDT) eGFR 48(L) >=60 mL/min/1. 73 m2 Comment: Interpretive Data Reference Interval Normal >/= 90 mL/min/1.73m2 Mildly decreased* 60 - 89 mL/min/1.73m2 Mildly to moderately decreased 45 - 59 mL/min/1.73m2 Moderately to severely decreased 30 - 44 mL/min/1.73m2 Severely decreased 15 - 29 mL/min/1.73m2 Kidney Failure < 15 mL/min/1.73m2 *Relative to young adult level Estimated glomerular filtration rate is determined by the 2020 CKD-EPI equation recommended by the National Kidney Foundation (A Unifying Approach to GFR Estimation: Recommendations of the NKF-ASK Task Force on Reassessing the Inclusion of Race in Diagnosing Kidney Disease, JASN 2020). The CKD-EPI equation should not be used for patients with unstable renal function and has not been validated in children and those over 70. Current interpretive data was last reviewed 2021. Blood 03/04/2025 11:0 5 PM CDT 03/04/2025 11:53 PM CDT us Lorrie Levin MD LAB BLOOD ORDERABLES Fin al Result [facility] [place] [address] * (ABNORMAL) Differential, auto (03/04/2025 11:05 PM CDT) Neutrophil abs 10.81(H) 1.50 - 6.50 K/cumm Imm gran abs 0.11(H) 0.00 - 0.10 K/cumm [facility] Lymphocyte abs 1.67 0.80 - 3.30 K/cumm [facility] Monocyte abs 0.79 0.20 - 0.80 K/cumm [facility] Eosinophil abs 0.33 0.00 - 0.50 K/cumm [facility] Basophil abs 0.04 0.00 - 0.10 K/cumm [facility] Neutrophil pct 78.7 % [facility] Comment: Interpretive Data Percent cell count reference ranges are not reported, since discordance with absolute values may lead to misinterpretation of CBC data. Current Interpretive Data was last revised on 2017. Imm gran pct 0.8 % [facility] Comment: Interpretive Data Percent cell count reference ranges are not reported, since discordance with absolute values may lead to misinterpretation of CBC data. Current Interpretive Data was last revised on 2017. Lymphocyte pct 12.1 % [facility] Comment: Interpretive Data Percent cell count reference ranges are not reported, since discordance with absolute values may lead to misinterpretation of CBC data. Current Interpretive Data was last revised on 2017. Monocyte pct 5.7 % [facility] Comment: Interpretive Data Percent cell count reference ranges are not reported, since discordance with absolute values may lead to misinterpretation of CBC data. Current Interpretive Data was last revised on 2017. Eosinophil pct 2.4 % [facility] Comment: Interpretive Data Percent cell count reference ranges are not reported, since discordance with absolute values may lead to misinterpretation of CBC data. Current Interpretive Data was last revised on 2017. Basophil pct 0.3 % [facility] Comment: Interpretive Data Percent cell count reference ranges are not reported, since discordance with absolute values may lead to misinterpretation of CBC data. Current Interpretive Data was last revised on 2017. Blood 03/04/2025 11:0 5 PM CDT 03/04/2025 11:53 PM CDT Lorrie Levin MD LAB BLOOD ORDERABLES Fin al Result [facility] [place] [address] * (ABNORMAL) CBC with auto differential (03/04/2025 11:05 PM CDT) WBC 13.75(H) 3.80 - 9.90 K/cumm Hgb 8.4(L) 11.9 - 15.5 g/dL [facility] Hct 27.5(L) 35.6 - 45.5 % [facility] Plt 297 150 - 400 K/cumm [facility] MPV 11.5 9.1 - 12.3 fL [facility] RBC 3.70(L) 3.90 - 5.20 M/cumm [facility] MCV 74.3(L) 81.3 - 96.4 fL [facility] MCH 22.7(L) 27.1 - 33.3 pg [facility] MCHC 30.5(L) 32.3 - 35.7 g/dL [facility] RDW CV 17.8(H) 11.1 - 14.9 % [facility] RDW SD 47.1 35.7 - 48.1 fL [facility] NRBC abs 0.00 0.00 - 0.01 K/cumm [facility] Blood 03/04/2025 11:0 5 PM CDT 03/04/2025 11:53 PM CDT Lorrie Levin MD LAB BLOOD ORDERABLES Fin al Result Performing Organization Address [facility] Phone Number [facility] [place] [address] * (ABNORMAL) Protime-INR (03/04/2025 11:05 PM CDT) PT 13.4(H) 9.7 - 13.0 sec INR 1.24(H) 0.90 - 1.20 [facility] Comment: Interpretive data Oral anticoagulant therapeutic ranges: Venous thromboembolism prophylaxis or treatment: 2.0-3.0 CARDIOLOGY Standard range: 2.0-3.0 High-intensity range: 2.5-3.5 Refer to indication-specific guidelines for appropriate target ranges for prosthetic heart valve replacement. Current interpretive data was last revised on 2019. Blood 03/04/2025 11:0 5 PM CDT 03/05/2025 12:00 AM CDT Lorrie Levin MD LAB BLOOD ORDERABLES [facility] Result Performing Organization Address [facility] Phone Number [place] [address] * (ABNORMAL) Hemoglobin A1c (03/04/2025 11:05 PM CDT) Hgb A1C 8.4(H) 4.0 - 5.6 % Estimated Average Glucose 194 mg/dL [facility] Comment: The ADA recommends reporting an estimated Average Glucose (eAG) with all Hemoglobin A1c results using the equation derived from a study of 507 normal and diabetic adults. Minority populations were underrepresented and children were not included. (Diabetes Care 2020; 43(S1): S66-S76). The eAG is not equivalent to a fasting glucose. Blood 03/04/2025 11:0 5 PM CDT 03/04/2025 11:58 PM CDT Narrative [facility] - 03/05/2025 5:23 PM CDT reflex Lorrie Levin MD LAB BLOOD ORDERABLES Fin al Result Performing Organization Address [facility] Co de Phone Number [facility] [place] [address] * (ABNORMAL) Hepatic function panel (03/04/2025 11:05 PM CDT) Bilirubin, total <0.2 0.1 - 1.2 mg/dL Comment:Reviewed Bilirubin, direct <0.2 0.1 - 0.3 mg/dL [facility] Protein, pl 6.2(L) 6.5 - 8.5 g/dL [facility] Albumin 3.3(L) 3.5 - 5.0 g/dL [facility] Alk phos 49 40 - 130 Units/L [facility] ALT 19 7 - 45 Units/L [facility] AST 16 10 - 45 Units/L [facility] Blood 03/04/2025 11:0 5 PM CDT 03/04/2025 11:53 PM CDT Lorrie Levin MD LAB BLOOD ORDERABLES [facility] Result Performing Organization Address [facility] Co de Phone Number [facility] [place] [address] * (ABNORMAL) Basic metabolic panel (03/04/2025 11:05 PM CDT) Sodium 137 135 - 145 mmol/L Potassium, pl 3.9 3.3 - 4.9 mmol/L [facility] Chloride 102 97 - 110 mmol/L [facility] CO2 28 22 - 32 mmol/L [facility] Anion gap 7 2 - 15 mmol/L [facility] BUN 20 6 - 25 mg/dL [facility] Creatinine 1.20(H) 0.60 - 1.10 mg/dL [facility] Glucose 132 70 - 199 mg/dL [facility] Comment: Interpretive Data Fasting glucose >/= 126 mg/dl is diagnostic for diabetes. Fasting is defined as no caloric intake for at least 8 hours. Fasting glucose between 100 mg/dl to 125 mg/dl is diagnostic of prediabetes. In a patient with classic symptoms of hyperglycemia or hyperglycemic crisis, a random glucose >/= 200 mg/dl is diagnostic for diabetes. In the absence of unequivocal hyperglycemia, results should be confirmed by repeat testing. The classification and Diagnosis of Diabetes Diabetes Care 2021; 46: S19-S40. Current interpretive data was last revised 2022. Calcium 8.7 8.5 - 10.3 mg/dL [facility] Blood 03/04/2025 11:0 5 PM CDT 03/04/2025 11:53 PM CDT Lorrie Levin MD LAB BLOOD ORDERABLES Fin al Result Performing Organization Address [facility]/ZIP Co de Phone Number [facility] [place] [address] * (ABNORMAL) POCT glucose (03/04/2025 8:50 PM CDT) Glucose, POC 323(H) 70 - 199 mg/dL Comment:Glu2: RN/MD Notified Glucose comment 1 Glu2: RN/MD Notified [facility] Blood 03/04/2025 8:50 PM CDT 03/04/2025 8:50 PM CDT Lorrie Levin MD LAB POCT ORDERABLES - DE VICE Final Result Performing Organization Address [facility]/ZIP Co de Phone Number [facility] [place] [address] * Phosphorus (03/04/2025 5:46 PM CDT) Phosphorus, pl 2.8 2.3 - 4.5 mg/dL Blood 03/04/2025 5:46 PM CDT 03/04/2025 6:47 PM CDT Lorrie Levin MD LAB BLOOD ORDERABLES Fin al Result Performing Organization Address [facility] Phone Number [facility] [place] [address] * Magnesium (03/04/2025 5:46 PM CDT) Magnesium 2.0 1.4 - 2.5 mg/dL Blood 03/04/2025 5:46 PM CDT 03/04/2025 6:47 PM CDT Lorrie Levin MD LAB BLOOD ORDERABLES Fin al Result Performing Organization Address [facility] Phone Number [facility] [place] [address] * POCT glucose (03/04/2025 4:05 PM CDT) Glucose, POC 197 70 - 199 mg/dL Blood 03/04/2025 4:05 PM CDT 03/04/2025 4:05 PM CDT Lorrie Levin MD LAB POCT ORDERABLES - DE VICE Final Result Performing Organization Address [facility] [place] [address] * (ABNORMAL) Urinalysis reflex to microscopic and culture Urine (03/04/2025 1:46 PM CDT) Color, ur Straw Yellow Clarity, ur Clear Clear [facility] Specific gravity, ur >1.042(H) 1.003 - 1.030 [facility] pH, urine 6.5 [facility] Comment: Interpretive Data U rine pH is affected by diet, medications, systemic acid-base disturbances, and renal tubular function. pH may affect urinary stone formation. For example, urine pH below 6.0 may help reduce the tendency for calcium phosphate stones and pH greater than 6.0 may reduce the tendency for uric acid stone formation. Source: [facility] Current Interpretive Data was last revised on 2017 Protein, ur ql Negative Negative [facility] Glucose, ur ql 2+(A) Negative [facility] Ketones, ur Negative Negative [facility] Bilirubin, ur Negative Negative [facility] Blood, ur Negative Negative [facility] Urobilinogen, ur <2.0 <2.0 mg/dL [facility] Nitrite, ur Negative Negative [facility] Leukocyte esterase, ur 2+(A) Negative [facility] UA reflex comment Reflex to microscopic UA will be performed. [facility] Urine 03/04/2025 1:46 PM CDT 03/04/2025 1:50 PM CDT Marika Persaud MD LAB MICROBIOLOGY - GENERAL ORDERABLES Final Result Performing Organization Address [facility] de Phone Number [facility] [place] [address] * (ABNORMAL) Urinalysis, microscopic only (03/04/2025 1:46 PM CDT) WBC, ur 21-50(A) 0 - 5 /HPF RBC, ur 3-5(A) 0 - 2 /HPF [facility] Epithelial cells, squamous, ur 1-5 0 - 5 /HPF [facility] Culture Reflex Comment Reflex to urine culture will be performed. [facility] Urine 03/04/2025 1:46 PM CDT 03/04/2025 1:50 PM CDT Marika Perasud MD LAB URINE ORDERABLES Final Result Performing Organization Address [facility] Co de Phone Number [facility] [place] [address] * (ABNORMAL) Urine culture Urine (03/04/2025 1:46 PM CDT) Report Final Report: Greater than or equal to 100,000 colonies/mL of Enterococcus faecalis (.) Organism ENTEROCOCCUS FAECALIS [facility] Urine 03/04/2025 1:46 PM CDT 03/04/2025 2:21 PM CDT Narrative [facility] - 03/06/2025 10:49 AM CDT Urine culture reflexed based upon urinalysis results. Testing performed by [facility] ([phone]) Organism Antibiotic Method Susceptibility Enterococcus faecalis Ampicillin (CHRISTIANO) INTERPRETATIO N Susceptible Enterococcus faecalis Vancomycin (CHRISTIANO) INTERPRETATIO N Susceptible Enterococcus faecalis Linezolid (CHRISTIANO) INTERPRETATIO N Susceptible Enterococcus faecalis Doxycycline (CHRISTIANO) INTERPRETATIO N Intermediate Enterococcus faecalis Nitrofurantoin (CHRISTIANO) INTERPRETAT ION Susceptible us Marika Persaud MD LAB MICROBIOLOGY - GENERAL ORDERABLES Final Result Performing Organization Address City/[facility]/ZIP Co de Phone Number [facility] [place] [address] * (ABNORMAL) Troponin I high-sensitivity 2-hour (03/04/2025 1:21 PM CDT) Trop I hs 40(H) <=17 ng/L Comment: Interpretive Data For further [facility] resources including the diagnostic algorithm and an aid in interpretation, copy and paste this link: [email or web address] Current Interpretive Data last revised 2020. Trop I hs delta -5 ng/L [facility] Trop I hs interp Equivocal [facility] Blood 03/04/2025 1:21 PM CDT 03/04/2025 1:52 PM CDT us Twan Quinn MD LAB BLOOD ORDERABLE S Final Result [facility] [place] [address] * XR Chest Pa Lateral 2 Vw (03/04/2025 12:45 PM CDT) Anatomical Region Laterality Modality Body, Chest N/A Computed Radiogr aphy 03/04/2025 1:33 PM CDT Impressions 03/04/2025 1:57 PM CDT Stable enlarged heart size. No pulmonary vascular congestion. No pulmonary consolidation. Interval decrease in left pleural effusion, now trace. No right pleural effusion. No pneumothorax. Dictated by: Zion Talamantes MD The radiology attending physician has personally reviewed this study, and had reviewed and/or edited this written report and agrees with it. Electronically signed by: Bryant Melara M.D. Narrative 03/04/2025 1:57 PM CDT EXAMINATION: 2 view chest radiograph HISTORY: History of atrial fibrillation, tachycardia COMPARISON: 02/20/2025 chest radiograph Procedure Note Bryant Melara MD - 03/04/2025 EXAMINATION: 2 view chest radiograph HISTORY: History of atrial fibrillation, tachycardia COMPARISON: 02/20/2025 chest radiograph IMPRESSION: Stable enlarged heart size. No pulmonary vascular congestion. No pulmonary consolidation. Interval decrease in left pleural effusion, now trace. No right pleural effusion. No pneumothorax. Dictated by: Zion Talamantes MD The radiology attending physician has personally reviewed this study, and had reviewed and/or edited this written report and agrees with it. Electronically signed by: Bryant Melara M.D. Marika Persaud MD IMG XR PROCEDURES Final Re sult * POCUS Cardiac (03/04/2025 12:21 PM CDT) Anatomical Region Laterality Modality Other 03/04/2025 12:0 5 PM CDT Narrative 03/04/2025 8:12 PM CDT Performed by: Twan Quinn Cardiac: Exam type: Diagnostic Exam Information: Indication(s) for Exam: Dyspnea Exam Occurence: Initial Findings : Pericardial effusion: Absent Left ventricle: Dilated Right ventricle: Normal IVC: Not visualized Interpretation: Hypervolemia Other : Grade 3 DD. VTI not accurate 2/2 to afib. Electronically signed by Twan Quinn on Tuesday, March 04, 2025 at 8:12 PM I have reviewed the images & the resident's interpretation. I agree with the findings. Images on file. Procedure Note Twan Quinn MD - 03/04/2025 Performed by: Twan Quinn Cardiac: Exam type: Diagnostic Exam Information: Indication(s) for Exam: Dyspnea Exam Occurence: Initial Findings : Pericardial effusion: Absent Left ventricle: Dilated Right ventricle: Normal IVC: Not visualized Interpretation: Hypervolemia Other : Grade 3 DD. VTI not accurate 2/2 to afib. Electronically signed by Twan Quinn on Tuesday, March 04, 2025 at 8:12PM I have reviewed the images & the resident's interpretation. I agree withthe findings. Images on file. Twan Quinn MD POCUS ORDERABLES Fi nal Result * Blood culture Blood Blood (03/04/2025 12:15 PM CDT) Report Final Report: No growth Blood (Blood) 03/04/2025 12: 15 PM CDT 03/04/2025 12:39 PM CDT Marlene [facility] - 03/08/2025 4:00 PM CDT Collection->Peripheral 1. Blood cultures are incubated for 4 days on a continuously monitored blood culture system. The first report of a negative culture is issued within 24 hours of receipt of the specimen in the laboratory. 2. Positive culture results are reported as soon as they are detected. 3. The most important factor for detection of microbes in the setting of bloodstream infection is the volume of blood submitted for culture. Failure to collect an optimal blood volume can result in false negative blood cultures. 4. For pediatric patients, the recommended blood volume to collect follows a weight based strategy. See the electronic test catalog for collection instructions. 5. For positive blood cultures, a rapid molecular test may be performed for organism identification using the omkar ePlex blood culture identification panel for gram positive (BCID-GP) and gram negative (BCID-GN) organisms. This nucleic acid amplification test detects microbial DNA in positive blood culture broth. This assay has been cleared by the [place] Food and Drug Administration and its performance characteristics have been verified by the [facility]. For questions about this culture, contact the Microbiology Laboratory at [phone]. Interpretive data was last revised on 24. Marika Persaud MD LAB MICROBIOLOGY - GENERAL ORDERABLES Final Result [facility] [place] [address] * Blood culture Blood Blood (03/04/2025 12:10 PM CDT) Report Final Report: No growth Blood (Blood) 03/04/2025 12: 10 PM CDT 03/04/2025 12:39 PM CDT Narrative [facility] - 03/08/2025 4:00 PM CDT Collection->Peripheral 1. Blood cultures are incubated for 4 days on a continuously monitored blood culture system. The first report of a negative culture is issued within 24 hours of receipt of the specimen in the laboratory. 2. Positive culture results are reported as soon as they are detected. 3. The most important factor for detection of microbes in the setting of bloodstream infection is the volume of blood submitted for culture. Failure to collect an optimal blood volume can result in false negative blood cultures. 4. For pediatric patients, the recommended blood volume to collect follows a weight based strategy. See the electronic test catalog for collection instructions. 5. For positive blood cultures, a rapid molecular test may be performed for organism identification using the omkar ePlex blood culture identification panel for gram positive (BCID-GP) and gram negative (BCID-GN) organisms. This nucleic acid amplification test detects microbial DNA in positive blood culture broth. This assay has been cleared by the [place] Food and Drug Administration and its performance characteristics have been verified by the [facility]. For questions about this culture, contact the Microbiology Laboratory at [phone]. Interpretive data was last revised on 24. us Marika Persaud MD LAB MICROBIOLOGY - GENERAL ORDERABLES Final Result [facility] [place] [address] * MA CRITICAL CARE ILL/INJURED PATIENT INIT 30-74 MIN (03/04/2025 12:06 PM CDT) Narrative Twan Quinn MD - 03/04/2025 12:06 PM CDT Twan Quinn MD 03/04/2025 12:06 PM Critical Care Performed by: Twan Quinn MD Authorized by: Twan Quinn MD Critical care provider statement: As reflected in the history, physical exam, orders, notes, and/or MDM, I was personally present while the patient was critically ill and provided critical care services for 40 minutes, excluding time involved in separately billable procedures. Critical care was necessary to treat or prevent imminent or life-threatening deterioration of the following condition(s): unstable vital signs severe neurologic condition and acute cerebrovascular accident (CVA) acute undifferentiated respiratory failure acid-base disturbance Critical care was time spent by me providing the following: frequent neurologic exams, decision regarding acute lytic therapy and initiation of stroke management initiation of rate controlling agent glycemic control and decision regarding NPO status I provided emergent necessary critical care medicine services to this patient. I ordered and reviewed test results and/or imaging studies. I spent time discussing the management of this critically ill patient with consultants and the medical staff. I spent time discussing the management and therapeutic options for this critically ill patient with the patient themselves or with the appropriate designated surrogate decision-maker. us Twan Quinn MD IN CLINIC/BEDSIDE O RDERABLES Final Result * (ABNORMAL) aPTT (03/04/2025 11:52 AM CDT) aPTT 26(L) 28 - 38 sec Comment: Code Blue Specimen Interpretive Data Heparin therapeutic range: 66.0 - 100.0 seconds. Range based on correlation with therapeutic heparin activity range of 0.3 - 0.7 Units/mL. Current interpretive data was last revised on 2023. Blood 03/04/2025 11:5 2 AM CDT 03/04/2025 11:58 AM CDT us Marika Persaud MD LAB BLOOD ORDERABLES Final Result Performing Organization Address [facility] Co de [facility] [place] [address] * Heparin anti factor Xa activity (03/04/2025 11:43 AM CDT) Anti Factor Xa <0.10 IUnits/mL Comment: Code Blue Specimen Interpretive Data Enoxaparin therapeutic range (peak): VTE treatment, Q12hr dosin.60-1.00 IUnits/mL VTE treatment, Q24hr dosin.00-2.00 IUnits/mL Q24hr dosing for renal impairment (CrCl <30 mL/min): 0.60-1.00 IUnits/mL VTE prevention: 0.10-0.40 IUnits/mL - Anti-Xa therapeutic ranges apply to blood samples drawn 4 hours after last dose (peak). - Unfractionated heparin (UFH) therapeutic range: 0.30-0.70 IUnits/mL - Direct factor Xa inhibitors (rivaroxaban, apixaban): Results must be interpreted qualitatively. No activity detected suggests little anticoagulant activity. - In severe antithrombin deficiency, anti-Xa measurement may be inaccurate. - Interpretive guidelines developed in adult populations. Interpretive guidelines for pediatric patients have not been rigorously defined. - Current interpretive data was last revised on 2019. Blood 03/04/2025 11:4 3 AM CDT 03/04/2025 11:58 AM CDT us Kin Morales MD LAB BLOOD ORDERABLES F inal Result Performing Organization Address [facility] Co de Phone Number [facility] [place] [address] * CTA/CTP Rapid Stroke (C) (03/04/2025 11:36 AM CDT) Anatomical Region Laterality Modality Head and Neck N/A Computed Tomogra phy 03/04/2025 11:5 6 AM CDT Impressions 03/04/2025 4:08 PM CDT 1. No acute intracranial hemorrhage. 2. No large territory edematous infarct. 3. No measurable perfusion deficit. 4. No intracranial large vessel occlusion nor severe stenosis. 5. No significant (>50%) carotid stenosis. The Non Critical results were discussed with Dr. Andrei Martinez by Dr. Wood on 03/04/2025 at 1147. Dictated by: Malia Wood M.D. The radiology attending physician has personally reviewed this study, and had reviewed and/or edited this written report and agrees with it. Electronically signed by: Oseas Arthur MD, PHD Narrative 03/04/2025 4:08 PM CDT EXAMINATION: 1. Computed tomography angiography (CTA) of the head without and with contrast 2. Computed tomography angiography (CTA) of the neck with contrast 3. CT perfusion imaging of the head with contrast HISTORY: 69-year-old female with right-sided weakness and slurred speech TECHNIQUE: CT of the head was performed with images acquired from skull base to vertex without intravenous contrast. Computed tomographic angiography was obtained from the aortic arch to the vertex following the uneventful administration of intravenous contrast. 3D images of the CTA were generated on a dedicated workstation/human resources operations specialist. [employer] software ([employer] a division of [employer]) was used for automated analyses of the CTA. CT perfusion of the brain was performed with intravenous contrast using a separate data acquisition. These data were transmitted to a separate workstation/human resources operations specialist for processing by [employer] software ([employer] a division of [employer]) to produce automated calculations of the estimated cerebral blood flow and Tmax. Contrast information: 110 mL Optiray-350 IV COMPARISON: None Available. FINDINGS: HEAD CT FINDINGS: There is no acute intracranial hemorrhage. Ventricles are of normal size and morphology. No mass effect or midline shift is present. Periventricular and deep white matter hypodensities are nonspecific but consistent with chronic small vessel ischemic disease. The visualized portions of the orbits are normal. The visualized portions of the mastoids are normal. The visualized portions of the paranasal sinuses are normal. No fractures are identified. ANGIOGRAPHIC FINDINGS: The visualized aortic arch appears normal with normal configuration of the great vessels. There is no significant stenosis of the origins of the great vessels. There is no geographic area of vascular paucity in the brain. Left anterior circulation: L CCA: no occlusion or significant stenosis L carotid bifurcation: no occlusion or significant stenosis. Mild atherosclerotic calcifications. L ICA cervical: no occlusion or significant stenosis L ICA intracranial: no occlusion or significant stenosis L M1: no occlusion or significant stenosis L M2 proximal or dominant: no occlusion or significant stenosis L mid-M2/M3 branches: no occlusion or significant stenosis L ALY: no occlusion or significant stenosis Right anterior circulation: R CCA: no occlusion or significant stenosis R carotid bifurcation: no occlusion or significant stenosis. Mild atherosclerotic calcifications. R ICA cervical: no occlusion or significant stenosis R ICA intracranial: no occlusion or significant stenosis R M1: no occlusion or significant stenosis R M2 proximal or dominant: no occlusion or significant stenosis R mid-M2/M3 branches: no occlusion or significant stenosis R ALY: no occlusion or significant stenosis Posterior circulation: L Vertebral Artery: no occlusion or significant stenosis R Vertebral Artery: no occlusion or significant stenosis. Mild atherosclerotic calcification in the distal V1 segment. Basilar Artery: no occlusion or significant stenosis L VENEER LAYER: no occlusion or significant stenosis R VENEER LAYER: no occlusion or significant stenosis There is no CTA evidence for cerebral aneurysm. There is no evidence for an arteriovenous malformation. INCIDENTAL FINDINGS: There is no suspicious cervical lymphadenopathy. There is no significant cervical spondylosis. Limited views of the lung apices are normal. PERFUSION FINDINGS: There is no measurable perfusion deficit in the brain. Estimated ischemic core volume (rCBF < 0.3): 0 mL Estimated hypoperfusion volume (Tmax > 6 sec): 0 mL Procedure Note Oseas Arthur MD PhD - 03/04/2025 EXAMINATION: 1. Computed tomography angiography (CTA) of the head without and with contrast 2. Computed tomography angiography (CTA) of the neck with contrast 3. CT perfusion imaging of the head with contrast HISTORY: 69-year-old female with right-sided weakness and slurred speech TECHNIQUE: CT of the head was performed with images acquired from skull base to vertex without intravenous contrast. Computed tomographic angiography was obtained from the aortic arch to the vertex following the uneventful administration of intravenous contrast. 3D images of the CTA were generated on a dedicated workstation/human resources operations specialist. [employer] software ([employer] a division of [employer]) was used for automated analyses of the CTA. CT perfusion of the brain was performed with intravenous contrast using a separate data acquisition. These data were transmitted to a separate workstation/human resources operations specialist for processing by [employer] software ([employer] a division of [employer]) to produce automated calculations of the estimated cerebral blood flow and Tmax. Contrast information: 110 mL Optiray-350 IV COMPARISON: None Available. FINDINGS: HEAD CT FINDINGS: There is no acute intracranial hemorrhage. Ventricles are of normal size and morphology. No mass effect or midline shift is present. Periventricular and deep white matter hypodensities are nonspecific but consistent with chronic small vessel ischemic disease. The visualized portions of the orbits are normal. The visualized portions of the mastoids are normal. The visualized portions of the paranasal sinuses are normal. No fractures are identified. ANGIOGRAPHIC FINDINGS: The visualized aortic arch appears normal with normal configuration of the great vessels. There is no significant stenosis of the origins of the great vessels. There is no geographic area of vascular paucity in the brain. Left anterior circulation: L CCA: no occlusion or significant stenosis L carotid bifurcation: no occlusion or significant stenosis. Mild atherosclerotic calcifications. L ICA cervical: no occlusion or significant stenosis L ICA intracranial: no occlusion or significant stenosis L M1: no occlusion or significant stenosis L M2 proximal or dominant: no occlusion or significant stenosis L mid-M2/M3 branches: no occlusion or significant stenosis L ALY: no occlusion or significant stenosis Right anterior circulation: R CCA: no occlusion or significant stenosis R carotid bifurcation: no occlusion or significant stenosis. Mild atherosclerotic calcifications. R ICA cervical: no occlusion or significant stenosis R ICA intracranial: no occlusion or significant stenosis R M1: no occlusion or significant stenosis R M2 proximal or dominant: no occlusion or significant stenosis R mid-M2/M3 branches: no occlusion or significant stenosis R LAY: no occlusion or significant stenosis Posterior circulation: L Vertebral Artery: no occlusion or significant stenosis R Vertebral Artery: no occlusion or significant stenosis. Mild atherosclerotic calcification in the distal V1 segment. Basilar Artery: no occlusion or significant stenosis L VENEER LAYER: no occlusion or significant stenosis R VENEER LAYER: no occlusion or significant stenosis There is no CTA evidence for cerebral aneurysm. There is no evidence for an arteriovenous malformation. INCIDENTAL FINDINGS: There is no suspicious cervical lymphadenopathy. There is no significant cervical spondylosis. Limited views of the lung apices are normal. PERFUSION FINDINGS: There is no measurable perfusion deficit in the brain. Estimated ischemic core volume (rCBF < 0.3): 0 mL Estimated hypoperfusion volume (Tmax > 6 sec): 0 mL IMPRESSION: 1. No acute intracranial hemorrhage. 2. No large territory edematous infarct. 3. No measurable perfusion deficit. 4. No intracranial large vessel occlusion nor severe stenosis. 5. No significant (>50%) carotid stenosis. The Non Critical results were discussed with Dr. Andrei Martinez by Dr. Wood on 03/04/2025 at 1147. Dictated by: Malia Wood M.D. The radiology attending physician has personally reviewed this study, and had reviewed and/or edited this written report and agrees with it. Electronically signed by: Oseas Arthur MD, PHD us Twan Quinn MD IMG CT PROCEDURES F inal Result * (ABNORMAL) POC Blood Gas and Chemistries, Venous - (03/04/2025 11:31 AM CDT) pH, Abhinav POC 7.44(H) 7.32 - 7.43 pCO2, abhinav POC 41 40 - 50 mmHg [facility] pO2, abhinav POC 32 mmHg [facility] Na, POC 138 135 - 145 mmol/L [facility] K POC 4.4 3.3 - 4.9 mmol/L [facility] Comment: Interpretive Data Not all point of care methods assess for hemolysis. Confirm with instrument and retest K+ if not consistent with clinical signs and symptoms. Current Interpretive Data was last revised on 2023. Cl, POC 105 97 - 110 mmol/L [facility] Ionized Ca, POC 4.78 4.50 - 5.10 mg/dL [facility] Glucose, POC 270(H) 70 - 199 mg/dL [facility] Lactate POC 2.2(H) 0.7 - 2.0 mmol/L [facility] MetHb, Abhinav POC <0.1 0.0 - 1.9 % [facility] O2 Sat, Abhinav POC (Jennifer) 55 % [facility] Base excess, POC 3.3 mmol/L [facility] HCO3, Abhinav POC 28 20 - 30 mmol/L [facility] Hct, POC 30.0(L) 36.3 - 45.3 % [facility] Total Hb, POC 9.9(L) 11.9 - 15.5 g/dL [facility] Blood 03/04/2025 11:3 1 AM CDT 03/04/2025 11:31 AM CDT us Notinfile Unknown LAB POCT ORDERABLES - DEVICE F inal Result Performing Organization Address [facility] Co de Phone Number [facility] [place] [address] * POCT prothrombin time, whole blood (03/04/2025 11:29 AM CDT) PT, POC 13.4 10.6 - 13.5 sec INR, bld, POC 1.1 0.9 - 1.2 [facility] Blood 03/04/2025 11:2 9 AM CDT 03/04/2025 11:29 AM CDT us Lorrie Levin MD LAB POCT ORDERABLES - DE VICE Final Result Performing Organization Address [facility] Co de Phone Number [facility] [place] [address] * (ABNORMAL) POCT glucose (03/04/2025 11:27 AM CDT) Glucose, POC 279(H) 70 - 199 mg/dL Comment:Glu2: RN/MD Notified Glucose comment 1 Glu2: RN/MD Notified [facility] Blood 03/04/2025 11:2 7 AM CDT 03/04/2025 11:27 AM CDT us Notinfile Unknown LAB POCT ORDERABLES - DEVICE F inal Result Performing Organization Address [facility] [place] [address] * (ABNORMAL) Troponin I high-sensitivity series (baseline, 2hr, 4hr, 6hr) (03/04/2025 11:20 AM CDT) Trop I hs 45(H) <=17 ng/L Comment: Code Blue Specimen Interpretive Data For further hscTnI resources including the diagnostic algorithm and an aid in interpretation, copy and paste this link: [email or web address]/[email or web address] Current Interpretive Data last revised 2020. Blood 03/04/2025 11:2 0 AM CDT 03/04/2025 11:36 AM CDT us Twan Quinn MD LAB BLOOD ORDERABLE S Final Result Performing Organization Address City/[facility]/ZIP Co de Phone Number [facility] [place] [address] * eGFR (03/04/2025 11:20 AM CDT) eGFR 62 >=60 mL/min/1. 73 m2 Comment: Interpretive Data Reference Interval Normal >/= 90 mL/min/1.73m2 Mildly decreased* 60 - 89 mL/min/1.73m2 Mildly to moderately decreased 45 - 59 mL/min/1.73m2 Moderately to severely decreased 30 - 44 mL/min/1.73m2 Severely decreased 15 - 29 mL/min/1.73m2 Kidney Failure < 15 mL/min/1.73m2 *Relative to young adult level Estimated glomerular filtration rate is determined by the 2020 CKD-EPI equation recommended by the National Kidney Foundation (A Unifying Approach to GFR Estimation: Recommendations of the NKF-ASK Task Force on Reassessing the Inclusion of Race in Diagnosing Kidney Disease, JASN 2020). The CKD-EPI equation should not be used for patients with unstable renal function and has not been validated in children and those over 70. Current interpretive data was last reviewed 2021. Blood 03/04/2025 11:2 0 AM CDT 03/04/2025 11:36 AM CDT us Twan Quinn MD LAB BLOOD ORDERABLE S Final Result [facility] [place] [address] * (ABNORMAL) Differential, auto (03/04/2025 11:20 AM CDT) Neutrophil abs 14.68(H) 1.50 - 6.50 K/cumm Imm gran abs 0.15(H) 0.00 - 0.10 K/cumm [facility] Lymphocyte abs 1.77 0.80 - 3.30 K/cumm [facility] Monocyte abs 0.99(H) 0.20 - 0.80 K/cumm [facility] Eosinophil abs 0.29 0.00 - 0.50 K/cumm [facility] Basophil abs 0.04 0.00 - 0.10 K/cumm [facility] Neutrophil pct 82.0 % [facility] Comment: Interpretive Data Percent cell count reference ranges are not reported, since discordance with absolute values may lead to misinterpretation of CBC data. Current Interpretive Data was last revised on 2017. Imm gran pct 0.8 % [facility] Comment: Interpretive Data Percent cell count reference ranges are not reported, since discordance with absolute values may lead to misinterpretation of CBC data. Current Interpretive Data was last revised on 2017. Lymphocyte pct 9.9 % [facility] Comment: Interpretive Data Percent cell count reference ranges are not reported, since discordance with absolute values may lead to misinterpretation of CBC data. Current Interpretive Data was last revised on 2017. Monocyte pct 5.5 % [facility] Comment: Interpretive Data Percent cell count reference ranges are not reported, since discordance with absolute values may lead to misinterpretation of CBC data. Current Interpretive Data was last revised on 2017. Eosinophil pct 1.6 % [facility] Comment: Interpretive Data Percent cell count reference ranges are not reported, since discordance with absolute values may lead to misinterpretation of CBC data. Current Interpretive Data was last revised on 2017. Basophil pct 0.2 % [facility] Comment: Interpretive Data Percent cell count reference ranges are not reported, since discordance with absolute values may lead to misinterpretation of CBC data. Current Interpretive Data was last revised on 2017. Blood 03/04/2025 11:2 0 AM CDT 03/04/2025 11:36 AM CDT us Twan Quinn MD LAB BLOOD ORDERABLE S Final Result [facility] [place] [address] * (ABNORMAL) CBC with auto differential (03/04/2025 11:20 AM CDT) WBC 17.92(H) 3.80 - 9.90 K/cumm Comment:Code Blue Specimen Hgb 9.5(L) 11.9 - 15.5 g/dL [facility] Hct 31.2(L) 35.6 - 45.5 % [facility] Plt 371 150 - 400 K/cumm [facility] MPV 11.3 9.1 - 12.3 fL [facility] RBC 4.19 3.90 - 5.20 M/cumm [facility] MCV 74.5(L) 81.3 - 96.4 fL [facility] MCH 22.7(L) 27.1 - 33.3 pg [facility] MCHC 30.4(L) 32.3 - 35.7 g/dL [facility] RDW CV 18.0(H) 11.1 - 14.9 % [facility] RDW SD 48.1 35.7 - 48.1 fL [facility] NRBC abs 0.00 0.00 - 0.01 K/cumm [facility] Blood Venous blood specimen / Unknown 03/04/2025 11:20 AM CDT 03/04/2025 11:36 AM CDT Narrative [facility] - 03/04/2025 11:51 AM CDT Potential Stroke Patient us Twan Quinn MD LAB BLOOD ORDERABLE S Edited Result - Final [facility] [place] [address] * Lipid panel (03/04/2025 11:20 AM CDT) Cholesterol 147 30 - 199 mg/dL Comment: Interpretive Data Ages < or = 19 years Acceptable: <170 mg/dL Borderline high: 170-199 mg/dL High: >or= 200 mg/dL Ages > or = 20 years Desirable: <200 mg/dL Borderline high: 200-239 mg/dL High: >or= 240 mg/dL Literature References: 1. Expert Panel on Integrated Guidelines for Cardiovascular Health and Risk Reduction in Children and Adolescents. Pediatrics 2011;128:S213 2. NCEP Expert Panel. Circulation 2004;110:227 Current Interpretive Data was last revised on 2018. Triglycerides 92 <=149 mg/dL [facility] Comment: Interpretive Data Ages < or = 9 years Acceptable: <75 mg/dL Borderline high: 75-99 mg/dL High: >or= 100 mg/dL Ages 10 to 20 years Acceptable: <90 mg/dL Borderline high: 90-129 mg/dL High: >or= 130 mg/dL Ages > or = 20 years Desirable: <150 mg/dL Borderline high: 150-199 mg/dL High: 200-499 mg/dL Very high: >or= 499 mg/dL Literature References: 1. Expert Panel on Integrated Guidelines for Cardiovascular Health and Risk Reduction in Children and Adolescents. Pediatrics 2011;128:S213 2. NCEP Expert Panel. Circulation 2004;110:227 Current Interpretive Data was last revised on 2018. HDL 50 >=40 mg/dL [facility] Comment: Interpretive Data Ages < or = 19 years Acceptable: >45 mg/dL Borderline low: 40-45 mg/dL Low: <40 mg/dL Ages > or = 20 years Desirable: >or= 60 mg/dL Low: <40 mg/dL Literature References: 1. Expert Panel on Integrated Guidelines for Cardiovascular Health and Risk Reduction in Children and Adolescents. Pediatrics 2011;128:S213 2. NCEP Expert Panel. Circulation 2004;110:227 Current Interpretive Data was last revised on 2018. LDL, calculated 80 <=129 mg/dL [facility] Comment: Interpretive Data Ages < or = 19 years Acceptable: <110 mg/dL Borderline high: 110-129 mg/dL High: >or= 130 mg/dL Ages > or = 20 years Optimal: <100 mg/dL Near optimal: 100-129 mg/dL Borderline high: 130-159 mg/dL High: >160 mg/dL Calculated using the César LDL-C estimating equation. This equation was implemented on 2024. Prior to this date LDL-C was estimated using the Friedewald equation. Literature References: 1. Expert Panel on Integrated Guidelines for Cardiovascular Health and Risk Reduction in Children and Adolescents. Pediatrics 2011;128:S213 2. NCEP Expert Panel. Circulation 2004;110:227 3. César M et al. BRAYAN Cardiol. 2020 December 20;5(5):540-548. doi: 10.1001/[email or web address].2020.0013 Current Interpretive Data was last revised on 2024. Non-HDL Cholesterol 97 mg/dL [facility] Comment: Interpretive Data Ages < or = 19 years Acceptable: <120 mg/dL Borderline high: 120-144 mg/dL High: >145 mg/dL Ages > or = 20 years When triglycerides are >200 mg/dL, Non-HDL cholesterol is a secondary target of therapy with treatment goals that are 30 mg/dL greater than the LDL cholesterol target. Literature References: 1. Expert Panel on Integrated Guidelines for Cardiovascular Health and Risk Reduction in Children and Adolescents. Pediatrics 2011;128:S213 2. NCEP Expert Panel. Circulation 2004;110:227 Current Interpretive Data was last revised on 2018. Chol/HDL ratio 3 [facility] Blood 03/04/2025 11:2 0 AM CDT 03/04/2025 11:36 AM CDT us Lorrie Levin MD LAB BLOOD ORDERABLES Fin al Result [facility] [place] [address] * (ABNORMAL) Comprehensive metabolic panel (03/04/2025 11:20 AM CDT) Sodium 139 135 - 145 mmol/L Comment:Code Blue Specimen Potassium, pl 4.4 3.3 - 4.9 mmol/L [facility] Comment:Code Blue Specimen Chloride 103 97 - 110 mmol/L [facility] Comment:Code Blue Specimen CO2 26 22 - 32 mmol/L [facility] Comment:Code Blue Specimen Anion gap 10 2 - 15 mmol/L [facility] Comment:Code Blue Specimen BUN 19 6 - 25 mg/dL [facility] Comment:Code Blue Specimen Creatinine 0.97 0.60 - 1.10 mg/dL [facility] Comment:Code Blue Specimen Glucose 256(H) 70 - 199 mg/dL [facility] Comment: Code Blue Specimen Interpretive Data Fasting glucose >/= 126 mg/dl is diagnostic for diabetes. Fasting is defined as no caloric intake for at least 8 hours. Fasting glucose between 100 mg/dl to 125 mg/dl is diagnostic of prediabetes. In a patient with classic symptoms of hyperglycemia or hyperglycemic crisis, a random glucose >/= 200 mg/dl is diagnostic for diabetes. In the absence of unequivocal hyperglycemia, results should be confirmed by repeat testing. The classification and Diagnosis of Diabetes Diabetes Care 2021; 46: S19-S40. Current interpretive data was last revised 2022. Calcium 8.8 8.5 - 10.3 mg/dL [facility] Comment:Code Blue Specimen Bilirubin, total 0.3 0.1 - 1.2 mg/dL [facility] Comment:Code Blue Specimen Protein, pl 7.0 6.5 - 8.5 g/dL [facility] Comment:Code Blue Specimen Albumin 3.5 3.5 - 5.0 g/dL [facility] Comment:Code Blue Specimen Alk phos 56 40 - 130 Units/L [facility] Comment:Code Blue Specimen ALT 22 7 - 45 Units/L [facility] Comment:Code Blue Specimen AST 21 10 - 45 Units/L [facility] Comment:Code Blue Specimen Blood Venous blood specimen / Unknown 03/04/2025 11:20 AM CDT 03/04/2025 11:36 AM CDT Narrative [facility] - 03/04/2025 12:04 PM CDT Potential Stroke Patient us Twan Quinn MD LAB BLOOD ORDERABLE S Final Result [facility] [place] [address] * POCT glucose (02/22/2025 8:38 AM CDT) Glucose, POC 122 70 - 199 mg/dL Blood 02/22/2025 8:38 AM CDT 02/22/2025 8:38 AM CDT Karol Bentley MD LAB POCT ORDERABLES - DEVICE Fin al Result Performing Organization Address [facility] Co de Phone Number [facility] [address] [place] [address] * eGFR (02/22/2025 7:31 AM CDT) eGFR 76 >=60 mL/min/1. 73 m2 Comment: Interpretive Data Reference Interval Normal >/= 90 mL/min/1.73m2 Mildly decreased* 60 - 89 mL/min/1.73m2 Mildly to moderately decreased 45 - 59 mL/min/1.73m2 Moderately to severely decreased 30 - 44 mL/min/1.73m2 Severely decreased 15 - 29 mL/min/1.73m2 Kidney Failure < 15 mL/min/1.73m2 *Relative to young adult level Estimated glomerular filtration rate is determined by the 2020 CKD-EPI equation recommended by the National Kidney Foundation (A Unifying Approach to GFR Estimation: Recommendations of the NKF-ASK Task Force on Reassessing the Inclusion of Race in Diagnosing Kidney Disease, JASN 2020). The CKD-EPI equation should not be used for patients with unstable renal function and has not been validated in children and those over 70. Current interpretive data was last reviewed 2021. Blood 02/22/2025 7:31 AM CDT 02/22/2025 8:08 AM CDT us Devonte Fields MD LAB BLOOD ORDERABLES Fin al Result Performing Organization Address City/[facility]/ZIP Co de Phone Number [facility] [address] [place] [address] * Basic metabolic panel (02/22/2025 7:31 AM CDT) [facility] Sodium 136 135 - 145 mmol/L Potassium, pl 4.7 3.3 - 4.9 mmol/L [facility] Chloride 103 97 - 110 mmol/L [facility] CO2 25 22 - 32 mmol/L [facility] Anion gap 8 2 - 15 mmol/L [facility] BUN 18 6 - 25 mg/dL [facility] Creatinine 0.82 0.60 - 1.10 mg/dL [facility] Glucose 129 70 - 199 mg/dL [facility] Comment: Interpretive Data Fasting glucose >/= 126 mg/dl is diagnostic for diabetes. Fasting is defined as no caloric intake for at least 8 hours. Fasting glucose between 100 mg/dl to 125 mg/dl is diagnostic of prediabetes. In a patient with classic symptoms of hyperglycemia or hyperglycemic crisis, a random glucose >/= 200 mg/dl is diagnostic for diabetes. In the absence of unequivocal hyperglycemia, results should be confirmed by repeat testing. The classification and Diagnosis of Diabetes Diabetes Care 202; 46: S19-S40. Current interpretive data was last revised 2022. Calcium 9.1 8.5 - 10.3 mg/dL [facility] Blood 02/22/2025 7:31 AM CDT 02/22/2025 8:08 AM CDT Devonte Fields MD LAB BLOOD ORDERABLES Fin al Result [facility] [address] [facility] Department [place] [address] * (ABNORMAL) POCT glucose (02/21/2025 9:14 PM CDT) [facility] Glucose, POC 264(H) 70 - 199 mg/dL Blood 02/21/2025 9:14 PM CDT 02/21/2025 9:14 PM CDT Karol Bentley MD LAB POCT ORDERABLES - DEVICE Fin al Result Performing Organization Address [facility] Co de Phone Number [address] [place] [address] * (ABNORMAL) POCT glucose (02/21/2025 5:14 PM CDT) Glucose, POC 312(H) 70 - 199 mg/dL Blood 02/21/2025 5:14 PM CDT 02/21/2025 5:14 PM CDT Karol Bentley MD LAB POCT ORDERABLES - DEVICE Fin al Result Performing Organization Address [facility] de Phone Number [address] [place] [address] * (ABNORMAL) POCT glucose (02/21/2025 12:20 PM CDT) Glucose, POC 224(H) 70 - 199 mg/dL Blood 02/21/2025 12:2 0 PM CDT 02/21/2025 12:20 PM CDT Karol Bentley MD LAB POCT ORDERABLES - DEVICE Fin al Result Performing Organization Address [facility] Co de Phone Number [address] [place] [address] * POCT glucose (02/21/2025 8:36 AM CDT) Glucose, POC 135 70 - 199 mg/dL Blood 02/21/2025 8:36 AM CDT 02/21/2025 8:36 AM CDT Karol Bentley MD LAB POCT ORDERABLES - DEVICE Fin al Result Performing Organization Address [facility] Co de Phone Number [address] [place] [address] * (ABNORMAL) Differential, auto (02/21/2025 6:15 AM CDT) Neutrophil abs 7.84(H) 1.50 - 6.50 K/cumm Imm gran abs 0.04 0.00 - 0.10 K/cumm [facility] Lymphocyte abs 1.41 0.80 - 3.30 K/cumm [facility] Monocyte abs 0.66 0.20 - 0.80 K/cumm [facility] Eosinophil abs 0.16 0.00 - 0.50 K/cumm [facility] Basophil abs 0.06 0.00 - 0.10 K/cumm [facility] Neutrophil pct 77.0 % [facility] Comment: Interpretive Data Percent cell count reference ranges are not reported, since discordance with absolute values may lead to misinterpretation of CBC data. Current Interpretive Data was last revised on 2017. Imm gran pct 0.4 % [facility] Comment: Interpretive Data Percent cell count reference ranges are not reported, since discordance with absolute values may lead to misinterpretation of CBC data. Current Interpretive Data was last revised on 2017. Lymphocyte pct 13.9 % [facility] Comment: Interpretive Data Percent cell count reference ranges are not reported, since discordance with absolute values may lead to misinterpretation of CBC data. Current Interpretive Data was last revised on 2017. Monocyte pct 6.5 % [facility] Comment: Interpretive Data Percent cell count reference ranges are not reported, since discordance with absolute values may lead to misinterpretation of CBC data. Current Interpretive Data was last revised on 2017. Eosinophil pct 1.6 % [facility] Comment: Interpretive Data Percent cell count reference ranges are not reported, since discordance with absolute values may lead to misinterpretation of CBC data. Current Interpretive Data was last revised on 2017. Basophil pct 0.6 % [facility] Comment: Interpretive Data Percent cell count reference ranges are not reported, since discordance with absolute values may lead to misinterpretation of CBC data. Current Interpretive Data was last revised on 2017. Blood 02/21/2025 6:15 AM CDT 02/21/2025 6:20 AM CDT Devonte Fields MD LAB BLOOD ORDERABLES Fin al Result Performing Organization Address [facility] de Phone Number [address] [address] * (ABNORMAL) CBC with auto differential (02/21/2025 6:15 AM CDT) WBC 10.17(H) 3.80 - 9.90 K/cumm Hgb 8.9(L) 11.9 - 15.5 g/dL [facility] Hct 30.5(L) 35.6 - 45.5 % [facility] Plt 345 150 - 400 K/cumm [facility] MPV 10.8 9.1 - 12.3 fL [facility] RBC 3.86(L) 3.90 - 5.20 M/cumm [facility] MCV 79.0(L) 81.3 - 96.4 fL [facility] MCH 23.1(L) 27.1 - 33.3 pg [facility] MCHC 29.2(L) 32.3 - 35.7 g/dL [facility] RDW CV 17.2(H) 11.1 - 14.9 % [facility] RDW SD 49.1(H) 35.7 - 48.1 fL [facility] NRBC abs 0.00 0.00 - 0.01 K/cumm [facility] Blood 02/21/2025 6:15 AM CDT 02/21/2025 6:20 AM CDT Devonte Fields MD LAB BLOOD ORDERABLES Fin al Result Performing Organization Address [facility] Co de Phone Number [address] [address] * Magnesium (02/21/2025 6:15 AM CDT) Pathologist [facility] Magnesium 2.5 1.4 - 2.5 mg/dL Blood 02/21/2025 6:15 AM CDT 02/21/2025 6:20 AM CDT Devonte Fields MD LAB BLOOD ORDERABLES Fin al Result [address] [place] [address] * POCT glucose (02/21/2025 12:46 AM CDT) Glucose, POC 183 70 - 199 mg/dL Blood 02/21/2025 12:4 6 AM CDT 02/21/2025 12:46 AM CDT us Devonte Fields MD LAB POCT ORDERABLES - DE VICE Final Result Performing Organization Address [facility] Co de Phone Number [address] [address] * Troponin T high-sensitivity 6-hour (02/20/2025 9:13 PM CDT) [facility] Trop T hs 14 <=14 ng/L Comment: Interpretive Data For further hscTnT resources including the diagnostic algorithm and an aid in interpretation, copy and paste this link: https://nrl.testcatalog.org/show/[email or web address] Current Interpretive Data last revised 2020. Trop T hs delta -2 ng/L [facility] Trop T hs interp Insignificant [facility] Blood 02/20/2025 9:13 PM CDT 02/20/2025 9:18 PM CDT us Ty Salcedo MD LAB BLOOD ORDERABLE S Final Result Performing Organization Address City/[facility]/ZIP Co de Phone Number [address] [place] [address] * POCT glucose (02/20/2025 7:27 PM CDT) Glucose, POC 125 70 - 199 mg/dL Blood 02/20/2025 7:27 PM CDT 02/20/2025 7:27 PM CDT us Notinfile Unknown LAB POCT ORDERABLES - DEVICE F inal Result Performing Organization Address [facility] Co de Phone Number [facility] [place] [address] * Troponin T high-sensitivity 4-hour (02/20/2025 7:18 PM CDT) Trop T hs 13 <=14 ng/L Comment: Interpretive Data For further hscTnT resources including the diagnostic algorithm and an aid in interpretation, copy and paste this link: https://nrl.testcatalog.org/show/[email or web address] Current Interpretive Data last revised 2020. Trop T hs delta -3 ng/L [facility] Trop T hs interp Insignificant [facility] Blood 02/20/2025 7:18 PM CDT 02/20/2025 7:23 PM CDT Ty Salcedo MD LAB BLOOD ORDERABLE S Final Result Performing Organization Address [facility] Co de Phone Number [facility] [place] [address] * XR Chest 1 Vw Portable (If patient hemodynamically UNstable or UNable to ambulate) (02/20/2025 3:54PM CDT) Anatomical Region Laterality Modality Body, Chest N/A Computed Radiogr aphy 02/20/2025 4:26 PM CDT Narrative 02/20/2025 4:27 PM CDT EXAM DESCRIPTION: XR CHEST 1 VIEW REASON FOR STUDY: Shortness of breath Sob, sinus infection x3 wks/HX COPD TECHNIQUE: 1 radiographic view(s) of the chest. COMPARISON: 12/29/2024 FINDINGS: LUNGS: Small left pleural effusion. No significant right effusion. No pneumothorax. No significant airspace opacity. HEART/MEDIASTINUM: Cardiac silhouette normal in size. Mediastinal and hilar contours appear normal. LINES/TUBES: None. BONES: No acute osseous abnormality. IMPRESSION: Small left pleural effusion. THIS IS AN ELECTRONICALLY VERIFIED FINAL REPORT 02/20/2025 4:27 PM - Electronically signed by Terrell MENDOZA T: Report ID: [id number] Reading Location: [id number] Procedure Note Terrell Sheppard MD - 02/20/2025 EXAM DESCRIPTION: XR CHEST 1 VIEW REASON FOR STUDY: Shortness of breath Sob, sinus infection x3 wks/HX COPD TECHNIQUE: 1 radiographic view(s) of the chest. COMPARISON: 12/29/2024 FINDINGS: LUNGS: Small left pleural effusion. No significant righteffusion. No pneumothorax. No significant airspace opacity. HEART/MEDIASTINUM: Cardiac silhouette normal in size. Mediastinal andhilar contours appear normal. LINES/TUBES: None. BONES: No acute osseous abnormality. IMPRESSION: Small left pleural effusion. THIS IS AN ELECTRONICALLY VERIFIED FINAL REPORT 02/20/2025 4:27 PM - Electronically signed by Terrell MENDOZA T: Report ID: [id number] Reading Location: [id number] Devonte Fields MD IMG XR PROCEDURES Final Result * (ABNORMAL) Troponin T high-sensitivity series (baseline, 2hr, 4hr, 6hr) (02/20/2025 3:18 PM CDT) Trop T hs 16(H) <=14 ng/L Comment: Interpretive Data For further hscTnT resources including the diagnostic algorithm and an aid in interpretation, copy and paste this link: https://nrl.testcatalog.org/show/hsTrop Current Interpretive Data last revised 2020. Blood 02/20/2025 3:18 PM CDT 02/20/2025 3:25 PM CDT Devonte Fields MD LAB BLOOD ORDERABLES Fin al Result [facility] [address] Department [place] [address] * eGFR (02/20/2025 3:18 PM CDT) [facility] eGFR 63 >=60 mL/min/1. 73 m2 Comment: Interpretive Data Reference Interval Normal >/= 90 mL/min/1.73m2 Mildly decreased* 60 - 89 mL/min/1.73m2 Mildly to moderately decreased 45 - 59 mL/min/1.73m2 Moderately to severely decreased 30 - 44 mL/min/1.73m2 Severely decreased 15 - 29 mL/min/1.73m2 Kidney Failure < 15 mL/min/1.73m2 *Relative to young adult level Estimated glomerular filtration rate is determined by the 2020 CKD-EPI equation recommended by the National Kidney Foundation (A Unifying Approach to GFR Estimation: Recommendations of the NKF-ASK Task Force on Reassessing the Inclusion of Race in Diagnosing Kidney Disease, JASN 2020). The CKD-EPI equation should not be used for patients with unstable renal function and has not been validated in children and those over 70. Current interpretive data was last reviewed 2021. Blood 02/20/2025 3:18 PM CDT 02/20/2025 3:25 PM CDT Devonte Fields MD LAB BLOOD ORDERABLES Fin al Result [facility] [address] Department [place] [address] * (ABNORMAL) Differential, auto (02/20/2025 3:18 PM CDT) [facility] Neutrophil abs 9.15(H) 1.50 - 6.50 K/cumm Imm gran abs 0.07 0.00 - 0.10 K/cumm [facility] Lymphocyte abs 1.72 0.80 - 3.30 K/cumm [facility] Monocyte abs 0.84(H) 0.20 - 0.80 K/cumm [facility] Eosinophil abs 0.15 0.00 - 0.50 K/cumm [facility] Basophil abs 0.06 0.00 - 0.10 K/cumm [facility] Neutrophil pct 76.3 % [facility] Comment: Interpretive Data Percent cell count reference ranges are not reported, since discordance with absolute values may lead to misinterpretation of CBC data. Current Interpretive Data was last revised on 2017. Imm gran pct 0.6 % [facility] Comment: Interpretive Data Percent cell count reference ranges are not reported, since discordance with absolute values may lead to misinterpretation of CBC data. Current Interpretive Data was last revised on 2017. Lymphocyte pct 14.3 % [facility] Comment: Interpretive Data Percent cell count reference ranges are not reported, since discordance with absolute values may lead to misinterpretation of CBC data. Current Interpretive Data was last revised on 2017. Monocyte pct 7.0 % [facility] Comment: Interpretive Data Percent cell count reference ranges are not reported, since discordance with absolute values may lead to misinterpretation of CBC data. Current Interpretive Data was last revised on 2017. Eosinophil pct 1.3 % [facility] Comment: Interpretive Data Percent cell count reference ranges are not reported, since discordance with absolute values may lead to misinterpretation of CBC data. Current Interpretive Data was last revised on 2017. Basophil pct 0.5 % [facility] Comment: Interpretive Data Percent cell count reference ranges are not reported, since discordance with absolute values may lead to misinterpretation of CBC data. Current Interpretive Data was last revised on 2017. Blood 02/20/2025 3:18 PM CDT 02/20/2025 3:25 PM CDT us Devonte Fields MD LAB BLOOD ORDERABLES Fin al Result [facility] [address] Department [place] [address] * (ABNORMAL) CBC with auto differential (02/20/2025 3:18 PM CDT) WBC 11.99(H) 3.80 - 9.90 K/cumm Hgb 10.0(L) 11.9 - 15.5 g/dL [facility] Hct 34.0(L) 35.6 - 45.5 % [facility] Plt 414(H) 150 - 400 K/cumm [facility] MPV 10.2 9.1 - 12.3 fL [facility] RBC 4.42 3.90 - 5.20 M/cumm [facility] MCV 76.9(L) 81.3 - 96.4 fL [facility] MCH 22.6(L) 27.1 - 33.3 pg [facility] MCHC 29.4(L) 32.3 - 35.7 g/dL [facility] RDW CV 17.5(H) 11.1 - 14.9 % [facility] RDW SD 48.7(H) 35.7 - 48.1 fL [facility] NRBC abs 0.00 0.00 - 0.01 K/cumm [facility] Blood 02/20/2025 3:18 PM CDT 02/20/2025 3:25 PM CDT Devonte Fields MD LAB BLOOD ORDERABLES [facility] al Result [facility] [address] Department [place] [address] * Comprehensive metabolic panel (02/20/2025 3:18 PM CDT) Sodium 136 135 - 145 mmol/L Potassium, pl 4.7 3.3 - 4.9 mmol/L [facility] Chloride 102 97 - 110 mmol/L [facility] CO2 24 22 - 32 mmol/L [facility] Anion gap 10 2 - 15 mmol/L [facility] BUN 12 6 - 25 mg/dL [facility] Creatinine 0.96 0.60 - 1.10 mg/dL [facility] Glucose 127 70 - 199 mg/dL [facility] Comment: Interpretive Data Fasting glucose >/= 126 mg/dl is diagnostic for diabetes. Fasting is defined as no caloric intake for at least 8 hours. Fasting glucose between 100 mg/dl to 125 mg/dl is diagnostic of prediabetes. In a patient with classic symptoms of hyperglycemia or hyperglycemic crisis, a random glucose >/= 200 mg/dl is diagnostic for diabetes. In the absence of unequivocal hyperglycemia, results should be confirmed by repeat testing. The classification and Diagnosis of Diabetes Diabetes Care 2021; 46: S19-S40. Current interpretive data was last revised 2022. Calcium 9.6 8.5 - 10.3 mg/dL [facility] Bilirubin, total 0.5 0.1 - 1.2 mg/dL [facility] Protein, pl 8.1 6.5 - 8.5 g/dL [facility] Albumin 4.2 3.5 - 5.0 g/dL [facility] Alk phos 85 40 - 130 Units/L [facility] ALT 9 7 - 45 Units/L [facility] AST 19 10 - 45 Units/L [facility] Blood 02/20/2025 3:18 PM CDT 02/20/2025 3:25 PM CDT Devonte Fields MD LAB BLOOD ORDERABLES Fin al Result Performing Organization Address City/State/[facility] Co de Phone Number [facility] [address] Department [place] [address] * ECG 12 lead (02/20/2025 3:12 PM CDT) [facility] Ventricular Rate EKG/Min 68 BPM [facility] Atrial Rate 68 BPM [facility] MA-Interval (MSEC) 140 ms [facility] QRS-Interval (MSEC) 84 ms [facility] QT-Interval (MSEC) 428 ms [facility] QTc 455 ms [facility] P [place] 69 degrees [facility] R [place] 4 degrees [facility] T [place] 45 degrees [facility] Diagnosis Normal sinus rhythm Nonspecific ST abnormality Abnormal ECG When compared with ECG of 26-DEC-2024 04:58, Premature atrial complexes are no longer Present Nonspecific T wave abnormality no longer evident in Inferior leads Confirmed by BRANDI BUENO M.D. ([id number]) on 02/20/2025 7:43:54 PM [facility] 02/20/2025 3:12 PM CDT 02/20/2025 7:43 PM CDT Devonte Fields MD ECG ORDERABLES Final Re sult [facility] * POC Influenza A/B, COVID-19 antigen (02/20/2025 2:14 PM CDT) Influenza A Ag, POC Negative Negative [facility] [place] Influenza B Ag, POC Negative Negative [facility] 400 COVID-19 Ag POC Presumptive Negative Presumptive Negative, Invalid [facility] [place] 400 Nasal 02/20/2025 2:14 PM CDT us Kateryna Culver MD POINT OF CARE TEST ORDERA BLES Final Result Performing Organization Address City/[facility]/ZIP Co de Phone Number [facility] [phone] [address] * Colonoscopy (12/31/2024 2:11 PM CDT) Anatomical Region Laterality Modality Other Narrative Procedure Note John Paula MD - 12/31/2024 2:11 PM CDT [facility] ENDOSCOPY Patient Name: Raisas Gibbons Procedure Date: 12/31/2024 2:11 PM Date of : 1955 Admit Type: Inpatient Age: 69 Gender: Female Attending MD: John Paula M.D. Room: [facility] ENDOSCOPY ROOM 06 Note Status: Finalized Procedure: Colonoscopy Indications: Abdominal pain, Iron deficiency anemia Referring MD: Providers: John Paula M.D. Medicines: Monitored Anesthesia Care Complications: No immediate complications. Estimated blood loss: Minimal. Estimated Blood Loss: Estimated blood loss was minimal. Procedure: Pre-Anesthesia Assessment: - Prior to the procedure, a History and Physicalwas performed, and patient medications and allergieswere reviewed. The patient is competent. The risks and benefits of the procedure and the sedation optionsand risks were discussed with the patient. Allquestions were answered and informed consent was obtained. Patient identification and proposed procedure were verified in the pre-procedure area in the procedure room in the endoscopy suite. Mental Status Examination: alert and oriented. Prophylactic Antibiotics: The patient does not requireprophylactic antibiotics. Prior Anticoagulants: The patient has taken no anticoagulant or antiplatelet agents.After reviewing the risks and benefits, the patient was deemed in satisfactory condition to undergo the procedure. The anesthesia plan was to use monitored anesthesia care (MAC). Immediately prior to administration of medications, the patient was re-assessed for adequacy to receive sedatives. The heart rate, respiratory rate, oxygen saturations, blood pressure, adequacy of pulmonary ventilation,and response to care were monitored throughout the procedure. The physical status of the patient was re-assessed after the procedure. The benefits, risks and alternatives of theprocedure and sedation were discussed and informed consentwas obtained. All questions were answered. Please referto the signed informed consent document in the medical record. The scope was passed under direct vision.The [id number] colonoscope was introduced through theanus and advanced to the terminal ileum. The colonoscopy was performed without difficulty. The patient tolerated the procedure well. The bowel preparation used was GoLYTELY via split dose instruction. The quality of the bowel preparation was evaluatedusing the BBPS (Adah Bowel Preparation Scale) withscores of: Right Colon = 2 (minor amount of residual staining, small fragments of stool and/or opaque liquid, but mucosa seen well), Transverse Colon = 1 (portion of mucosa seen, but other areas not wellseen due to staining, residual stool and/or opaqueliquid) and Left Colon = 1 (portion of mucosa seen, butother areas not well seen due to staining, residual stool and/or opaque liquid). The total BBPS score equals5. The quality of the bowel preparation was fair. The colonoscopy was performed without difficulty. Findings: A 3 mm polyp was found in the proximal ascending colon. The polyp was sessile. The polyp was removed with a cold biopsy forceps. Resectionand retrieval were complete. Verification of patient identification forthe specimen was done by the nurse. Estimated blood loss was minimal. A localized area of moderately friable mucosa with no bleeding wasfound in the proximal sigmoid colon, in the mid sigmoid colon, in the descending colon and in the distal transverse colon. Biopsies weretaken with a cold forceps for histology. Estimated blood loss wasminimal. Multiple small-mouthed diverticula were found in the sigmoid colon. Internal hemorrhoids were found during retroflexion. The hemorrhoids were Grade II (internal hemorrhoids that prolapse but reduce spontaneously). Impression: - One 3 mm polyp in the proximal ascending colon, removed with a cold biopsy forceps. Resected and retrieved. - Friability with no bleeding in the proximalsigmoid colon, in the mid sigmoid colon, in the descending colon and in the distal transverse colon likely ischemic colitis. Biopsied. - Diverticulosis in the sigmoid colon. - Internal hemorrhoids. Recommendation: - Repeat colonoscopy in 1 year for surveillance. - Complete 7 day course of antibiotics - Return to GI office in 6 weeks. John Paula M.D. John Paula M.D. 12/31/2024 3:13:31 PM . Number of Addenda: 0 Note Initiated On: 12/31/2024 2:11 PM Recognized by the [place] [employer] for promoting quality in endoscopy John Paula MD ENDOSCOPY PROCEDURES Final Resul t * Hepatitis panel, acute Blood (12/30/2024 8:54 AM CDT) Hep A IgM Nonreactive Nonreactive Comment: Interpretive Data: If Hep A IgM Ab is reported as Equivocal, a new sample should be drawn in two weeks for testing. Current interpretive data was last revised on 19. Hep B core IgM Nonreactive Nonreactive [facility] Comment: Interpretive Data If HepB Core IgM Ab is reported as Equivocal, a new sample should be drawn in two weeks for testing. Current interpretive data was last revised on 19. Hep C Ab Nonreactive Nonreactive [facility] Comment: Antibodies to HCV not detected. Does NOT exclude the possibility of recent exposure to HCV. Current interpretive data was last revised on 22 Interpretive Data Nonreactive: Antibodies to HCV not detected. Does NOT exclude the possibility of recent exposure to HCV. Equivocal: Equivocal for HCV antibodies. Supplemental molecular testing will be automatically performed to determine infection status in accordance with current CDC screening recommendations. Reactive: Positive for HCV antibodies. This may represent current or past HCV infection. Supplemental molecular testing will be automatically performed to determine current infection status in accordance with current CDC screening recommendations. Interpretive data was last revised on 2019. HepBsAg Nonreactive Nonreactive [facility] Blood 12/30/2024 8:54 AM CDT 12/30/2024 9:07 AM CDT Karol Bentley MD LAB MICROBIOLOGY - GENERAL ORDER ALBERTO Final Result [facility] [address] Department [place] [address] * Diabetic Eye Exam (12/05/2023) Historical Provider HEALTH MAINTENANCE Final Result * Dexa Axial Skeleton Bone Density 1 or 2 Site (09/20/2023 1:41 PM CRIME LAB ANALYST) Anatomical Region Laterality Modality Body N/A Mammography 09/20/2023 1:43 PM CRIME LAB ANALYST Narrative 09/20/2023 1:44 PM CRIME LAB ANALYST EXAM DESCRIPTION: DEXA AXIAL SKELETON BONE DENSITY 1 OR MORE SITES REASON FOR STUDY: 68 y/o year old F with given history of: Postmenopausal status. History of prior fracture, parent with hip fracture and smoking. Patient has taken/is taking Fosamax. History of seizure disorder, carcinoma and COPD Duty Engineer/Model: Hologic Horizon A (S/N [id number]) CLINICAL INFORMATION: Current height: 62 inches Maximum height: 63 inches Weight: 162.2 pounds Risk factors: Prior fracture, parent with hip fracture and smoking COMPARISON: 10/16/2018 FINDINGS: AP LUMBAR SPINE L1-L4: Total BMD is 1.035 g/cm2 T-score is -0.1 This is a 4% decrease in comparison to prior exam which is statistically significant. LEFT HIP: Total BMD is 0.735 g/cm2 T-score is -1.7 This is a 9.1% decrease in comparison to prior exam which is statistically significant. Femoral neck BMD is 0.618 g/cm2 T-score is -2.1 FRAX: 10 year risk for a major osteoporotic fracture is 31 %, 10 year risk for a hip fracture is 12 % IMPRESSION: Low bone mass REFERENCE: Bone mineral density: Normal (T-score above or = -1.0) Low bone mass (T-score between -1.0 and -2.5) replaces the previously used term osteopenia Osteoporosis (T-score = or below -2.5) Please see below follow up recommendations. Medical evaluation for secondary causes of low bone mineral density may be appropriate. FRAX is a World Health Organization validated fracture risk assessment tool that calculates a person's 10 year probability of a major osteoporosis related fracture and hip fracture. According to the National Osteoporosis Foundation guidelines, postmenopausal women and men age 50 or older with low bone mass and a 10 year probability of a major osteoporosis related fracture = or greater than 20% or a 10 year probability of a hip fracture = or greater than 3% should be considered for pharmacological treatment for the prevention of osteoporosis. For further information, including treatment recommendations, please refer to the 2019 ISCD Official Positions (http://www.iscd.org) and the NOF's Clinician's Guide to Prevention and Treatment of Osteoporosis (http://www.nof.org/professionals/clinical-guidelines) THIS IS AN ELECTRONICALLY VERIFIED FINAL REPORT 09/20/2023 1:44 PM - Electronically signed by Laura Waddell M.D. TW: CARA Report ID: [id number] Reading Location: [id number] Procedure Note Laura Waddell MD - 09/20/2023 EXAM DESCRIPTION: DEXA AXIAL SKELETON BONE DENSITY 1 OR MORE SITES REASON FOR STUDY: 68 y/o year old F with given history of:Postmenopausal status. History of prior fracture, parent with hip fracture and smoking. Patient has taken/is taking Fosamax. History of seizure disorder,carcinoma and COPD Duty Engineer/Model: Roomlr A (S/N [id number]) CLINICAL INFORMATION: Current height: 62 inches Maximum height: 63 inches Weight: 162.2 pounds Risk factors: Prior fracture, parent with hip fracture and smoking COMPARISON: 10/16/2018 FINDINGS: AP LUMBAR SPINE L1-L4: Total BMD is 1.035 g/cm2 T-score is -0.1 This is a 4% decrease in comparison to prior exam which is statistically significant. LEFT HIP: Total BMD is 0.735 g/cm2 T-score is -1.7 This is a 9.1% decrease in comparison to prior exam which is statistically significant. Femoral neck BMD is 0.618 g/cm2 T-score is -2.1 FRAX: 10 year risk for a major osteoporotic fracture is 31 %, 10 year risk for ahip fracture is 12 % IMPRESSION: Low bone mass REFERENCE: Bone mineral density: Normal (T-score above or = -1.0) Low bone mass (T-score between -1.0 and -2.5) replaces thepreviously used term osteopenia Osteoporosis (T-score = or below -2.5) Please see below follow up recommendations. Medical evaluation [facility] causes of low bone mineral density may be appropriate. FRAX is a World Health Organization validated fracture risk assessmenttool that calculates a person's 10 year probability of a major osteoporosisrelated fracture and hip fracture. According to the National OsteoporosisFoundation guidelines, postmenopausal women and men age 50 or older with low bonemass and a 10 year probability of a major osteoporosis related fracture = or greater than 20% or a 10 year probability of a hip fracture = or greaterthan 3% should be considered for pharmacological treatment for the preventionof osteoporosis. For further information, including treatment recommendations, please referto the 2019 ISCD Official Positions (http://www.iscd.org) and the NOF's Clinician's Guide to Prevention and Treatment of Osteoporosis (http://www.nof.org/professionals/clinical-guidelines) THIS IS AN ELECTRONICALLY VERIFIED FINAL REPORT 09/20/2023 1:44 PM - Electronically signed by Laura Waddell M.D. TW: CARA Report ID: [id number] Reading Location: [id number] Kateryna Culver MD IMG DXA PROCEDURES Final Result * (ABNORMAL) Screening Mammogram Bilateral W James (05/12/2023 2:47 PM CDT) Anatomical Region Laterality Modality Breast Bilateral Mammography Impressions 05/12/2023 4:43 PM CDT BI-RADS ATLAS category (overall): 0 - Incomplete: Needs Additional Imaging Evaluation Mass in the LEFT breast, possibly a lymph node. Recommend LEFT diagnostic mammogram and possible sonogram. Narrative 05/12/2023 4:43 PM CDT Screening Mammogram Bilateral W James: 05/12/23 The study was acquired using full field digital technology and interpreted from soft copy. 2D digital mammographic views, as well as 3D digital tomosynthesis were performed in the CC and MLO projections. CLINICAL: Screening mammogram, encounter for. No relevant medical history has been documented for this patient. History of breast cancer in Other. No comparisons were made when reading this study. BREAST TISSUE: The breasts have scattered areas of fibroglandular density. FINDINGS: Mass in the upper outer mid LEFT breast. No suspicious finding in the RIGHT breast. 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 Instructor 03/10/2023 1:05 PM Ce Nails * Full Code (Latest Code Status on File) Date Activated Date Inactivated Comments 03/12/2025 11:49 PM 03/17/2025 4:31 PM * Full Code Date Activated Date Inactivated Comments 03/12/2025 3:20 PM 03/12/2025 11:49 PM * Full Code Date Activated Date Inactivated Comments 03/04/2025 2:53 PM 03/07/2025 5:58 PM * Full Code Date Activated Date Inactivated Comments 02/21/2025 12:25 AM 02/22/2025 4:19 PM * Full Code Date Activated Date Inactivated Comments 12/31/2024 12:25 PM 01/02/2025 2:01 PM Healthcare Agents on File Name Relationship Healthcare Agent Relationshi p Communication Ce Grimaldomer Daughter Health Care Agent Chevy Sewellchild First Alternate Health Care Agent Care Teams Strickler Attendant Relationship Specialty Start Date End Date Kateryna Culver MD PCP - General Family Medicine 01/20/24 Sharan Duong MD Referring Physician Gastroenterology 07/26/19 Jes Christian, RN [address] [place] [address] [address] [place] [address] Demand Generator Manager 01/22/25
--- OUTSIDE RECORDS SUMMARY | 2025-05-04 00:38 | XMS_ITS | Encounter Summary ---
Author Organization [facility] Healthcare Address [address] [place] [address] Care Team Providers Care Contracting Executive Name Role Phone Sharan Duong MD Unavailable + Kateryna Culver MD Primary Care Provider [phone] Jes Christian RN Unavailable [phone] Encounter Details Date Type Department Care Team (Late st Contact Info) Description 03/11/[address] [facility] Medical Group Family Medicine [address] [facility] [address] [place] [address] Kateryna Culver MD [address] [place] [id number] Screening mammogram for breast cancer (Primary Dx); Type 2 diabetes mellitus with diabetic polyneuropathy, with long-term current use of insulin (HCC) Social History Tobacco Use Types Packs/Day Years Used Date Smoking Tobacco: Heavy Smoker Cigarettes 1 38 Smokeless Tobacco: Never Comments:Smoking History Pac ks/day: 3 Packs Alcohol Use Standard Drinks/Week Comments Never 0 (1 standard drink = 0.6 oz pur e alcohol) [facility] Utilities Answer Date Recorded In the past 12 months has e [employer], gas, oil, or water company threatened to [...] often do you attend chur ch or confucianist services? Never 03/13/2025 Do you belong to any clubs o r organizations such as protestant groups, unions, fraternal or athletic groups, or school groups? No 03/13/2025 How often do you attend meet ings of the clubs or organizations you belong to? Never 03/13/2025 Are you , , di vorced, , never , or living with a partner? 03/13/2025 AUDIT-C Answer Date Recorded Q1: How [...] PHQ-2 Answer Date Recorded PHQ-2 Total Score 0 03/05/2025 Hunger Vital Sign Answer Date Recorded Within [...] place to sleep or slept in a assisted (including now)? No 12/09/2023 PHQ-9 Answer Date Recorded PHQ-9 Total Score 6 03/04/2025 Housing Stability Vital Sign Answer Mayo e Recorded In the last 12 months, was t here a time when you were not able to pay the mortgage or rent on time? No 03/13/2025 In the past 12 months, how m any times have you moved where you were living? 0 03/13/2025 At any time in the past 12 m [facility], were you homeless or living in a assisted (including now)? No 03/13/2025 Personal Safety Answer Date Recorded Have you ever been in or are you currently in a harmful physical or emotional relationship or is someone making you feel afraid or unsafe? Denies 03/12/2025 Comments No Sex and Gender Information Value Date Recorded Sex Assigned at Not on file Legal Sex Female 3:50 AM [employer] Gender Identity Not on file Sexual Orientation Not on file documented as of this encounter Plan of Treatment Not on file documented as of this encounter Goals Goal Patient Goal Type Associated Problems Recent Progress Patient-Stated? Author ACO CC Goal - Patient will increase compliance with prescribed medications ACO Care Management On track(2024 11:45 AM CDT) Jes Crowe, [place] Note: Problem: Medication non-adherence Interventions: - Address [...] On track(2024 11:45 AM CDT) Jes Crowe, [place] Note: Problem: At Risk for Self Care [...] AM CDT) Jes Crowe, [place] Note: Problem: Knowledge deficit related to signs [...] orders or changes made to medication regimen. TTW COPD Goal - Patient is knowledgeable [...] electric company they are oxygen dependent. Many Startups offer oxygen-dependent patients priority service or a generator when power goes out documented as of this encounter Visit Diagnoses Diagnosis Screening mammogram for breast cancer- Primary Type 2 diabetes mellitus with diabetic polyneuropathy, with long-term current use of insulin (HCC) documented in this encounter Additional Health Concerns Infection Onset Date Last Indicated Resolved Time COVID: Suspected 03/12/2025 03/12/2025 03/12/2025 10:45 AM CDT documented as of this encounter Care Teams Contracting Executive Relationship Specialty Start Date End Date Kateryna Culver MD PCP - General Family Medicine 01/20/24 Sharan Duong MD Referring Physician Gastroenterology 07/26/19 Jes Christian, [place] [address] [place] [address] [address] [place] [address] Coroner Transport Technician 01/22/25 documented as of this encounter
--- OUTSIDE RECORDS SUMMARY | 2025-05-04 00:38 | XMS_ITS | Encounter Summary ---
Author Organization [facility] Address [facility] [place] [address] Care Team Providers Care Systematic Theology Professor Name Role Phone Isaac Lechuga MD Primary Care Provider [phone] Chevy Casanova MD Unavailable Unavailable Shayne Hyatt MD Primary Care Provider Rosetta meza Md, Shilpi Campbell MD Primary Care Provider Unavailable Darrion Ventura MD Unavailable [phone] Michael Montero MD Primary Care Provider [phone] Kateryna Clayton MD Primary Care Provider [phone] Encounter Details Date Type Department Care Team (Late st Contact Info) Description 04/13/2016 Abstract [facility] AT [address] [address] Ophelia Castro MA Social History Tobacco Use Types Packs/Day Years Used Date Smoking Tobacco: Every Day Cigarettes Alcohol Use Standard Drinks/Week Comments No 0 [...] file Not on file Not on file documented as of this encounter Plan of Treatment Not on file documented as of this encounter Procedures Procedure Name Priority Date/Time Associated Diagnosis Comments CBC (OUTSIDE LAB) Routine 11/13/2015 VITAMIN B-12 Routine 11/13/2015 COMPREHENSIVE METABOLIC PANEL Routine 11/13/2015 LIPID PANEL Routine 11/13/2015 HEMOGLOBIN, GLYCOSYLATED Routine 11/13/2015 THYROXINE, FREE (FT4) Routine 11/13/2015 THYROID STIM HORMONE TSH Routine 11/13/2015 CBC (OUTSIDE LAB) Routine 05/09/2015 COMPREHENSIVE METABOLIC PANEL Routine 05/09/2015 HEMOGLOBIN, GLYCOSYLATED Routine 05/09/2015 MAGNESIUM Routine 05/09/2015 documented in this encounter Results * VITAMIN B-12 (11/13/2015) VITAMIN B12 S/P/B 634 11/13/2015 [facility] Final Result * HEMOGLOBIN, GLYCATED (11/13/2015) HGB A1C 7.6 11/13/2015 [facility] Final Result * THYROID STIM HORMONE, TSH (11/13/2015) TSH 2.540 11/13/2015 [facility] Final Result * THYROXINE, FREE (FT4) (11/13/2015) FREE T4 0.67 11/13/2015 [facility] Final Result * LIPID PANEL (11/13/2015) CHOLESTEROL 229 HDL 46 TRIGLYCERIDES 195 LDL (CALCULATED) 147 11/13/2015 [facility] Final Result * COMPREHENSIVE METABOLIC PANEL (11/13/2015) Pathologist [facility] SODIUM S/P/B 142 POTASSIUM S/P/B 4.7 CO2 29 CHLORIDE S/P/B 104 GLUCOSE 141 CALCIUM S/P/B 9.3 BUN 13 CREATININE S/P/B 0.7 EGFR NON-AFR. AMER. >60 ALKALINE PHOSPHATASE S/P/B 78 ALT 20 AST 24 BILIRUBIN TOTAL S/P/B 0.2 ALBUMIN S/P/B 4.4 3.5 - 5.0 TOTAL PROTEIN S/P/B 8.1 11/13/2015 [facility] Final Result * CBC (OUTSIDE LAB) (11/13/2015) Pathologist [facility] WBC 10.4 HGB 14.3 HCT 43.1 PLT 252 11/13/2015 [facility]-OUTSIDE/ABSTRACTED Edite d Result - Final * HEMOGLOBIN, GLYCATED (05/09/2015) Pathologist [facility] HGB A1C 6.4 05/09/2015 us Doc [facility] Final Result * MAGNESIUM (05/09/2015) Pathologist [facility] MAGNESIUM 1.7 05/09/2015 us Doc [facility] Final Result * (ABNORMAL) COMPREHENSIVE METABOLIC PANEL (05/09/2015) Pathologist [facility] SODIUM S/P/B 135 POTASSIUM S/P/B 3.7 CO2 24 CHLORIDE S/P/B 103 GLUCOSE 114 CALCIUM S/P/B 8.2 BUN 22 CREATININE S/P/B 1.0 EGFR NON-AFR. AMER. 56 ALKALINE PHOSPHATASE S/P/B 52 ALT 28 AST 30 BILIRUBIN TOTAL S/P/B 0.5 ALBUMIN S/P/B 3.4(A) 3.5 - 5.0 TOTAL PROTEIN S/P/B 6.2 PHOSPHORUS 4.1 05/09/2015 [facility] Final Result * CBC (OUTSIDE LAB) (05/09/2015) WBC 9.7 HGB 13.2 HCT 39 PLT 217 05/09/2015 us Doc [facility]-OUTSIDE/ABSTRACTED Edite d Result - Final documented in this encounter Visit Diagnoses Not on filedocumented in this encounter Care Teams Systematic Theology Professor Relationship Specialty Start Date End Date Isaac Lechuga MD [address] [facility] [address] [place] [address] PCP - General FAMILY PRACTICE 03/29/16 05/12/16 Shayne Hyatt MD [address] [address] PCP - General FAMILY PRACTICE 09/22/16 05/21/17 Shilpi Foss MD PCP - General 05/13/16 09/21/16 Michael Montero MD [address] [facility] [address] [place] [address] PCP - General INTERNAL MEDICINE 05/22/17 12/28/22 Kateryna Clayton MD [address] [facility] [address] [place] [address] PCP - General FAMILY PRACTICE 12/29/22 Chevy Casanova MD [address] [facility] [address] [place] [address] [employer] CARDIOVASCULAR DISEASE 04/08/16 07/26/17 Darrion Ventura MD [facility] [address] [place] [address] [employer] CARDIOVASCULAR DISEASE 07/27/17 documented as of this encounter
[2025-05-04 00:42] LABS: Hematocrit 46.7 % (37.0-47.0); Hemoglobin 14.4 g/dL (12.0-15.0); Immature Granulocyte Percent A 0.4 % (0-0.5); Lymphocytes Absolute Auto 1.87 K/mm3 (0.9-3.2); Mean Corpuscular HGB Conc 30.8 g/dl (32-36); Mean Corpuscular Hemoglobin 26.3 pg (26-34); Mean Corpuscular Volume 85.4 fl (80-100); Nucleated Red Blood Cells Absolute Auto 0.000 K/mm3 (0.0-0.012); Nucleated Red Blood Cells Perc 0.0 % (0.0-0.2); Platelet Count Result 286 k/mm3 (150-375); Red Blood Count 5.47 M/mm3 (4.2-5.4); White Blood Count 12.0 K/mm3 (4.5-10.0)
[2025-05-04 00:47] LABS: Alanine Aminotransferase 14 U/L (6-35); Albumin Level 3.9 g/dL (3.5-5.1); Alkaline Phosphatase 55 U/L (38-126); Anion Gap 4 mmol/L (4-12); Aspartate Amino Transferase 30 U/L (14-36); Bilirubin,Total 0.6 mg/dL (0.2-1.3); Blood Urea Nitrogen 19 mg/dL (7-17); Calcium 8.7 mg/dL (8.4-10.2); Carbon Dioxide 36 mmol/L (22-30); Chloride 92 mmol/L (98-107); Estimated CRCL calculation 47 ml/min; Estimated Glomerular Filt Rate 59; Glucose 101 mg/dL (65-110); Potassium 3.8 mmol/L (3.4-5.0); Sodium 132 mmol/L (137-145); Total Protein 7.4 g/dL (6.3-8.2)
[2025-05-04 00:52] LABS: Magnesium 2.1 mg/dL (1.6-2.3)
[2025-05-04 01:00] LABS: Anisocytosis 1+; Hypochromasia 1+; Schistocytes None Seen
[2025-05-04 01:01] LABS: NT Pro B Type Natriuretic Pept 7710 pg/mL (19.9-100)
[2025-05-04] MEDS: FUROSEMIDE INJ 40 MG/4 ML VIAL IV PUSH (01:45)
--- NOTE | 2025-05-04 01:46 | ED.GENADULT ---
HPI - General Adult General Chief complaint: Shortness of Breath/Dyspnea Stated complaint: legs swollen, stomach bloated, sob Time Seen by Provider: 05/04/25 00:14 History of Present Illness HPI narrative: Patient is a 69-year-old female who presents emergency department this evening complaining of a fluid overload and shortness of breath. Patient states that she has noticed that her hands her feet and stomach are bloated. Admits to history of CHF and COPD. Patient also is complaining of confusion for the past 2 days, no focal weakness, numbness and tingling, no recent falls or trauma. Patient admits that she does take a water pill 20 mg of Lasix daily. Otherwise denies any active chest pain, any nausea or vomiting, any abdominal pain and any urinary symptoms. Related Data Home Medications ?Medication ?Instructions ?Recorded ?Confirmed ?Last Taken ?Type budesonide-formoterol HFA 160 2 puff inhalation BID 07/05/19 07/20/24 07/05/19 History mcg-4.5 mcg/actuation aerosol inhaler (Symbicort) fenofibrate 160 mg tablet 160 mg PO DAILY 07/05/19 07/20/24 07/05/19 History levothyroxine 75 mcg tablet 75 mcg PO DAILY 07/05/19 07/20/24 07/05/19 History metformin 500 mg tablet 500 mg PO BID 07/05/19 07/20/24 07/05/19 History pantoprazole 40 mg tablet,delayed 40 mg PO DAILY 07/05/19 07/20/24 07/05/19 History release roflumilast 500 mcg tablet 500 mcg PO DAILY 07/05/19 07/20/24 07/05/19 History (Daliresp) rosuvastatin 40 mg tablet 40 mg PO DAILY 07/05/19 07/20/24 07/05/19 History spironolactone 25 mg tablet 25 mg PO DAILY 07/05/19 07/20/24 07/05/19 History ticagrelor 90 mg tablet (Brilinta) 90 mg PO BID 07/05/19 07/20/24 07/05/19 History tiotropium bromide 18 mcg capsule 1 cap inhalation DAILY 07/05/19 07/20/24 Unknown History with inhalation device (Spiriva with HandiHaler) nitroglycerin 0.4 mg sublingual 0.4 mg sublingual Q5M PRN Chest 07/06/19 07/20/24 Unknown History tablet Pain cholecalciferol (vitamin D3) 25 25 mcg PO DAILY 09/07/22 07/20/24 Unknown History mcg (1,000 unit) capsule potassium chloride 10 mEq 10 meq PO DAILY 09/07/22 07/20/24 Unknown History tablet,extended release sucralfate 1 gram tablet 1 g PO TID 09/07/22 07/20/24 Unknown History albuterol sulfate 90 mcg/actuation See Rx Instructions .Route .COMPLEX 07/20/24 07/20/24 Unknown History aerosol inhaler bupropion HCl 150 mg 24 hr tablet, 150 mg PO DAILY 07/20/24 07/20/24 Unknown History extended release dapagliflozin propanediol 10 mg 10 mg PO DAILY 07/20/24 07/20/24 Unknown History tablet (Farxiga) famotidine 40 mg tablet 40 mg PO DAILY 07/20/24 07/20/24 Unknown History fluticasone fur. 200 mcg-umeclid See Rx Instructions .Route .COMPLEX 07/20/24 07/20/24 Unknown History 62.5 mcg-vilant 25 mcg inhalat.powder (Trelegy Ellipta) furosemide 20 mg tablet 20 mg PO DAILY 07/20/24 07/20/24 Unknown History glimepiride 2 mg tablet 2 mg PO DAILY 07/20/24 07/20/24 Unknown History isosorbide mononitrate 30 mg 30 mg PO DAILY 07/20/24 07/20/24 Unknown History tablet,extended release 24 hr levetiracetam 1,000 mg tablet 1,000 mg PO DAILY 07/20/24 07/20/24 Unknown History linagliptin 5 mg tablet (Tradjenta) 5 mg PO DAILY 07/20/24 07/20/24 Unknown History metoprolol tartrate 25 mg tablet 25 mg PO DAILY 07/20/24 07/20/24 Unknown History quetiapine 200 mg tablet,extended 200 mg PO DAILY 07/20/24 07/20/24 Unknown History release 24 hr roflumilast 500 mcg tablet 500 mcg PO DAILY 07/20/24 07/20/24 Unknown History valsartan 80 mg tablet 80 mg PO DAILY 07/20/24 07/20/24 Unknown History alprazolam 0.5 mg tablet mg 05/01/25 Unknown History Allergies Allergy/AdvReac Type Severity Reaction Status Date / Time levofloxacin Allergy Severe Swelling Verified 05/01/25 18:55 of Lip/Tongue/Throat Penicillins Allergy Severe Swelling Verified 05/01/25 18:55 tetracycline Allergy Severe Swelling Verified 05/01/25 18:55 Review of Systems Review of Systems: All systems are reviewed and are negative unless stated otherwise in the HPI. [facility] Past Medical History Medical History Chronic kidney disease Stage IIIA (HFpEF) heart failure with preserved ejection fraction echo from 2018 (outlying facility) shows mild to moderate left ventricular systolic dysfunction, EF 40-45% and grade 2 diastolic dysfunction. Nausea and vomiting in adult Diarrhea Iron deficiency anemia Tobacco abuse disorder Cirrhosis Post-menopausal osteoporosis Hypertriglyceridemia Hypothyroidism post tyroidectomy Diabetes GERD (gastroesophageal reflux disease) Sleep apnea cpap use COPD (chronic obstructive pulmonary disease) hx of home O22 requirement but none currently Dyslipidemia Hypertension CAD (coronary artery disease) minimal disease on cath no intervention Surgical History Surgical History History of hysterectomy for cancer with bilateral S&O 1994 H/O thyroidectomy due to thyroid cancer 1986, s/p chemo and radiation therapy History of cholecystectomy laperscopic 2012 H/O cardiac catheterization Family History Family History Mother Family history of heart disease in male family member before age 55 Family history of cardiovascular disease Diabetes mellitus Hypertension Sibling Family history of heart disease in male family member before age 55 Acute myocardial infarction Diabetes mellitus Hypertension Social History Social History Social History: The patient lives in her own home with a roommate. She has a small dog and a large cat. She continues to smoke a pack of cigarettes per day and has done so since she was 16 years old. She denies any illicit substance use. She denies ever drinking alcohol. Code status is full code. Family history: Mother with uterine cancer diabetes and MN and is still alive in her 80s. Brother with diabetes. Two other brothers with MN Smoking packs per day: 1 Smoking cigarettes per day: 20.0 Years smoked: 48 Smoking pack-years: 48.00 Smoking status: Current every day smoker Tobacco type: cigarettes Alcohol intake: never Substance use: never Lack of Transportation: YES Lack of Food: Never True Current Housing: I Have Housing Concerned About Future Housing: No Difficulty Paying Gas/Electric Bills: No Difficulty Paying for Meds: No Currently Unemployed: No Education: High School Diploma/GED Difficulty w/ Childcare or Family Care: No Living arrangements: with roommate(s) Additional living arrangements comments: Patient has a small dog and a large cat Occupation/Education: unemployed Gender identity (if verbalized by the patient): Female Spiritual care concerns: No Agree to blood products: Yes Exam Narrative: General: Alert, awake, afebrile, in no acute distress. HEENT: PERRL, no rhinorrhea, no post nasal drip, oropharynx clear. Neck: Trachea midline, no JVD, no lymphadenopathy. Cardiovascular: Regular rate and rhythm, no murmurs, rubs or gallops, no peripheral edema. Respiratory: Clear to auscultation bilaterally, tachypnea, no wheezing, no rhonchi, no rubs, no respiratory distress. Abdomen: Soft, nontender, nondistended, no rebound, no guarding, no peritoneal signs. Musculoskeletal: No joint swelling or deformity, normal muscle tone. Skin: No rashes or petechia, no signs of infection. Psychiatric: Alert and oriented, normal behavior and judgment for situation. Neurological: Alert and oriented to person, place, and time. Follows all commands. No focal deficits, speech is clear and fluent. Course Vital Signs Vital signs: Vital Signs Temperature 98.2 F 05/03/25 21:58 Pulse Rate 97 05/03/25 21:58 Respiratory Rate 22 H 05/03/25 21:58 Blood Pressure 129/65 05/03/25 21:58 Pulse Oximetry 92 05/03/25 21:58 Oxygen Delivery Room Air 05/03/25 21:58 Temperature 98.4 F 05/04/25 00:38 Pulse Rate 89 05/04/25 00:38 Respiratory Rate 21 H 05/04/25 00:38 Blood Pressure 132/57 L 05/04/25 00:38 Pulse Oximetry 93 05/04/25 00:38 Oxygen Delivery Room Air 05/04/25 00:40 Medical Decision Making MDM Narrative Medical decision making narrative: The patient was evaluated by myself in the emergency department. History is obtained from patient who is an independent historian and physical exam was performed. External medical records were reviewed at this time. IV was established and pertinent tests were ordered. EKG was obtained which revealed atrial fibrillation at a rate of 92 beats per minute, otherwise, no evidence of ischemia within the limitation of baseline artifact secondary to respiratory motion EKG was independently interpreted by me and is currently pending official cardiology read. Laboratory results obtained revealing leukocytosis of 12, proBNP of 7710 otherwise unremarkable. Patient was informed of these findings at bedside. At this time I did recommend hospital admission for IV diuresis due to concern for CHF exacerbation, however, patient review stating that she would like to go home. Patient was administered a 1 time dose of Lasix 40 mg at this time IV. Imaging studies obtained included CXR which was independently interpreted by me revealing interstitial edema and small right pleural effusion, which is pending final radiology interpretation. Differential diagnosis considerations include pulmonary edema, pleural effusion, infectious process such as pneumonia, reactive airway disease. Comorbidities impacting this visit include history of COPD and CHF. I have evaluated and discussed social determinants of health with the patient that could potentially impact subsequent diagnosis and treatment plans. On repeat assessment of the patient, reevaluation revealed that the patient is doing well and is in no acute distress. Patient symptoms have improved since she arrived to our emergency department. Repeat vital signs were all reviewed and noted to be stable. Patient is been satting well above 92% on room air during her ED stay. Differential diagnosis and treatment plan were discussed with the patient at bedside. Patient agrees with discussion and after shared medical decision making agrees with discharge. All questions were answered to the patient's satisfaction. Patient will follow up with her PCP in 3-5 days. Instructed to double on her Lasix for the next 3-5 days until she sees her primary care physician. Patient was provided with strict return precautions and instructed to return to the emergency department if any new or worsening symptoms develop. The patient was discharged in stable condition. Vital Signs Vital Signs: Vital Signs Temperature 98.2 F 05/03/25 21:58 Pulse Rate 97 05/03/25 21:58 Respiratory Rate 22 H 05/03/25 21:58 Blood Pressure 129/65 05/03/25 21:58 Pulse Oximetry 92 05/03/25 21:58 Oxygen Delivery Room Air 05/03/25 21:58 Temperature 98.4 F 05/04/25 00:38 Pulse Rate 89 05/04/25 00:38 Respiratory Rate 21 H 05/04/25 00:38 Blood Pressure 132/57 L 05/04/25 00:38 Pulse Oximetry 93 05/04/25 00:38 Oxygen Delivery Room Air 05/04/25 00:40 Lab Data 05/04/25 00:32 05/04/25 00:32 Labs: Lab Results 05/04/25 Range/Units 00:32 WBC 12.0 H (4.5-10.0) K/mm3 RBC 5.47 H (4.2-5.4) M/mm3 Hgb 14.4 D (12.0-15.0) g/dL Hct 46.7 (37.0-47.0) % MCV 85.4 (80-100) fl MCH 26.3 (26-34) pg MCHC 30.8 L (32-36) g/dl RDW 24.7 H (11.5-14.5) % Plt Count 286 (150-375) k/mm3 MPV 10.6 H (7.4-10.4) fl Immature Gran % (Auto) 0.4 (0-0.5) % Neut % (Auto) 74.4 H (45.5-73.1) % Lymph % (Auto) 15.6 L (18.3-44.2) % [place] % (Auto) 7.8 (2.6-8.5) % Eos % (Auto) 1.5 (0-4.4) % Baso % (Auto) 0.3 (0.2-1.2) % Lymph # (Auto) 1.87 (0.9-3.2) K/mm3 [place] # (Auto) 0.9 H (0.1-0.6) K/mm3 Eos # (Auto) 0.2 (0-0.3) K/mm3 Baso # (Auto) 0.0 (0.0-0.1) K/mm3 Abs Immat Gran (auto) 0.05 H (0.00-0.031) K/mm3 Absolute Neuts (auto) 8.9 H (1.3-6.7) K/mm3 Absolute Nucleated RBC 0.000 (0.0-0.012) K/mm3 Band Neutrophils % Not Reportable Nucleated RBC % 0.0 (0.0-0.2) % Platelet Estimate Adequate (Adequate) Hypochromasia 1+ Anisocytosis 1+ Schistocytes None seen Sodium 132 L (137-145) mmol/L Potassium 3.8 (3.4-5.0) mmol/L Chloride 92 L (98-107) mmol/L Carbon Dioxide 36 H (22-30) mmol/L Anion Gap 4 (4-12) mmol/L BUN 19 H (7-17) mg/dL Creatinine 0.93 (0.7-1.0) mg/dL Estim Creat Clear Calc 47 ml/min Estimated GFR 59 (59 - ) Glucose 101 (65-110) mg/dL Calcium 8.7 (8.4-10.2) mg/dL Magnesium 2.1 (1.6-2.3) mg/dL Total Bilirubin 0.6 (0.2-1.3) mg/dL AST 30 (14-36) U/L ALT 14 (6-35) U/L Alkaline Phosphatase 55 (38-126) U/L NT-Pro-B Natriuret Pep 7710 H (19.9-100) pg/mL Total Protein 7.4 (6.3-8.2) g/dL Albumin 3.9 (3.5-5.1) g/dL Discharge Plan Discharge Clinical Impression: Pleural effusion on right, Fluid overload, CHF exacerbation Patient Disposition: Home Condition: Improved Instructions: Antibiotic Form, Heart Failure (DC) Additional Instructions: Your recommended hospital admission for IV diuresis, however your refused. You were informed to double on your 20 mg Lasix, take it twice a day instead of once a day for the next 3-5 days until you follow-up with your family doctor. Return to ED if any new or worsening symptoms develop. Patient Language: Azeri Prescriptions: No Action metformin 500 mg tablet 500 mg PO BID Rx Instructions: take with meals spironolactone 25 mg tablet 25 mg PO DAILY levothyroxine 75 mcg tablet 75 mcg PO DAILY pantoprazole 40 mg tablet,delayed release (DR/EC) 40 mg PO DAILY rosuvastatin 40 mg tablet 40 mg PO DAILY tiotropium bromide [Spiriva with HandiHaler] 18 mcg capsule, w/inhalation device 1 cap INHALATION DAILY fenofibrate 160 mg tablet 160 mg PO DAILY budesonide-formoterol [Symbicort] 160-4.5 mcg/actuation HFA aerosol inhaler 2 puff INHALATION BID roflumilast [Daliresp] 500 mcg tablet 500 mcg PO DAILY ticagrelor [Brilinta] 90 mg tablet 90 mg PO BID famotidine 40 mg tablet 40 mg PO DAILY isosorbide mononitrate 30 mg tablet extended release 24 hr 30 mg PO DAILY valsartan 80 mg tablet 80 mg PO DAILY glimepiride 2 mg tablet 2 mg PO DAILY furosemide 20 mg tablet 20 mg PO DAILY albuterol sulfate 90 mcg/actuation HFA aerosol inhaler See Rx Instructions .ROUTE .COMPLEX Rx Instructions: Rx bupropion HCl 150 mg tablet extended release 24 hr 150 mg PO DAILY metoprolol tartrate 25 mg tablet 25 mg PO DAILY levetiracetam 1,000 mg tablet 1,000 mg PO DAILY quetiapine 200 mg tablet extended release 24 hr 200 mg PO DAILY roflumilast 500 mcg tablet 500 mcg PO DAILY Tradjenta 5 mg tablet 5 mg PO DAILY dapagliflozin propanediol [Farxiga] 10 mg tablet 10 mg PO DAILY Trelegy Ellipta 200-62.5-25 mcg blister with device See Rx Instructions .ROUTE .COMPLEX Rx Instructions: Rx alprazolam 0.5 mg tablet furosemide [Lasix] 20 mg tablet 20 mg PO DAILY 7 Days Qty: 7 0RF clindamycin HCl [Cleocin HCl] 300 mg capsule 300 mg PO Q8H 7 Days Qty: 21 0RF nitroglycerin 0.4 mg Tablet, Sublingual 0.4 mg SUBLINGUAL Q5M PRN (Reason: Chest Pain) sucralfate 1 gram tablet 1 g PO TID potassium chloride 10 mEq tablet extended release 10 meq PO DAILY cholecalciferol (vitamin D3) 25 mcg (1,000 unit) capsule 25 mcg PO DAILY ascorbic acid (vitamin C) [Vitamin C] 500 mg Tablet 500 mg PO DAILY Qty: 30 0RF ferrous sulfate [Slow Release Iron] 142 mg (45 mg iron) Tablet Extended Release 142 mg PO DAILY@0800 Qty: 60 0RF Follow-up/Referrals: Natalia,ERIKA Vidal [Primary Care Provider, Unknown] - 3 Days Time of Disposition: 01:47
[2025-05-04 02:12] VITALS: BP 108/85; PULSE 109; RESP 28; TEMP 36.7; O2SAT 94
== END 2025-05-04 02:22 | disposition home or self-care (01) ==
PROVIDERS: Emergency Provider Emergency Medicine; PCP Physician Assistant
DX: I13.0 Hypertensive heart and chronic kidney disease with heart failure and stage 1 through stage 4 chronic kidney disease, or unspecified chronic kidney disease (principal); N18.31 Chronic kidney disease, stage 3a; I50.9 Heart failure, unspecified; J90 Pleural effusion, not elsewhere classified; E87.70 Fluid overload, unspecified; J44.9 Chronic obstructive pulmonary disease, unspecified; E11.22 Type 2 diabetes mellitus with diabetic chronic kidney disease; E03.9 Hypothyroidism, unspecified; F17.210 Nicotine dependence, cigarettes, uncomplicated
CPT/HCPCS: 36415; 70450; 71045; 80053; 83735; 83880; 85025; 93005; 96374; 99284; J1938